=== PATIENT | female | born 1945 | race Caucasian/White ===

== ENCOUNTER 2018-04-04 17:47 | Emergency (ER) | payer MEDICARE ==
[~2018-04-04] VITALS: Ht 154.9 cm; Wt 65.0 kg
[2018-04-04 17:50] VITALS: BP 184/96; PULSE 120; RESP 32; RESP 43; TEMP 97.8; O2SAT 66
[2018-04-04] MEDS ORDERED: LEVALBUTEROL NEB ONE (18:00)
[2018-04-04] MEDS ORDERED: methylPREDNISolone SOD SUCC 125 MG/2 ML VIAL IV PUSH ONE (18:00)
[2018-04-04] MEDS ORDERED: RESP: IPRATROPIUM 0.5 MG/2.5 ML NEB NEB ONE (18:00)
[2018-04-04] MEDS ORDERED: SODIUM CHLORIDE 0.9% FLUSH 10 ML FLUSH IVF PRN (18:00)
[2018-04-04 18:03] VITALS: BP 187/84; PULSE 94; RESP 31; TEMP 97.8; O2SAT 99
--- NOTE | 2018-04-04 18:07 | PD ---
HPI Chief Complaint: Respiratory Symptoms Time Seen by Provider: 17:53 Travel History International Travel<30 days: No Contact w/Intl Traveler<30days: No Traveled to known affect area: No History of Present Illness HPI 73-year-old female patient with history of COPD, presents to the ER today for 2 days of shortness of breath, not improving with nebulizers at home, sent in by primary care physician. In the ER, her saturations are 66% and she is having visible shortness of breath. She denies any chest pains, fevers, or other symptoms. Modifying Factors: None Associated Signs & Symptoms: Shortness of breath, respiratory distress, hypoxia Risk Factors: COPD history PFSH Past Medical History Medical History: Unable to Obtain Tetanus Vaccination: Unknown Past Surgical History Surgical History: Unable to Obtain Social History Alcohol Use: No Tobacco Use: No Substance Use: No Allergies-Medications (Allergen,Severity, Reaction): Coded Allergies: albuterol (Verified Allergy, Unknown, 04/04/18) latex (Verified Allergy, Unknown, 04/04/18) meperidine (Verified Allergy, Unknown, 04/04/18) Reported Meds & Prescriptions Reported Meds & Active Scripts Active Active Prescriptions or Reported Medications Unobtainable Review of Systems Except as stated in HPI: all other systems reviewed are Neg Physical Exam Narrative GENERAL: Well-developed elderly female patient currently and moderate respiratory distress. Awake and oriented 3. SKIN: Focused skin assessment warm/dry. HEAD: Atraumatic. Normocephalic. EYES: Pupils equal and round. No scleral icterus. No injection or drainage. ENT: No nasal bleeding or discharge. Mucous membranes pink and moist. NECK: Trachea midline. No JVD. CARDIOVASCULAR: Regular rate and rhythm. No murmur appreciated. RESPIRATORY: Notable accessory muscle use. Bilateral decreased breath sounds, mild wheezes. Breath sounds equal bilaterally. GASTROINTESTINAL: Abdomen soft, non-tender, nondistended. Hepatic and splenic margins not palpable. MUSCULOSKELETAL: No obvious deformities. No clubbing. No cyanosis. No edema. NEUROLOGICAL: Awake and alert. No obvious cranial nerve deficits. Motor grossly within normal limits. Normal speech. PSYCHIATRIC: Appropriate mood and affect; insight and judgment normal. Data Data Last Documented VS Vital Signs Date Time Temp Pulse Resp B/P (MAP) Pulse Ox O2 Delivery O2 Flow Rate FiO2 04/04/18 18:03 97.8 94 31 187/84 (118) 99 Nasal Cannula 100 Orders Orders Complete Blood Count With Diff (04/04/18 17:53) Comprehensive Metabolic Panel (04/04/18 17:53) B-Type Natriuretic Peptide (04/04/18 17:53) Blood Culture (04/04/18 17:53) Iv Access Insert/Monitor (04/04/18 17:53) Electrocardiogram (04/04/18 17:53) Ecg Monitoring (04/04/18 17:53) Oximetry (04/04/18 17:53) Oxygen Administration (04/04/18 17:53) Chest, Single Ap (04/04/18 17:53) Sodium Chloride 0.9% Flush (Ns Flush) (04/04/18 18:00) Methylprednisolone So Succ Inj (Solumedr (04/04/18 18:00) Ipratropium Neb (Atrovent Neb) (04/04/18 18:00) (Nf) Xopenex (04/04/18 18:00) Labs Laboratory Tests Test 04/04/18 18:05 White Blood Count 15.4 TH/MM3 Red Blood Count 4.92 MIL/MM3 Hemoglobin 14.4 GM/DL Hematocrit 44.8 % Mean Corpuscular Volume 91.1 FL Mean Corpuscular Hemoglobin 29.3 PG Mean Corpuscular Hemoglobin Concent 32.1 % Red Cell Distribution Width 14.0 % Platelet Count 338 TH/MM3 Mean Platelet Volume 8.7 FL Neutrophils (%) (Auto) 85.7 % Lymphocytes (%) (Auto) 7.3 % Monocytes (%) (Auto) 6.7 % Eosinophils (%) (Auto) 0.1 % Basophils (%) (Auto) 0.2 % Neutrophils # (Auto) 13.2 TH/MM3 Lymphocytes # (Auto) 1.1 TH/MM3 Monocytes # (Auto) 1.0 TH/MM3 Eosinophils # (Auto) 0.0 TH/MM3 Basophils # (Auto) 0.0 TH/MM3 CBC Comment DIFF FINAL Differential Comment Blood Urea Nitrogen 23 MG/DL Creatinine 1.55 MG/DL Random Glucose 129 MG/DL Total Protein 7.9 GM/DL Albumin 4.0 GM/DL Calcium Level 9.2 MG/DL Alkaline Phosphatase 124 U/L Aspartate Amino Transf (AST/SGOT) 28 U/L Alanine Aminotransferase (ALT/SGPT) 23 U/L Total Bilirubin 0.4 MG/DL Sodium Level 143 MEQ/L Potassium Level 4.6 MEQ/L Chloride Level 106 MEQ/L Carbon Dioxide Level 24.2 MEQ/L Anion Gap 13 MEQ/L Estimat Glomerular Filtration Rate 33 ML/MIN MDM Medical Decision Making Medical Screen Exam Complete: Yes Emergency Medical Condition: Yes Medical Record Reviewed: Yes Interpretation(s) Laboratory Tests Test 04/04/18 18:05 White Blood Count 15.4 TH/MM3 (4.0-11.0) Neutrophils (%) (Auto) 85.7 % (16.0-70.0) Lymphocytes (%) (Auto) 7.3 % (9.0-44.0) Neutrophils # (Auto) 13.2 TH/MM3 (1.8-7.7) Monocytes # (Auto) 1.0 TH/MM3 (0-0.9) Blood Urea Nitrogen 23 MG/DL (7-18) Creatinine 1.55 MG/DL (0.50-1.00) Random Glucose 129 MG/DL (74-106) Alkaline Phosphatase 124 U/L (45-117) Estimat Glomerular Filtration Rate 33 ML/MIN (>89) Differential Diagnosis COPD exacerbation versus pneumonia versus bronchitis versus CHF Narrative Course Solu-Medrol was given in the ER. Atrovent and Xopenex was given by me because patient states that she had a bad reaction to albuterol. Chest x-ray was ordered for further evaluation. Physician Communication Physician Communication Case is signed out at [address] De Oliveira pending reevaluation after meds. Disposition based on reevaluation. Diagnosis Primary Impression: Shortness of breath Scripts Unable to Obtain Active Prescriptions or Reported Meds Marine Barajas MD April 04, 2018 18:07
[2018-04-04 18:37] LABS: AUTOMATED NEUTROPHIL # 13.2 TH/MM3 (1.8-7.7); BASOPHIL % 0.2 % (0.0-2.0); EOSINOPHIL % 0.1 % (0.0-4.0); HEMATOCRIT 44.8 % (35.0-46.0); HEMOGLOBIN 14.4 GM/DL (11.6-15.3); LYMPH % 7.3 % (9.0-44.0); LYMPHOCYTE # 1.1 TH/MM3 (1.0-4.8); MEAN CELL VOLUME 91.1 FL (80.0-100.0); MEAN CORPUSCULAR HEMOGLOBIN 29.3 PG (27.0-34.0); MEAN CORPUSCULAR HGB CONC 32.1 % (32.0-36.0); MEAN PLATELET VOLUME 8.7 FL (7.0-11.0); MONO % 6.7 % (0.0-8.0); NEUT % 85.7 % (16.0-70.0); PLATELET COUNT 338 TH/MM3 (150-450); RED BLOOD COUNT 4.92 MIL/MM3 (4.00-5.30); WHITE BLOOD COUNT 15.4 TH/MM3 (4.0-11.0)
[2018-04-04 18:52] LABS: AST (GOT) 28 U/L (15-37); BICARBONATE 24.2 MEQ/L (21.0-32.0); BLOOD UREA NITROGEN 23 MG/DL (7-18); CALCIUM 9.2 MG/DL (8.5-10.1); CHLORIDE 106 MEQ/L (98-107); CREATININE 1.55 MG/DL (0.50-1.00); GLOMERULAR FILTRATION RATE 33 ML/MIN (>89); GLUCOSE,RANDOM 129 MG/DL (74-106); SODIUM (NA) 143 MEQ/L (136-145)
[2018-04-04 18:53] LABS: ALKALINE PHOSPHATASE 124 U/L (45-117); ALT (GPT) 23 U/L (10-53); TOTAL BILIRUBIN ADULT 0.4 MG/DL (0.2-1.0); TOTAL PROTEIN 7.9 GM/DL (6.4-8.2)
[2018-04-04] MEDS ORDERED: RESP: LEVALBUTEROL HYDROCHLORIDE 0.63 MG/3 ML NEB (SCH) NEB ONE (19:30)
[2018-04-04 19:55] VITALS: BP 151/89; PULSE 96; RESP 24; O2SAT 93
--- NOTE | 2018-04-04 19:59 | PD ---
Physical Exam Date Seen by Provider: April 04, 2018 Time Seen by Provider: 19:57 Narrative pt signed out to me at change of shift and is on nebs and solumedrol to correct resp distress of COPD pt allergic to albuterol gets tachycardia and she is on home xopenenx and Oxygen 3 liters . pt is holding @ 92% on3 liter nasal canula pt insists she is safe to go home has O2 and pulsox meter at home and would like to try ouitpt follow instead of admission that I offer her. will add atrovent and increase prednisone and she will see Edward tomorrow Data Data Last Documented VS Orders Orders Complete Blood Count With Diff (04/04/18 17:53) Comprehensive Metabolic Panel (04/04/18 17:53) B-Type Natriuretic Peptide (04/04/18 17:53) Blood Culture (04/04/18 17:53) Iv Access Insert/Monitor (04/04/18 17:53) Electrocardiogram (04/04/18 17:53) Ecg Monitoring (04/04/18 17:53) Oximetry (04/04/18 17:53) Oxygen Administration (04/04/18 17:53) Chest, Single Ap (04/04/18 17:53) Sodium Chloride 0.9% Flush (Ns Flush) (04/04/18 18:00) Methylprednisolone So Succ Inj (Solumedr (04/04/18 18:00) Ipratropium Neb (Atrovent Neb) (04/04/18 18:00) Levalbuterol Neb (Xopenex Neb) (04/04/18 19:30) Levofloxacin (Levaquin) (04/04/18 21:45) Ed Discharge Order (04/04/18 21:46) Labs Laboratory Tests Test 04/04/18 18:05 White Blood Count 15.4 TH/MM3 Red Blood Count 4.92 MIL/MM3 Hemoglobin 14.4 GM/DL Hematocrit 44.8 % Mean Corpuscular Volume 91.1 FL Mean Corpuscular Hemoglobin 29.3 PG Mean Corpuscular Hemoglobin Concent 32.1 % Red Cell Distribution Width 14.0 % Platelet Count 338 TH/MM3 Mean Platelet Volume 8.7 FL Neutrophils (%) (Auto) 85.7 % Lymphocytes (%) (Auto) 7.3 % Monocytes (%) (Auto) 6.7 % Eosinophils (%) (Auto) 0.1 % Basophils (%) (Auto) 0.2 % Neutrophils # (Auto) 13.2 TH/MM3 Lymphocytes # (Auto) 1.1 TH/MM3 Monocytes # (Auto) 1.0 TH/MM3 Eosinophils # (Auto) 0.0 TH/MM3 Basophils # (Auto) 0.0 TH/MM3 CBC Comment DIFF FINAL Differential Comment Blood Urea Nitrogen 23 MG/DL Creatinine 1.55 MG/DL Random Glucose 129 MG/DL Total Protein 7.9 GM/DL Albumin 4.0 GM/DL Calcium Level 9.2 MG/DL Alkaline Phosphatase 124 U/L Aspartate Amino Transf (AST/SGOT) 28 U/L Alanine Aminotransferase (ALT/SGPT) 23 U/L Total Bilirubin 0.4 MG/DL Sodium Level 143 MEQ/L Potassium Level 4.6 MEQ/L Chloride Level 106 MEQ/L Carbon Dioxide Level 24.2 MEQ/L Anion Gap 13 MEQ/L Estimat Glomerular Filtration Rate 33 ML/MIN B-Type Natriuretic Peptide 40 PG/ML MDM Medical Record Reviewed: Yes Supervised Visit with SHARMAINE: No Narrative Course pt is greatly improved and feels better wnats to go home she received solumdedrol and duo neb without albuterol on xopenex and atrovent, pt has PCP Dr Leon at our clinic and can see him tomorrow ,. Patient on 2 L at the satting to 87 even after 2 nebs as well as Solu-Medrol 125. Patient does have oxygen at home and if she is holding 3 L I will still may discharge her with adding Atrovent to her nebs at home and giving her increase in her prednisone she already takes 10 mg of prednisone daily she was given 125 of Solu -Medrol here and will need an increased dose for a few days if she is able to be discharged home Diagnosis Primary Impression: Shortness of breath Additional Impression: COPD exacerbation Patient Instructions: COPD (Chronic Obstructive Pulmonary Disease) (ED), General Instructions, Nutrition Guidelines for People with COPD (ED) Scripts Levofloxacin (Levaquin) 750 Mg Tablet 750 MG PO DAILY for Infection, #5 TAB 0 Refills Prov: Jose Luis De Oliveira MD 04/04/18 Prednisone (Prednisone) 50 Mg Tab 50 MG PO DAILY, #5 TAB 0 Refills Prov: Jose Luis De Oliveira MD 04/04/18 Ipratropium Neb (Ipratropium Neb) 0.5 Mg/2.5 Ml Amp 0.5 MG NEB Q6HR NEB for Breathing Treatment, #60 NEBULE 0 Refills Prov: Jose Luis De Oliveira MD 04/04/18 Disposition: 01 DISCHARGE HOME Condition: Jose Luis Prieto MD April 04, 2018 19:59
--- NOTE | 2018-04-04 20:50 | RADRPT ---
EXAM DATE: 04/04/2018 8:43 PM EDT AGE/SEX: 73 years / Female INDICATIONS: Shortness of breath. CLINICAL DATA: This is the patient's initial encounter. Patient reports that signs and symptoms have been present for 1 day and indicates a pain score of 0/10. MEDICAL/SURGICAL HISTORY: Asthma. Chronic obstructive pulmonary disease. None. COMPARISON: No prior [facility] exams available for comparison. FINDINGS: A single AP view of the chest demonstrates the lungs to be symmetrically aerated without evidence of mass, infiltrate or effusion. The cardiomediastinal contours are unremarkable. Osseous structures a re intact. CONCLUSION: 1. No acute cardiopulmonary disease. Electronically signed by: Billy Oneil MD 04/04/2018 8:48 PM EDT
[2018-04-04] MEDS ORDERED: IPRA0.02 NEB (21:44)
[2018-04-04] MEDS ORDERED: PRED50 PO (21:45)
[2018-04-04] MEDS ORDERED: LEVOFLOXACIN 750 MG TAB PO ONE (21:45)
[2018-04-04] MEDS ORDERED: LEVA750T9 PO (21:48)
--- NOTE | 2018-04-06 08:20 | EKG ---
Date Performed: 04/04/2018 Time Performed: 17:59:58 PTAGE: 73 years EKG: SUPRAVENTRICULAR RHYTHM MODERATE ST DEPRESSION ABNORMAL ECG NO PREVIOUS TRACING DOCTOR: Shmuel Ingram Interpretating Date/Time 04/06/2018 08:15:08
== END 2018-04-04 22:15 | disposition home or self-care (01) ==
LOC: NEPE 17:47
DX: J44.1 Chronic obstructive pulmonary disease with (acute) exacerbation (principal)
CPT/HCPCS: 71045; 80053; 83880; 85025; 87040; 93005; 94640; 94664; 96374; 99285; J2930; J7614; J7644

== ENCOUNTER 2018-09-15 13:36 | Inpatient (IN) ==
[2018-09-15] MEDS ORDERED: MethylPREDNISolone Sod Succinate Inj 125 MG/2 ML Vial IV.PUSH ONE (13:48)
--- NOTE | 2018-09-15 13:51 | ED ---
HPI General Chief Complaint: Shortness of Breath/Dyspnea Stated Complaint: SOB Time Seen by Provider: 09/15/18 13:48 Source: patient and family Mode of arrival: ambulatory Limitations: no limitations History of Present Illness On oxygen at home presents to the ER today for several days of worsening dyspnea on exertion and shortness of breath, her states that she has been using her nebulizers but have been using more more of her Xopenex. Patient states she is nauseous but denies any chest pains, fevers, abdominal pains, or other symptoms. Related Data Home Medications Medication Instructions Recorded Confirmed alprazolam 09/15/18 alprazolam [Xanax] 09/15/18 diltiazem HCl 09/15/18 ipratropium bromide 09/15/18 levalbuterol HCl [Xopenex] 09/15/18 levalbuterol tartrate [Xopenex HFA] 09/15/18 metronidazole 500 mg PO QID 09/15/18 09/15/18 mometasone-formoterol [Dulera] 09/15/18 montelukast 10 mg PO QPM 09/15/18 09/15/18 pantoprazole 40 mg PO DAILY 09/15/18 09/15/18 prednisone 10 mg PO DAILY 09/15/18 09/15/18 tiotropium bromide [Spiriva 09/15/18 Respimat] Allergies Allergy/AdvReac Type Severity Reaction Status Date / Time albuterol Allergy Unknown Rash Verified 09/15/18 13:41 latex Allergy Unknown Anaphylaxis Verified 09/15/18 13:41 meperidine Allergy Unknown Hives Verified 09/15/18 13:41 Review of Systems ROS: all other systems reviewed are negative PMFSH History History Provided By: Patient Social History Social History Substance History: No History of Abuse Second Hand Smoke Exposure: No Smoking Status: Former smoker Tobacco Type: Cigarettes How Often Do You Have a Drink Containing Alcohol: Monthly or less Recent Travel in [facility] within the Last 8 Weeks: No Recent Out of Country Travel within the Last 8 Weeks: No Exam Narrative Exam Narrative: GENERAL: Well-developed elderly white female patient currently in moderate respiratory distress. Awake and oriented x3. SKIN: Focused skin assessment warm/dry. HEAD: Atraumatic. Normocephalic. EYES: Pupils equal and round. No scleral icterus. No injection or drainage. ENT: No nasal bleeding or discharge. Mucous membranes pink and moist. NECK: Trachea midline. No JVD. CARDIOVASCULAR: Regular rate and rhythm. No murmur appreciated. RESPIRATORY: Moderate accessory muscle use. Decreased to auscultation, mild wheezing bilaterally. Breath sounds equal bilaterally. GASTROINTESTINAL: Abdomen soft, non-tender, nondistended. Hepatic and splenic margins not palpable. MUSCULOSKELETAL: No obvious deformities. No clubbing. No cyanosis. No edema. NEUROLOGICAL: Awake and alert. No obvious cranial nerve deficits. Motor grossly within normal limits. Normal speech. PSYCHIATRIC: Appropriate mood and affect; insight and judgment normal. Course Initial Documented Vital Signs Temperature 98.5 F 09/15/18 13:37 Pulse Rate 144 H 09/15/18 13:37 Respiratory Rate 16 09/15/18 13:37 Pulse Oximetry 60 L 09/15/18 13:37 Last Documented Vital Signs Temperature 98.5 F 09/15/18 13:37 Pulse Rate 118 H 09/15/18 14:55 Respiratory Rate 24 09/15/18 14:55 Blood Pressure 174/124 H 09/15/18 13:55 Pulse Oximetry 100 09/15/18 13:55 Medical Decision Making MDM Narrative Medical decision making narrative: Chest x-ray is concerning for possible early pneumonia. IV antibiotics were given after cultures were drawn. Patient was given nebulizers and Solu-Medrol in the ER. After about 4 doses of nebulizers, she feels improved but her saturations are still low. At this point, my plan would be to admit her for further evaluation and treatment. Case is discussed with family practice resident service for admission. Medical Screen Exam Complete: Yes Emergency Medical Condition: Yes Differential Diagnosis Differential Diagnosis: COPD exacerbation versus bronchitis versus pneumonia versus CHF Lab Data Lab results reviewed: Yes I reviewed the patient's lab results. Result diagrams: 09/15/18 13:49 09/15/18 13:49 Lab Results 09/15/18 09/15/18 09/15/18 Range/Units 13:49 13:49 13:49 WBC 18.6 H (4.0-11.0) th/mm3 RBC 4.80 (4.00-5.30) mil/mm3 Hgb 13.9 (11.6-15.3) gm/dL Hct 43.2 (35.0-46.0) % MCV 90.2 (80.0-100.0) fL MCH 29.0 (27.0-34.0) pg MCHC 32.1 (32.0-36.0) % RDW 15.6 (11.6-17.2) % Plt Count 317 (150-450) th/mm3 MPV 8.4 (7.0-11.0) fL Prelim Diff (Auto) Slide review pending Neut % (Auto) 86.0 H (16.0-70.0) % Lymph % (Auto) 4.8 L (9.0-44.0) % Walker % (Auto) 7.6 (0.0-8.0) % Eos % (Auto) 1.1 (0.0-4.0) % Baso % (Auto) 0.5 (0.0-2.0) % Neut # (Auto) 16.0 H (1.8-7.7) th/mm3 Lymph # (Auto) 0.9 L (1.0-4.8) th/mm3 Walker # (Auto) 1.4 H (0.0-0.9) th/mm3 Eos # (Auto) 0.2 (0.0-0.4) th/mm3 Baso # (Auto) 0.1 (0.0-0.2) th/mm3 WBC Differential . Diff Scan Auto diff confirmed Differential Comment . Sodium 140 (136-145) meq/L Potassium 4.2 (3.5-5.1) meq/L Chloride 104 (98-107) meq/L Carbon Dioxide 27.4 (21.0-32.0) meq/L Anion Gap 9 (5-15) meq/L BUN 19 H (7-18) mg/dL Creatinine 1.10 H (0.50-1.00) mg/dL Estimated GFR 49 L (>89) mL/min Random Glucose 204 H (74-106) mg/dL Calcium 8.7 (8.5-10.1) mg/dL Total Bilirubin 0.4 (0.2-1.0) mg/dL AST 24 (15-37) U/L ALT 20 (10-53) U/L Alkaline Phosphatase 119 H (45-117) U/L Troponin I Less than 0.02 L (0.02-0.05) ng/mL B-Natriuretic Peptide 86 (0-100) pg/mL Total Protein 7.8 (6.4-8.2) g/dL Albumin 3.5 (3.4-5.0) g/dL Imaging Data Attestation: I personally reviewed and interpreted this imaging study as follows : Radiologist's impression: Chest X-Ray 09/15/18 13:48 CONCLUSION: Atelectasis versus mild consolidation of left lung base. ECG Data Attestation: I personally reviewed and interpreted this ECG as follows: Interpretation: EKG shows sinus tachycardia rate of 125 bpm with frequent APCs. Discharge Plan Discharge Disposition Patient Disposition: 30 Still Patient Discharge Condition Condition: Stable Discharge Details Anticipated Discharge Date: 09/15/18 Diagnosis: Community acquired pneumonia, Acute exacerbation of chronic obstructive airways disease Physicians Team ED Provider: Marnie Barajas Primary Care Provider: Mj Leon Rxs /Orders / Referrals /Forms Prescriptions: No Action prednisone 10 mg Tablet 10 mg PO DAILY RF: 0 alprazolam [Xanax] 0.5 mg Tablet RF: 0 levalbuterol HCl [Xopenex] 1.25 mg/3 mL Solution For Nebulization RF: 0 ipratropium bromide 0.02 % Solution RF: 0 levalbuterol tartrate [Xopenex HFA] 45 mcg/actuation Hfa Aerosol Inhaler RF: 0 tiotropium bromide [Spiriva Respimat] 2.5 mcg/actuation Mist RF: 0 metronidazole 500 mg Tablet 500 mg PO QID RF: 0 alprazolam 0.5 mg Tablet RF: 0 pantoprazole 40 mg Tablet,Delayed Release (Dr/Ec) 40 mg PO DAILY RF: 0 montelukast 10 mg Tablet 10 mg PO QPM RF: 0 diltiazem HCl 360 mg Tablet Extended Release 24 Hr RF: 0 mometasone-formoterol [Dulera] 200-5 mcg/actuation Hfa Aerosol Inhaler RF: 0 Discharge Interventions Interventions: Vital Signs Last Done: 09/15/18 13:55 Status ED Status: With Doctor
[2018-09-15 14:06] LABS: Baso # (Auto) 0.1 th/mm3 (0.0-0.2); Baso % (Auto) 0.5 % (0.0-2.0); Eos # (Auto) 0.2 th/mm3 (0.0-0.4); Eos % (Auto) 1.1 % (0.0-4.0); Hematocrit 43.2 % (35.0-46.0); Hemoglobin 13.9 gm/dL (11.6-15.3); Lymph # (Auto) 0.9 th/mm3 (1.0-4.8); Lymph % (Auto) 4.8 % (9.0-44.0); Mean Corpuscular HGB Conc 32.1 % (32.0-36.0); Mean Corpuscular Volume 90.2 fL (80.0-100.0); Mean Platelet Volume 8.4 fL (7.0-11.0); Mono # (Auto) 1.4 th/mm3 (0.0-0.9); Mono % (Auto) 7.6 % (0.0-8.0); Platelet Count 317 th/mm3 (150-450); Red Cell Distribution Width 15.6 % (11.6-17.2); White Blood Count 18.6 th/mm3 (4.0-11.0)
--- NOTE | 2018-09-15 14:09 | XR ---
EXAM DATE: 09/15/2018 2:05 PM EDT AGE/SEX: 73 years / Female INDICATIONS: Shortness of breath. CLINICAL DATA: This is the patient's initial encounter. Patient reports that signs and symptoms have been present for 1 day and indicates a pain score of 0/10. MEDICAL/SURGICAL HISTORY: Chronic obstructive pulmonary disease. Hypertension. Asthma. None. COMPARISON: [facility] [place], CHEST SINGLE AP, 04/04/2018. . FINDINGS: Single AP view the chest. Patchy opacity at the left lung base indicating atelectasis vers us mild consolidation. Cardiomediastinal silhouette within normal limits. No evidence of pleural eff usion or pneumothorax. CONCLUSION: Atelectasis versus mild consolidation of left lung base. Electronically signed by: Artemio Edward MD 09/15/2018 2:08 PM EDT
[2018-09-15 14:25] LABS: Alkaline Phosphatase 119 U/L (45-117); Total Protein 7.8 g/dL (6.4-8.2)
[2018-09-15 14:32] LABS: Alanine Aminotransferase 20 U/L (10-53); Albumin 3.5 g/dL (3.4-5.0); Anion Gap 9 meq/L (5-15); Aspartate Aminotransferase 24 U/L (15-37); Blood Urea Nitrogen 19 mg/dL (7-18); Calcium 8.7 mg/dL (8.5-10.1); Carbon Dioxide 27.4 meq/L (21.0-32.0); Chloride 104 meq/L (98-107); Glomerular Filtration Rate 49 mL/min (>89); Glucose,Random 204 mg/dL (74-106); Sodium 140 meq/L (136-145)
[2018-09-15 14:40] LABS: Potassium 4.2 meq/L (3.5-5.1)
--- NOTE | 2018-09-15 16:38 | P.HPFP ---
History of Present Illness Primary Care Physician: Mj Leon MD <Ryder Brewer L - 09/16/18 13:28> Mj Leon MD <Zeeshan Walters O - 09/15/18 16:38> History of Present Illness: This patient is a 73-year-old female with a past medical history significant for COPD on home oxygen, and anxiety who was admitted for shortness of breath. Patient reports that due to her COPD she is chronically short of breath over the last few weeks her shortness of breath has began to worsen. She reports that she was at her PCPs office (Dr. Leon) today when she was told to come to the ED for difficulty breathing. 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 She reports that she has had occasional coughing that is infrequent. She denies any sputum production. Patient does endorse that when she bends over her nose begins to run but this has happened to her entire life. Patient denies any other associated symptoms and reports that her shortness of breath is exacerbated by activity. She denies any recent travel, history of CHF, or history of intubation. She also denies being admitted to any medical facility the last 3 months. She has no recent illnesses. Patient reports nausea without vomiting but denies any chest pain diarrhea, constipation, urinary symptoms, or dizziness. Patient reports he got her flu shot this year but has not received her pneumococcal vaccination. Of note: Patient reports to be very anxious and suffers from claustrophobia. She reports that she had the doors at home removed due to this phobia. 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 to for 36 years 3 boys Used to manage golf course for 7 years Smoking- started at 15 yrs old and quit in , 36 years-2ppd Denies alcohol use Denies illicit drug use FHx: DM Mom- heart disease- at 69 Allergies: Demerol- hypotension CODE STATUS: Full code <Zeeshan Walters - 09/15/18 19:14> - Diagnosis (1) Shortness of breath at rest (2) COPD (chronic obstructive pulmonary disease) (3) Anxiety (4) Hypertension (5) Nutrition, metabolism, and development symptoms <Walters,Jose Yanely - 09/15/18 19:15> (1) COPD (chronic obstructive pulmonary disease) (2) Bacteremia (3) Shortness of breath at rest (4) Anxiety (5) Hypertension (6) Nutrition, metabolism, and development symptoms <Ryder Brewer Daniel - 09/16/18 13:28> Inpatient Certification: I certify that the inpatient services were ordered in accordance with Medicare regulations governing the order. This includes certification that hospital inpatient services are reasonable and necessary and in the case of services not specified as inpatient-only under 42 CFR 419.22(n), that they are appropriately provided as inpatient services in accordance to with the 2-midnight benchmark under 43 CFR 412.3(e) <OsmanRyder Daniel - 09/16/18 13:28> Review of Systems Constitutional: Denies chills, Denies fever(s), Denies headache(s), Denies dizziness, Eyes: Denies change in vision, Denies double vision, Denies blurry vision Cardiovascular: Denies chest pain, Denies fast heart rate, Denies rapid, pounding, or irregular heartbeat Respiratory: Endorses shortness of breath as well as infrequent coughs over the last 3 weeks, denies sputum production Gastrointestinal: Denies abdominal pain, Denies constipation, Denies loose stools, Denies nausea, Denies vomiting Genitourinary: Endorses urinary incontinence due to prolapse, Denies painful urination, Denies urinary frequency, Denies blood in urine <Zeeshan Walters - 09/15/18 19:14> [facility] - History History Provided By: Patient <RomeoZeeshan Ny - 09/15/18 16:38> - Medical History Medical History: Medical History (Last Reviewed 09/15/18 @ 13:53 by Irma Treviño) COPD (chronic obstructive pulmonary disease) HTN (hypertension) <OsmanRyder Daniel - 09/16/18 13:28> Medical History (Last Reviewed 09/15/18 @ 13:53 by Irma Treviño) COPD (chronic obstructive pulmonary disease) HTN (hypertension) <Zeeshan Walters - 09/15/18 16:38> - Tobacco History Second Hand Smoke Exposure: No <Zeeshan Walters 09/15/18 16:38> Tobacco Use In Past 30 Days: No <Zeeshan Walters - 09/15/18 16:38> Smoking Status: Former smoker <Zeeshan Walters 09/15/18 16:38> Tobacco Type: Cigarettes <Zeeshan Walters - 09/15/18 16:38> - Alcohol History How Often Do You Have a Drink Containing Alcohol: Monthly or less <Zeeshan Walters - 09/15/18 16:38> - Substance Use History Substance History: No History of Abuse <Zeeshan Walters 09/15/18 16:38> - Travel History Recent Travel in the [facility] Within the Last 8 Weeks: No <Zeeshan Waltesr 16:38> Recent Travel Out of the Country Within the Last 8 Weeks: No <Zeeshan Walters 09/15/18 16:38> - Immunization History Tetanus Immunization: Unsure <Zeeshan Walters 09/15/18 16:38> Medications and Allergies Allergies Allergy/AdvReac Type Severity Reaction Status Date / Time albuterol Allergy Unknown Rash Verified 09/15/18 13:41 latex Allergy Unknown Anaphylaxis Verified 09/15/18 13:41 meperidine Allergy Unknown Hives Verified 09/15/18 13:41 <Ryder Brewer 09/16/18 13:28> Home Medications Medication Instructions Recorded Confirmed Type alprazolam 09/15/18 History alprazolam [Xanax] 09/15/18 History diltiazem HCl 09/15/18 History ipratropium bromide 09/15/18 History levalbuterol HCl [Xopenex] 09/15/18 History levalbuterol tartrate [Xopenex HFA] 09/15/18 History metronidazole 500 mg PO QID 09/15/18 09/15/18 History mometasone-formoterol [Dulera] 09/15/18 History montelukast 10 mg PO QPM 09/15/18 09/15/18 History pantoprazole 40 mg PO DAILY 09/15/18 09/15/18 History prednisone 10 mg PO DAILY 09/15/18 09/15/18 History tiotropium bromide [Spiriva 09/15/18 History Respimat] <Ryder Brewer 09/16/18 13:28> Active Medications: Active Medications Acetaminophen (Tylenol) 325 mg PO ONCE ONE Stop: 09/16/18 13:31 Last Admin: 09/16/18 13:05 Dose: 325 mg Al Hydroxide/Mg Hydroxide (Milk Of Magnesia Liq) 30 ml PO Q12H PRN PRN Reason: Mild Constipation Albuterol (Duoneb Neb (Young)) 1 ampul NEB Q6HR NEB [facility] Last Admin: 09/16/18 09:29 Dose: 1 ampul Albuterol (Duoneb Neb (Prn)) 1 ampul NEB Q15M PRN PRN Reason: SHORTNESS OF BREATH/WHEEZING Alprazolam (Xanax) 0.25 mg PO Q6H PRN PRN Reason: ANXIETY Last Admin: 09/16/18 13:07 Dose: 0.25 mg Azithromycin (Zithromax) 500 mg PO DAILY [facility] Last Admin: 09/16/18 09:12 Dose: 500 mg Bisacodyl (Dulcolax Supp) 10 mg RECTAL DAILY PRN PRN Reason: SEVERE CONSITIPATION Clonidine HCl (Catapres) 0.1 mg PO Q6H PRN PRN Reason: HYPERTENSION Enoxaparin Sodium (Lovenox Inj) 30 mg SQ Q24H [facility] Last Admin: 09/15/18 20:33 Dose: 30 mg Ceftriaxone Sodium 2,000 mg/ (Sodium Chloride) 100 mls @ 200 mls/hr IV.SIG Q24H [facility] Last Admin: 09/16/18 13:05 Dose: 200 mls/hr Lactulose (Lactulose Liq) 30 ml PO DAILY PRN PRN Reason: SEVERE CONSITIPATION Prednisone (Deltasone) 50 mg PO DAILY [facility] Last Admin: 09/16/18 09:12 Dose: 50 mg Sennosides (Senokot) 17.2 mg PO Q12H PRN PRN Reason: Moderate Constipation <Ryder Brewer L - 09/16/18 13:28> Exam Vital signs: Vital Signs 09/15/18 14:55 09/15/18 17:03 09/15/18 18:06 Temperature 98.8 F Pulse Rate 118 H 116 H Respiratory Rate 24 20 Blood Pressure 146/80 H Pulse Oximetry 100 92 L 09/15/18 19:25 09/15/18 20:00 09/15/18 21:23 Temperature 97.9 F Pulse Rate 104 H 100 H Respiratory Rate 20 20 Blood Pressure 149/97 H Pulse Oximetry 99 96 97 09/15/18 21:35 09/15/18 22:09 09/15/18 22:51 Temperature Pulse Rate 104 H Respiratory Rate Blood Pressure Pulse Oximetry 94 L 99 09/16/18 00:00 09/16/18 04:00 09/16/18 04:34 Temperature 97.4 F L 97.3 F L Pulse Rate 97 H 91 H 105 H Respiratory Rate 18 19 19 Blood Pressure 123/82 153/95 H Pulse Oximetry 100 100 09/16/18 07:41 09/16/18 08:00 09/16/18 09:30 Temperature 97.5 F L Pulse Rate 96 H 91 H 99 H Respiratory Rate 19 16 Blood Pressure 149/76 H Pulse Oximetry 98 100 09/16/18 09:42 09/16/18 12:00 09/16/18 12:14 Temperature 97.8 F Pulse Rate 99 H Respiratory Rate 18 Blood Pressure 148/85 H Pulse Oximetry 96 91 L 99 Intake & Output 09/15/18 09/16/18 09/16/18 19:59 06:59 18:59 Intake Total Balance Weight Intake: IV Levaquin 750 mg Premix Inj 150 ML @ 100 mls/hr IV.SIG STAT STA Rx#:[id number] Rocephin Inj 1,000 MG In NS Inj 100 ML @ 200 mls/hr IV.SIG Q24H YOUNG Rx#:[id number] Other: # Voids Date of Last Bowel Movement 09/15/18 Weight On Admission <Ryder Brewer L - 09/16/18 13:28> Vital Signs 09/15/18 13:37 09/15/18 13:55 09/15/18 14:55 Temperature 98.5 F Pulse Rate 144 H 124 H 118 H Respiratory Rate 16 18 24 Blood Pressure 174/124 H Pulse Oximetry 60 L 100 Intake & Output 09/14/18 09/15/18 09/15/18 18:59 06:59 18:59 Weight 68.039 kg <Zeeshan Walters O - 09/15/18 16:38> Narrative: GENERAL: Well-nourished, well-developed patient. Patient was noticeably shaking but appeared to be breathing comfortably on mask. Patient asked the door be kept open for the entirety of exam due to severe claustrophobia. Patient reports that she previously had doors removed from her house due to this reason. SKIN: Warm and dry. No rash. EYES: No scleral icterus. No injection or drainage. PERRLA. EOMI. HENT: Normocephalic. Atraumatic. MMM. OP Benign. NECK: Supple, trachea midline. No JVD or lymphadenopathy. CARDIOVASCULAR: Regular rate and rhythm without obvious murmurs, gallops, or rubs. RESPIRATORY: Diminished breath sounds in all lung marcus bilaterally. Patient has significant wheezing particularly in lower lobes bilaterally. Patient had no dullness to percussion or positive egophony on examination. Patient was on 4 L on nonrebreather. GASTROINTESTINAL: Abdomen soft, non-tender, nondistended. BS WNL. MUSCULOSKELETAL: No cyanosis or edema. Strength grossly WNL. BACK: Nontender without obvious deformity. No CVA tenderness. NEURO/PSYCH: Anxious with visible shaking but awake alert oriented and engaged. Patient's thought process was clear and goal-directed with appropriate mood and affect. <Zeeshan Walters O - 09/15/18 19:14> Results - Labs Result diagrams: 09/16/18 01:55 EST 09/16/18 01:55 EST <Ryder Brewer L - 09/16/18 13:28> Abnormal lab results 09/15/18 09/16/18 09/16/18 Range/Units 13:49 01:55 EST 01:55 EST Neut % (Auto) 95.2 H (16.0-70.0) % Lymph % (Auto) 3.0 L (9.0-44.0) % Neut # (Auto) 8.5 H (1.8-7.7) th/mm3 Lymph # (Auto) 0.3 L (1.0-4.8) th/mm3 BUN 19 H (7-18) mg/dL Creatinine 1.10 H (0.50-1.00) mg/dL Estimated GFR 49 L (>89) mL/min Random Glucose 204 H (74-106) mg/dL AST (15-37) U/L Troponin I Less than 0.02 L (0.02-0.05) ng/mL Albumin (3.4-5.0) g/dL 09/16/18 Range/Units 01:55 EST Neut % (Auto) (16.0-70.0) % Lymph % (Auto) (9.0-44.0) % Neut # (Auto) (1.8-7.7) th/mm3 Lymph # (Auto) (1.0-4.8) th/mm3 BUN 20 H (7-18) mg/dL Creatinine (0.50-1.00) mg/dL Estimated GFR 55 L (>89) mL/min Random Glucose 157 H (74-106) mg/dL AST 12 L (15-37) U/L Troponin I (0.02-0.05) ng/mL Albumin 2.9 L D (3.4-5.0) g/dL Short CBC 09/16/18 Range/Units 01:55 EST WBC 8.9 D (4.0-11.0) th/mm3 Hgb 11.9 D (11.6-15.3) gm/dL Hct 36.7 (35.0-46.0) % Plt Count 236 (150-450) th/mm3 BMP 09/15/18 09/16/18 13:49 01:55 EST Sodium 140 141 Potassium 4.2 4.6 Chloride 104 105 Carbon Dioxide 27.4 31.2 BUN 19 H 20 H Creatinine 1.10 H 1.00 Calcium 8.7 8.5 Cardiac Enzymes 09/15/18 09/16/18 Range/Units 20:30 01:55 EST Troponin I 0.02 Less than 0.02 L (0.02-0.05) ng/mL Liver Function 09/15/18 09/16/18 Range/Units 13:49 01:55 EST Total Bilirubin 0.2 (0.2-1.0) mg/dL AST 24 12 L (15-37) U/L ALT 20 18 (10-53) U/L Alkaline Phosphatase 91 (45-117) U/L Albumin 3.5 2.9 L D (3.4-5.0) g/dL <YoungRyder L - 09/16/18 13:28> Abnormal lab results 09/15/18 09/15/18 Range/Units 13:49 13:49 WBC 18.6 H (4.0-11.0) th/mm3 Neut % (Auto) 86.0 H (16.0-70.0) % Lymph % (Auto) 4.8 L (9.0-44.0) % Neut # (Auto) 16.0 H (1.8-7.7) th/mm3 Lymph # (Auto) 0.9 L (1.0-4.8) th/mm3 [place] # (Auto) 1.4 H (0.0-0.9) th/mm3 BUN 19 H (7-18) mg/dL Creatinine 1.10 H (0.50-1.00) mg/dL Estimated GFR 49 L (>89) mL/min Random Glucose 204 H (74-106) mg/dL Alkaline Phosphatase 119 H (45-117) U/L Troponin I Less than 0.02 L (0.02-0.05) ng/mL Short CBC 09/15/18 Range/Units 13:49 WBC 18.6 H (4.0-11.0) th/mm3 Hgb 13.9 (11.6-15.3) gm/dL Hct 43.2 (35.0-46.0) % Plt Count 317 (150-450) th/mm3 BMP 09/15/18 13:49 Sodium 140 Potassium 4.2 Chloride 104 Carbon Dioxide 27.4 BUN 19 H Creatinine 1.10 H Calcium 8.7 Cardiac Enzymes 09/15/18 Range/Units 13:49 Troponin I Less than 0.02 L (0.02-0.05) ng/mL Liver Function 09/15/18 Range/Units 13:49 Total Bilirubin 0.4 (0.2-1.0) mg/dL AST 24 (15-37) U/L ALT 20 (10-53) U/L Alkaline Phosphatase 119 H (45-117) U/L Albumin 3.5 (3.4-5.0) g/dL <Zeeshan Walters O - 09/15/18 16:38> - Imaging Impressions Chest CTA 09/15/18 17:02 CONCLUSION: 1. No pulmonary embolus. 2. Right upper lobe nodular opacity, probably scarring. Left lower lobe nodular opacity, most likely infectious or inflammatory. Six-month follow-up noncontrast chest CT recommended. 3. Moderate to severe emphysema. 4. Coronary artery calcification. <Ryder Brewer L - 09/16/18 13:28> Impressions Chest X-Ray 09/15/18 13:48 CONCLUSION: Atelectasis versus mild consolidation of left lung base. <Zeeshan Walters - 09/15/18 16:38> Caprini VTE Risk Assessment Caprini VTE Risk Assessment: Moderate/High Risk (score >= 2) <Zeeshan Walters - 09/15/18 19:15> Caprini Risk Assessment Model: Point Value = 1 Point Value = 2 Point Value = 3 Point Value = 5 Age 41-60 Minor surgery BMI > 25 kg/m2 Swollen legs Varicose veins or History of unexplained or recurrent spontaneous Oral contraceptives or hormone replacement Sepsis (< 1 month) Serious lung disease, including pneumonia (< 1 month) Abnormal pulmonary function Acute myocardial infarction Congestive heart failure (< 1 month) History of inflammatory bowel disease Medical patient at bed rest Age 61-74 Arthroscopic surgery Major open surgery (> 45 min) Laparoscopic surgery (> 45 min) Malignancy Confined to bed (> 72 hours) Immobilizing plaster cast Central venous access Age >= 75 History of VTE Family history of VTE Factor V Leiden Prothrombin [id number] Lupus anticoagulant Anticardiolipin antibodies Elevated serum homocysteine Heparin-induced thrombocytopenia Other congenital or acquired thrombophilia Stroke (< 1 month) Elective arthroplasty Hip, pelvis, or leg fracture Acute spinal cord injury (< 1 month) <Ryder Brewer L - 09/16/18 13:28> Point Value = 1 Point Value = 2 Point Value = 3 Point Value = 5 Age 41-60 Minor surgery BMI > 25 kg/m2 Swollen legs Varicose veins or History of unexplained or recurrent spontaneous Oral contraceptives or hormone replacement Sepsis (< 1 month) Serious lung disease, including pneumonia (< 1 month) Abnormal pulmonary function Acute myocardial infarction Congestive heart failure (< 1 month) History of inflammatory bowel disease Medical patient at bed rest Age 61-74 Arthroscopic surgery Major open surgery (> 45 min) Laparoscopic surgery (> 45 min) Malignancy Confined to bed (> 72 hours) Immobilizing plaster cast Central venous access Age >= 75 History of VTE Family history of VTE Factor V Leiden Prothrombin [id number] Lupus anticoagulant Anticardiolipin antibodies Elevated serum homocysteine Heparin-induced thrombocytopenia Other congenital or acquired thrombophilia Stroke (< 1 month) Elective arthroplasty Hip, pelvis, or leg fracture Acute spinal cord injury (< 1 month) <Zeeshan Walters 09/15/18 16:38> Prophylaxis Regimen: Total Risk Factor Score Risk Level Prophylaxis Regimen 0-1 Low Early ambulation 2 Moderate Order ONE of the following: *Sequential Compression Device (SCD) *Heparin 5000 units SQ BID 3-4 Higher Order ONE of the following medications: *Heparin 5000 units SQ TID *Enoxaparin/Lovenox 40 mg SQ daily (WT < 150 kg, CrCl > 30 mL/min) *Enoxaparin/Lovenox 30 mg SQ daily (WT < 150 kg, CrCl > 10-29 mL/min) *Enoxaparin/Lovenox 30 mg SQ BID (WT < 150 kg, CrCl > 30 mL/min) AND/OR *Sequential Compression Device (SCD) 5 or more Highest Order ONE of the following medications: *Heparin 5000 units SQ TID (Preferred with Epidurals) *Enoxaparin/Lovenox 40 mg SQ daily (WT < 150 kg, CrCl > 30 mL/min) *Enoxaparin/Lovenox 30 mg SQ daily (WT < 150 kg, CrCl > 10-29 mL/min) *Enoxaparin/Lovenox 30 mg SQ BID (WT < 150 kg, CrCl > 30 mL/min) AND *Sequential Compression Device (SCD) <Ryder Brewer - 09/16/18 13:28> Total Risk Factor Score Risk Level Prophylaxis Regimen 0-1 Low Early ambulation 2 Moderate Order ONE of the following: *Sequential Compression Device (SCD) *Heparin 5000 units SQ BID 3-4 Higher Order ONE of the following medications: *Heparin 5000 units SQ TID *Enoxaparin/Lovenox 40 mg SQ daily (WT < 150 kg, CrCl > 30 mL/min) *Enoxaparin/Lovenox 30 mg SQ daily (WT < 150 kg, CrCl > 10-29 mL/min) *Enoxaparin/Lovenox 30 mg SQ BID (WT < 150 kg, CrCl > 30 mL/min) AND/OR *Sequential Compression Device (SCD) 5 or more Highest Order ONE of the following medications: *Heparin 5000 units SQ TID (Preferred with Epidurals) *Enoxaparin/Lovenox 40 mg SQ daily (WT < 150 kg, CrCl > 30 mL/min) *Enoxaparin/Lovenox 30 mg SQ daily (WT < 150 kg, CrCl > 10-29 mL/min) *Enoxaparin/Lovenox 30 mg SQ BID (WT < 150 kg, CrCl > 30 mL/min) AND *Sequential Compression Device (SCD) <Zeeshan Walters - 09/15/18 16:38> Assessment and Plan - Assessment (1) Shortness of breath at rest Code(s): R06.02 - Shortness of breath Status: Acute Plan: Patient presents with shortness of breath at rest with a history of COPD as well as a significant smoking history. Patient tachypneic and tachycardic and satting 60% on room air on admission. Patient has white count of 18.6. EKG showed irregular heart rate with multiple PVCs and ST depression in leads V4 through V6. Possible etiologies of shortness of breath includes COPD exacerbation versus pneumonia versus PE versus cardiac etiology. Patient status post dose of Solu-Medrol and Levaquin in ED. -CXR 02/13 showed atelectasis versus mild consolidation of left lung base. -Initial troponin less than 0.02 -Monitor on telemetry -Begin ceftriaxone and azithromycin for possible community acquired pneumonia -Continue duo nebs -Continue prednisone -Follow-up blood cultures -Follow-up with pulmonary CT -Follow-up with influenza AB -If patient produces sputum please culture (2) COPD (chronic obstructive pulmonary disease) Code(s): J44.9 - Chronic obstructive pulmonary disease, unspecified Status: Acute Plan: Patient suffers from COPD and has a significant smoking history. Patient currently on 4-5 L of oxygen at home but is previously on 2 L. Patient has shortness of breath that has been worsening over the last 3 weeks without production of sputum. -Duo nebs every 6 -Supplement duo nebs as needed -Continue home prednisone -Administer pneumococcal vaccine -Supplemental oxygen to maintain saturation at 92% -If patient produces sputum please culture (3) Anxiety Code(s): F41.9 - Anxiety disorder, unspecified Status: Acute Plan: Patient reports extreme anxiety particularly claustrophobia. Patient reports that she had to take doors off her house in order to be calm. Patient also requested that the door be kept open during the entirety of exam. -Continue home alprazolam (4) Hypertension Code(s): I10 - Essential (primary) hypertension Status: Acute Plan: Patient reports past medical history of hypertension but currently not on any medication. -Clonidine as needed (5) Nutrition, metabolism, and development symptoms Code(s): R63.8 - Other symptoms and signs concerning food and fluid intake Status: Acute Plan: Fluids: Not indicated at this time Electrolytes: Replete as needed Nutrition: Regular diet DVT prophylaxis: Enoxaparin 30 subq daily <Zeeshan Walters O - 09/15/18 19:15> (1) COPD (chronic obstructive pulmonary disease) Code(s): J44.9 - Chronic obstructive pulmonary disease, unspecified Status: Acute (2) Bacteremia Code(s): R78.81 - Bacteremia Status: Acute (3) Shortness of breath at rest Code(s): R06.02 - Shortness of breath Status: Resolved (4) Anxiety Code(s): F41.9 - Anxiety disorder, unspecified Status: Acute (5) Hypertension Code(s): I10 - Essential (primary) hypertension Status: Acute (6) Nutrition, metabolism, and development symptoms Code(s): R63.8 - Other symptoms and signs concerning food and fluid intake Status: Acute <Ryder Brewer L - 09/16/18 13:28> - Attending Attestation The exam, history, and the medical decision-making described in the above note were completed with the assistance of the resident physician. I reviewed and agree with the findings presented. I attest that I had a [id number] encounter with the patient on the same day alongside the residents, and personally performed and documented my assessment and findings in the medical record. Patient admitted for shortness of breath. Has history of COPD. Also with history of CAD, will trend troponin and EKG's. She is not very active physically, and Wells criteria justifies ordering CTPA to rule out PE. <Ryder Brewer L - 09/16/18 13:28> <Ryder Brewer - Last Filed: 09/16/18 13:28> (1) COPD (chronic obstructive pulmonary disease) Qualifiers: COPD type: COPD with acute exacerbation Qualified Code(s): J44.1 - Chronic obstructive pulmonary disease with (acute) exacerbation (5) Hypertension Qualifiers: Hypertension type: essential hypertension Qualified Code(s): I10 - Essential (primary) hypertension <Ryder Brewer - Last Filed: 09/16/18 13:28> (1) COPD (chronic obstructive pulmonary disease) Qualifiers: COPD type: COPD with acute exacerbation Qualified Code(s): J44.1 - Chronic obstructive pulmonary disease with (acute) exacerbation (5) Hypertension Qualifiers: Hypertension type: essential hypertension Qualified Code(s): I10 - Essential (primary) hypertension
[2018-09-15] MEDS ORDERED: Bisacodyl 10 MG Supp RECTAL PRN (16:57)
[2018-09-15] MEDS ORDERED: Pneumococcal-13 Valent Ped Vacc Inj 0.5 ML Syringe IM ONE (18:00)
--- NOTE | 2018-09-15 19:19 | CT ---
EXAM DATE: 09/15/2018 6:58 PM EDT AGE/SEX: 73 years / Female INDICATIONS: Short of breath. CLINICAL DATA: This is the patient's initial encounter. Patient reports that signs and symptoms have been present for 1 day and indicates a pain score of 0/10. MEDICAL/SURGICAL HISTORY: Chronic obstructive pulmonary disease. Hypertension. None. RADIATION DOSE: 10.64 CTDI (mGy) COMPARISON: No prior exams available for comparison. TECHNIQUE: Volumetric scanning was performed using a multi-row detector CT scanner during bolus infu jennifer of 65 ml Omnipaque 350 (iohexol) nonionic water-soluble contrast as a single exam dose. The daniel a was post processed with a variety of visualization algorithms including full volume maximum intensi ty projection and sliding thin slab reformation. Using automated exposure control and adjustment of the mA and/or kV according to patient size, radiation dose was kept as low as reasonably achievable t o obtain optimal diagnostic quality images. DICOM format image data is available electronically for review and comparison. FINDINGS: There is no pulmonary embolus. Heart size within normal limits. Coronary artery calcification present . Moderate to severe emphysema. 2.1 cm mildly masslike opacity seen of the right lung apex. 1 cm nodula r opacity left lower lobe. No acute pneumonia. No pleural effusion or pneumothorax. CONCLUSION: 1. No pulmonary embolus. 2. Right upper lobe nodular opacity, probably scarring. Left lower lobe nodular opacity, most likely infectious or inflammatory. Six-month follow-up noncontrast chest CT recommended. 3. Moderate to severe emphysema. 4. Coronary artery calcification. Electronically signed by: Franck Moore MD 09/15/2018 7:17 PM EDT
[2018-09-15] MEDS: ALPRAZolam 0.25 MG Tablet PO PRN (19:32)
[2018-09-15] MEDS: Enoxaparin Inj 30 MG/0.3 ML Syringe SQ SCH (20:33)
[2018-09-16 02:16] LABS: Baso % (Auto) 0.2 % (0.0-2.0); Hematocrit 36.7 % (35.0-46.0); Hemoglobin 11.9 gm/dL (11.6-15.3); Lymph # (Auto) 0.3 th/mm3 (1.0-4.8); Mean Corpuscular HGB Conc 32.4 % (32.0-36.0); Mean Corpuscular Hemoglobin 28.6 pg (27.0-34.0); Mean Corpuscular Volume 88.3 fL (80.0-100.0); Mean Platelet Volume 8.2 fL (7.0-11.0); Mono # (Auto) 0.1 th/mm3 (0.0-0.9); Mono % (Auto) 1.6 % (0.0-8.0); Neut # (Auto) 8.5 th/mm3 (1.8-7.7); Neut % (Auto) 95.2 % (16.0-70.0); Platelet Count 236 th/mm3 (150-450); Red Blood Count 4.15 mil/mm3 (4.00-5.30); Red Cell Distribution Width 15.5 % (11.6-17.2); White Blood Count 8.9 th/mm3 (4.0-11.0)
[2018-09-16 03:08] LABS: Alanine Aminotransferase 18 U/L (10-53); Albumin 2.9 g/dL (3.4-5.0); Alkaline Phosphatase 91 U/L (45-117); Anion Gap 5 meq/L (5-15); Aspartate Aminotransferase 12 U/L (15-37); Blood Urea Nitrogen 20 mg/dL (7-18); Calcium 8.5 mg/dL (8.5-10.1); Carbon Dioxide 31.2 meq/L (21.0-32.0); Chloride 105 meq/L (98-107); Glomerular Filtration Rate 55 mL/min (>89); Glucose,Random 157 mg/dL (74-106); Potassium 4.6 meq/L (3.5-5.1); Sodium 141 meq/L (136-145); Total Protein 6.5 g/dL (6.4-8.2)
[2018-09-16] MEDS: ALPRAZolam 0.25 MG Tablet PO PRN ×2 (05:10→13:07)
[2018-09-16] MEDS: Azithromycin 250 MG Tablet PO SCH (09:12)
--- NOTE | 2018-09-16 12:38 | P.PNFP ---
Subjective Interval history: 73 yo with COPD admitted for SOB due to COPD exacerbation now being seen for f/u. Today she reports feeling much better with no SOB at rest. Still somewhat fatigued and tires easily with movements, but otherwise feels almost back to her usual self. <Bobby Cullen S - 09/16/18 12:38> Results - Labs Result diagrams: 09/16/18 01:55 EST 09/16/18 01:55 EST <Ryder Brewer L - 09/16/18 13:13> Abnormal lab results 09/15/18 09/16/18 09/16/18 Range/Units 13:49 01:55 EST 01:55 EST Neut % (Auto) 95.2 H (16.0-70.0) % Lymph % (Auto) 3.0 L (9.0-44.0) % Neut # (Auto) 8.5 H (1.8-7.7) th/mm3 Lymph # (Auto) 0.3 L (1.0-4.8) th/mm3 BUN 19 H (7-18) mg/dL Creatinine 1.10 H (0.50-1.00) mg/dL Estimated GFR 49 L (>89) mL/min Random Glucose 204 H (74-106) mg/dL AST (15-37) U/L Alkaline Phosphatase 119 H (45-117) U/L Troponin I Less than 0.02 L Less than 0.02 L (0.02-0.05) ng/mL Albumin (3.4-5.0) g/dL 09/16/18 Range/Units 01:55 EST Neut % (Auto) (16.0-70.0) % Lymph % (Auto) (9.0-44.0) % Neut # (Auto) (1.8-7.7) th/mm3 Lymph # (Auto) (1.0-4.8) th/mm3 BUN 20 H (7-18) mg/dL Creatinine (0.50-1.00) mg/dL Estimated GFR 55 L (>89) mL/min Random Glucose 157 H (74-106) mg/dL AST 12 L (15-37) U/L Alkaline Phosphatase (45-117) U/L Troponin I (0.02-0.05) ng/mL Albumin 2.9 L D (3.4-5.0) g/dL Short CBC 09/16/18 Range/Units 01:55 EST WBC 8.9 D (4.0-11.0) th/mm3 Hgb 11.9 D (11.6-15.3) gm/dL Hct 36.7 (35.0-46.0) % Plt Count 236 (150-450) th/mm3 BMP 09/15/18 09/16/18 13:49 01:55 EST Sodium 140 141 Potassium 4.2 4.6 Chloride 104 105 Carbon Dioxide 27.4 31.2 BUN 19 H 20 H Creatinine 1.10 H 1.00 Calcium 8.7 8.5 Cardiac Enzymes 09/15/18 09/15/18 09/16/18 Range/Units 13:49 20:30 01:55 EST Troponin I Less than 0.02 L 0.02 Less than 0.02 L (0.02-0.05) ng/mL Liver Function 09/15/18 09/16/18 Range/Units 13:49 01:55 EST Total Bilirubin 0.4 0.2 (0.2-1.0) mg/dL AST 24 12 L (15-37) U/L ALT 20 18 (10-53) U/L Alkaline Phosphatase 119 H 91 (45-117) U/L Albumin 3.5 2.9 L D (3.4-5.0) g/dL <YoungRyder L - 09/16/18 13:13> Abnormal lab results 09/15/18 09/15/18 09/16/18 Range/Units 13:49 13:49 01:55 EST WBC 18.6 H (4.0-11.0) th/mm3 Neut % (Auto) 86.0 H (16.0-70.0) % Lymph % (Auto) 4.8 L (9.0-44.0) % Neut # (Auto) 16.0 H (1.8-7.7) th/mm3 Lymph # (Auto) 0.9 L (1.0-4.8) th/mm3 Mcpherson # (Auto) 1.4 H (0.0-0.9) th/mm3 BUN 19 H (7-18) mg/dL Creatinine 1.10 H (0.50-1.00) mg/dL Estimated GFR 49 L (>89) mL/min Random Glucose 204 H (74-106) mg/dL AST (15-37) U/L Alkaline Phosphatase 119 H (45-117) U/L Troponin I Less than 0.02 L Less than 0.02 L (0.02-0.05) ng/mL Albumin (3.4-5.0) g/dL 09/16/18 09/16/18 Range/Units 01:55 EST 01:55 EST WBC (4.0-11.0) th/mm3 Neut % (Auto) 95.2 H (16.0-70.0) % Lymph % (Auto) 3.0 L (9.0-44.0) % Neut # (Auto) 8.5 H (1.8-7.7) th/mm3 Lymph # (Auto) 0.3 L (1.0-4.8) th/mm3 Mcpherson # (Auto) (0.0-0.9) th/mm3 BUN 20 H (7-18) mg/dL Creatinine (0.50-1.00) mg/dL Estimated GFR 55 L (>89) mL/min Random Glucose 157 H (74-106) mg/dL AST 12 L (15-37) U/L Alkaline Phosphatase (45-117) U/L Troponin I (0.02-0.05) ng/mL Albumin 2.9 L D (3.4-5.0) g/dL Short CBC 09/15/18 09/16/18 Range/Units 13:49 01:55 EST WBC 18.6 H 8.9 D (4.0-11.0) th/mm3 Hgb 13.9 11.9 D (11.6-15.3) gm/dL Hct 43.2 36.7 (35.0-46.0) % Plt Count 317 236 (150-450) th/mm3 BMP 09/15/18 09/16/18 13:49 01:55 EST Sodium 140 141 Potassium 4.2 4.6 Chloride 104 105 Carbon Dioxide 27.4 31.2 BUN 19 H 20 H Creatinine 1.10 H 1.00 Calcium 8.7 8.5 Cardiac Enzymes 09/15/18 09/15/18 09/16/18 Range/Units 13:49 20:30 01:55 EST Troponin I Less than 0.02 L 0.02 Less than 0.02 L (0.02-0.05) ng/mL Liver Function 09/15/18 09/16/18 Range/Units 13:49 01:55 EST Total Bilirubin 0.4 0.2 (0.2-1.0) mg/dL AST 24 12 L (15-37) U/L ALT 20 18 (10-53) U/L Alkaline Phosphatase 119 H 91 (45-117) U/L Albumin 3.5 2.9 L D (3.4-5.0) g/dL <Bobby Cullen S - 09/16/18 12:38> - Imaging Impressions Chest CTA 09/15/18 17:02 CONCLUSION: 1. No pulmonary embolus. 2. Right upper lobe nodular opacity, probably scarring. Left lower lobe nodular opacity, most likely infectious or inflammatory. Six-month follow-up noncontrast chest CT recommended. 3. Moderate to severe emphysema. 4. Coronary artery calcification. <Ryder Brewer - 09/16/18 13:13> Impressions Chest X-Ray 09/15/18 13:48 CONCLUSION: Atelectasis versus mild consolidation of left lung base. Chest CTA 09/15/18 17:02 CONCLUSION: 1. No pulmonary embolus. 2. Right upper lobe nodular opacity, probably scarring. Left lower lobe nodular opacity, most likely infectious or inflammatory. Six-month follow-up noncontrast chest CT recommended. 3. Moderate to severe emphysema. 4. Coronary artery calcification. <Bobby Cullen S - 09/16/18 12:38> Physical Exam Vital signs: Vital Signs 09/15/18 14:55 09/15/18 17:03 09/15/18 18:06 Temperature 98.8 F Pulse Rate 118 H 116 H Respiratory Rate 24 20 Blood Pressure 146/80 H Pulse Oximetry 100 92 L 09/15/18 19:25 09/15/18 20:00 09/15/18 21:23 Temperature 97.9 F Pulse Rate 104 H 100 H Respiratory Rate 20 20 Blood Pressure 149/97 H Pulse Oximetry 99 96 97 09/15/18 21:35 09/15/18 22:09 09/15/18 22:51 Temperature Pulse Rate 104 H Respiratory Rate Blood Pressure Pulse Oximetry 94 L 99 09/16/18 00:00 09/16/18 04:00 09/16/18 04:34 Temperature 97.4 F L 97.3 F L Pulse Rate 97 H 91 H 105 H Respiratory Rate 18 19 19 Blood Pressure 123/82 153/95 H Pulse Oximetry 100 100 09/16/18 07:41 09/16/18 08:00 09/16/18 09:30 Temperature 97.5 F L Pulse Rate 96 H 91 H 99 H Respiratory Rate 19 16 Blood Pressure 149/76 H Pulse Oximetry 98 100 09/16/18 09:42 09/16/18 12:00 09/16/18 12:14 Temperature 97.8 F Pulse Rate 99 H Respiratory Rate 18 Blood Pressure 148/85 H Pulse Oximetry 96 91 L 99 Intake & Output 09/15/18 09/16/18 09/16/18 19:59 06:59 18:59 Intake Total Balance Weight Intake: IV Levaquin 750 mg Premix Inj 150 ML @ 100 mls/hr IV.SIG STAT STA Rx#:[id number] Rocephin Inj 1,000 MG In NS Inj 100 ML @ 200 mls/hr IV.SIG Q24H KARL Rx#:[id number] Other: # Voids Date of Last Bowel Movement 09/15/18 Weight On Admission <Ryder Brewer L - 09/16/18 13:13> Vital Signs 09/15/18 13:37 09/15/18 13:55 09/15/18 14:55 Temperature 98.5 F Pulse Rate 144 H 124 H 118 H Respiratory Rate 16 18 24 Blood Pressure 174/124 H Pulse Oximetry 60 L 100 09/15/18 17:03 09/15/18 18:06 09/15/18 19:25 Temperature 98.8 F Pulse Rate 116 H Respiratory Rate 20 Blood Pressure 146/80 H Pulse Oximetry 100 92 L 99 09/15/18 20:00 09/15/18 21:23 09/15/18 21:35 Temperature 97.9 F Pulse Rate 104 H 100 H 104 H Respiratory Rate 20 20 Blood Pressure 149/97 H Pulse Oximetry 96 97 09/15/18 22:09 09/15/18 22:51 09/16/18 00:00 Temperature 97.4 F L Pulse Rate 97 H Respiratory Rate 18 Blood Pressure 123/82 Pulse Oximetry 94 L 99 100 09/16/18 04:00 09/16/18 04:34 09/16/18 07:41 Temperature 97.3 F L 97.5 F L Pulse Rate 91 H 105 H 96 H Respiratory Rate 19 19 19 Blood Pressure 153/95 H 149/76 H Pulse Oximetry 100 98 09/16/18 08:00 09/16/18 09:30 09/16/18 09:42 Temperature Pulse Rate 91 H 99 H Respiratory Rate 16 Blood Pressure Pulse Oximetry 100 96 09/16/18 12:00 09/16/18 12:14 Temperature 97.8 F Pulse Rate 99 H Respiratory Rate 18 Blood Pressure 148/85 H Pulse Oximetry 91 L 99 Intake & Output 09/15/18 09/16/18 09/16/18 19:59 06:59 18:59 Intake Total Balance Weight Intake: IV Levaquin 750 mg Premix Inj 150 ML @ 100 mls/hr IV.SIG STAT STA Rx#:[id number] Rocephin Inj 1,000 MG In NS Inj 100 ML @ 200 mls/hr IV.SIG Q24H KARL Rx#:[id number] Other: # Voids Date of Last Bowel Movement 09/15/18 Weight On Admission <Tino Culleny S - 09/16/18 12:38> - Constitutional no acute distress, average body habitus, cooperative <Cullen,Bobby S - 12:38> - Routine HEENT Exam Head: Present: normocephalic, atraumatic <Bobby Cullen S - 09/16/18 12:38> - Routine Respiratory Exam Present: CTA bilaterally. Absent: accessory muscle use, wheezes, crackles, diminished air movement <SubhashBobby S - 09/16/18 12:38> Comments: breathing comfortably with VenturiMask in place <Cullen,Bobby S - 09/16/18 12:38> - Routine Cardiovascular Exam Present: RRR, S1, S2. Absent: murmur <Bobby Cullen S - 09/16/18 12:38> - Routine Abdominal Exam Present: soft. Absent: distended <Cullen,Bobby S - 09/16/18 12:38> Assessment and Plan - Assessment (1) COPD (chronic obstructive pulmonary disease) Code(s): J44.9 - Chronic obstructive pulmonary disease, unspecified Status: Acute (2) Bacteremia Code(s): R78.81 - Bacteremia Status: Acute (3) Shortness of breath at rest Code(s): R06.02 - Shortness of breath Status: Resolved (4) Anxiety Code(s): F41.9 - Anxiety disorder, unspecified Status: Acute (5) Hypertension Code(s): I10 - Essential (primary) hypertension Status: Acute (6) Nutrition, metabolism, and development symptoms Code(s): R63.8 - Other symptoms and signs concerning food and fluid intake Status: Acute <Ryder Brewer - 09/16/18 13:13> (1) COPD (chronic obstructive pulmonary disease) Code(s): J44.9 - Chronic obstructive pulmonary disease, unspecified Status: Acute Plan: Long-term COPD patient with O2 requirement at home now in COPD exacerbation, improving CXR 02/13 showed atelectasis versus mild consolidation of left lung base. Troponin negative CTA showed right upper lobe opacity, recommend f/u in 6 months, no obvious focal pneumonia, no PE -Continue ceftriaxone and azithromycin -Continue duo nebs -Continue prednisone -If patient produces sputum please culture -Administer pneumococcal vaccine -Supplemental oxygen to maintain saturation at 88-92% (2) Bacteremia Code(s): R78.81 - Bacteremia Status: Acute Plan: Blood culture on admission growing GNR in one tube. Source in this case most likely urinary, though respiratory source possible GNR makes this less likely as main bacteria would be pseudomonas which is less likely. Clinically not septic WBC improving with current antibiotics - F/u blood culture speciation - Repeat blood cultures x2 - Check UA and mandatory Cx - Continue antibiotics as noted above (Rocephin provides good gram negative coverage for suspected urinary source) (3) Shortness of breath at rest Code(s): R06.02 - Shortness of breath Status: Resolved Plan: SOB now resolved, likely due to COPD, see plan for COPD above (4) Anxiety Code(s): F41.9 - Anxiety disorder, unspecified Status: Acute Plan: Chronic, stable -Continue home alprazolam PRN (5) Hypertension Code(s): I10 - Essential (primary) hypertension Status: Acute Plan: Patient reports past medical history of hypertension but currently not on any medication. -Monitor BP (6) Nutrition, metabolism, and development symptoms Code(s): R63.8 - Other symptoms and signs concerning food and fluid intake Status: Acute Plan: Fluids: Not indicated at this time Electrolytes: Replete as needed Nutrition: Regular diet DVT prophylaxis: Enoxaparin 30 subq daily <Bobby Cullen S - 09/16/18 12:18> - Assessment and Plan Discharge Planning: Pending further clinical improvement, evaluation of bacteremia <Bobby Cullen S - 09/16/18 12:38> - Attending Attestation The exam, history, and the medical decision-making described in the above note were completed with the assistance of the resident physician. I reviewed and agree with the findings presented. I attest that I had a [id number] encounter alongside the resident team, and personally performed and documented my assessment and findings in the medical record. Patient admitted with community acquired pneumonia, COPD exacerbation, and bacteremia with gram negative rods. She is being treated with antibiotics, breathing treatments, supplemental oxygen, and steroids. She is doing much better today compared to yesterday. Will continue to monitor, and wean oxygen as tolerated. <OsmanRyder Daniel - 09/16/18 13:13> <Bobby Cullen S - Last Filed: 09/16/18 12:18> (1) COPD (chronic obstructive pulmonary disease) Qualifiers: COPD type: COPD with acute exacerbation Qualified Code(s): J44.1 - Chronic obstructive pulmonary disease with (acute) exacerbation (5) Hypertension Qualifiers: Hypertension type: essential hypertension Qualified Code(s): I10 - Essential (primary) hypertension <Ryder Brewer - Last Filed: 09/16/18 13:13> (1) COPD (chronic obstructive pulmonary disease) Qualifiers: COPD type: COPD with acute exacerbation Qualified Code(s): J44.1 - Chronic obstructive pulmonary disease with (acute) exacerbation (5) Hypertension Qualifiers: Hypertension type: essential hypertension Qualified Code(s): I10 - Essential (primary) hypertension <Bobby Cullen S - Last Filed: 09/16/18 12:18> (1) COPD (chronic obstructive pulmonary disease) Qualifiers: COPD type: COPD with acute exacerbation Qualified Code(s): J44.1 - Chronic obstructive pulmonary disease with (acute) exacerbation (5) Hypertension Qualifiers: Hypertension type: essential hypertension Qualified Code(s): I10 - Essential (primary) hypertension <Ryder Brewer L - Last Filed: 09/16/18 13:13> (1) COPD (chronic obstructive pulmonary disease) Qualifiers: COPD type: COPD with acute exacerbation Qualified Code(s): J44.1 - Chronic obstructive pulmonary disease with (acute) exacerbation (5) Hypertension Qualifiers: Hypertension type: essential hypertension Qualified Code(s): I10 - Essential (primary) hypertension
[2018-09-16] MEDS ORDERED: Acetaminophen 325 MG Tablet PO ONE (13:30)
[2018-09-16] MEDS: Enoxaparin Inj 30 MG/0.3 ML Syringe SQ SCH (16:37)
--- NOTE | 2018-09-16 23:43 | ECG ---
Date Performed: 09/15/2018 Time Performed: 14:26:18 PTAGE: 73 years EKG: SINUS TACHYCARDIA WITH FREQUENT SUPRAVENTRICULAR PREMATURE COMPLEXES BORDERLINE RIGHT AXIS DEVIATION ABNORMAL RHYTHM ECG PREVIOUS TRACING : 04/04/2018 17.59 Compared to previous tracing, rate has increased DOCTOR: Chapo Pollard Interpretating Date/Time 09/16/2018 23:41:23
[2018-09-17 02:00] LABS: Bacteria,Urine Rare /hpf; Bilirubin,Urine Negative (Negative); Clarity,Urine Hazy (Clear); Color,Urine Yellow (Yellw/Straw); Glucose,Urine (UA) Negative (Negative); Leukocyte Esterase,Urine Trace (Negative); Mucus,Urine Few /lpf (Occasional); Nitrite,Urine Negative (Negative); Specific Gravity,Urine 1.017 (1.002-1.035); Squamous Epithelial Cell,Urine 7 /hpf (0-5)
[2018-09-17 07:17] LABS: Hematocrit 35.5 % (35.0-46.0); Hemoglobin 11.4 gm/dL (11.6-15.3); Lymph # (Auto) 0.4 th/mm3 (1.0-4.8); Lymph % (Auto) 2.4 % (9.0-44.0); Mean Corpuscular HGB Conc 32.3 % (32.0-36.0); Mean Corpuscular Hemoglobin 28.5 pg (27.0-34.0); Mean Corpuscular Volume 88.3 fL (80.0-100.0); Mean Platelet Volume 8.5 fL (7.0-11.0); Mono # (Auto) 0.9 th/mm3 (0.0-0.9); Mono % (Auto) 5.4 % (0.0-8.0); Neut # (Auto) 15.2 th/mm3 (1.8-7.7); Neut % (Auto) 92.2 % (16.0-70.0); Platelet Count 274 th/mm3 (150-450); Red Blood Count 4.02 mil/mm3 (4.00-5.30); Red Cell Distribution Width 15.5 % (11.6-17.2); White Blood Count 16.5 th/mm3 (4.0-11.0)
[2018-09-17 07:43] LABS: Calcium 8.6 mg/dL (8.5-10.1); Carbon Dioxide 30.9 meq/L (21.0-32.0); Potassium 4.1 meq/L (3.5-5.1)
[2018-09-17] MEDS: Azithromycin 250 MG Tablet PO SCH (09:09)
[2018-09-17] MEDS: ALPRAZolam 0.25 MG Tablet PO PRN ×3 (09:10→21:18)
--- NOTE | 2018-09-17 09:49 | P.PNFP ---
Subjective Interval history: Patient finishing breathing treatment when medicine team went to see her this morning. Patient states she is feeling 100% better in regards to her breathing and does not feel out of breath. Has no complaints overnight. She states her cough has resolved. She has not been walking but gets up to go to the bedside bathroom. Denies any back pain, or other urinary complaints. She is on a mask breather at 10 L. <Janine Peña C - 09/17/18 10:01> Results - Labs Result diagrams: 09/17/18 06:33 09/17/18 06:33 <OsmanRyder L - 09/17/18 16:50> Abnormal lab results 09/17/18 09/17/18 09/17/18 Range/Units 01:41 06:33 06:33 WBC 16.5 H (4.0-11.0) th/mm3 Hgb 11.4 L (11.6-15.3) gm/dL Neut % (Auto) 92.2 H (16.0-70.0) % Lymph % (Auto) 2.4 L (9.0-44.0) % Neut # (Auto) 15.2 H (1.8-7.7) th/mm3 Lymph # (Auto) 0.4 L (1.0-4.8) th/mm3 BUN 31 H (7-18) mg/dL Creatinine 1.10 H (0.50-1.00) mg/dL Estimated GFR 49 L (>89) mL/min Random Glucose 129 H (74-106) mg/dL Urine Clarity Hazy H (Clear) Ur Leukocyte Esterase Trace H (Negative) Urine WBC 6 H (0-5) /hpf Urine Bacteria Rare H (None) /hpf Urine Mucus Few H (Occasional) /lpf Urine Yeast Rare H (None) /hpf Short CBC 09/17/18 Range/Units 06:33 WBC 16.5 H (4.0-11.0) th/mm3 Hgb 11.4 L (11.6-15.3) gm/dL Hct 35.5 (35.0-46.0) % Plt Count 274 (150-450) th/mm3 BMP 09/17/18 06:33 Sodium 142 Potassium 4.1 Chloride 103 Carbon Dioxide 30.9 BUN 31 H Creatinine 1.10 H Calcium 8.6 Urine 09/17/18 Range/Units 01:41 Urine Color Yellow (Yellw/Straw) Urine Clarity Hazy H (Clear) Urine pH 5.0 (5.0-8.5) Ur Specific [place] 1.017 (1.002-1.035) Urine Protein Negative (Neg-Trace) mg/dL Urine Glucose (UA) Negative (Negative) mg/dL <Ryder Brewer L - 09/17/18 16:50> Abnormal lab results 09/17/18 09/17/18 09/17/18 Range/Units 01:41 06:33 06:33 WBC 16.5 H (4.0-11.0) th/mm3 Hgb 11.4 L (11.6-15.3) gm/dL Neut % (Auto) 92.2 H (16.0-70.0) % Lymph % (Auto) 2.4 L (9.0-44.0) % Neut # (Auto) 15.2 H (1.8-7.7) th/mm3 Lymph # (Auto) 0.4 L (1.0-4.8) th/mm3 BUN 31 H (7-18) mg/dL Creatinine 1.10 H (0.50-1.00) mg/dL Estimated GFR 49 L (>89) mL/min Random Glucose 129 H (74-106) mg/dL Urine Clarity Hazy H (Clear) Ur Leukocyte Esterase Trace H (Negative) Urine WBC 6 H (0-5) /hpf Urine Bacteria Rare H (None) /hpf Urine Mucus Few H (Occasional) /lpf Urine Yeast Rare H (None) /hpf Short CBC 09/17/18 Range/Units 06:33 WBC 16.5 H (4.0-11.0) th/mm3 Hgb 11.4 L (11.6-15.3) gm/dL Hct 35.5 (35.0-46.0) % Plt Count 274 (150-450) th/mm3 BMP 09/17/18 06:33 Sodium 142 Potassium 4.1 Chloride 103 Carbon Dioxide 30.9 BUN 31 H Creatinine 1.10 H Calcium 8.6 Urine 09/17/18 Range/Units 01:41 Urine Color Yellow (Yellw/Straw) Urine Clarity Hazy H (Clear) Urine pH 5.0 (5.0-8.5) Ur Specific [place] 1.017 (1.002-1.035) Urine Protein Negative (Neg-Trace) mg/dL Urine Glucose (UA) Negative (Negative) mg/dL <Janine Peña C - 09/17/18 09:48> Physical Exam Vital signs: Vital Signs 09/16/18 20:00 09/16/18 21:46 09/16/18 23:21 Temperature 97.2 F L Pulse Rate 104 H 94 H 99 H Respiratory Rate 19 16 Blood Pressure 139/86 Pulse Oximetry 100 09/17/18 00:00 09/17/18 03:24 09/17/18 03:35 Temperature 97.4 F L Pulse Rate 91 H 97 H Respiratory Rate 17 20 Blood Pressure 160/82 H Pulse Oximetry 100 96 09/17/18 04:00 09/17/18 05:24 09/17/18 08:00 Temperature 97.8 F 97.5 F L Pulse Rate 96 H 96 H Respiratory Rate 18 17 Blood Pressure 139/72 148/78 H Pulse Oximetry 98 99 96 09/17/18 08:22 09/17/18 08:27 09/17/18 12:00 Temperature 97.3 F L Pulse Rate 101 H 102 H Respiratory Rate 20 17 Blood Pressure 149/76 H Pulse Oximetry 97 100 Intake & Output 09/16/18 09/17/18 09/17/18 18:59 06:59 18:59 Intake Total 750 / 750 100 / 100 Balance 750 / 750 100 / 100 Weight 68 kg Intake: IV 100 / 100 100 / 100 Rocephin Inj 2,000 MG In NS Inj 100 / 100 100 / 100 100 ML @ 200 mls/hr IV.SIG Q24H [facility] Rx#:[id number] Oral 650 / 650 Other: # Voids 2 2 Date of Last Bowel Movement 09/15/18 09/15/18 09/16/18 <Ryder Brewer L - 09/17/18 16:50> Vital Signs 09/16/18 12:00 09/16/18 12:14 09/16/18 15:51 Temperature 97.8 F 97.5 F L Pulse Rate 99 H 99 H Respiratory Rate 18 18 Blood Pressure 148/85 H 143/90 H Pulse Oximetry 91 L 99 99 09/16/18 16:22 09/16/18 20:00 09/16/18 21:46 Temperature 97.2 F L Pulse Rate 98 H 104 H 94 H Respiratory Rate 16 19 16 Blood Pressure 139/86 Pulse Oximetry 100 09/16/18 23:21 09/17/18 00:00 09/17/18 03:24 Temperature 97.4 F L Pulse Rate 99 H 91 H 97 H Respiratory Rate 17 20 Blood Pressure 160/82 H Pulse Oximetry 100 09/17/18 03:35 09/17/18 04:00 09/17/18 05:24 Temperature 97.8 F Pulse Rate 96 H Respiratory Rate 18 Blood Pressure 139/72 Pulse Oximetry 96 98 99 09/17/18 08:00 09/17/18 08:22 09/17/18 08:27 Temperature 97.5 F L Pulse Rate 96 H 101 H Respiratory Rate 17 20 Blood Pressure 148/78 H Pulse Oximetry 96 97 Intake & Output 09/16/18 09/17/18 09/17/18 18:59 06:59 18:59 Intake Total 750 / 750 Balance 750 / 750 Weight 68 kg Intake: IV 100 / 100 Rocephin Inj 2,000 MG In NS Inj 100 / 100 100 ML @ 200 mls/hr IV.SIG Q24H [facility] Rx#:[id number] Oral 650 / 650 Other: # Voids 2 2 Date of Last Bowel Movement 09/15/18 09/15/18 <Janine Peña - 09/17/18 09:48> Narrative: GENERAL: Well-nourished, well-developed patient. Patient was noticeably shaking but appeared to be breathing comfortably on mask. Patient asked the door be kept open for the entirety of exam due to severe claustrophobia. Patient reports that she previously had doors removed from her house due to this reason. SKIN: Warm and dry. No rash. EYES: No scleral icterus. No injection or drainage. PERRLA. EOMI. HENT: Normocephalic. Atraumatic. MMM. OP Benign. NECK: Supple, trachea midline. No JVD or lymphadenopathy. CARDIOVASCULAR: Regular rate and rhythm without obvious murmurs, gallops, or rubs. RESPIRATORY: Diminished breath sounds in all lung marcus bilaterally. Expiratory wheezing of upper lobes. No crackles noted. Patient was on 10 L simple mask. GASTROINTESTINAL: Abdomen soft, non-tender, nondistended. BS WNL. MUSCULOSKELETAL: No cyanosis or edema. Strength grossly WNL. BACK: Nontender without obvious deformity. No CVA tenderness. NEURO/PSYCH: Patient's thought process was clear and goal-directed with appropriate mood and affect. <Janine Peña Isai - 09/17/18 10:01> Assessment and Plan - Assessment (1) COPD (chronic obstructive pulmonary disease) Code(s): J44.9 - Chronic obstructive pulmonary disease, unspecified Status: Acute (2) Bacteremia Code(s): R78.81 - Bacteremia Status: Acute (3) Shortness of breath at rest Code(s): R06.02 - Shortness of breath Status: Resolved (4) Anxiety Code(s): F41.9 - Anxiety disorder, unspecified Status: Acute (5) Hypertension Code(s): I10 - Essential (primary) hypertension Status: Acute (6) Nutrition, metabolism, and development symptoms Code(s): R63.8 - Other symptoms and signs concerning food and fluid intake Status: Acute <OsmanRyder Daniel - 09/17/18 16:50> (1) COPD (chronic obstructive pulmonary disease) Code(s): J44.9 - Chronic obstructive pulmonary disease, unspecified Status: Acute Plan: Long-term COPD patient with O2 requirement at home now in COPD exacerbation, improving CXR 02/13 showed atelectasis versus mild consolidation of left lung base. Troponin negative CTA showed right upper lobe opacity, recommend f/u in 6 months, no obvious focal pneumonia, no PE -Continue ceftriaxone (started 09/16) and azithromycin (started 09/16) -Continue duo nebs -Continue prednisone 50 mg daily -Administer pneumococcal vaccine -Supplemental oxygen to maintain saturation at 88-92%: Currently on simple mask 10 L. (2) Bacteremia Code(s): R78.81 - Bacteremia Status: Acute Plan: Blood culture on admission growing GNR in one tube. Source in this case most likely urinary, though respiratory source possible GNR makes this less likely as main bacteria would be pseudomonas which is less likely. Clinically not septic WBC increased to 16.5 most likely due to steroids. UA positive for LE but nitrate negative few WBC and patient asx. - blood culture speciation: Pseudinomas - Continue antibiotics as noted above (Rocephin provides good gram negative coverage for suspected urinary source) - Repeat blood cultures x2 NG day 1 - UCx pending (3) Shortness of breath at rest Code(s): R06.02 - Shortness of breath Status: Resolved Plan: SOB now resolved, likely due to COPD, see plan for COPD above (4) Anxiety Code(s): F41.9 - Anxiety disorder, unspecified Status: Acute Plan: Chronic, stable -Continue home alprazolam PRN (5) Hypertension Code(s): I10 - Essential (primary) hypertension Status: Acute Plan: Patient reports past medical history of hypertension but currently not on any medication. -Monitor BP (6) Nutrition, metabolism, and development symptoms Code(s): R63.8 - Other symptoms and signs concerning food and fluid intake Status: Acute Plan: Fluids: Not indicated at this time Electrolytes: Replete as needed Nutrition: Regular diet DVT prophylaxis: Enoxaparin 30 subq [address] Dr[address] Brewer <Janine Peña - 09/17/18 11:14> - Attending Attestation The exam, history, and the medical decision-making described in the above note were completed with the assistance of the resident physician. I reviewed and agree with the findings presented. I attest that I had a [id number] encounter with the patient on the same day, and personally performed and documented my assessment and findings in the medical record. From a respiratory standpoint, she is doing much better than at admission. She reports feeling "almost back to baseline". However, she has the finding of pseudomonas in the bloodstream. Suspected source at this point is pneumonia. No obvious skin lesions and does not report history of IVDU. No catheters or intravenous lines present. At this time will add Zosyn to her regimen, consult infectious disease for further guidance, and get an echocardiogram to rule out endocarditis. I do not see any stigmata of endocarditis on exam. <Ryder Brewer - 09/17/18 16:50> <Janine Peña - Last Filed: 09/17/18 11:14> (1) COPD (chronic obstructive pulmonary disease) Qualifiers: COPD type: COPD with acute exacerbation Qualified Code(s): J44.1 - Chronic obstructive pulmonary disease with (acute) exacerbation (5) Hypertension Qualifiers: Hypertension type: essential hypertension Qualified Code(s): I10 - Essential (primary) hypertension <Ryder Brewer - Last Filed: 09/17/18 16:50> (1) COPD (chronic obstructive pulmonary disease) Qualifiers: COPD type: COPD with acute exacerbation Qualified Code(s): J44.1 - Chronic obstructive pulmonary disease with (acute) exacerbation (5) Hypertension Qualifiers: Hypertension type: essential hypertension Qualified Code(s): I10 - Essential (primary) hypertension <Janine Peña - Last Filed: 09/17/18 11:14> (1) COPD (chronic obstructive pulmonary disease) Qualifiers: COPD type: COPD with acute exacerbation Qualified Code(s): J44.1 - Chronic obstructive pulmonary disease with (acute) exacerbation (5) Hypertension Qualifiers: Hypertension type: essential hypertension Qualified Code(s): I10 - Essential (primary) hypertension <Ryder Brewer - Last Filed: 09/17/18 16:50> (1) COPD (chronic obstructive pulmonary disease) Qualifiers: COPD type: COPD with acute exacerbation Qualified Code(s): J44.1 - Chronic obstructive pulmonary disease with (acute) exacerbation (5) Hypertension Qualifiers: Hypertension type: essential hypertension Qualified Code(s): I10 - Essential (primary) hypertension
[2018-09-17] MEDS: Enoxaparin Inj 30 MG/0.3 ML Syringe SQ SCH (16:04)
[2018-09-17] MEDS: Piperacil/Tazo 4.5 GM Premix 4.5 GM/100 ML BAG IV.SIG SCH ×2 (18:29→23:53)
[2018-09-17] MEDS: Lactobacillus Acidophilus/L. Spores Tablet PO SCH (21:18)
[2018-09-18] MEDS: ALPRAZolam 0.25 MG Tablet PO PRN ×4 (03:57→23:42)
[2018-09-18] MEDS: Piperacil/Tazo 4.5 GM Premix 4.5 GM/100 ML BAG IV.SIG SCH (06:18)
[2018-09-18 08:13] LABS: Baso % (Auto) 0.2 % (0.0-2.0); Eos % (Auto) 0.3 % (0.0-4.0); Hematocrit 35.1 % (35.0-46.0); Hemoglobin 11.4 gm/dL (11.6-15.3); Lymph # (Auto) 0.5 th/mm3 (1.0-4.8); Lymph % (Auto) 4.5 % (9.0-44.0); Mean Corpuscular HGB Conc 32.4 % (32.0-36.0); Mean Corpuscular Hemoglobin 28.4 pg (27.0-34.0); Mean Corpuscular Volume 87.5 fL (80.0-100.0); Mean Platelet Volume 8.6 fL (7.0-11.0); Mono # (Auto) 0.9 th/mm3 (0.0-0.9); Mono % (Auto) 7.7 % (0.0-8.0); Neut # (Auto) 10.6 th/mm3 (1.8-7.7); Neut % (Auto) 87.3 % (16.0-70.0); Platelet Count 265 th/mm3 (150-450); Red Blood Count 4.01 mil/mm3 (4.00-5.30); Red Cell Distribution Width 15.3 % (11.6-17.2); White Blood Count 12.2 th/mm3 (4.0-11.0)
[2018-09-18 08:46] LABS: Calcium 8.3 mg/dL (8.5-10.1); Carbon Dioxide 32.8 meq/L (21.0-32.0); Potassium 4.3 meq/L (3.5-5.1)
[2018-09-18] MEDS: Azithromycin 250 MG Tablet PO SCH (09:09)
[2018-09-18] MEDS: Lactobacillus Acidophilus/L. Spores Tablet PO SCH ×2 (09:09→21:00)
--- NOTE | 2018-09-18 09:09 | P.CONID ---
History of Present Illness Service: Infectious disease Consult date: 09/18/18 Requesting Physician: Ryder Brewer Reason for Consult: Evaluate patient with bacteremia Primary Care Provider: Mj Leon MD History of Present Illness: Patient seen and examined. Records reviewed. Patient is a 73-year-old female, presented to the hospital complaining of worsening shortness of breath. Patient has a baseline shortness of breath due to her COPD, and she is on continuous oxygen about 4-5 L. Her shortness of breath has been progressively worsening over the last several years, but over the last few weeks her shortness of breath really became progressively worse. She has very minimal cough. Denies any chest pain. Has not had any fever chills or sweats. She could not breathe so she presented to her primary care physician who told her to go to the hospital for further evaluation and treatment. Patient used to follow with a master ship when she was living in [place], but there has not been any change in her management. Since admission to the hospital patient has remained afebrile. Her white count was initially 18,000 and that has improved. 1 out of the 2 blood cultures done in the emergency room is now reported as growing pseudomonas aeruginosa. Her chest x-ray showing left base atelectasis or consolidation. CTA did not show any PE but it did show a left base nodular opacity. Repeat blood cultures have been done and those are still pending. Patient states her shortness of breath has improved compared to admission. It is almost close to her baseline shortness of breath. She denies any diarrhea. She feels nauseated this morning. Denies any urinary complaints. Patient has no hardware, no port or any pacemaker or ICD. Patient currently is on Rocephin, Zithromax, and Zosyn. Infectious disease consultation has been requested to assist with evaluation and treatment of her bacteremia. Review of Systems Constitutional: Reports lack of energy, Denies chills, Denies fever(s), Denies night sweats Eyes: Denies discharge, Denies dry eyes Ears, Nose, Mouth, and Throat: Reports dizziness, Reports nasal discharge, Denies difficulty swallowing, Denies dry mouth, Denies ear discharge, Denies nasal congestion, Denies sore throat Cardiovascular: Reports shortness of breath, Denies chest pain, Denies leg swelling Respiratory: Reports cough, Reports shortness of breath, Denies chest congestion , Denies coughing up blood, Denies pain with cough Gastrointestinal: Reports nausea, Denies abdominal pain, Denies loose stools, Denies pain with swallowing, Denies vomiting Genitourinary: Denies difficulty urinating, Denies painful urination Musculoskeletal: Denies joint pain, Denies joint swelling Skin/Breast: Denies dry skin, Denies rash, Denies sores, Denies wounds Neurologic: Reports dizziness, Denies headache(s) PMFSH - History History Provided By: Patient - Medical History Medical History: Medical History (Last Updated 09/18/18 @ 09:05 by Brittney Harry MD) Anxiety Asthma History of hysterectomy Uterine prolapse COPD (chronic obstructive pulmonary disease) HTN (hypertension) - Surgical History Surgical History: Surgical History (Last Updated 09/18/18 @ 09:04 by Brittney Harry MD) Hx of appendectomy Hx of tonsillectomy - Tobacco History Second Hand Smoke Exposure: No Tobacco Use In Past 30 Days: No Smoking Status: Former smoker Tobacco Type: Cigarettes - Alcohol History How Often Do You Have a Drink Containing Alcohol: Never - Substance Use History Substance History: No History of Abuse - Travel History Recent Travel in the [place] Within the Last 8 Weeks: No Recent Travel Out of the Country Within the Last 8 Weeks: No - Immunization History Tetanus Immunization: Unsure Hx Influenza Vaccine This Season: Yes Medications and Allergies Active Medications: Active Medications Al Hydroxide/Mg Hydroxide (Milk Of Najma Lisamantha) 30 ml PO Q12H PRN PRN Reason: Mild Constipation Albuterol (Duoneb Neb (Prn)) 1 ampul NEB Q6HR NEB PRN PRN Reason: SHORTNESS OF BREATH Last Admin: 09/18/18 04:22 Dose: 1 ampul Alprazolam (Xanax) 0.25 mg PO Q6H PRN PRN Reason: ANXIETY Last Admin: 09/18/18 03:57 Dose: 0.25 mg Azithromycin (Zithromax) 500 mg PO DAILY [facility] Last Admin: 09/17/18 09:09 Dose: 500 mg Bisacodyl (Dulcolax Supp) 10 mg RECTAL DAILY PRN PRN Reason: SEVERE CONSITIPATION Clonidine HCl (Catapres) 0.1 mg PO Q6H PRN PRN Reason: HYPERTENSION Enoxaparin Sodium (Lovenox Inj) 30 mg SQ Q24H [facility] Last Admin: 09/17/18 16:04 Dose: 30 mg Cefepime HCl 2,000 mg/ Sodium (Chloride) 100 mls @ 200 mls/hr IV.SIG Q8H [facility] Lactobacillus Acidophilus (Lactinex) 1 tab PO BID [facility] Last Admin: 09/17/18 21:18 Dose: 1 tab Lactulose (Lactulose Liq) 30 ml PO DAILY PRN PRN Reason: SEVERE CONSITIPATION Prednisone (Deltasone) 50 mg PO DAILY [facility] Last Admin: 09/17/18 09:09 Dose: 50 mg Sennosides (Senokot) 17.2 mg PO Q12H PRN PRN Reason: Moderate Constipation Allergies Allergy/AdvReac Type Severity Reaction Status Date / Time albuterol Allergy Unknown Rash Verified 09/15/18 13:41 latex Allergy Unknown Anaphylaxis Verified 09/15/18 13:41 meperidine Allergy Unknown Hives Verified 09/15/18 13:41 Home Medications Medication Instructions Recorded Confirmed Type alprazolam 09/15/18 History alprazolam [Xanax] 09/15/18 History diltiazem HCl 09/15/18 History ipratropium bromide 09/15/18 History levalbuterol HCl [Xopenex] 09/15/18 History levalbuterol tartrate [Xopenex HFA] 09/15/18 History metronidazole 500 mg PO QID 09/15/18 09/15/18 History mometasone-formoterol [Dulera] 09/15/18 History montelukast 10 mg PO QPM 09/15/18 09/15/18 History pantoprazole 40 mg PO DAILY 09/15/18 09/15/18 History prednisone 10 mg PO DAILY 09/15/18 09/15/18 History tiotropium bromide [Spiriva 09/15/18 History Respimat] Exam Vital signs: Vital Signs 09/17/18 12:00 09/17/18 16:00 09/17/18 19:00 Temperature 97.3 F L Pulse Rate 102 H Respiratory Rate 17 20 Blood Pressure 149/76 H Pulse Oximetry 100 97 09/17/18 20:00 09/17/18 20:20 09/17/18 20:50 Temperature 97.4 F L Pulse Rate 100 H 102 H 101 H Respiratory Rate 18 18 Blood Pressure 159/87 H Pulse Oximetry 96 97 09/17/18 23:50 09/18/18 00:00 09/18/18 04:00 Temperature 97.7 F Pulse Rate 97 H 93 H 98 H Respiratory Rate 17 Blood Pressure 157/94 H Pulse Oximetry 94 L 09/18/18 04:10 09/18/18 04:23 09/18/18 07:42 Temperature 97.4 F L Pulse Rate 98 H 93 H 91 H Respiratory Rate 18 18 Blood Pressure 169/92 H Pulse Oximetry 94 L 09/18/18 08:00 Temperature 97.6 F Pulse Rate 102 H Respiratory Rate 17 Blood Pressure 160/74 H Pulse Oximetry 93 L Intake & Output 09/17/18 09/18/18 09/18/18 18:59 06:59 18:59 Intake Total 200 / 200 1100 / 1100 100 / 100 Balance 200 / 200 1100 / 1100 100 / 100 Weight 68 kg Intake: IV 200 / 200 100 / 100 100 / 100 Zosyn 4.5 GM Premix 4.5 gm In 100 / 100 100 / 100 100 / 100 100 ml @ 200 mls/hr IV.SIG Q6H [facility] Rx#:[id number] Rocephin Inj 2,000 MG In NS Inj 100 / 100 100 ML @ 200 mls/hr IV.SIG Q24H [facility] Rx#:[id number] Oral 1000 / 1000 Other: # Voids 3 4 Date of Last Bowel Movement 09/16/18 09/18/18 # Bowel Movements 2 2 Narrative: Physical examination GENERAL: Patient is a well-nourished, well-developed female, awake and alert, not in respiratory distress at rest SKIN: Cool and dry. No generalized rash, no ecchymoses and no evidence of embolic lesions. HEAD: Atraumatic. Normocephalic. No temporal wasting, or tenderness. EYES: [place] conjunctiva. No petechia or hemorrhage. Pupils equal, round and reactive to light. Extraocular movements full and intact. No scleral icterus. No injection or drainage. EARS, NOSE AND THROAT: Nose without bleeding or purulent nasal discharge. No sinus tenderness. Mucous membranes pink and moist. No oral lesions noted. No exudate. No oral thrush. NECK: Trachea midline. Supple and not tender, no meningeal signs CARDIOVASCULAR: Regular rate and rhythm. No murmurs, rubs or gallops heard RESPIRATORY: Poor air movement, with some scattered wheezing ABDOMEN: Soft, non-tender, nondistended. Bowel sounds present and normoactive. No guarding. No rebound. No organomegaly. EXTREMITIES: No clubbing, cyanosis, or edema. No joint effusion, has good ROM. No calf tenderness. NEUROLOGICAL: Awake and alert. Cranial nerves grossly intact. Motor grossly within normal limits. PSYCHIATRIC: Normal affect, calm and cooperative. LINE: No evidence of infection Results - Labs CBC & Chem 7: 09/18/18 07:21 09/18/18 07:21 Labs: Laboratory Results - last 24 hr 09/18/18 09/18/18 07:21 07:21 WBC 12.2 H RBC 4.01 Hgb 11.4 L Hct 35.1 MCV 87.5 MCH 28.4 MCHC 32.4 RDW 15.3 Plt Count 265 MPV 8.6 Neut % (Auto) 87.3 H Lymph % (Auto) 4.5 L [place] % (Auto) 7.7 Eos % (Auto) 0.3 Baso % (Auto) 0.2 Neut # (Auto) 10.6 H Lymph # (Auto) 0.5 L [place] # (Auto) 0.9 Eos # (Auto) 0.0 Baso # (Auto) 0.0 WBC Differential . Differential Comment Auto diff final Sodium 143 Potassium 4.3 Chloride 106 Carbon Dioxide 32.8 H Anion Gap 4 L BUN 29 H Creatinine 0.94 Estimated GFR 59 L Random Glucose 84 Calcium 8.3 L - Imaging Chest X-Ray 09/15/18 13:48 CONCLUSION: Atelectasis versus mild consolidation of left lung base. Chest CTA 09/15/18 17:02 CONCLUSION: 1. No pulmonary embolus. 2. Right upper lobe nodular opacity, probably scarring. Left lower lobe nodular opacity, most likely infectious or inflammatory. Six-month follow-up noncontrast chest CT recommended. 3. Moderate to severe emphysema. 4. Coronary artery calcification. Assessment and Plan - Plan Impression PSAE bacteremia likely due to PNA L PNA COPD exacerbation - severe COPD, emphysema on CT, O2 dependent Recommendation IV cefepime Continue Zithromax Follow C/S If sensitive to quinolone, will be able to complete Rx using oral Abx on discharge Monitor progress I will follow along with you Thank you for this consultation D/W Dr Brewer and FP team
--- NOTE | 2018-09-18 09:58 | P.PN ---
Subjective Interval history: Patient still feel SOB and have cough and wheezing c/o nausea and dizziness Infectious disese input noted Physical Exam Vital signs: Vital Signs 09/17/18 12:00 09/17/18 16:00 09/17/18 19:00 Temperature 97.3 F L Pulse Rate 102 H Respiratory Rate 17 20 Blood Pressure 149/76 H Pulse Oximetry 100 97 09/17/18 20:00 09/17/18 20:20 09/17/18 20:50 Temperature 97.4 F L Pulse Rate 100 H 102 H 101 H Respiratory Rate 18 18 Blood Pressure 159/87 H Pulse Oximetry 96 97 09/17/18 23:50 09/18/18 00:00 09/18/18 04:00 Temperature 97.7 F Pulse Rate 97 H 93 H 98 H Respiratory Rate 17 Blood Pressure 157/94 H Pulse Oximetry 94 L 09/18/18 04:10 09/18/18 04:23 09/18/18 07:42 Temperature 97.4 F L Pulse Rate 98 H 93 H 91 H Respiratory Rate 18 18 Blood Pressure 169/92 H Pulse Oximetry 94 L 09/18/18 08:00 Temperature 97.6 F Pulse Rate 102 H Respiratory Rate 17 Blood Pressure 160/74 H Pulse Oximetry 93 L Intake & Output 09/17/18 09/18/18 09/18/18 18:59 06:59 18:59 Intake Total 200 / 200 1100 / 1100 100 / 100 Balance 200 / 200 1100 / 1100 100 / 100 Weight 68 kg Intake: IV 200 / 200 100 / 100 100 / 100 Zosyn 4.5 GM Premix 4.5 gm In 100 / 100 100 / 100 100 / 100 100 ml @ 200 mls/hr IV.SIG Q6H [facility] Rx#:[id number] Rocephin Inj 2,000 MG In NS Inj 100 / 100 100 ML @ 200 mls/hr IV.SIG Q24H [facility] Rx#:[id number] Oral 1000 / 1000 Other: # Voids 3 4 Date of Last Bowel Movement 09/16/18 09/18/18 09/18/18 # Bowel Movements 2 2 - Constitutional mild distress - Routine HEENT Exam Head: Present: normocephalic, atraumatic Eye: Present: EOMI, PERRL ENT: Present: mucous membranes moist - Routine Neck Exam Present: supple, full ROM - Routine Respiratory Exam Present: prolonged expiratory phase, rhonchi, wheezes, diminished air movement - Routine Cardiovascular Exam Present: RRR, S1, S2 - Routine Abdominal Exam Present: soft, normoactive bowel sounds - Routine Extremities Exam Present: full ROM - Routine Skin Exam Present: intact, dry, warm - Routine Neurological Exam Present: alert, oriented X3, CN II-XII intact, vision grossly intact, hearing grossly intact - Detailed Neurological Exam: Coma Scale Eye Opening: Spontaneous Verbal Response: Oriented Motor Response: Obey commands [place] Coma Scale Total: 15 - Routine Psychiatric Exam Present: normal affect, normal thought process, good judgment Results - Labs CBC & Chem 7: 09/18/18 13:20 09/18/18 13:20 Laboratory Results - last 24 hr 09/18/18 09/18/18 07:21 07:21 WBC 12.2 H RBC 4.01 Hgb 11.4 L Hct 35.1 MCV 87.5 MCH 28.4 MCHC 32.4 RDW 15.3 Plt Count 265 MPV 8.6 Neut % (Auto) 87.3 H Lymph % (Auto) 4.5 L [place] % (Auto) 7.7 Eos % (Auto) 0.3 Baso % (Auto) 0.2 Neut # (Auto) 10.6 H Lymph # (Auto) 0.5 L [place] # (Auto) 0.9 Eos # (Auto) 0.0 Baso # (Auto) 0.0 WBC Differential . Differential Comment Auto diff final Sodium 143 Potassium 4.3 Chloride 106 Carbon Dioxide 32.8 H Anion Gap 4 L BUN 29 H Creatinine 0.94 Estimated GFR 59 L Random Glucose 84 Calcium 8.3 L Microbiology 09/15/18 15:15 Blood - Peripheral Aerobic Blood Culture - Final Pseudomonas aeruginosa 09/15/18 15:15 Blood - Peripheral Anaerobic Blood Culture - Preliminary No growth in 2 days 09/16/18 14:15 Blood - Peripheral Aerobic Blood Culture - Preliminary No growth in 1 day 09/16/18 14:15 Blood - Peripheral Anaerobic Blood Culture - Preliminary No growth in 1 day 09/16/18 14:20 Blood - Peripheral Aerobic Blood Culture - Preliminary No growth in 1 day 09/16/18 14:20 Blood - Peripheral Anaerobic Blood Culture - Preliminary No growth in 1 day 09/15/18 15:05 Blood - Peripheral Aerobic Blood Culture - Preliminary No growth in 2 days 11/03/18 15:05 Blood - Peripheral Anaerobic Blood Culture - Preliminary No growth in 2 days Assessment and Plan - Plan Assessment and Plan. (1) Acute COPD Exacerbation (chronic obstructive pulmonary disease) (2) Bacteremia (3) Shortness of breath at rest (4) Anxiety (5) Hypertension (6) Nausea (1) COPD (chronic obstructive pulmonary disease) Exacerbation. Long-term COPD patient with O2 requirement at home admitted for COPD exacerbation, CXR .. showed atelectasis versus mild consolidation of left lung base. Troponin negative CTA showed right upper lobe opacity, recommend f/u in 6 months, no obvious focal pneumonia, no PE -On azithromycin 500 mg PO Daily.(started 09/16) -Continue duo nebs -Continue prednisone 50 mg daily -Supplemental oxygen to maintain saturation at 88-92%: Currently on simple mask 10 L. -Restarted home montelukast 10 mg HS, continue trospium bromide 5 mcg daily and Dulera 400-100mcg twice daily. (2) Bacteremia /Sepsis on admission. Blood culture on admission positive for Pseudomonas aurigonasa Source in this case most likely respiratory source. Clinically not septic, afebrile. WBC increased UA positive for LE but nitrate negative few WBC and patient asx. - blood culture taken 09/15 grew: Pseudomonas in 1 out of 4 vials. -Blood cultures taken 09/16 no growth to date -UCx shows yeast. -Infectious disease input noted, appreciate recommendations Probable source of Pseudomonas infection is pulmonary pneumonia Patient started on IV cefepime Follow-up blood cultures C/S and adjust antibiotics to po quinolone if susceptible. (3) Shortness of breath at rest (4) Anxiety ..Chronic, stable -Continue home alprazolam PRN (5) Hypertension...on Cardizem 360mg CD Q24 hours ..Continue to monitor BP (6) Nausea Patient with complaints of nausea this morning Denies any vomiting Zofran ordered to be given as needed (7) Nutrition, metabolism, and development symptoms Fluids: Not indicated at this time Electrolytes: Replete as needed Nutrition: Regular diet DVT prophylaxis: Enoxaparin 30 subq daily. Check CBC with diff CMP in AM.
--- NOTE | 2018-09-18 10:13 | P.PNFP ---
Subjective Interval history: Patient was seen and examined at bedside by family medicine team this morning. Patient reports there were no acute events overnight. However, this morning she was feeling nauseous and dizzy. Denies vomiting or chest pain. Patient reports her heart shortness of breath is improved. She was able to eat some breakfast this morning. Patient also endorses cough this morning. Her blood pressures have been ranging in the [id number] over 90s. Home medication regimen was reviewed with patient and patient will be started on home medication for blood pressure and COPD. <Olegario Arriaga - 09/18/18 10:53> Results - Labs Result diagrams: 09/18/18 13:20 09/18/18 13:20 <Ryder Brewer - 09/18/18 19:02> Abnormal lab results 09/18/18 09/18/18 09/18/18 Range/Units 07:21 07:21 13:20 WBC 12.2 H 13.9 H (4.0-11.0) th/mm3 Hgb 11.4 L (11.6-15.3) gm/dL MCHC 31.7 L (32.0-36.0) % Neut % (Auto) 87.3 H 90.8 H (16.0-70.0) % Lymph % (Auto) 4.5 L 2.8 L (9.0-44.0) % Neut # (Auto) 10.6 H 12.6 H (1.8-7.7) th/mm3 Lymph # (Auto) 0.5 L 0.4 L (1.0-4.8) th/mm3 Carbon Dioxide 32.8 H (21.0-32.0) meq/L Anion Gap 4 L (5-15) meq/L BUN 29 H (7-18) mg/dL Creatinine (0.50-1.00) mg/dL Estimated GFR 59 L (>89) mL/min Random Glucose (74-106) mg/dL Calcium 8.3 L (8.5-10.1) mg/dL AST (15-37) U/L Albumin (3.4-5.0) g/dL 09/18/18 Range/Units 13:20 WBC (4.0-11.0) th/mm3 Hgb (11.6-15.3) gm/dL MCHC (32.0-36.0) % Neut % (Auto) (16.0-70.0) % Lymph % (Auto) (9.0-44.0) % Neut # (Auto) (1.8-7.7) th/mm3 Lymph # (Auto) (1.0-4.8) th/mm3 Carbon Dioxide (21.0-32.0) meq/L Anion Gap (5-15) meq/L BUN 26 H (7-18) mg/dL Creatinine 1.11 H (0.50-1.00) mg/dL Estimated GFR 48 L (>89) mL/min Random Glucose 190 H D (74-106) mg/dL Calcium (8.5-10.1) mg/dL AST 11 L (15-37) U/L Albumin 3.0 L (3.4-5.0) g/dL Short CBC 09/18/18 09/18/18 Range/Units 07:21 13:20 WBC 12.2 H 13.9 H (4.0-11.0) th/mm3 Hgb 11.4 L 11.9 (11.6-15.3) gm/dL Hct 35.1 37.6 (35.0-46.0) % Plt Count 265 258 (150-450) th/mm3 BMP 09/18/18 09/18/18 07:21 13:20 Sodium 143 144 Potassium 4.3 3.9 Chloride 106 106 Carbon Dioxide 32.8 H 29.2 BUN 29 H 26 H Creatinine 0.94 1.11 H Calcium 8.3 L 8.5 Liver Function 09/18/18 Range/Units 13:20 Total Bilirubin 0.2 (0.2-1.0) mg/dL AST 11 L (15-37) U/L ALT 20 (10-53) U/L Alkaline Phosphatase 84 (45-117) U/L Albumin 3.0 L (3.4-5.0) g/dL <Ryder Brewer L - 09/18/18 19:02> Abnormal lab results 09/18/18 09/18/18 Range/Units 07:21 07:21 WBC 12.2 H (4.0-11.0) th/mm3 Hgb 11.4 L (11.6-15.3) gm/dL Neut % (Auto) 87.3 H (16.0-70.0) % Lymph % (Auto) 4.5 L (9.0-44.0) % Neut # (Auto) 10.6 H (1.8-7.7) th/mm3 Lymph # (Auto) 0.5 L (1.0-4.8) th/mm3 Carbon Dioxide 32.8 H (21.0-32.0) meq/L Anion Gap 4 L (5-15) meq/L BUN 29 H (7-18) mg/dL Estimated GFR 59 L (>89) mL/min Calcium 8.3 L (8.5-10.1) mg/dL Short CBC 09/18/18 Range/Units 07:21 WBC 12.2 H (4.0-11.0) th/mm3 Hgb 11.4 L (11.6-15.3) gm/dL Hct 35.1 (35.0-46.0) % Plt Count 265 (150-450) th/mm3 BMP 09/18/18 07:21 Sodium 143 Potassium 4.3 Chloride 106 Carbon Dioxide 32.8 H BUN 29 H Creatinine 0.94 Calcium 8.3 L <Olegario Arriaga D - 09/18/18 10:13> Physical Exam Vital signs: Vital Signs 09/17/18 19:00 09/17/18 20:00 09/17/18 20:20 Temperature Pulse Rate 100 H 102 H Respiratory Rate 18 Blood Pressure Pulse Oximetry 97 96 09/17/18 20:50 09/17/18 23:50 09/18/18 00:00 Temperature 97.4 F L 97.7 F Pulse Rate 101 H 97 H 93 H Respiratory Rate 18 17 Blood Pressure 159/87 H 157/94 H Pulse Oximetry 97 94 L 09/18/18 04:00 09/18/18 04:10 09/18/18 04:23 Temperature 97.4 F L Pulse Rate 98 H 98 H 93 H Respiratory Rate 18 18 Blood Pressure 169/92 H Pulse Oximetry 94 L 09/18/18 07:42 09/18/18 08:00 09/18/18 13:14 Temperature 97.6 F 97.2 F L Pulse Rate 91 H 102 H 125 H Respiratory Rate 17 18 Blood Pressure 160/74 H 142/93 H Pulse Oximetry 93 L 92 L 09/18/18 14:03 09/18/18 17:07 Temperature 97.8 F Pulse Rate 120 H 107 H Respiratory Rate 24 19 Blood Pressure 183/90 H Pulse Oximetry 96 Intake & Output 09/17/18 09/18/18 09/18/18 18:59 06:59 18:59 Intake Total 200 / 200 1100 / 1100 1160 / 1160 Balance 200 / 200 1100 / 1100 1160 / 1160 Weight 68 kg Intake: IV 200 / 200 100 / 100 200 / 200 Maxipime Inj 2,000 MG In NS Inj 100 / 100 100 ML @ 200 mls/hr IV.SIG Q8H [facility] Rx#:[id number] Zosyn 4.5 GM Premix 4.5 gm In 100 / 100 100 / 100 100 / 100 100 ml @ 200 mls/hr IV.SIG Q6H [facility] Rx#:[id number] Rocephin Inj 2,000 MG In NS Inj 100 / 100 100 ML @ 200 mls/hr IV.SIG Q24H [facility] Rx#:[id number] Oral 1000 / 1000 960 / 960 Other: # Voids 3 4 5 Date of Last Bowel Movement 09/16/18 09/18/18 09/18/18 # Bowel Movements 2 2 5 <Ryder Brewer L - 09/18/18 19:02> Vital Signs 09/17/18 12:00 09/17/18 16:00 09/17/18 19:00 Temperature 97.3 F L Pulse Rate 102 H Respiratory Rate 17 20 Blood Pressure 149/76 H Pulse Oximetry 100 97 09/17/18 20:00 09/17/18 20:20 09/17/18 20:50 Temperature 97.4 F L Pulse Rate 100 H 102 H 101 H Respiratory Rate 18 18 Blood Pressure 159/87 H Pulse Oximetry 96 97 09/17/18 23:50 09/18/18 00:00 09/18/18 04:00 Temperature 97.7 F Pulse Rate 97 H 93 H 98 H Respiratory Rate 17 Blood Pressure 157/94 H Pulse Oximetry 94 L 09/18/18 04:10 09/18/18 04:23 09/18/18 07:42 Temperature 97.4 F L Pulse Rate 98 H 93 H 91 H Respiratory Rate 18 18 Blood Pressure 169/92 H Pulse Oximetry 94 L 09/18/18 08:00 Temperature 97.6 F Pulse Rate 102 H Respiratory Rate 17 Blood Pressure 160/74 H Pulse Oximetry 93 L Intake & Output 09/17/18 09/18/18 09/18/18 18:59 06:59 18:59 Intake Total 200 / 200 1100 / 1100 100 / 100 Balance 200 / 200 1100 / 1100 100 / 100 Weight 68 kg Intake: IV 200 / 200 100 / 100 100 / 100 Zosyn 4.5 GM Premix 4.5 gm In 100 / 100 100 / 100 100 / 100 100 ml @ 200 mls/hr IV.SIG Q6H [facility] Rx#:[id number] Rocephin Inj 2,000 MG In NS Inj 100 / 100 100 ML @ 200 mls/hr IV.SIG Q24H [facility] Rx#:[id number] Oral 1000 / 1000 Other: # Voids 3 4 Date of Last Bowel Movement 09/16/18 09/18/18 09/18/18 # Bowel Movements 2 2 <Olegario Arriaga 09/18/18 10:13> - Constitutional no acute distress <Olegario Arriaga 09/18/18 10:53> - Routine HEENT Exam Head: Present: normocephalic, scalp tenderness <Olegario Arriaga 09/18/18 10: 53> Eye: Present: PERRL <Olegario Arriaga 09/18/18 10:53> ENT: Present: mucous membranes moist <Olegario Arriaga D 09/18/18 10:53> - Routine Neck Exam Present: supple, full ROM <Olegario Arriaga 09/18/18 10:53> - Routine Respiratory Exam Present: decreased breath sounds (BL throughout lung marcus), wheezes (mild expiratory wheezing BL on upper lobes). Absent: accessory muscle use, crackles <Olegario Arriaga 09/18/18 10:53> - Routine Cardiovascular Exam Present: RRR, S1, S2. Absent: murmur, gallop, rubs <Olegario Arriaga 10:53> - Routine Abdominal Exam Present: soft. Absent: tenderness <Olegario Arriaga 09/18/18 10:53> - Routine Extremities Exam Present: pulses intact. Absent: cyanosis, edema, calf tenderness <Olegario Arriaga 09/18/18 10:53> - Routine Skin Exam Present: intact <Olegario Arriaga - 09/18/18 10:53> - Routine Neurological Exam Present: oriented X3, CN II-XII intact <Olegario Arriaga - 09/18/18 10:53> Assessment and Plan - Assessment (1) COPD (chronic obstructive pulmonary disease) Code(s): J44.9 - Chronic obstructive pulmonary disease, unspecified Status: Acute (2) Bacteremia Code(s): R78.81 - Bacteremia Status: Acute (3) Shortness of breath at rest Code(s): R06.02 - Shortness of breath Status: Resolved (4) Anxiety Code(s): F41.9 - Anxiety disorder, unspecified Status: Acute (5) Hypertension Code(s): I10 - Essential (primary) hypertension Status: Acute (6) Nausea Code(s): R11.0 - Nausea Status: Acute (7) Nutrition, metabolism, and development symptoms Code(s): R63.8 - Other symptoms and signs concerning food and fluid intake Status: Acute <Ryder Brewer - 09/18/18 19:02> (1) COPD (chronic obstructive pulmonary disease) Code(s): J44.9 - Chronic obstructive pulmonary disease, unspecified Status: Acute Plan: Long-term COPD patient with O2 requirement at home admitted for COPD exacerbation, improving CXR 11 02/13 showed atelectasis versus mild consolidation of left lung base. Troponin negative CTA showed right upper lobe opacity, recommend f/u in 6 months, no obvious focal pneumonia, no PE -Continue ceftriaxone (started 09/16) and azithromycin (started 09/16) -Continue duo nebs -Continue prednisone 50 mg daily -Administer pneumococcal vaccine -Supplemental oxygen to maintain saturation at 88-92%: Currently on simple mask 10 L. -Restarted home montelukast 10 mg HS, continue trospium bromide 5 mcg daily and Dulera 400-100mcg twice daily. (2) Bacteremia Code(s): R78.81 - Bacteremia Status: Acute Plan: Blood culture on admission growing GNR in one tube. Source in this case most likely respiratory source. Clinically not septic, afebrile. WBC increased most likely due to steroids, downtrending this morning. UA positive for LE but nitrate negative few WBC and patient asx. - blood culture taken 09/15 grew: Pseudomonas in 1 out of 4 vials. -Blood cultures taken 09/16 no growth to date -UCx pending -Infectious disease consulted, appreciate recommendations Probable source of Pseudomonas infection is pulmonary pneumonia Patient will be started on IV cefepime Follow-up blood cultures C/S and adjust antibiotics to po quinolone if susceptible. (3) Shortness of breath at rest Code(s): R06.02 - Shortness of breath Status: Resolved Plan: SOB now resolved, likely due to COPD, see plan for COPD above (4) Anxiety Code(s): F41.9 - Anxiety disorder, unspecified Status: Acute Plan: Chronic, stable -Continue home alprazolam PRN (5) Hypertension Code(s): I10 - Essential (primary) hypertension Status: Acute Plan: Patient reports past medical history of hypertension Patient with blood pressure ranges from [id number] over 90s Home med regimen for hypertension reviewed and patient's home dose of Cardizem 360mg CD Q24 hours will be started today -Continue to monitor BP (6) Nausea Code(s): R11.0 - Nausea Status: Acute Plan: Patient with complaints of nausea this morning Denies any vomiting Zofran ordered to be given as needed (7) Nutrition, metabolism, and development symptoms Code(s): R63.8 - Other symptoms and signs concerning food and fluid intake Status: Acute Plan: Fluids: Not indicated at this time Electrolytes: Replete as needed Nutrition: Regular diet DVT prophylaxis: Enoxaparin 30 subq daily Disposition: Patient's medical care will be transferred to patient's PCP Dr. Leon. <Olegario Arriaga - 09/18/18 10:14> - Attending Attestation The exam, history, and the medical decision-making described in the above note were completed with the assistance of the resident physician. I reviewed and agree with the findings presented. I attest that I had a [id number] encounter with the patient on the same day, and personally performed and documented my assessment and findings in the medical record. Patient feels almost back to baseline regarding her shortness of breath. Has pseudomonas bacteremia, cefepime started by infectious disease. ECHO ordered and pending to rule out vegetation. Home medications reconciled and restarted including maintenance inhalers and Diltiazem. Patient will be transferred to Dr. Leon, her PCP, for further management. <Ryder Brewer - 09/18/18 19:02> <Olegario Arriaga - Last Filed: 09/18/18 10:14> (1) COPD (chronic obstructive pulmonary disease) Qualifiers: COPD type: COPD with acute exacerbation Qualified Code(s): J44.1 - Chronic obstructive pulmonary disease with (acute) exacerbation (5) Hypertension Qualifiers: Hypertension type: essential hypertension Qualified Code(s): I10 - Essential (primary) hypertension <Ryder Brewer - Last Filed: 09/18/18 19:02> (1) COPD (chronic obstructive pulmonary disease) Qualifiers: COPD type: COPD with acute exacerbation Qualified Code(s): J44.1 - Chronic obstructive pulmonary disease with (acute) exacerbation (5) Hypertension Qualifiers: Hypertension type: essential hypertension Qualified Code(s): I10 - Essential (primary) hypertension <Olegario Arriaga - Last Filed: 09/18/18 10:14> (1) COPD (chronic obstructive pulmonary disease) Qualifiers: COPD type: COPD with acute exacerbation Qualified Code(s): J44.1 - Chronic obstructive pulmonary disease with (acute) exacerbation (5) Hypertension Qualifiers: Hypertension type: essential hypertension Qualified Code(s): I10 - Essential (primary) hypertension <Ryder Brewer - Last Filed: 09/18/18 19:02> (1) COPD (chronic obstructive pulmonary disease) Qualifiers: COPD type: COPD with acute exacerbation Qualified Code(s): J44.1 - Chronic obstructive pulmonary disease with (acute) exacerbation (5) Hypertension Qualifiers: Hypertension type: essential hypertension Qualified Code(s): I10 - Essential (primary) hypertension
[2018-09-18] MEDS: dilTIAZem CD 180 MG Capsule PO SCH (10:58)
[2018-09-18 13:46] LABS: Baso % (Auto) 0.1 % (0.0-2.0); Eos # (Auto) 0.1 th/mm3 (0.0-0.4); Eos % (Auto) 0.4 % (0.0-4.0); Hematocrit 37.6 % (35.0-46.0); Hemoglobin 11.9 gm/dL (11.6-15.3); Lymph # (Auto) 0.4 th/mm3 (1.0-4.8); Lymph % (Auto) 2.8 % (9.0-44.0); Mean Corpuscular HGB Conc 31.7 % (32.0-36.0); Mean Corpuscular Hemoglobin 28.7 pg (27.0-34.0); Mean Corpuscular Volume 90.5 fL (80.0-100.0); Mean Platelet Volume 8.2 fL (7.0-11.0); Mono # (Auto) 0.8 th/mm3 (0.0-0.9); Mono % (Auto) 5.9 % (0.0-8.0); Neut # (Auto) 12.6 th/mm3 (1.8-7.7); Neut % (Auto) 90.8 % (16.0-70.0); Platelet Count 258 th/mm3 (150-450); Red Blood Count 4.16 mil/mm3 (4.00-5.30); Red Cell Distribution Width 15.5 % (11.6-17.2); White Blood Count 13.9 th/mm3 (4.0-11.0)
[2018-09-18 14:24] LABS: Alanine Aminotransferase 20 U/L (10-53); Alkaline Phosphatase 84 U/L (45-117); Anion Gap 9 meq/L (5-15); Aspartate Aminotransferase 11 U/L (15-37); Blood Urea Nitrogen 26 mg/dL (7-18); Calcium 8.5 mg/dL (8.5-10.1); Carbon Dioxide 29.2 meq/L (21.0-32.0); Chloride 106 meq/L (98-107); Glomerular Filtration Rate 48 mL/min (>89); Glucose,Random 190 mg/dL (74-106); Potassium 3.9 meq/L (3.5-5.1); Sodium 144 meq/L (136-145); Total Protein 6.6 g/dL (6.4-8.2)
[2018-09-18] MEDS: Enoxaparin Inj 30 MG/0.3 ML Syringe SQ SCH (16:51)
--- NOTE | 2018-09-18 17:24 | ECHRPT ---
Indication: SEPSIS POSS ENDOCARDITIS CONCLUSIONS There is a flattened septum in diastole consistent with right ventricle volume overload. There is a flattened septum in systole consistent with right ventricle pressure overload. The left ventricular systolic function is low normal with an estimated ejection fraction is 50%. The right ventricle is mildly dilated. The right ventricular systoilc function is mildly decreased. The right atrial size is upper normal. The aortic valve is not well visualized. No aortic valve regurgitation. No aortic valve stenosis. There is estimated moderate pulmonary hypertension present (range 50-60 mmHg). There is moderate tricuspid regurgitation. The pulmonary valve is not well visualized. The inferior vena cava is mildly dilated. BP: / HR: Rhythm: MEASUREMENTS (Male / Female) Normal Values Technical Quality:Technically difficult study 2D ECHO LV Diastolic Diameter PLAX 4.4 cm 4.2 - 5.9 / 3.9 - 5.3 cm LV Systolic Diameter PLAX 3.5 cm IVS Diastolic Thickness 1.2 cm 0.6 - 1.0 / 0.6 - 0.9 cm LVPW Diastolic Thickness 0.8 cm 0.6 - 1.0 / 0.6 - 0.9 cm LV Relative Wall Thickness 0.4 DOPPLER TR Peak Velocity 394.0 cm/s TR Peak Gradient 62.1 mmHg FINDINGS LEFT VENTRICLE There is a flattened septum in diastole consistent with right ventricle volume overload. There is a flattened septum in systole consistent with right ventricle pressure overload. The left ventricular systolic function is low normal with an estimated ejection fraction is 50%. RIGHT VENTRICLE The right ventricle is mildly dilated. The right ventricular systoilc function is mildly decreased. LEFT ATRIUM The left atrial size is normal. RIGHT ATRIUM The right atrial size is upper normal. MITRAL VALVE Structurally normal mitral valve. AORTIC VALVE The aortic valve is not well visualized. No aortic valve regurgitation. No aortic valve stenosis. TRICUSPID VALVE There is estimated moderate pulmonary hypertension present (range 50-60 mmHg). There is moderate tricuspid regurgitation. PULMONARY VALVE The pulmonary valve is not well visualized. VESSELS The inferior vena cava is mildly dilated. PERICARDIUM No pericardial effusion. Braulio Peña MD (Electronically Signed) Final Date:18 September 2018 17:22
[2018-09-18] MEDS: Montelukast 10 MG Tablet PO SCH (18:12)
[2018-09-18] MEDS ORDERED: DULERA INH SCH (21:00)
[2018-09-18] MEDS ORDERED: MOMETASONE INH SCH (21:00)
[2018-09-18] MEDS ORDERED: FORMOTEROL INH SCH (21:00)
[2018-09-19] MEDS: dilTIAZem CD 180 MG Capsule PO SCH (08:34)
[2018-09-19] MEDS: ALPRAZolam 0.25 MG Tablet PO PRN ×3 (08:35→22:49)
[2018-09-19] MEDS: Lactobacillus Acidophilus/L. Spores Tablet PO SCH ×2 (08:35→20:40)
[2018-09-19] MEDS: Azithromycin 250 MG Tablet PO SCH (08:35)
[2018-09-19] MEDS ORDERED: SPIRIVA RESPIMAT INH SCH (09:00)
--- NOTE | 2018-09-19 09:41 | P.PN ---
Subjective Interval history: Patient still SOB have Wheezing no acute issue discussed with patient and . Physical Exam Vital signs: Vital Signs 09/18/18 13:14 09/18/18 14:03 09/18/18 17:07 Temperature 97.2 F L 97.8 F Pulse Rate 125 H 120 H 107 H Respiratory Rate 18 24 19 Blood Pressure 142/93 H 183/90 H Pulse Oximetry 92 L 96 09/18/18 19:00 09/18/18 19:13 09/18/18 20:00 Temperature 97.3 F L Pulse Rate 102 H 85 Respiratory Rate 20 Blood Pressure 135/83 Pulse Oximetry 95 95 95 09/18/18 23:24 09/19/18 00:00 09/19/18 01:06 Temperature 97.3 F L Pulse Rate 77 76 79 Respiratory Rate 19 17 Blood Pressure 127/84 Pulse Oximetry 100 93 L 09/19/18 04:00 09/19/18 04:50 09/19/18 08:00 Temperature 97.2 F L 97.5 F L Pulse Rate 103 H 98 H Respiratory Rate 20 20 18 Blood Pressure 129/82 150/81 H Pulse Oximetry 88 L 91 L 92 L Intake & Output 09/18/18 09/19/18 09/19/18 18:59 06:59 18:59 Intake Total 1160 / 1160 680 / 680 Balance 1160 / 1160 680 / 680 Weight 68 kg Intake: IV 200 / 200 200 / 200 Maxipime Inj 2,000 MG In NS Inj 100 / 100 200 / 200 100 ML @ 200 mls/hr IV.SIG Q8H KARL Rx#:[id number] Zosyn 4.5 GM Premix 4.5 gm In 100 / 100 100 ml @ 200 mls/hr IV.SIG Q6H KARL Rx#:[id number] Oral 960 / 960 480 / 480 Other: # Voids 5 4 Date of Last Bowel Movement 09/18/18 09/18/18 # Bowel Movements 5 0 - Constitutional no acute distress - Routine HEENT Exam Head: Present: normocephalic, atraumatic Eye: Present: EOMI, PERRL ENT: Present: mucous membranes moist - Routine Neck Exam Present: supple, full ROM - Routine Respiratory Exam Present: prolonged expiratory phase, wheezes, diminished air movement - Routine Cardiovascular Exam Present: RRR, S1, S2 - Routine Abdominal Exam Present: soft, normoactive bowel sounds - Routine Extremities Exam Present: edema, full ROM - Routine Skin Exam Present: intact, dry, warm - Routine Neurological Exam Present: alert, oriented X3, CN II-XII intact - Detailed Neurological Exam: Coma Scale Eye Opening: Spontaneous Verbal Response: Oriented Motor Response: Obey commands T[place]et Coma Scale Total: 15 - Routine Psychiatric Exam Present: normal affect, normal thought process, good judgment Results - Labs CBC & Chem 7: 09/19/18 10:37 09/19/18 10:37 Laboratory Results - last 24 hr 09/18/18 09/18/18 13:20 13:20 WBC 13.9 H RBC 4.16 Hgb 11.9 Hct 37.6 MCV 90.5 MCH 28.7 MCHC 31.7 L RDW 15.5 Plt Count 258 MPV 8.2 Neut % (Auto) 90.8 H Lymph % (Auto) 2.8 L Owen % (Auto) 5.9 Eos % (Auto) 0.4 Baso % (Auto) 0.1 Neut # (Auto) 12.6 H Lymph # (Auto) 0.4 L Owen # (Auto) 0.8 Eos # (Auto) 0.1 Baso # (Auto) 0.0 WBC Differential . Differential Comment Auto diff final Sodium 144 Potassium 3.9 Chloride 106 Carbon Dioxide 29.2 Anion Gap 9 BUN 26 H Creatinine 1.11 H Estimated GFR 48 L Random Glucose 190 H D Calcium 8.5 Total Bilirubin 0.2 AST 11 L ALT 20 Alkaline Phosphatase 84 Total Protein 6.6 Albumin 3.0 L Microbiology 09/17/18 01:41 Clean Catch Urine Urine Culture - Preliminary Yeast species 09/16/18 14:15 Blood - Peripheral Aerobic Blood Culture - Preliminary No growth in 2 days 09/16/18 14:15 Blood - Peripheral Anaerobic Blood Culture - Preliminary No growth in 2 days 09/16/18 14:20 Blood - Peripheral Aerobic Blood Culture - Preliminary No growth in 2 days 09/16/18 14:20 Blood - Peripheral Anaerobic Blood Culture - Preliminary No growth in 2 days 09/15/18 15:15 Blood - Peripheral Aerobic Blood Culture - Final Pseudomonas aeruginosa 09/15/18 15:15 Blood - Peripheral Anaerobic Blood Culture - Preliminary No growth in 3 days 09/15/18 15:05 Blood - Peripheral Aerobic Blood Culture - Preliminary No growth in 3 days 09/15/18 15:05 Blood - Peripheral Anaerobic Blood Culture - Preliminary No growth in 3 days Assessment and Plan - Plan Assessment and Plan. (1) Acute COPD Exacerbation (chronic obstructive pulmonary disease) (2) Bacteremia (3) Shortness of breath at rest (4) Anxiety (5) Hypertension (6) Nausea (1) COPD (chronic obstructive pulmonary disease) Exacerbation. Long-term COPD patient with O2 requirement at home admitted for COPD exacerbation, CXR .. showed atelectasis versus mild consolidation of left lung base. Troponin negative CTA showed right upper lobe opacity, recommend f/u in 6 months, no obvious focal pneumonia, no PE -On azithromycin 500 mg PO Daily.(started 09/16) -Continue duo nebs -Continue prednisone 50 mg daily -Supplemental oxygen to maintain saturation at 88-92%: Currently on simple mask 10 L. -Restarted home montelukast 10 mg HS, continue trospium bromide 5 mcg daily and Dulera 400-100mcg twice daily. (2) Bacteremia /Sepsis on admission. Blood culture on admission positive for Pseudomonas aurigonasa Source in this case most likely respiratory source. Clinically not septic, afebrile. WBC increased UA positive for LE but nitrate negative few WBC and patient asx. Urine culture shows yeast...on Diflucan 150 mg PO Daily. - blood culture taken 09/15 grew: Pseudomonas in 1 out of 4 vials. -Blood cultures taken 09/16 no growth to date -Infectious disease input noted, appreciate recommendations Probable source of Pseudomonas infection is pulmonary pneumonia Patient on IV cefepime Follow-up blood cultures C/S and adjust antibiotics to po quinolone if susceptible. (3) Shortness of breath at rest (4) Anxiety ..Chronic, stable -Continue home alprazolam PRN (5) Hypertension...on Cardizem 360mg CD Q24 hours ..Continue to monitor BP (6) Nausea Patient with complaints of nausea this morning Denies any vomiting Zofran ordered to be given as needed (7) Nutrition, metabolism, and development symptoms Fluids: Not indicated at this time Electrolytes: Replete as needed Nutrition: Regular diet DVT prophylaxis: Enoxaparin 30 subq daily. Check CBC with diff CMP in AM.
--- NOTE | 2018-09-19 10:19 | P.PNID ---
Subjective Remarks: Patient is a 73-year-old female, presented to the hospital complaining of worsening shortness of breath. Patient has a baseline shortness of breath due to her COPD, and she is on continuous oxygen about 4-5 L. Her shortness of breath has been progressively worsening over the last several years, but over the last few weeks her shortness of breath really became progressively worse. She has very minimal cough. Denies any chest pain. Has not had any fever chills or sweats. She could not breathe so she presented to her primary care physician who told her to go to the hospital for further evaluation and treatment. 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 Since admission to the hospital patient has remained afebrile. Her white count was initially 18,000 and that has improved. 1 out of the 2 blood cultures done in the emergency room is now reported as growing pseudomonas aeruginosa. Her chest x-ray showing left base atelectasis or consolidation. CTA did not show any PE but it did show a left base nodular opacity. Repeat blood cultures have been done and those are still pending. Patient states her shortness of breath has improved compared to admission. It is almost close to her baseline shortness of breath. She denies any diarrhea. She feels nauseated this morning. Denies any urinary complaints. Patient has no hardware, no port or any pacemaker or ICD. Patient currently is on Rocephin, Zithromax, and Zosyn. Infectious disease consultation has been requested to assist with evaluation and treatment of her bacteremia. Notes reviewed Temps ok Had increased SOB earlier today - better On nasal O2 5L Feels better compared to yesterday No new (+) BC One BC with pansensitive PSAE UC with yeast Denies complaints Antibiotics: Cefepime Zithromax Lines: PIV Past Medical History: Anxiety Asthma History of hysterectomy Uterine prolapse COPD (chronic obstructive pulmonary disease) HTN (hypertension) Hx of appendectomy Hx of tonsillectomy Allergies/Adverse Reactions: Allergies albuterol Allergy (Unknown, Verified 09/15/18 13:41) Rash latex Allergy (Unknown, Verified 09/15/18 13:41) Anaphylaxis meperidine Allergy (Unknown, Verified 09/15/18 13:41) Hives Objective Vital Signs 09/18/18 13:14 09/18/18 14:03 09/18/18 17:07 Temperature 97.2 F L 97.8 F Pulse Rate 125 H 120 H 107 H Respiratory Rate 18 24 19 Blood Pressure 142/93 H 183/90 H Pulse Oximetry 92 L 96 09/18/18 19:00 09/18/18 19:13 09/18/18 20:00 Temperature 97.3 F L Pulse Rate 102 H 85 Respiratory Rate 20 Blood Pressure 135/83 Pulse Oximetry 95 95 95 09/18/18 23:24 09/19/18 00:00 09/19/18 01:06 Temperature 97.3 F L Pulse Rate 77 76 79 Respiratory Rate 19 17 Blood Pressure 127/84 Pulse Oximetry 100 93 L 09/19/18 04:00 09/19/18 04:50 09/19/18 08:00 Temperature 97.2 F L 97.5 F L Pulse Rate 103 H 90 Respiratory Rate 20 20 18 Blood Pressure 129/82 150/81 H Pulse Oximetry 88 L 91 L 92 L Intake & Output 09/18/18 09/19/18 09/19/18 18:59 06:59 18:59 Intake Total 1160 / 1160 680 / 680 Balance 1160 / 1160 680 / 680 Weight 68 kg Intake: IV 200 / 200 200 / 200 Maxipime Inj 2,000 MG In NS Inj 100 / 100 200 / 200 100 ML @ 200 mls/hr IV.SIG Q8H KARL Rx#:[id number] Zosyn 4.5 GM Premix 4.5 gm In 100 / 100 100 ml @ 200 mls/hr IV.SIG Q6H KARL Rx#:[id number] Oral 960 / 960 480 / 480 Other: # Voids 5 4 Date of Last Bowel Movement 09/18/18 09/18/18 09/19/18 # Bowel Movements 5 0 09/17/18 01:41 Clean Catch Urine Urine Culture - Preliminary Yeast species 09/16/18 14:15 Blood - Peripheral Aerobic Blood Culture - Preliminary No growth in 2 days 09/16/18 14:15 Blood - Peripheral Anaerobic Blood Culture - Preliminary No growth in 2 days 09/16/18 14:20 Blood - Peripheral Aerobic Blood Culture - Preliminary No growth in 2 days 09/16/18 14:20 Blood - Peripheral Anaerobic Blood Culture - Preliminary No growth in 2 days 09/15/18 15:15 Blood - Peripheral Aerobic Blood Culture - Final Pseudomonas aeruginosa 09/15/18 15:15 Blood - Peripheral Anaerobic Blood Culture - Preliminary No growth in 3 days 09/15/18 15:05 Blood - Peripheral Aerobic Blood Culture - Preliminary No growth in 3 days 09/15/18 15:05 Blood - Peripheral Anaerobic Blood Culture - Preliminary No growth in 3 days Lab - Hematology Results 09/18/18 09/18/18 07:21 13:20 WBC 12.2 H 13.9 H RBC 4.01 4.16 Hgb 11.4 L 11.9 Hct 35.1 37.6 MCV 87.5 90.5 MCH 28.4 28.7 MCHC 32.4 31.7 L RDW 15.3 15.5 Plt Count 265 258 MPV 8.6 8.2 Neut % (Auto) 87.3 H 90.8 H Lymph % (Auto) 4.5 L 2.8 L Andrew % (Auto) 7.7 5.9 Eos % (Auto) 0.3 0.4 Baso % (Auto) 0.2 0.1 Neut # (Auto) 10.6 H 12.6 H Lymph # (Auto) 0.5 L 0.4 L Andrew # (Auto) 0.9 0.8 Eos # (Auto) 0.0 0.1 Baso # (Auto) 0.0 0.0 WBC Differential . . Differential Comment Auto diff final Auto diff final Lab - Chemistry Results 09/18/18 09/18/18 07:21 13:20 Sodium 143 144 Potassium 4.3 3.9 Chloride 106 106 Carbon Dioxide 32.8 H 29.2 Anion Gap 4 L 9 BUN 29 H 26 H Creatinine 0.94 1.11 H Estimated GFR 59 L 48 L Random Glucose 84 190 H D Calcium 8.3 L 8.5 Total Bilirubin 0.2 AST 11 L ALT 20 Alkaline Phosphatase 84 Total Protein 6.6 Albumin 3.0 L Imaging: ITS Impressions Chest X-Ray 09/15/18 13:48 CONCLUSION: Atelectasis versus mild consolidation of left lung base. Chest CTA 09/15/18 17:02 CONCLUSION: 1. No pulmonary embolus. 2. Right upper lobe nodular opacity, probably scarring. Left lower lobe nodular opacity, most likely infectious or inflammatory. Six-month follow-up noncontrast chest CT recommended. 3. Moderate to severe emphysema. 4. Coronary artery calcification. Physical Exam: GENERAL: awake and alert, not in respiratory distress at rest SKIN: Cool and dry. No generalized rash, no ecchymoses and no evidence of embolic lesions. HEAD: Atraumatic. Normocephalic. No temporal wasting, or tenderness. EYES: [place] conjunctiva. No petechia or hemorrhage. Pupils equal, round and reactive to light. Extraocular movements full and intact. No scleral icterus. No injection or drainage. EARS, NOSE AND THROAT: Nose without bleeding or purulent nasal discharge. No sinus tenderness. Mucous membranes pink and moist. No oral lesions noted. No exudate. No oral thrush. NECK: Trachea midline. Supple and not tender, no meningeal signs CARDIOVASCULAR: Regular rate and rhythm. No murmurs, rubs or gallops heard RESPIRATORY: Poor air movement, with few wheezing ABDOMEN: Soft, non-tender, nondistended. Bowel sounds present and normoactive. No guarding. No rebound. No organomegaly. EXTREMITIES: No clubbing, cyanosis, or edema. No joint effusion, has good ROM. No calf tenderness. NEUROLOGICAL: Awake and alert. Cranial nerves grossly intact. Motor grossly within normal limits. PSYCHIATRIC: Normal affect, calm and cooperative. LINE: No evidence of infection Assessment and Plan - Plan Impression PSAE bacteremia likely due to PNA L PNA COPD exacerbation - severe COPD, emphysema on CT, O2 dependent Candiduria Recommendation IV cefepime while in hosptal When ready for D/C, change to Levaquin 750 mg daily and give until 09/29 Short course Diflucan Continue Zithromax Monitor progress
[2018-09-19] MEDS: Fluconazole 100 MG Tablet PO SCH (10:46)
[2018-09-19 11:39] LABS: Baso % (Auto) 0.1 % (0.0-2.0); Eos # (Auto) 0.1 th/mm3 (0.0-0.4); Eos % (Auto) 0.7 % (0.0-4.0); Hematocrit 35.7 % (35.0-46.0); Hemoglobin 11.4 gm/dL (11.6-15.3); Lymph # (Auto) 0.7 th/mm3 (1.0-4.8); Lymph % (Auto) 5.8 % (9.0-44.0); Mean Corpuscular HGB Conc 31.8 % (32.0-36.0); Mean Corpuscular Hemoglobin 28.4 pg (27.0-34.0); Mean Corpuscular Volume 89.2 fL (80.0-100.0); Mean Platelet Volume 8.4 fL (7.0-11.0); Mono # (Auto) 0.8 th/mm3 (0.0-0.9); Mono % (Auto) 7.3 % (0.0-8.0); Neut # (Auto) 9.9 th/mm3 (1.8-7.7); Neut % (Auto) 86.1 % (16.0-70.0); Platelet Count 245 th/mm3 (150-450); Red Blood Count 4.01 mil/mm3 (4.00-5.30); Red Cell Distribution Width 15.9 % (11.6-17.2); White Blood Count 11.5 th/mm3 (4.0-11.0)
[2018-09-19 12:13] LABS: Albumin 2.9 g/dL (3.4-5.0); Anion Gap 8 meq/L (5-15); Aspartate Aminotransferase 17 U/L (15-37); Blood Urea Nitrogen 22 mg/dL (7-18); Calcium 8.9 mg/dL (8.5-10.1); Carbon Dioxide 28.7 meq/L (21.0-32.0); Chloride 104 meq/L (98-107); Glomerular Filtration Rate 59 mL/min (>89); Glucose,Random 160 mg/dL (74-106); Sodium 141 meq/L (136-145)
[2018-09-19 12:14] LABS: Potassium 3.9 meq/L (3.5-5.1)
[2018-09-19 12:15] LABS: Alanine Aminotransferase 20 U/L (10-53); Alkaline Phosphatase 74 U/L (45-117); Total Protein 6.3 g/dL (6.4-8.2)
[2018-09-19 12:57] LABS: Eosinophils 1 % (0-4); Lymphocytes 5 % (9-44); Metamyelocytes 1 % (0-1); Monocytes 7 % (0-8); Myelocytes 3 % (0-0); Platelet Estimate Normal (Normal); Platelet Morphology Normal (Normal)
[2018-09-19 12:58] LABS: RBC Morphology Normal (Normal)
[2018-09-19] MEDS: Montelukast 10 MG Tablet PO SCH (17:48)
[2018-09-19] MEDS: Enoxaparin Inj 30 MG/0.3 ML Syringe SQ SCH (18:31)
[2018-09-20] MEDS: ALPRAZolam 0.25 MG Tablet PO PRN ×4 (05:00→23:19)
[2018-09-20] MEDS: Fluconazole 100 MG Tablet PO SCH (08:57)
[2018-09-20] MEDS: Lactobacillus Acidophilus/L. Spores Tablet PO SCH ×2 (08:58→20:40)
[2018-09-20] MEDS: Azithromycin 250 MG Tablet PO SCH (08:58)
[2018-09-20] MEDS: dilTIAZem CD 180 MG Capsule PO SCH (08:58)
--- NOTE | 2018-09-20 11:12 | P.PN ---
Subjective Interval history: Patient feel better SOB / Wheezing better Leukocytosis resolved. Physical Exam Vital signs: Vital Signs 09/19/18 11:57 09/19/18 12:00 09/19/18 16:00 Temperature 97.9 F 98.1 F Pulse Rate 110 H 108 H Respiratory Rate 20 20 Blood Pressure 157/82 H 180/90 H Pulse Oximetry 90 L 92 L Pulse Oximetry [Resting on Room Air] 86 L Pulse Oximetry [Resting with Oxygen] 92 L 09/19/18 19:59 09/19/18 20:03 09/19/18 20:30 Temperature 97.4 F L Pulse Rate 89 95 H 79 Respiratory Rate 18 22 Blood Pressure 122/55 L Pulse Oximetry 99 93 L Pulse Oximetry [Resting on Room Air] Pulse Oximetry [Resting with Oxygen] 09/19/18 23:57 09/20/18 00:03 09/20/18 02:12 Temperature 97.3 F L Pulse Rate 83 84 93 H Respiratory Rate 18 20 Blood Pressure 134/82 Pulse Oximetry 95 Pulse Oximetry [Resting on Room Air] Pulse Oximetry [Resting with Oxygen] 09/20/18 04:13 09/20/18 04:32 09/20/18 04:41 Temperature 97.6 F Pulse Rate 82 93 H 82 Respiratory Rate 18 20 Blood Pressure 161/82 H Pulse Oximetry 94 L Pulse Oximetry [Resting on Room Air] Pulse Oximetry [Resting with Oxygen] 09/20/18 07:00 09/20/18 08:00 09/20/18 11:01 Temperature 97.6 F Pulse Rate 104 H Respiratory Rate 16 Blood Pressure 152/74 H Pulse Oximetry 91 L 93 L 98 Pulse Oximetry [Resting on Room Air] Pulse Oximetry [Resting with Oxygen] Intake & Output 09/19/18 09/20/18 09/20/18 18:59 06:59 18:59 Intake Total 1440 / 1440 820 / 820 Balance 1440 / 1440 820 / 820 Weight 68 kg Intake: IV 200 / 200 100 / 100 Maxipime Inj 2,000 MG In NS Inj 200 / 200 100 / 100 100 ML @ 200 mls/hr IV.SIG Q8H KARL Rx#:[id number] Oral 1240 / 1240 720 / 720 Other: # Voids 5 4 Date of Last Bowel Movement 09/19/18 09/19/18 09/20/18 # Bowel Movements 3 0 - Constitutional no acute distress, thin - Routine HEENT Exam Head: Present: normocephalic, atraumatic Eye: Present: EOMI, PERRL ENT: Present: mucous membranes moist - Routine Neck Exam Present: supple, full ROM - Routine Respiratory Exam Present: prolonged expiratory phase, wheezes, diminished air movement - Routine Cardiovascular Exam Present: RRR, S1, S2 - Routine Abdominal Exam Present: soft, normoactive bowel sounds - Routine Extremities Exam Present: full ROM - Routine Skin Exam Present: intact, dry, warm - Routine Neurological Exam Present: alert, oriented X3, CN II-XII intact, vision grossly intact, hearing grossly intact, normal speech - Detailed Neurological Exam: Coma Scale Eye Opening: Spontaneous Verbal Response: Oriented Motor Response: Obey commands [place]et Coma Scale Total: 15 - Routine Psychiatric Exam Present: normal affect, normal thought process, good judgment Results - Labs CBC & Chem 7: 09/19/18 10:37 09/19/18 10:37 Laboratory Results - last 24 hr 09/19/18 09/19/18 10:37 10:37 WBC 11.5 H RBC 4.01 Hgb 11.4 L Hct 35.7 MCV 89.2 MCH 28.4 MCHC 31.8 L RDW 15.9 Plt Count 245 MPV 8.4 Prelim Diff (Auto) Slide review pending Neut % (Auto) 86.1 H Lymph % (Auto) 5.8 L [place] % (Auto) 7.3 Eos % (Auto) 0.7 Baso % (Auto) 0.1 Neut # (Auto) 9.9 H Lymph # (Auto) 0.7 L [place] # (Auto) 0.8 Eos # (Auto) 0.1 Baso # (Auto) 0.0 WBC Differential Manual diff final Seg Neuts % (Manual) 79 H Band Neuts % (Manual) 4 Lymphocytes % (Manual) 5 L Monocytes % (Manual) 7 Eosinophils % (Manual) 1 Metamyelocytes % (Man) 1 Myelocytes % (Man) 3 H Abs Neuts (Manual) 10.0 H Differential Comment . Platelet Estimate Normal Platelet Morphology Normal RBC Morphology Normal Sodium 141 Potassium 3.9 Chloride 104 Carbon Dioxide 28.7 Anion Gap 8 BUN 22 H Creatinine 0.94 Estimated GFR 59 L Random Glucose 160 H Calcium 8.9 Total Bilirubin 0.2 AST 17 ALT 20 Alkaline Phosphatase 74 Total Protein 6.3 L Albumin 2.9 L Microbiology 09/16/18 14:15 Blood - Peripheral Aerobic Blood Culture - Preliminary No growth in 4 days 09/16/18 14:15 Blood - Peripheral Anaerobic Blood Culture - Preliminary No growth in 4 days 09/16/18 14:20 Blood - Peripheral Aerobic Blood Culture - Preliminary No growth in 4 days 09/16/18 14:20 Blood - Peripheral Anaerobic Blood Culture - Preliminary No growth in 4 days 09/15/18 15:15 Blood - Peripheral Aerobic Blood Culture - Final Pseudomonas aeruginosa 09/15/18 15:15 Blood - Peripheral Anaerobic Blood Culture - Final No growth in 5 days 09/15/18 15:05 Blood - Peripheral Aerobic Blood Culture - Final No growth in 5 days 09/15/18 15:05 Blood - Peripheral Anaerobic Blood Culture - Final No growth in 5 days 09/17/18 01:41 Clean Catch Urine Urine Culture - Final Alysia krusei Assessment and Plan - Plan Assessment and Plan. (1) Acute COPD Exacerbation (chronic obstructive pulmonary disease) (2) Bacteremia (3) Shortness of breath at rest (4) Anxiety (5) Hypertension (6) Nausea (1) COPD (chronic obstructive pulmonary disease) Exacerbation. Long-term COPD patient with O2 requirement at home admitted for COPD exacerbation, CXR .. showed atelectasis versus mild consolidation of left lung base. Troponin negative CTA showed right upper lobe opacity, recommend f/u in 6 months, no obvious focal pneumonia, no PE -On azithromycin 500 mg PO Daily.(started 09/16) -Continue duo nebs -Continue prednisone 50 mg daily -Supplemental oxygen to maintain saturation at 88-92%: Currently on simple mask 10 L. -Restarted home montelukast 10 mg HS, continue trospium bromide 5 mcg daily and Dulera 400-100mcg twice daily. (2) Bacteremia /Sepsis on admission. Blood culture on admission positive for Pseudomonas aurigonasa Source in this case most likely respiratory source. afebrile. WBC increased .. resolved. UA positive for LE but nitrate negative few WBC and patient asx. Urine culture shows yeast...on Diflucan 150 mg PO Daily. - blood culture taken 09/15 grew: Pseudomonas in 1 out of 4 vials. -Blood cultures taken 09/16 no growth to date -Infectious disease input noted, appreciate recommendations Probable source of Pseudomonas infection is pulmonary pneumonia Patient on IV cefepime Follow-up blood cultures C/S and adjust antibiotics to po quinolone if susceptible. (3) Shortness of breath at rest (4) Anxiety ..Chronic, stable -Continue home alprazolam PRN (5) Hypertension...on Cardizem 360 mg CD Q24 hours ..Continue to monitor BP (6) Nausea Patient with complaints of nausea this morning Denies any vomiting Zofran ordered to be given as needed (7) Nutrition, metabolism, and development symptoms Fluids: Not indicated at this time Electrolytes: Replete as needed Nutrition: Regular diet DVT prophylaxis: Enoxaparin 30 subq daily. Check CBC with diff CMP in AM.
[2018-09-20] MEDS: levoFLOXacin 750 MG Tablet PO SCH (14:25)
[2018-09-20 14:29] LABS: Baso % (Auto) 0.1 % (0.0-2.0); Eos % (Auto) 0.2 % (0.0-4.0); Hematocrit 39.2 % (35.0-46.0); Hemoglobin 12.7 gm/dL (11.6-15.3); Lymph # (Auto) 0.6 th/mm3 (1.0-4.8); Lymph % (Auto) 4.3 % (9.0-44.0); Mean Corpuscular HGB Conc 32.4 % (32.0-36.0); Mean Corpuscular Volume 89.6 fL (80.0-100.0); Mean Platelet Volume 8.2 fL (7.0-11.0); Mono # (Auto) 0.4 th/mm3 (0.0-0.9); Mono % (Auto) 2.7 % (0.0-8.0); Neut % (Auto) 92.7 % (16.0-70.0); Platelet Count 270 th/mm3 (150-450); Red Blood Count 4.37 mil/mm3 (4.00-5.30); Red Cell Distribution Width 15.9 % (11.6-17.2)
--- NOTE | 2018-09-20 14:56 | P.PNID ---
Subjective Remarks: Patient is a 73-year-old female, presented to the hospital complaining of worsening shortness of breath. Patient has a baseline shortness of breath due to her COPD, and she is on continuous oxygen about 4-5 L. Her shortness of breath has been progressively worsening over the last several years, but over the last few weeks her shortness of breath really became progressively worse. She has very minimal cough. Denies any chest pain. Has not had any fever chills or sweats. She could not breathe so she presented to her primary care physician who told her to go to the hospital for further evaluation and treatment. 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 Since admission to the hospital patient has remained afebrile. Her white count was initially 18,000 and that has improved. 1 out of the 2 blood cultures done in the emergency room is now reported as growing pseudomonas aeruginosa. Her chest x-ray showing left base atelectasis or consolidation. CTA did not show any PE but it did show a left base nodular opacity. Repeat blood cultures have been done and those are still pending. Patient states her shortness of breath has improved compared to admission. It is almost close to her baseline shortness of breath. She denies any diarrhea. She feels nauseated this morning. Denies any urinary complaints. Patient has no hardware, no port or any pacemaker or ICD. Patient currently is on Rocephin, Zithromax, and Zosyn. Infectious disease consultation has been requested to assist with evaluation and treatment of her bacteremia. Notes reviewed Temps ok Breathing is better On nasal O2 5L No new (+) BC One BC with pansensitive PSAE UC with yeast Denies complaints Antibiotics: Cefepime Zithromax Diflucan Lines: PIV Past Medical History: Anxiety Asthma History of hysterectomy Uterine prolapse COPD (chronic obstructive pulmonary disease) HTN (hypertension) Hx of appendectomy Hx of tonsillectomy Allergies/Adverse Reactions: Allergies albuterol Allergy (Unknown, Verified 09/15/18 13:41) Rash latex Allergy (Unknown, Verified 09/15/18 13:41) Anaphylaxis meperidine Allergy (Unknown, Verified 09/15/18 13:41) Hives Objective Vital Signs 09/19/18 16:00 09/19/18 19:59 09/19/18 20:03 Temperature 98.1 F 97.4 F L Pulse Rate 108 H 89 95 H Respiratory Rate 20 18 Blood Pressure 180/90 H 122/55 L Pulse Oximetry 92 L 99 09/19/18 20:30 09/19/18 23:57 09/20/18 00:03 Temperature 97.3 F L Pulse Rate 79 83 84 Respiratory Rate 22 18 Blood Pressure 134/82 Pulse Oximetry 93 L 95 09/20/18 02:12 09/20/18 04:13 09/20/18 04:32 Temperature 97.6 F Pulse Rate 93 H 82 93 H Respiratory Rate 20 18 20 Blood Pressure 161/82 H Pulse Oximetry 94 L 09/20/18 04:41 09/20/18 07:00 09/20/18 08:00 Temperature 97.6 F Pulse Rate 82 104 H Respiratory Rate 16 Blood Pressure 152/74 H Pulse Oximetry 91 L 93 L 09/20/18 11:01 09/20/18 12:00 09/20/18 13:34 Temperature 98 F Pulse Rate 105 H 101 H Respiratory Rate 17 20 Blood Pressure 148/88 H Pulse Oximetry 98 93 L Intake & Output 09/19/18 09/20/18 09/20/18 18:59 06:59 18:59 Intake Total 1440 / 1440 820 / 820 Balance 1440 / 1440 820 / 820 Weight 68 kg Intake: IV 200 / 200 100 / 100 Maxipime Inj 2,000 MG In NS Inj 200 / 200 100 / 100 100 ML @ 200 mls/hr IV.SIG Q8H [facility] Rx#:[id number] Oral 1240 / 1240 720 / 720 Other: # Voids 5 4 Date of Last Bowel Movement 09/19/18 09/19/18 09/20/18 # Bowel Movements 3 0 09/16/18 14:15 Blood - Peripheral Aerobic Blood Culture - Preliminary No growth in 4 days 09/16/18 14:15 Blood - Peripheral Anaerobic Blood Culture - Preliminary No growth in 4 days 09/16/18 14:20 Blood - Peripheral Aerobic Blood Culture - Preliminary No growth in 4 days 09/16/18 14:20 Blood - Peripheral Anaerobic Blood Culture - Preliminary No growth in 4 days 09/15/18 15:15 Blood - Peripheral Aerobic Blood Culture - Final Pseudomonas aeruginosa 09/15/18 15:15 Blood - Peripheral Anaerobic Blood Culture - Final No growth in 5 days 09/15/18 15:05 Blood - Peripheral Aerobic Blood Culture - Final No growth in 5 days 09/15/18 15:05 Blood - Peripheral Anaerobic Blood Culture - Final No growth in 5 days 09/17/18 01:41 Clean Catch Urine Urine Culture - Final Alysia krusei Lab - Hematology Results 09/19/18 09/20/18 10:37 13:59 WBC 11.5 H 14.0 H RBC 4.01 4.37 Hgb 11.4 L 12.7 Hct 35.7 39.2 MCV 89.2 89.6 MCH 28.4 29.0 MCHC 31.8 L 32.4 RDW 15.9 15.9 Plt Count 245 270 MPV 8.4 8.2 Prelim Diff (Auto) Slide review pending Slide review pending Neut % (Auto) 86.1 H 92.7 H Lymph % (Auto) 5.8 L 4.3 L [place] % (Auto) 7.3 2.7 Eos % (Auto) 0.7 0.2 Baso % (Auto) 0.1 0.1 Neut # (Auto) 9.9 H 13.0 H Lymph # (Auto) 0.7 L 0.6 L [place] # (Auto) 0.8 0.4 Eos # (Auto) 0.1 0.0 Baso # (Auto) 0.0 0.0 WBC Differential Manual diff final Seg Neuts % (Manual) 79 H Band Neuts % (Manual) 4 Lymphocytes % (Manual) 5 L Monocytes % (Manual) 7 Eosinophils % (Manual) 1 Metamyelocytes % (Man) 1 Myelocytes % (Man) 3 H Abs Neuts (Manual) 10.0 H Differential Comment . . Platelet Estimate Normal Platelet Morphology Normal RBC Morphology Normal Lab - Chemistry Results 09/19/18 10:37 Sodium 141 Potassium 3.9 Chloride 104 Carbon Dioxide 28.7 Anion Gap 8 BUN 22 H Creatinine 0.94 Estimated GFR 59 L Random Glucose 160 H Calcium 8.9 Total Bilirubin 0.2 AST 17 ALT 20 Alkaline Phosphatase 74 Total Protein 6.3 L Albumin 2.9 L Imaging: ITS Impressions Chest X-Ray 09/15/18 13:48 CONCLUSION: Atelectasis versus mild consolidation of left lung base. Chest CTA 09/15/18 17:02 CONCLUSION: 1. No pulmonary embolus. 2. Right upper lobe nodular opacity, probably scarring. Left lower lobe nodular opacity, most likely infectious or inflammatory. Six-month follow-up noncontrast chest CT recommended. 3. Moderate to severe emphysema. 4. Coronary artery calcification. Physical Exam: GENERAL: awake and alert, not in respiratory distress at rest SKIN: Cool and dry. No generalized rash. HEAD: Atraumatic. Normocephalic. No temporal wasting, or tenderness. EYES: [place] conjunctiva. No petechia or hemorrhage. No scleral icterus. No injection or drainage. EARS, NOSE AND THROAT: Nose without bleeding or purulent nasal discharge. No sinus tenderness. Mucous membranes pink and moist. No oral lesions noted. No exudate. No oral thrush. NECK: Trachea midline. Supple and not tender, no meningeal signs CARDIOVASCULAR: Regular rate and rhythm. No murmurs, rubs or gallops heard RESPIRATORY: Poor air movement, no wheezing or rhonchi ABDOMEN: Soft, non-tender, nondistended. Bowel sounds present and normoactive. No guarding. No rebound. No organomegaly. EXTREMITIES: No clubbing, cyanosis, or edema. No joint effusion, has good ROM. No calf tenderness. NEUROLOGICAL: Non-focal. PSYCHIATRIC: Normal affect, calm and cooperative. LINE: No evidence of infection Assessment and Plan - Plan Impression PSAE bacteremia likely due to PNA L PNA COPD exacerbation - severe COPD, emphysema on CT, O2 dependent - improving Candiduria Recommendation Change to po Levaquin - give 10 days 7 days Diflucan Stable for D/C from ID standpoint Explained plan to patient I will sign off Please reconsult if with any new ID issue or question
[2018-09-20 15:19] LABS: Lymphocytes 4 % (9-44); Monocytes 4 % (0-8); Myelocytes 1 % (0-0); Platelet Estimate Normal (Normal); Platelet Morphology Normal (Normal); RBC Morphology Normal (Normal)
[2018-09-20 15:23] LABS: Alanine Aminotransferase 24 U/L (10-53); Albumin 3.3 g/dL (3.4-5.0); Alkaline Phosphatase 89 U/L (45-117); Anion Gap 8 meq/L (5-15); Aspartate Aminotransferase 11 U/L (15-37); Blood Urea Nitrogen 25 mg/dL (7-18); Calcium 9.3 mg/dL (8.5-10.1); Carbon Dioxide 31.9 meq/L (21.0-32.0); Chloride 103 meq/L (98-107); Glomerular Filtration Rate 41 mL/min (>89); Glucose,Random 222 mg/dL (74-106); Potassium 4.2 meq/L (3.5-5.1); Sodium 143 meq/L (136-145)
[2018-09-20] MEDS: Enoxaparin Inj 30 MG/0.3 ML Syringe SQ SCH (16:05)
[2018-09-20] MEDS: Montelukast 10 MG Tablet PO SCH (19:09)
[2018-09-21] MEDS: ALPRAZolam 0.25 MG Tablet PO PRN ×3 (05:55→17:47)
[2018-09-21] MEDS: dilTIAZem CD 180 MG Capsule PO SCH (09:00)
[2018-09-21] MEDS: Fluconazole 100 MG Tablet PO SCH (09:08)
[2018-09-21] MEDS: Lactobacillus Acidophilus/L. Spores Tablet PO SCH ×2 (09:08→20:53)
[2018-09-21] MEDS: levoFLOXacin 750 MG Tablet PO SCH (09:16)
--- NOTE | 2018-09-21 13:45 | P.PN ---
Subjective Interval history: Patient feel better still SOB and wheezing physical therapy consulted Physical Exam Vital signs: Vital Signs 09/20/18 16:00 09/20/18 19:00 09/20/18 20:05 Temperature 97.7 F 97.3 F L Pulse Rate 107 H 104 H 96 H Respiratory Rate 20 20 Blood Pressure 144/93 H 160/82 H Pulse Oximetry 94 L 89 L 09/20/18 20:45 09/20/18 23:19 09/21/18 00:00 Temperature 97.3 F L Pulse Rate 88 91 H 89 Respiratory Rate 18 20 Blood Pressure Pulse Oximetry 98 94 L 09/21/18 04:15 09/21/18 04:19 09/21/18 05:01 Temperature 97.7 F Pulse Rate 93 H 81 Respiratory Rate 19 Blood Pressure 180/95 H 180/95 H Pulse Oximetry 94 L 09/21/18 08:00 09/21/18 09:29 09/21/18 09:50 Temperature 97.2 F L Pulse Rate 62 104 H Respiratory Rate 20 16 Blood Pressure 154/87 H Pulse Oximetry 95 94 L 09/21/18 11:46 09/21/18 12:00 Temperature 97.5 F L Pulse Rate 110 H Respiratory Rate 22 Blood Pressure 151/79 H Pulse Oximetry 98 90 L Intake & Output 09/20/18 09/21/18 09/21/18 18:59 06:59 18:59 Intake Total 900 / 900 720 / 720 Output Total 300 / 300 Balance 600 / 600 720 / 720 Weight 68 kg Intake: IV 100 / 100 Maxipime Inj 2,000 MG In NS Inj 100 / 100 100 ML @ 200 mls/hr IV.SIG Q8H [facility] Rx#:[id number] Oral 800 / 800 720 / 720 Output: Urine 300 / 300 Other: # Voids 6 2 Date of Last Bowel Movement 09/20/18 09/20/18 09/21/18 # Bowel Movements 6 1 - Constitutional no acute distress - Routine HEENT Exam Head: Present: normocephalic, atraumatic Eye: Present: EOMI, PERRL ENT: Present: mucous membranes moist - Routine Neck Exam Present: supple, full ROM - Routine Respiratory Exam Present: CTA bilaterally - Routine Cardiovascular Exam Present: RRR, S1, S2 - Routine Abdominal Exam Present: soft, normoactive bowel sounds - Routine Extremities Exam Present: edema, full ROM - Routine Skin Exam Present: intact, dry, warm - Routine Neurological Exam Present: alert, oriented X3, CN II-XII intact, moving all extremities, vision grossly intact, hearing grossly intact, normal speech - Detailed Neurological Exam: Coma Scale Eye Opening: Spontaneous Verbal Response: Oriented Motor Response: Obey commands [place] Coma Scale Total: 15 - Routine Psychiatric Exam Present: normal affect, normal thought process, good judgment Results - Labs CBC & Chem 7: 09/20/18 13:59 09/20/18 13:59 Laboratory Results - last 24 hr 09/20/18 09/20/18 13:59 13:59 WBC 14.0 H RBC 4.37 Hgb 12.7 Hct 39.2 MCV 89.6 MCH 29.0 MCHC 32.4 RDW 15.9 Plt Count 270 MPV 8.2 Prelim Diff (Auto) Slide review pending Neut % (Auto) 92.7 H Lymph % (Auto) 4.3 L [place] % (Auto) 2.7 Eos % (Auto) 0.2 Baso % (Auto) 0.1 Neut # (Auto) 13.0 H Lymph # (Auto) 0.6 L [place] # (Auto) 0.4 Eos # (Auto) 0.0 Baso # (Auto) 0.0 WBC Differential Manual diff final Seg Neuts % (Manual) 91 H Lymphocytes % (Manual) 4 L Monocytes % (Manual) 4 Myelocytes % (Man) 1 H Abs Neuts (Manual) 12.9 H Differential Comment . Platelet Estimate Normal Platelet Morphology Normal RBC Morphology Normal Sodium 143 Potassium 4.2 Chloride 103 Carbon Dioxide 31.9 Anion Gap 8 BUN 25 H Creatinine 1.29 H Estimated GFR 41 L Random Glucose 222 H Calcium 9.3 Total Bilirubin 0.3 AST 11 L ALT 24 Alkaline Phosphatase 89 Total Protein 7.0 D Albumin 3.3 L Microbiology 09/16/18 14:15 Blood - Peripheral Aerobic Blood Culture - Final No growth in 5 days 09/16/18 14:15 Blood - Peripheral Anaerobic Blood Culture - Final No growth in 5 days 09/16/18 14:20 Blood - Peripheral Aerobic Blood Culture - Final No growth in 5 days 09/16/18 14:20 Blood - Peripheral Anaerobic Blood Culture - Final No growth in 5 days 09/15/18 15:15 Blood - Peripheral Aerobic Blood Culture - Final Pseudomonas aeruginosa 09/15/18 15:15 Blood - Peripheral Anaerobic Blood Culture - Final No growth in 5 days 09/15/18 15:05 Blood - Peripheral Aerobic Blood Culture - Final No growth in 5 days 09/15/18 15:05 Blood - Peripheral Anaerobic Blood Culture - Final No growth in 5 days Assessment and Plan - Plan Assessment and Plan. (1) Acute COPD Exacerbation (chronic obstructive pulmonary disease) (2) Bacteremia (3) Shortness of breath at rest (4) Anxiety (5) Hypertension (6) Nausea (1) COPD (chronic obstructive pulmonary disease) Exacerbation. Long-term COPD patient with O2 requirement at home admitted for COPD exacerbation, CXR .. showed atelectasis versus mild consolidation of left lung base. Troponin negative CTA showed right upper lobe opacity, recommend f/u in 6 months, no obvious focal pneumonia, no PE -On azithromycin 500 mg PO Daily.(started 09/16) -Continue duo nebs -Continue prednisone 50 mg daily -Supplemental oxygen to maintain saturation at 88-92%: Currently on simple mask 10 L. -Restarted home montelukast 10 mg HS, continue trospium bromide 5 mcg daily and Dulera 400-100mcg twice daily. (2) Bacteremia /Sepsis on admission. Blood culture on admission positive for Pseudomonas aurigonasa Source in this case most likely respiratory source. afebrile. WBC increased .. resolved. UA positive for LE but nitrate negative few WBC and patient asx. Urine culture shows yeast...on Diflucan 150 mg PO Daily. - blood culture taken 09/15 grew: Pseudomonas in 1 out of 4 vials. -Blood cultures taken 09/16 no growth to date -Infectious disease input noted, appreciate recommendations Probable source of Pseudomonas infection is pulmonary pneumonia Patient on PO Levaquin 750 mg PO Daily. (3) Shortness of breath at rest (4) Anxiety ..Chronic, stable -Continue home alprazolam PRN (5) Hypertension...on Cardizem 360 mg CD Q24 hours ..Continue to monitor BP (6) Nausea Patient with complaints of nausea this morning Denies any vomiting Zofran ordered to be given as needed (7) Nutrition, metabolism, and development symptoms Fluids: Not indicated at this time Electrolytes: Replete as needed Nutrition: Regular diet DVT prophylaxis: Enoxaparin 30 subq daily. Physical Therapy evaluation and treatment. Check CBC with diff CMP in AM.
[2018-09-21 15:34] LABS: Eos % (Auto) 0.2 % (0.0-4.0); Lymph # (Auto) 0.5 th/mm3 (1.0-4.8); Lymph % (Auto) 3.6 % (9.0-44.0); Mean Corpuscular HGB Conc 31.7 % (32.0-36.0); Mean Corpuscular Hemoglobin 28.4 pg (27.0-34.0); Mean Corpuscular Volume 89.7 fL (80.0-100.0); Mean Platelet Volume 8.5 fL (7.0-11.0); Mono # (Auto) 0.5 th/mm3 (0.0-0.9); Mono % (Auto) 3.3 % (0.0-8.0); Neut # (Auto) 13.5 th/mm3 (1.8-7.7); Neut % (Auto) 92.9 % (16.0-70.0); Platelet Count 244 th/mm3 (150-450); Red Blood Count 4.24 mil/mm3 (4.00-5.30); Red Cell Distribution Width 15.8 % (11.6-17.2); White Blood Count 14.6 th/mm3 (4.0-11.0)
[2018-09-21 15:54] LABS: Alanine Aminotransferase 22 U/L (10-53); Albumin 2.9 g/dL (3.4-5.0); Anion Gap 8 meq/L (5-15); Aspartate Aminotransferase 13 U/L (15-37); Blood Urea Nitrogen 23 mg/dL (7-18); Calcium 8.7 mg/dL (8.5-10.1); Carbon Dioxide 31.2 meq/L (21.0-32.0); Chloride 103 meq/L (98-107); Glomerular Filtration Rate 49 mL/min (>89); Glucose,Random 181 mg/dL (74-106); Potassium 4.6 meq/L (3.5-5.1); Sodium 142 meq/L (136-145)
[2018-09-21 15:57] LABS: Alkaline Phosphatase 83 U/L (45-117); Total Protein 6.5 g/dL (6.4-8.2)
[2018-09-21 16:39] LABS: Lymphocytes 3 % (9-44); Monocytes 3 % (0-8); Myelocytes 1 % (0-0); Tallied Nucleated RBC 1 (0-0)
[2018-09-21 16:40] LABS: Ovalocytes 1+; Platelet Estimate Normal (Normal); Platelet Morphology Normal (Normal)
[2018-09-21] MEDS: Montelukast 10 MG Tablet PO SCH (17:47)
[2018-09-21] MEDS: Enoxaparin Inj 30 MG/0.3 ML Syringe SQ SCH (17:47)
[2018-09-22] MEDS: ALPRAZolam 0.25 MG Tablet PO PRN ×4 (00:20→21:15)
[2018-09-22] MEDS: Fluconazole 100 MG Tablet PO SCH (08:25)
[2018-09-22] MEDS: dilTIAZem CD 180 MG Capsule PO SCH (08:25)
[2018-09-22] MEDS: Lactobacillus Acidophilus/L. Spores Tablet PO SCH ×2 (08:25→21:16)
[2018-09-22] MEDS: levoFLOXacin 750 MG Tablet PO SCH (08:26)
--- NOTE | 2018-09-22 13:20 | P.PN ---
Subjective Interval history: Patient still SOB on 6 liter by nasal canula consulted pulmonary. d/w patient and RN at bed side Physical Exam Vital signs: Vital Signs 09/21/18 16:00 09/21/18 19:50 09/21/18 19:58 Temperature 97.4 F L 97.3 F L Pulse Rate 101 H 99 H 98 H Respiratory Rate 20 18 Blood Pressure 130/81 137/77 Pulse Oximetry 94 L 96 09/21/18 23:48 09/22/18 00:00 09/22/18 03:42 Temperature 97.4 F L Pulse Rate 94 H 91 H Respiratory Rate 17 19 Blood Pressure 148/93 H Pulse Oximetry 95 09/22/18 03:54 09/22/18 04:00 09/22/18 07:00 Temperature 97.4 F L Pulse Rate 99 H 89 87 Respiratory Rate 18 Blood Pressure 146/89 H Pulse Oximetry 93 L 09/22/18 08:00 Temperature 97.3 F L Pulse Rate 97 H Respiratory Rate 22 Blood Pressure 174/91 H Pulse Oximetry 94 L Intake & Output 09/21/18 09/22/18 09/22/18 18:59 06:59 18:59 Intake Total 1460 / 1460 600 / 600 Balance 1460 / 1460 600 / 600 Intake: Oral 1460 / 1460 600 / 600 Other: # Voids 5 1 Date of Last Bowel Movement 09/21/18 09/22/18 09/22/18 # Bowel Movements 3 1 - Constitutional no acute distress - Routine HEENT Exam Head: Present: normocephalic, atraumatic Eye: Present: EOMI, PERRL ENT: Present: mucous membranes moist - Routine Neck Exam Present: supple, full ROM - Routine Respiratory Exam Present: accessory muscle use, decreased breath sounds, prolonged expiratory phase, wheezes - Routine Cardiovascular Exam Present: RRR, S1, S2 - Routine Abdominal Exam Present: soft, normoactive bowel sounds - Routine Extremities Exam Present: edema, full ROM - Routine Skin Exam Present: intact, dry, warm - Routine Neurological Exam Present: alert, oriented X3, CN II-XII intact, moving all extremities, vision grossly intact, hearing grossly intact - Detailed Neurological Exam: Coma Scale Eye Opening: Spontaneous Verbal Response: Oriented Motor Response: Obey commands [place] Coma Scale Total: 15 - Routine Psychiatric Exam Present: normal affect, normal thought process, good judgment Results - Labs CBC & Chem 7: 09/21/18 14:59 09/21/18 14:59 Laboratory Results - last 24 hr 09/21/18 09/21/18 14:59 14:59 WBC 14.6 H RBC 4.24 Hgb 12.0 Hct 38.0 MCV 89.7 MCH 28.4 MCHC 31.7 L RDW 15.8 Plt Count 244 MPV 8.5 Prelim Diff (Auto) Slide review pending Neut % (Auto) 92.9 H Lymph % (Auto) 3.6 L [place] % (Auto) 3.3 Eos % (Auto) 0.2 Baso % (Auto) 0.0 Neut # (Auto) 13.5 H Lymph # (Auto) 0.5 L [place] # (Auto) 0.5 Eos # (Auto) 0.0 Baso # (Auto) 0.0 WBC Differential Manual diff final Seg Neuts % (Manual) 93 H Lymphocytes % (Manual) 3 L Monocytes % (Manual) 3 Myelocytes % (Man) 1 H Abs Neuts (Manual) 13.7 H Nucleated RBCs/100 WBC 1 H Differential Comment . Platelet Estimate Normal Platelet Morphology Normal Ovalocytes 1+ H Sodium 142 Potassium 4.6 Chloride 103 Carbon Dioxide 31.2 Anion Gap 8 BUN 23 H Creatinine 1.10 H Estimated GFR 49 L Random Glucose 181 H Calcium 8.7 Total Bilirubin 0.2 AST 13 L ALT 22 Alkaline Phosphatase 83 Total Protein 6.5 Albumin 2.9 L Microbiology 09/16/18 14:15 Blood - Peripheral Aerobic Blood Culture - Final No growth in 5 days 09/16/18 14:15 Blood - Peripheral Anaerobic Blood Culture - Final No growth in 5 days 09/16/18 14:20 Blood - Peripheral Aerobic Blood Culture - Final No growth in 5 days 09/16/18 14:20 Blood - Peripheral Anaerobic Blood Culture - Final No growth in 5 days Assessment and Plan - Plan Assessment and Plan. (1) Acute COPD Exacerbation (chronic obstructive pulmonary disease) (2) Bacteremia (3) Shortness of breath at rest (4) Anxiety (5) Hypertension (6) Nausea (1) COPD (chronic obstructive pulmonary disease) Exacerbation. Long-term COPD patient with O2 requirement at home admitted for COPD exacerbation, CXR .. showed atelectasis versus mild consolidation of left lung base. Troponin negative CTA showed right upper lobe opacity, recommend f/u in 6 months, no obvious focal pneumonia, no PE -On azithromycin 500 mg PO Daily.(started 09/16) -Continue duo nebs -Continue prednisone 50 mg daily -Supplemental oxygen to maintain saturation at 88-92%: Currently on simple mask 10 L. -On home montelukast 10 mg HS, continue trospium bromide 5 mcg daily and Dulera 400-100mcg twice daily. - Consulted Pulmonary. (2) Bacteremia /Sepsis on admission. Blood culture on admission positive for Pseudomonas aurigonasa Source in this case most likely respiratory source. afebrile. WBC increased .. resolved. UA positive for LE but nitrate negative few WBC and patient asx. Urine culture shows yeast...on Diflucan 150 mg PO Daily. - blood culture taken 09/15 grew: Pseudomonas in 1 out of 4 vials. -Blood cultures taken 09/16 no growth to date -Infectious disease input noted, appreciate recommendations Probable source of Pseudomonas infection is pulmonary pneumonia Patient on PO Levaquin 750 mg PO Daily. (3) Shortness of breath at rest (4) Anxiety ..Chronic, stable -Continue home alprazolam PRN (5) Hypertension...on Cardizem 360 mg CD Q24 hours ..Continue to monitor BP (6) Nausea Patient with complaints of nausea this morning Denies any vomiting Zofran ordered to be given as needed (7) Nutrition, metabolism, and development symptoms Fluids: Not indicated at this time Electrolytes: Replete as needed Nutrition: Regular diet DVT prophylaxis: Enoxaparin 30 subq daily. Physical Therapy evaluation and treatment. Check CBC with diff CMP in AM.
[2018-09-22 14:51] LABS: Baso % (Auto) 0.1 % (0.0-2.0); Hematocrit 37.8 % (35.0-46.0); Hemoglobin 12.1 gm/dL (11.6-15.3); Lymph # (Auto) 0.5 th/mm3 (1.0-4.8); Mean Corpuscular Hemoglobin 28.2 pg (27.0-34.0); Mean Corpuscular Volume 88.2 fL (80.0-100.0); Mean Platelet Volume 8.2 fL (7.0-11.0); Mono # (Auto) 0.2 th/mm3 (0.0-0.9); Mono % (Auto) 1.5 % (0.0-8.0); Neut # (Auto) 14.3 th/mm3 (1.8-7.7); Neut % (Auto) 95.4 % (16.0-70.0); Platelet Count 257 th/mm3 (150-450); Red Blood Count 4.29 mil/mm3 (4.00-5.30); Red Cell Distribution Width 15.7 % (11.6-17.2)
[2018-09-22 15:07] LABS: Alanine Aminotransferase 23 U/L (10-53); Anion Gap 9 meq/L (5-15); Aspartate Aminotransferase 9 U/L (15-37); Blood Urea Nitrogen 25 mg/dL (7-18); Calcium 8.8 mg/dL (8.5-10.1); Carbon Dioxide 30.1 meq/L (21.0-32.0); Chloride 105 meq/L (98-107); Glomerular Filtration Rate 48 mL/min (>89); Glucose,Random 224 mg/dL (74-106); Potassium 4.8 meq/L (3.5-5.1); Sodium 144 meq/L (136-145)
[2018-09-22 15:09] LABS: Alkaline Phosphatase 92 U/L (45-117); Total Protein 6.5 g/dL (6.4-8.2)
[2018-09-22 16:13] LABS: Ovalocytes 1+; Platelet Estimate Normal (Normal); Platelet Morphology Normal (Normal)
[2018-09-22] MEDS: Enoxaparin Inj 30 MG/0.3 ML Syringe SQ SCH (17:29)
[2018-09-22] MEDS: Montelukast 10 MG Tablet PO SCH (17:29)
--- NOTE | 2018-09-22 20:31 | MB ---
cc: Keila Mendez MD DATE: 09/22/2018 REASON FOR CONSULTATION: COPD and respiratory failure. HISTORY OF PRESENT ILLNESS: This is a 73-year-old white female who has a longstanding history of COPD. She has been on home oxygen at 4 liters nasal cannula and recently was having an exacerbation of bronchitis and was seen by her primary physician, who advised her to come to the hospital for evaluation. Upon arrival, the patient did have a chest CT done with contrast and it showed no evidence of pulmonary embolus, but showed scar-like density in the right upper lobe and nodular opacity in the left lower lobe, more likely an inflammatory. A CT followup in 6 months was recommended. There was also moderately severe emphysema noted. The patient has had a cough. She has wheezing, does not bring up any sputum. She is orthopneic and complains of some swelling in the right leg. There are no fevers, night sweats or chills. PAST MEDICAL HISTORY: Includes history of COPD with recurrent exacerbations as well as pneumonia. He has had epilepsy remotely, history of uterine prolapse. PAST SURGICAL HISTORY: Includes appendectomy, tonsillectomy and a hysterectomy with removal of ovary. HABITS: The patient smoked 2 packs per day for 35 years and then quit many years ago. No significant alcohol. Lives with her locally. FAMILY HISTORY: Significant for heart disease in her mother. ALLERGIES: DEMEROL. REVIEW OF SYSTEMS: The patient has had some weight gain. She has dizziness, postnasal drip. She does have some reflux with epigastric distress. Denies nausea, vomiting. She has no urinary frequency, dysuria. She has had leg swelling on the right leg and denies depression, has some anxiety. PHYSICAL EXAMINATION: GENERAL: This is an elderly averagely built white female who is alert. Face was plethoric. She has mild respiratory distress with use of accessory muscles of respiration. VITAL SIGNS: Blood pressure 140/80, pulse is 105, respirations 22, temperature is 98.2. HEENT: Head is normocephalic. Pupils were reactive and equal. Tongue is moist. Throat was injected. Nasal mucosa is clear. NECK: Supple, no bruits. There is mild venous distention while sitting upright. Trachea midline. CHEST: Equal movements with an increased AP diameter. Percussion is resonant throughout. Breath sounds were distant with prolonged expirations with occasional wheezes anteriorly. HEART: The heart sounds were regular, S1 and S2. No murmur. No S3. ABDOMEN: Soft and protuberant without masses. No organomegaly or tenderness. EXTREMITIES: Mild edema of the right leg with no calf tenderness. Homans sign is negative. Reflexes are 1+ with no gross motor deficits. Cranial nerves are grossly intact. SKIN: No lesions. IMPRESSION: 1. Chronic obstructive pulmonary disease with acute exacerbation. 2. Lung nodules, etiology undetermined, possible inflammatory nodules. 3. Severe emphysema and chronic bronchitis. PLAN: The patient has been placed on antibiotic therapy including Rocephin 1 gram IV and Zithromax 500 mg IV daily. We will also add Solu-Medrol 40 mg IV q.6 hours and nebulized DuoNeb solution q.i.d. and p.r.n. Also will get a pulmonary function study at the bedside. The patient will use her home inhaler, which is Dulera 200 x mcg/5 mcg 2 puffs twice a day, since that is the only one that works, and I advised her that a followup CT scan will be arranged in approximately 6 months to evaluate the lung nodules. Thank you Dr. Brewer for this consultation. Keila Mendez MD VJD/lana , 07:31 PM , 07:46 PM
[2018-09-22] MEDS: MethylPREDNISolone Sod Succinate Inj 40 MG/ML Vial IV.PUSH SCH (21:16)
[2018-09-23] MEDS: MethylPREDNISolone Sod Succinate Inj 40 MG/ML Vial IV.PUSH SCH ×3 (05:50→20:21)
[2018-09-23] MEDS: Fluconazole 100 MG Tablet PO SCH (08:26)
[2018-09-23] MEDS: dilTIAZem CD 180 MG Capsule PO SCH (08:26)
[2018-09-23] MEDS: Lactobacillus Acidophilus/L. Spores Tablet PO SCH ×2 (08:26→20:21)
--- NOTE | 2018-09-23 10:34 | P.PN ---
Subjective Interval history: Patient still SOB and have wheezing Pulmonary input noted Discharge plan soon home with home health care. Physical Exam Vital signs: Vital Signs 09/22/18 12:00 09/22/18 16:00 09/22/18 18:30 Temperature 97.6 F 97.4 F L Pulse Rate 106 H 98 H Respiratory Rate 20 18 Blood Pressure 145/95 H 142/88 H Pulse Oximetry 94 L 97 96 09/22/18 20:00 09/22/18 20:09 09/23/18 00:00 Temperature 97.5 F L 97.3 F L Pulse Rate 96 H 86 Respiratory Rate 18 17 Blood Pressure 157/87 H 164/91 H Pulse Oximetry 92 L 92 L 93 L 09/23/18 02:04 09/23/18 04:00 09/23/18 07:10 Temperature 97.3 F L Pulse Rate 87 96 H Respiratory Rate 19 17 Blood Pressure 136/64 Pulse Oximetry 93 L 09/23/18 08:00 09/23/18 09:12 Temperature 97.4 F L Pulse Rate 103 H Respiratory Rate 20 Blood Pressure 158/45 H Pulse Oximetry 91 L 93 L Intake & Output 09/22/18 09/23/18 09/23/18 18:59 06:59 18:59 Intake Total 720 / 720 Balance 720 / 720 Weight 75.2 kg Intake: Oral 720 / 720 Other: # Voids 4 3 Date of Last Bowel Movement 09/22/18 09/22/18 09/22/18 # Bowel Movements 0 2 - Constitutional no acute distress - Routine HEENT Exam Head: Present: normocephalic, atraumatic ENT: Present: mucous membranes moist - Routine Neck Exam Present: supple, full ROM - Routine Respiratory Exam Present: prolonged expiratory phase, wheezes - Routine Cardiovascular Exam Present: RRR, S1, S2 - Routine Abdominal Exam Present: soft, normoactive bowel sounds - Routine Extremities Exam Present: edema, full ROM - Routine Skin Exam Present: intact, dry, warm - Routine Neurological Exam Present: alert, oriented X3, CN II-XII intact, moving all extremities, vision grossly intact, hearing grossly intact, normal speech - Detailed Neurological Exam: Coma Scale Eye Opening: Spontaneous Verbal Response: Oriented Motor Response: Obey commands [place] Coma Scale Total: 15 - Routine Psychiatric Exam Present: normal affect, normal thought process, good judgment Results - Labs CBC & Chem 7: 09/22/18 14:27 09/22/18 14:27 Laboratory Results - last 24 hr 09/22/18 09/22/18 14:27 14:27 WBC 15.0 H RBC 4.29 Hgb 12.1 Hct 37.8 MCV 88.2 MCH 28.2 MCHC 32.0 RDW 15.7 Plt Count 257 MPV 8.2 Prelim Diff (Auto) Slide review pending Neut % (Auto) 95.4 H Lymph % (Auto) 3.0 L [place] % (Auto) 1.5 Eos % (Auto) 0.0 Baso % (Auto) 0.1 Neut # (Auto) 14.3 H Lymph # (Auto) 0.5 L [place] # (Auto) 0.2 Eos # (Auto) 0.0 Baso # (Auto) 0.0 WBC Differential . Diff Scan Auto diff confirmed Differential Comment . Platelet Estimate Normal Platelet Morphology Normal Ovalocytes 1+ H Sodium 144 Potassium 4.8 Chloride 105 Carbon Dioxide 30.1 Anion Gap 9 BUN 25 H Creatinine 1.11 H Estimated GFR 48 L Random Glucose 224 H Calcium 8.8 Total Bilirubin 0.2 AST 9 L ALT 23 Alkaline Phosphatase 92 Total Protein 6.5 Albumin 3.0 L Assessment and Plan - Plan Assessment and Plan. (1) Acute COPD Exacerbation (chronic obstructive pulmonary disease) (2) Bacteremia (3) Shortness of breath at rest (4) Anxiety (5) Hypertension (6) Nausea (1) COPD (chronic obstructive pulmonary disease) Exacerbation. Long-term COPD patient with O2 requirement at home admitted for COPD exacerbation, CXR .. showed atelectasis versus mild consolidation of left lung base. Troponin negative CTA showed right upper lobe opacity, recommend f/u in 6 months, no obvious focal pneumonia, no PE -On azithromycin 500 mg PO Daily.(started 09/16) -Continue duo nebs -Continue prednisone 50 mg daily -Supplemental oxygen to maintain saturation at 88-92%: Currently on simple mask 10 L. -On home montelukast 10 mg HS, continue trospium bromide 5 mcg daily and Dulera 400-100mcg twice daily. - Pulmonary input noted. (2) Bacteremia /Sepsis on admission. Blood culture on admission positive for Pseudomonas aurigonasa Source in this case most likely respiratory source. afebrile. High WBC Count. .on steroids + sepsis. UA positive for LE but nitrate negative few WBC and patient asx. Urine culture shows yeast...on Diflucan 150 mg PO Daily. - blood culture taken 09/15 grew: Pseudomonas in 1 out of 4 vials. -Blood cultures taken 09/16 no growth to date -Infectious disease input noted, appreciate recommendations Probable source of Pseudomonas infection is pulmonary pneumonia Patient on PO Levaquin 750 mg PO Daily. (3) Shortness of breath at rest (4) Anxiety ..Chronic, stable -Continue home alprazolam PRN (5) Hypertension...on Cardizem 360 mg CD Q24 hours ..Continue to monitor BP (6) Nausea Patient with complaints of nausea this morning Denies any vomiting Zofran ordered to be given as needed (7) Nutrition, metabolism, and development symptoms Fluids: Not indicated at this time Electrolytes: Replete as needed Nutrition: Regular diet DVT prophylaxis: Enoxaparin 30 subq daily. Physical Therapy evaluation and treatment. Discharge plan soon home with home health care. Check CBC with diff CMP in AM.
[2018-09-23] MEDS: ALPRAZolam 0.25 MG Tablet PO PRN ×2 (11:49→20:21)
[2018-09-23 14:55] LABS: Baso % (Auto) 0.2 % (0.0-2.0); Lymph # (Auto) 0.4 th/mm3 (1.0-4.8); Lymph % (Auto) 2.3 % (9.0-44.0); Mean Corpuscular HGB Conc 32.5 % (32.0-36.0); Mean Corpuscular Hemoglobin 28.8 pg (27.0-34.0); Mean Corpuscular Volume 88.6 fL (80.0-100.0); Mean Platelet Volume 8.3 fL (7.0-11.0); Mono # (Auto) 0.4 th/mm3 (0.0-0.9); Mono % (Auto) 2.2 % (0.0-8.0); Neut % (Auto) 95.3 % (16.0-70.0); Platelet Count 283 th/mm3 (150-450); Red Blood Count 4.52 mil/mm3 (4.00-5.30); Red Cell Distribution Width 15.5 % (11.6-17.2); White Blood Count 17.9 th/mm3 (4.0-11.0)
[2018-09-23 15:18] LABS: Alanine Aminotransferase 22 U/L (10-53); Albumin 3.3 g/dL (3.4-5.0); Anion Gap 11 meq/L (5-15); Aspartate Aminotransferase 8 U/L (15-37); Blood Urea Nitrogen 24 mg/dL (7-18); Carbon Dioxide 28.3 meq/L (21.0-32.0); Chloride 103 meq/L (98-107); Glomerular Filtration Rate 48 mL/min (>89); Glucose,Random 275 mg/dL (74-106); Sodium 142 meq/L (136-145)
[2018-09-23 15:19] LABS: Alkaline Phosphatase 105 U/L (45-117); Total Protein 7.1 g/dL (6.4-8.2)
--- NOTE | 2018-09-23 17:15 | P.PN ---
Subjective Interval history: She is better. Now has less wheezing On IV Meds still. Physical Exam Vital signs: Vital Signs 09/22/18 18:30 09/22/18 20:00 09/22/18 20:09 Temperature 97.5 F L Pulse Rate 96 H Respiratory Rate 18 Blood Pressure 157/87 H Pulse Oximetry 96 92 L 92 L 09/23/18 00:00 09/23/18 02:04 09/23/18 04:00 Temperature 97.3 F L 97.3 F L Pulse Rate 86 87 Respiratory Rate 17 19 17 Blood Pressure 164/91 H 136/64 Pulse Oximetry 93 L 93 L 09/23/18 07:10 09/23/18 08:00 09/23/18 09:12 Temperature 97.4 F L Pulse Rate 96 H 103 H Respiratory Rate 20 Blood Pressure 158/45 H Pulse Oximetry 91 L 93 L 09/23/18 12:00 09/23/18 16:00 Temperature 97.5 F L 97.4 F L Pulse Rate 102 H 98 H Respiratory Rate 22 20 Blood Pressure 150/93 H 135/79 Pulse Oximetry 90 L 91 L Intake & Output 09/22/18 09/23/18 09/23/18 18:59 06:59 18:59 Intake Total 720 / 720 Balance 720 / 720 Weight 75.2 kg Intake: Oral 720 / 720 Other: # Voids 4 3 Date of Last Bowel Movement 09/22/18 09/22/18 09/22/18 # Bowel Movements 0 2 Narrative: Physical examination GENERAL: Patient is a well-nourished, well-developed female, awake and alert, not in respiratory distress at rest SKIN: Cool and dry. No generalized rash, no ecchymoses and no evidence of embolic lesions. HEAD: Atraumatic. Normocephalic. No temporal wasting, or tenderness. EYES: [place] conjunctiva. No petechia or hemorrhage. Pupils equal, round and reactive to light. No scleral icterus. EARS, NOSE AND THROAT: Nose without bleeding or purulent nasal discharge. No sinus tenderness. No oral lesions noted. No exudate. No oral thrush. NECK: Trachea midline. Supple and not tender, no meningeal signs CARDIOVASCULAR: Regular rate and rhythm. No murmurs, rubs or gallops heard RESPIRATORY: Poor air movement, with scattered wheezing ABDOMEN: Soft, non-tender, nondistended. Bowel sounds present and normoactive. No organomegaly. EXTREMITIES: No clubbing, cyanosis, or edema. No joint effusion, has good ROM. No calf tenderness. NEUROLOGICAL: Awake and alert. Cranial nerves grossly intact. Motor grossly within normal limits. PSYCHIATRIC: Normal affect, calm and cooperative. Results - Labs CBC & Chem 7: 09/23/18 14:32 09/23/18 14:32 Laboratory Results - last 24 hr 09/23/18 09/23/18 14:32 14:32 WBC 17.9 H RBC 4.52 Hgb 13.0 Hct 40.0 MCV 88.6 MCH 28.8 MCHC 32.5 RDW 15.5 Plt Count 283 MPV 8.3 Prelim Diff (Auto) Slide review pending Neut % (Auto) 95.3 H Lymph % (Auto) 2.3 L [place] % (Auto) 2.2 Eos % (Auto) 0.0 Baso % (Auto) 0.2 Neut # (Auto) 17.0 H Lymph # (Auto) 0.4 L [place] # (Auto) 0.4 Eos # (Auto) 0.0 Baso # (Auto) 0.0 WBC Differential . Diff Scan Auto diff confirmed Differential Comment . Sodium 142 Potassium 4.0 D Chloride 103 Carbon Dioxide 28.3 Anion Gap 11 BUN 24 H Creatinine 1.11 H Estimated GFR 48 L Random Glucose 275 H Calcium 9.0 Total Bilirubin 0.3 AST 8 L ALT 22 Alkaline Phosphatase 105 Total Protein 7.1 D Albumin 3.3 L Assessment and Plan - Assessment (1) Community acquired pneumonia Code(s): J18.9 - Pneumonia, unspecified organism Status: Acute (2) Acute exacerbation of chronic obstructive airways disease Code(s): J44.1 - Chronic obstructive pulmonary disease with (acute) exacerbation Status: Acute (3) Shortness of breath at rest Code(s): R06.02 - Shortness of breath Status: Resolved (4) Anxiety Code(s): F41.9 - Anxiety disorder, unspecified Status: Acute (5) COPD (chronic obstructive pulmonary disease) Code(s): J44.9 - Chronic obstructive pulmonary disease, unspecified Status: Acute (6) Hypertension Code(s): I10 - Essential (primary) hypertension Status: Acute (7) Nutrition, metabolism, and development symptoms Code(s): R63.8 - Other symptoms and signs concerning food and fluid intake Status: Acute (8) Bacteremia Code(s): R78.81 - Bacteremia Status: Acute - Plan 1. Continue Levaquin 750 mg 2. O2 4 L N/C 3. Dulera 200 mcg, 2 puffs bid 4. Duoneb nebs qid. 5. Solumedrol 40 mg IV BID 6. CBC,BMP in am 7. PFT in am. (5) COPD (chronic obstructive pulmonary disease) Qualifiers: COPD type: COPD with acute exacerbation Qualified Code(s): J44.1 - Chronic obstructive pulmonary disease with (acute) exacerbation (6) Hypertension Qualifiers: Hypertension type: essential hypertension Qualified Code(s): I10 - Essential (primary) hypertension
[2018-09-23] MEDS: Montelukast 10 MG Tablet PO SCH (17:25)
[2018-09-23] MEDS: Enoxaparin Inj 30 MG/0.3 ML Syringe SQ SCH (17:25)
--- NOTE | 2018-09-24 07:52 | P.PN ---
Subjective Interval history: Patient still have SOB/ Wheezing but better discharge plan soon. Physical Exam Vital signs: Vital Signs 09/23/18 08:00 09/23/18 09:12 09/23/18 12:00 Temperature 97.4 F L 97.5 F L Pulse Rate 103 H 102 H Respiratory Rate 20 22 Blood Pressure 158/45 H 150/93 H Pulse Oximetry 91 L 93 L 90 L 09/23/18 16:00 09/23/18 17:30 09/23/18 20:00 Temperature 97.4 F L 97.4 F L Pulse Rate 98 H 94 H Respiratory Rate 20 17 Blood Pressure 135/79 125/72 Pulse Oximetry 91 L 91 L 96 09/23/18 20:04 09/24/18 00:00 09/24/18 03:27 Temperature 97.6 F Pulse Rate 103 H 90 Respiratory Rate 22 17 19 Blood Pressure 144/81 H Pulse Oximetry 98 09/24/18 04:00 Temperature 97.7 F Pulse Rate 100 H Respiratory Rate 17 Blood Pressure 151/89 H Pulse Oximetry 96 Intake & Output 09/23/18 09/24/18 09/24/18 18:59 06:59 18:59 Intake Total 980 / 980 Balance 980 / 980 Weight 75.2 kg Intake: Oral 980 / 980 Other: # Voids 4 3 Date of Last Bowel Movement 09/22/18 09/22/18 # Bowel Movements 3 3 - Constitutional no acute distress - Routine HEENT Exam Head: Present: normocephalic, atraumatic Eye: Present: EOMI, PERRL ENT: Present: mucous membranes moist - Routine Neck Exam Present: supple, full ROM - Routine Respiratory Exam Present: prolonged expiratory phase, wheezes - Routine Cardiovascular Exam Present: RRR, S1, S2 - Routine Abdominal Exam Present: soft, normoactive bowel sounds - Routine Extremities Exam Present: edema, full ROM - Routine Skin Exam Present: intact, dry, warm - Routine Neurological Exam Present: alert, oriented X3, CN II-XII intact, moving all extremities, vision grossly intact, hearing grossly intact - Detailed Neurological Exam: Coma Scale Eye Opening: Spontaneous Verbal Response: Oriented Motor Response: Obey commands [place] Coma Scale Total: 15 - Routine Psychiatric Exam Present: normal affect, normal thought process, good judgment Results - Labs CBC & Chem 7: 09/23/18 14:32 09/23/18 14:32 Laboratory Results - last 24 hr 09/23/18 09/23/18 14:32 14:32 WBC 17.9 H RBC 4.52 Hgb 13.0 Hct 40.0 MCV 88.6 MCH 28.8 MCHC 32.5 RDW 15.5 Plt Count 283 MPV 8.3 Prelim Diff (Auto) Slide review pending Neut % (Auto) 95.3 H Lymph % (Auto) 2.3 L [place] % (Auto) 2.2 Eos % (Auto) 0.0 Baso % (Auto) 0.2 Neut # (Auto) 17.0 H Lymph # (Auto) 0.4 L [place] # (Auto) 0.4 Eos # (Auto) 0.0 Baso # (Auto) 0.0 WBC Differential . Diff Scan Auto diff confirmed Differential Comment . Sodium 142 Potassium 4.0 D Chloride 103 Carbon Dioxide 28.3 Anion Gap 11 BUN 24 H Creatinine 1.11 H Estimated GFR 48 L Random Glucose 275 H Calcium 9.0 Total Bilirubin 0.3 AST 8 L ALT 22 Alkaline Phosphatase 105 Total Protein 7.1 D Albumin 3.3 L Assessment and Plan - Plan Assessment and Plan. (1) Acute COPD Exacerbation (chronic obstructive pulmonary disease) (2) Bacteremia (3) Shortness of breath at rest (4) Anxiety (5) Hypertension (6) Nausea (1) COPD (chronic obstructive pulmonary disease) Exacerbation. Long-term COPD patient with O2 requirement at home admitted for COPD exacerbation, CXR .. showed atelectasis versus mild consolidation of left lung base. Troponin negative CTA showed right upper lobe opacity, recommend f/u in 6 months, no obvious focal pneumonia, no PE -On azithromycin 500 mg PO Daily.(started 09/16) -Continue duo nebs -Continue prednisone 50 mg daily -Supplemental oxygen to maintain saturation at 88-92%: Currently on simple mask 10 L. -On home montelukast 10 mg HS, continue trospium bromide 5 mcg daily and Dulera 400-100mcg twice daily. - Pulmonary input noted. (2) Bacteremia /Sepsis on admission. Blood culture on admission positive for Pseudomonas aurigonasa Source in this case most likely respiratory source. afebrile. High WBC Count. .on steroids + sepsis. UA positive for LE but nitrate negative few WBC and patient asx. Urine culture shows yeast...on Diflucan 150 mg PO Daily. - blood culture taken 09/15 grew: Pseudomonas in 1 out of 4 vials. -Blood cultures taken 09/16 no growth to date -Infectious disease input noted, appreciate recommendations Probable source of Pseudomonas infection is pulmonary pneumonia Patient on PO Levaquin 750 mg PO Daily. (3) Shortness of breath at rest (4) Anxiety ..Chronic, stable -Continue home alprazolam PRN (5) Hypertension...on Cardizem 360 mg CD Q24 hours ..Continue to monitor BP (6) Nausea Patient with complaints of nausea this morning Denies any vomiting Zofran ordered to be given as needed (7) Nutrition, metabolism, and development symptoms Fluids: Not indicated at this time Electrolytes: Replete as needed Nutrition: Regular diet DVT prophylaxis: Enoxaparin 30 subq daily. Physical Therapy evaluation and treatment. Discharge plan soon home with home health care. Check CBC with diff CMP in AM.
[2018-09-24] MEDS ORDERED: levoFLOXacin 750 MG Tablet PO SCH (09:00)
[2018-09-24] MEDS: dilTIAZem CD 180 MG Capsule PO SCH (09:27)
[2018-09-24] MEDS: Lactobacillus Acidophilus/L. Spores Tablet PO SCH ×2 (09:27→20:48)
[2018-09-24] MEDS: ALPRAZolam 0.25 MG Tablet PO PRN ×3 (09:27→20:51)
[2018-09-24] MEDS: Fluconazole 100 MG Tablet PO SCH (09:27)
[2018-09-24] MEDS: MethylPREDNISolone Sod Succinate Inj 40 MG/ML Vial IV.PUSH SCH (09:27)
[2018-09-24] MEDS: Enoxaparin Inj 30 MG/0.3 ML Syringe SQ SCH (17:49)
[2018-09-24] MEDS: Montelukast 10 MG Tablet PO SCH (17:52)
--- NOTE | 2018-09-24 18:17 | P.PN ---
Subjective Interval history: She is better. Has less wheezing. No chest pain. Good output. Sats 95 on 4 L Physical Exam Vital signs: Vital Signs 09/23/18 20:00 09/23/18 20:04 09/24/18 00:00 Temperature 97.4 F L 97.6 F Pulse Rate 94 H 103 H 90 Respiratory Rate 17 22 17 Blood Pressure 125/72 144/81 H Pulse Oximetry 96 98 09/24/18 03:27 09/24/18 04:00 09/24/18 08:00 Temperature 97.7 F 97.5 F L Pulse Rate 100 H 109 H Respiratory Rate 19 17 26 H Blood Pressure 151/89 H 175/106 H Pulse Oximetry 96 91 L 09/24/18 08:26 09/24/18 11:13 09/24/18 12:00 Temperature 97 F L Pulse Rate 107 H 115 H Respiratory Rate 25 H 26 H Blood Pressure 175/84 H Pulse Oximetry 92 L 90 L 09/24/18 16:00 Temperature 97.6 F Pulse Rate 112 H Respiratory Rate 26 H Blood Pressure 155/81 H Pulse Oximetry 93 L Intake & Output 09/23/18 09/24/18 09/24/18 18:59 06:59 18:59 Intake Total 980 / 980 Balance 980 / 980 Weight 75.2 kg Intake: Oral 980 / 980 Other: # Voids 4 3 Date of Last Bowel Movement 09/22/18 09/22/18 09/22/18 # Bowel Movements 3 3 Narrative: Physical examination GENERAL: Patient is a well-nourished, well-developed female, awake and alert, not in respiratory distress at rest SKIN: Cool and dry. No generalized rash, no ecchymoses and no evidence of embolic lesions. HEAD: Atraumatic. Normocephalic. No temporal wasting, or tenderness. EYES: [place] conjunctiva. No petechia or hemorrhage. Pupils equal, round and reactive to light. No scleral icterus. EARS, NOSE AND THROAT: Nose without bleeding or purulent nasal discharge. No sinus tenderness. No oral lesions noted. No exudate. No oral thrush. NECK: Trachea midline. Supple and not tender, no meningeal signs CARDIOVASCULAR: Regular rate and rhythm. No murmurs, rubs or gallops heard RESPIRATORY: Poor air movement, with bilateral wheezing ABDOMEN: Soft, non-tender, nondistended. Bowel sounds present and normoactive. No organomegaly. EXTREMITIES: No clubbing, cyanosis, or edema. No joint effusion, has good ROM. No calf tenderness. NEUROLOGICAL: Awake and alert. Cranial nerves grossly intact. Motor grossly within normal limits. PSYCHIATRIC: Normal affect, calm and cooperative. Results - Labs CBC & Chem 7: 09/23/18 14:32 09/23/18 14:32 Assessment and Plan - Assessment (1) Community acquired pneumonia Code(s): J18.9 - Pneumonia, unspecified organism Status: Acute (2) Acute exacerbation of chronic obstructive airways disease Code(s): J44.1 - Chronic obstructive pulmonary disease with (acute) exacerbation Status: Acute (3) Shortness of breath at rest Code(s): R06.02 - Shortness of breath Status: Resolved (4) Anxiety Code(s): F41.9 - Anxiety disorder, unspecified Status: Acute (5) COPD (chronic obstructive pulmonary disease) Code(s): J44.9 - Chronic obstructive pulmonary disease, unspecified Status: Acute (6) Hypertension Code(s): I10 - Essential (primary) hypertension Status: Acute (7) Nutrition, metabolism, and development symptoms Code(s): R63.8 - Other symptoms and signs concerning food and fluid intake Status: Acute (8) Bacteremia Code(s): R78.81 - Bacteremia Status: Acute - Plan 1. Continue Levaquin 750 mg Q 48 Hr 2. O2 4 L N/C 3. Dulera 200 mcg, 2 puffs bid 4. Duoneb nebs qid. 5. D/C Solumedrol 6. CBC,BMP in am 7. Add prednisone 20 mg BID 8. Home in am . (5) COPD (chronic obstructive pulmonary disease) Qualifiers: COPD type: COPD with acute exacerbation Qualified Code(s): J44.1 - Chronic obstructive pulmonary disease with (acute) exacerbation (6) Hypertension Qualifiers: Hypertension type: essential hypertension Qualified Code(s): I10 - Essential (primary) hypertension
[2018-09-24] MEDS: predniSONE 20 MG Tablet PO SCH (20:48)
[2018-09-25] MEDS: ALPRAZolam 0.25 MG Tablet PO PRN ×3 (03:08→15:44)
[2018-09-25] MEDS: Fluconazole 100 MG Tablet PO SCH (10:17)
[2018-09-25] MEDS: predniSONE 20 MG Tablet PO SCH (10:17)
[2018-09-25] MEDS: Lactobacillus Acidophilus/L. Spores Tablet PO SCH (10:19)
[2018-09-25] MEDS: dilTIAZem CD 180 MG Capsule PO SCH (10:21)
--- NOTE | 2018-09-25 10:45 | P.PN ---
Subjective Interval history: Patient feel better ok to discharge home today. Physical Exam Vital signs: Vital Signs 09/24/18 11:13 09/24/18 12:00 09/24/18 16:00 Temperature 97 F L 97.6 F Pulse Rate 107 H 115 H 112 H Respiratory Rate 25 H 26 H 26 H Blood Pressure 175/84 H 155/81 H Pulse Oximetry 90 L 93 L 09/24/18 19:49 09/24/18 20:00 09/24/18 20:02 Temperature 98.1 F Pulse Rate 114 H 113 H Respiratory Rate 18 Blood Pressure 159/95 H Pulse Oximetry 90 L 93 L 09/25/18 00:00 09/25/18 03:45 09/25/18 03:50 Temperature 98.0 F Pulse Rate 93 H 98 H Respiratory Rate 18 20 Blood Pressure 152/88 H Pulse Oximetry 92 L 09/25/18 04:00 09/25/18 08:00 09/25/18 08:43 Temperature 98.0 F 97.3 F L Pulse Rate 85 97 H 104 H Respiratory Rate 17 18 18 Blood Pressure 149/85 H 140/90 Pulse Oximetry 95 94 L 96 Intake & Output 09/24/18 09/25/18 09/25/18 18:59 06:59 18:59 Intake Total 1660 / 1660 Balance 1660 / 1660 Weight 75.8 kg Intake: Oral 1660 / 1660 Other: # Voids 8 3 Date of Last Bowel Movement 09/24/18 09/24/18 # Bowel Movements 4 - Constitutional no acute distress - Routine HEENT Exam Head: Present: normocephalic, atraumatic Eye: Present: EOMI, PERRL ENT: Present: mucous membranes moist - Routine Neck Exam Present: supple, full ROM - Routine Respiratory Exam Present: prolonged expiratory phase, wheezes - Routine Cardiovascular Exam Present: RRR, S1, S2 - Routine Abdominal Exam Present: soft, normoactive bowel sounds - Routine Extremities Exam Present: edema, full ROM - Routine Skin Exam Present: intact, dry, warm - Routine Neurological Exam Present: alert, oriented X3, CN II-XII intact, moving all extremities, vision grossly intact, hearing grossly intact, normal speech - Detailed Neurological Exam: Coma Scale Eye Opening: Spontaneous Verbal Response: Oriented Motor Response: Obey commands [place] Coma Scale Total: 15 - Routine Psychiatric Exam Present: normal affect, normal thought process, good judgment Results - Labs CBC & Chem 7: 09/23/18 14:32 09/23/18 14:32 Assessment and Plan - Plan Assessment and Plan. (1) Acute COPD Exacerbation (chronic obstructive pulmonary disease) (2) Bacteremia (3) Shortness of breath at rest (4) Anxiety (5) Hypertension (6) Nausea (1) COPD (chronic obstructive pulmonary disease) Exacerbation. Long-term COPD patient with O2 requirement at home admitted for COPD exacerbation, CXR .. showed atelectasis versus mild consolidation of left lung base. Troponin negative CTA showed right upper lobe opacity, recommend f/u in 6 months, no obvious focal pneumonia, no PE -On azithromycin 500 mg PO Daily.(started 09/16) -Continue duo nebs -Continue prednisone 50 mg daily -Supplemental oxygen to maintain saturation at 88-92%: Currently on simple mask 10 L. -On home montelukast 10 mg HS, continue trospium bromide 5 mcg daily and Dulera 400-100mcg twice daily. - Pulmonary input noted. (2) Bacteremia /Sepsis on admission. Blood culture on admission positive for Pseudomonas aurigonasa Source in this case most likely respiratory source. afebrile. High WBC Count. .on steroids + sepsis. UA positive for LE but nitrate negative few WBC and patient asx. Urine culture shows yeast...on Diflucan 150 mg PO Daily. - blood culture taken 09/15 grew: Pseudomonas in 1 out of 4 vials. -Blood cultures taken 09/16 no growth to date -Infectious disease input noted, appreciate recommendations Probable source of Pseudomonas infection is pulmonary pneumonia Patient on PO Levaquin 750 mg PO Daily. (3) Shortness of breath at rest (4) Anxiety ..Chronic, stable -Continue home alprazolam PRN (5) Hypertension...on Cardizem 360 mg CD Q24 hours ..Continue to monitor BP (6) Nausea Patient with complaints of nausea this morning Denies any vomiting Zofran ordered to be given as needed (7) Nutrition, metabolism, and development symptoms Fluids: Not indicated at this time Electrolytes: Replete as needed Nutrition: Regular diet DVT prophylaxis: Enoxaparin 30 subq daily. Physical Therapy evaluation and treatment. ok to discharge home today. f/u with PCP/Pulmonary 1 week.
--- NOTE | 2018-09-25 13:44 | MD ---
cc: Mj Leon MD DATE OF DISCHARGE: 09/25/2018 CONDITION AT THE TIME OF DISCHARGE: Satisfactory. ACTIVITY: As tolerated. DIET: Cardiac diet. ALLERGIES: ALBUTEROL, LATEX, MEPERIDINE. DISCHARGE MEDICATIONS: Include: 1. Xanax 0.5 mg p.o. daily. 2. Fluconazole 100 mg p.o. daily for 7 days. 3. Levofloxacin 750 mg q. 48 hours for 7 days. 5. Diltiazem 360 mg 24 hour daily. 6. Ipratropium bromide 0.2 mg solution inhalation daily. 7. Xopenex nebulization every 4-6 hours p.r.n. 8. Dulera 200/5 mcg inhalation twice a day. 8. Singulair 10 mg p.o. daily. 9. Protonix 40 mg daily. 10. Prednisone 10 mg p.o. daily. ADMITTING DIAGNOSIS: Shortness of breath secondary to chronic obstructive pulmonary disease exacerbation. DISCHARGE DIAGNOSES: 1. Chronic obstructive pulmonary disease exacerbation, improved. 2. Acute respiratory failure secondary to chronic obstructive pulmonary disease exacerbation. DISCHARGE DIAGNOSIS: 1. Acute respiratory failure, resolved, secondary to chronic obstructive pulmonary disease exacerbation. 2. Sepsis on admission. The patient had Pseudomonas in the blood. Infectious disease seen the patient. The patient was given IV antibiotic during hospital stay and discharged on p.o. Levaquin. 3. Anxiety. 4. Hypertension. 5. Nausea. HOSPITAL COURSE: This is a 73-year-old, very pleasant female who is a patient of my office came to my office with severe shortness of breath and I sent the patient to the [place] [facility] for further evaluation and admission. The patient was admitted in the hospital for COPD exacerbation. Have acute respiratory failure and sepsis on admission. The patient was given empiric antibiotic. Pulmonology seen the patient. Infectious disease, Dr. Harry saw the patient. The patient also developed yeast infection in the urine for which Diflucan was given. The patient to have a leukocytosis during the hospital stay, the patient was on IV steroids. The patient also has a high BUN 24, creatinine 1.1. The patient's blood sugar was high too because of the steroid. The patient is advised to followup with me in 2-3 days. The patient had a urinalysis done, shows urinary tract infection. Urine culture grows Alysia krusei and the patient's blood culture grew Pseudomonas organism. Repeat blood culture was done and shows no growth for 5 days. The patient remained stable and discharged in stable condition, further detail in the medical record. Mj Leon MD EA/tila/douglas , 12:55 PM , 01:02 PM
[2018-09-25 15:39] VITALS: BP 119/78; TEMP 97.9
[2018-09-25 15:41] VITALS: O2SAT 92
[2018-09-25] MEDS: Montelukast 10 MG Tablet PO SCH (15:44)
[2018-09-25] MEDS: Enoxaparin Inj 30 MG/0.3 ML Syringe SQ SCH (15:45)
[2018-09-25 17:24] VITALS: PULSE 108; RESP 24
== END 2018-09-25 17:43 | disposition home or self-care (01) ==
LOC: NEPC 13:36 → NEDA 16:23 → N06 19:10
PROVIDERS: ADMIT Family Medicine; ATTEND Family Medicine

== ENCOUNTER 2018-11-10 13:19 | Inpatient (IN) ==
--- NOTE | 2018-11-10 13:34 | ED ---
HPI General Chief complaint: Respiratory Symptoms Stated complaint: Resp Complaint Time Seen by Provider: 11/10/18 13:24 Source: patient and family Mode of arrival: ambulatory Limitations: no limitations History of Present Illness HPI narrative: Patient is a 73-year-old female presenting to the emergency department from her primary doctor for evaluation of a COPD exacerbation. Patient states she started feeling short of breath 1 week ago, she reports compliance with her inhalers. She denies any fever, chills, nausea, vomiting, chest pain. Symptom onset was gradual, symptoms are moderate. Patient was given dexamethasone 4 mg IM as well as [address] Leon's office. Patient reports that she has had swelling to her right lower extremity for several days, she recently went on an 8-hour trip and her right leg has been swollen since that time. Patient states that because she had food that had extra salt in it. Onset (ago): week(s) Related Data Home Medications Medication Instructions Recorded Confirmed alprazolam [Xanax] 0.5 mg PO DAILY 09/15/18 11/10/18 diltiazem HCl [Cardizem LA] 360 mg PO DAILY 09/15/18 11/10/18 ipratropium bromide 09/15/18 levalbuterol HCl [Xopenex] 1.25 mcg INHALATION Q4HR NEB 09/15/18 11/10/18 levalbuterol tartrate [Xopenex HFA] 45 mcg INHALATION PRN PRN 09/15/18 11/10/18 mometasone-formoterol [Dulera] 2 puff INHALATION BID 09/15/18 11/10/18 montelukast 10 mg PO QPM 09/15/18 11/10/18 prednisone 10 mg PO DAILY 09/15/18 11/10/18 tiotropium bromide [Spiriva 2.5 mcg INHALATION DAILY 09/15/18 11/10/18 Respimat] Allergies Allergy/AdvReac Type Severity Reaction Status Date / Time albuterol Allergy Unknown Rash Verified 11/10/18 13:26 latex Allergy Unknown Anaphylaxis Verified 11/10/18 13:26 meperidine Allergy Unknown Hives Verified 11/10/18 13:26 Review of Systems ROS: all other systems reviewed are negative PMFSH Medical History Medical History Anxiety (Acute) Asthma (Acute) COPD (chronic obstructive pulmonary disease) (Acute) HTN (hypertension) (Acute) History of hysterectomy (Acute) Uterine prolapse (Acute) Surgical History Surgical History Hx of appendectomy (Acute) Hx of tonsillectomy (Acute) Social History Social History Substance History: No History of Abuse Second Hand Smoke Exposure: No Smoking Status: Former smoker Tobacco Type: Cigarettes How Often Do You Have a Drink Containing Alcohol: Never Recent Travel in [facility] within the Last 8 Weeks: No Recent Out of Country Travel within the Last 8 Weeks: No Immunization History Tetanus Immunization: Unsure Exam Narrative Exam Narrative: GENERAL: Overweight, well-developed, alert female. SKIN: Focused skin assessment warm/dry. HEAD: Atraumatic. Normocephalic. EYES: Pupils equal and round. No scleral icterus. No injection or drainage. ENT: No nasal bleeding or discharge. Mucous membranes pink and moist. NECK: Trachea midline. No JVD. CARDIOVASCULAR: Tachycardic. No murmur appreciated. RESPIRATORY: Tachypneic, expiratory wheezes throughout, coarse breath sounds in bases. GASTROINTESTINAL: Abdomen soft, non-tender, nondistended. Hepatic and splenic margins not palpable. Positive bowel sounds, no rebound, no guarding. MUSCULOSKELETAL: No obvious deformities. No clubbing. No cyanosis. 1+ edema to right lower extremity. 2+ dorsalis pedal pulses bilaterally. NEUROLOGICAL: Awake and alert. No obvious cranial nerve deficits. Motor grossly within normal limits. Normal speech. PSYCHIATRIC: Appropriate mood and affect; insight and judgment normal. Course Initial Documented Vital Signs Pulse Rate 109 H 11/10/18 13:21 Respiratory Rate 48 H 11/10/18 13:21 Blood Pressure 177/94 H 11/10/18 13:21 Pulse Oximetry 99 11/10/18 13:21 Last Documented Vital Signs Temperature 98.4 F 11/10/18 13:29 Pulse Rate 108 H 11/10/18 16:22 Respiratory Rate 24 11/10/18 16:22 Blood Pressure 182/84 H 11/10/18 16:22 Pulse Oximetry 94 L 11/10/18 16:22 Medical Decision Making SHARMAINE Attestation SHARMAINE supervised visit: Yes Attestation: I was present with the advanced practitioner during the management of this patient. I discussed the case with the advanced practitioner and agree with the findings and plan as documented in their note except as noted below. 73yF with baseline severe COPD presenting today with acute exacerbation. Patient states that for the past few weeks she's had increased oxygen requirements at home (6-7L O2 around the clock up from 4-5L previously), is on chronic 10 mg prednisone, and multiple inhalers. She was seen by her PMD today, who gave her decadron and neb treatments but she was sent to the ED for further eval due to continued respiratory distress. She reports significant improvement in dyspnea after receiving further nebs/ steriods in the ED but was noted to rapidly desaturate to the 70s during ambulation, even with 6L O2 supplementation. Will give IV mag sulfate and patient will need further workup, evaluation, and nebs/ steroids overnight. MDM Narrative Medical decision making narrative: Patient is a 73-year-old female with a history of COPD presenting with COPD exacerbation, patient was tachypneic and hypoxic on arrival. She normally uses O2 at 7-8 L continuously at home. Patient was placed on 15 L nonrebreather, her O2 sat was 99%. Labs and imaging ordered and pending, IV access established, patient was placed on traffic monitor specialist continuous pulse oximetry. Patient was put back on a nasal cannula at 7 L, her O2 sat is at 98% currently. Patient will be given additional dose of dexamethasone as well as an additional DuoNeb and budesonide nebulizer. Patient 's is at bedside. CBC with elevated WBC at 19 with left shift. CMP is unremarkable, BNP is mildly elevated. CXR bibasilar interstitial prominence and increased density which may represent early interstitial disease. Patient was started on Zosyn and azithromycin. Ultrasound of the right lower extremity was negative for DVT. Patient reported feeling better after steroids and breathing treatments. Attempted to ambulate patient, she became symptomatic with O2 sat dropping into the mid 70s on oxygen. Patient will be admitted with diagnosis of COPD exacerbation to optimize respiratory status. Discussed with Dr. Greene who accepted admit. Orders placed. Medical Screen Exam Complete: Yes Emergency Medical Condition: Yes Differential Diagnosis Differential Diagnosis: Pneumonia versus COPD exacerbation versus respiratory failure versus metabolic abnormality versus DVT versus other Medical Records Medical records reviewed: Yes I reviewed the patient's medical records. Lab Data Lab results reviewed: Yes I reviewed the patient's lab results. Result diagrams: 11/10/18 13:30 11/10/18 13:30 Lab Results 11/10/18 11/10/18 11/10/18 Range/Units 13:30 13:30 13:30 WBC 19.0 H (4.0-11.0) th/mm3 RBC 4.39 (4.00-5.30) mil/mm3 Hgb 12.5 (11.6-15.3) gm/dL Hct 39.5 (35.0-46.0) % MCV 90.1 (80.0-100.0) fL MCH 28.5 (27.0-34.0) pg MCHC 31.7 L (32.0-36.0) % RDW 16.9 (11.6-17.2) % Plt Count 336 (150-450) th/mm3 MPV 8.6 (7.0-11.0) fL Prelim Diff (Auto) Slide review pending Neut % (Auto) 92.1 H (16.0-70.0) % Lymph % (Auto) 4.2 L (9.0-44.0) % [place] % (Auto) 2.9 (0.0-8.0) % Eos % (Auto) 0.1 (0.0-4.0) % Baso % (Auto) 0.7 (0.0-2.0) % Neut # (Auto) 17.5 H (1.8-7.7) th/mm3 Lymph # (Auto) 0.8 L (1.0-4.8) th/mm3 [place] # (Auto) 0.6 (0.0-0.9) th/mm3 Eos # (Auto) 0.0 (0.0-0.4) th/mm3 Baso # (Auto) 0.1 (0.0-0.2) th/mm3 WBC Differential Manual diff final Seg Neuts % (Manual) 84 H (16-70) % Band Neuts % (Manual) 6 (0-6) % Lymphocytes % (Manual) 5 L (9-44) % Monocytes % (Manual) 3 (0-8) % Basophils % (Manual) 1 (0-2) % Metamyelocytes % (Man) 1 (0-1) % Abs Neuts (Manual) 17.3 H (1.8-7.7) th/mm3 Differential Comment . Platelet Estimate Normal (Normal) Platelet Morphology Normal (Normal) Ovalocytes 1+ H (None) Sodium 143 (136-145) meq/L Potassium 3.9 (3.5-5.1) meq/L Chloride 107 (98-107) meq/L Carbon Dioxide 27.6 (21.0-32.0) meq/L Anion Gap 8 (5-15) meq/L BUN 16 (7-18) mg/dL Creatinine 0.96 (0.50-1.00) mg/dL Estimated GFR 57 L (>89) mL/min Random Glucose 143 H (74-106) mg/dL Calcium 8.8 (8.5-10.1) mg/dL Magnesium 2.2 (1.5-2.5) mg/dL Total Bilirubin 0.4 (0.2-1.0) mg/dL AST 24 (15-37) U/L ALT 23 (10-53) U/L Alkaline Phosphatase 115 (45-117) U/L Troponin I 0.03 (0.02-0.05) ng/mL B-Natriuretic Peptide 154 H (0-100) pg/mL Total Protein 7.2 (6.4-8.2) g/dL Albumin 3.6 (3.4-5.0) g/dL Imaging Data Radiologist's impression: Chest X-Ray 11/10/18 13:27 CONCLUSION: COPD with bibasilar interstitial prominence and increased density which may represent early airspace disease. Venous Doppler Study 11/10/18 13:27 CONCLUSION: The study is negative for lower extremity deep venous thrombosis. Discharge Plan Discharge Disposition Patient Disposition: ED Admit(ED Internal Use Only) Discharge Condition Condition: Stable Discharge Order Discharge Orders: ED Use Only Admit Order (Routine); Ordered 11/10/18 Ordered By: Sanjana Lala Discharge Details Diagnosis: Acute exacerbation of chronic obstructive airways disease Physicians Team ED Provider: Shani Fisher ED Midlevel Provider: Sanjana Lala Primary Care Provider: Mj Leon Attending Provider: Olivia Greene Status ED Status: Admitted Patient
[2018-11-10] MEDS ORDERED: LEVALBUTEROL INH ONE (13:47)
[2018-11-10] MEDS ORDERED: Azithromycin Inj 500 MG in Sodium Chlor 0.9% Inj 250 ML IV.SIG ONE (13:47)
[2018-11-10] MEDS ORDERED: Piperacil/Tazo 3.375 GM Premix 3.375 GM/50 ML PIGGYBACK IV.SIG ONE (13:57)
[2018-11-10 13:58] LABS: Baso # (Auto) 0.1 th/mm3 (0.0-0.2); Baso % (Auto) 0.7 % (0.0-2.0); Eos % (Auto) 0.1 % (0.0-4.0); Hematocrit 39.5 % (35.0-46.0); Hemoglobin 12.5 gm/dL (11.6-15.3); Lymph # (Auto) 0.8 th/mm3 (1.0-4.8); Lymph % (Auto) 4.2 % (9.0-44.0); Mean Corpuscular HGB Conc 31.7 % (32.0-36.0); Mean Corpuscular Hemoglobin 28.5 pg (27.0-34.0); Mean Corpuscular Volume 90.1 fL (80.0-100.0); Mean Platelet Volume 8.6 fL (7.0-11.0); Mono # (Auto) 0.6 th/mm3 (0.0-0.9); Mono % (Auto) 2.9 % (0.0-8.0); Neut # (Auto) 17.5 th/mm3 (1.8-7.7); Neut % (Auto) 92.1 % (16.0-70.0); Platelet Count 336 th/mm3 (150-450); Red Blood Count 4.39 mil/mm3 (4.00-5.30); Red Cell Distribution Width 16.9 % (11.6-17.2)
[2018-11-10 14:17] LABS: Alanine Aminotransferase 23 U/L (10-53); Alkaline Phosphatase 115 U/L (45-117); Total Protein 7.2 g/dL (6.4-8.2); Troponin I 0.03 ng/mL (0.02-0.05)
[2018-11-10 14:27] LABS: Lymphocytes 5 % (9-44); Metamyelocytes 1 % (0-1); Monocytes 3 % (0-8); Platelet Estimate Normal (Normal); Platelet Morphology Normal (Normal)
[2018-11-10 14:28] LABS: Ovalocytes 1+
--- NOTE | 2018-11-10 14:30 | US ---
EXAM DATE: 11/10/2018 2:03 PM EST AGE/SEX: 73 years / Female INDICATIONS: Right leg swelling. CLINICAL DATA: This is the patient's initial encounter. Patient reports that signs and symptoms have been present for 1 week and indicates a pain score of 2/10. MEDICAL/SURGICAL HISTORY: Chronic obstructive pulmonary disease. Hypertension. Anxiety. Asthma . Uterine prolapse. Hysterectomy. Appendectomy. Tonsillectomy. COMPARISON: . TECHNIQUE: Venous ultrasound of both lower extremities was performed from the inguinal ligament to t he proximal calf. Real-time, color Doppler and spectral tracing, compression and augmentation techni ques were used. FINDINGS: Normal compression of the deep venous system from the inguinal region to the proximal calf . No echogenic clot is seen. Normal response of the venous system to augmentation and respiration. CONCLUSION: The study is negative for lower extremity deep venous thrombosis. Electronically signed by: Alex Wan MD Board Certified Radiologist 11/10/2018 2:28 PM EST
--- NOTE | 2018-11-10 14:31 | XR ---
EXAM DATE: 11/10/2018 1:41 PM EST AGE/SEX: 73 years / Female INDICATIONS: Shortness of breath. CLINICAL DATA: This is the patient's initial encounter. Patient reports that signs and symptoms have been present for 1 day and indicates a pain score of 0/10. MEDICAL/SURGICAL HISTORY: . Chronic obstructive pulmonary disease. Hypertension. Asthma. . [place] [facility] [place]. . FINDINGS: Lungs are hyperinflated. Bibasilar interstitial prominence and increased density are noted. There is no significant consolidation. Heart and mediastinal structures are stable. CONCLUSION: COPD with bibasilar interstitial prominence and increased density which may represent early airspace disease. Electronically signed by: Alex Wan MD Board Certified Radiologist 11/10/2018 2:30 PM EST
[2018-11-10 14:35] LABS: Albumin 3.6 g/dL (3.4-5.0); Anion Gap 8 meq/L (5-15); Aspartate Aminotransferase 24 U/L (15-37); Blood Urea Nitrogen 16 mg/dL (7-18); Calcium 8.8 mg/dL (8.5-10.1); Carbon Dioxide 27.6 meq/L (21.0-32.0); Chloride 107 meq/L (98-107); Glomerular Filtration Rate 57 mL/min (>89); Glucose,Random 143 mg/dL (74-106); Magnesium 2.2 mg/dL (1.5-2.5); Potassium 3.9 meq/L (3.5-5.1); Sodium 143 meq/L (136-145)
[2018-11-10] MEDS ORDERED: Bisacodyl 10 MG Supp RECTAL PRN (16:46)
[2018-11-10] MEDS ORDERED: Azithromycin 250 MG Tablet PO SCH (17:00)
--- NOTE | 2018-11-10 17:34 | ECG ---
Date Performed: 11/10/2018 Time Performed: 13:49:45 PTAGE: 73 years EKG: ATRIAL FIBRILLATION WITH RAPID VENTRICULAR RESPONSE ABNORMAL RHYTHM ECG PREVIOUS TRACING : 09/15/2018 14.26 Compared to previous tracing, DOCTOR: Francisco Magana Interpretating Date/Time 11/10/2018 17:33:55
[2018-11-10] MEDS ORDERED: ALPRAZolam 0.5 MG Tablet PO PRN (17:40)
--- NOTE | 2018-11-10 17:40 | P.HPIM ---
History of Present Illness Primary Care Physician: Mj Leon MD History of Present Illness: 73-year-old white female with a history of COPD with baseline of O2 dependence on 3 L, asthma, hypertension presents to the emergency room with 1 week history of worsening shortness of breath despite giving herself nebulizer treatments at home and pumping her oxygen all the way to 7 L. Apparently, patient saw her primary care physician today and was given 2 more nebulizer treatments along with a steroid injection but due to her persistent short of breath she was sent to the emergency room for further evaluation. She reports some mild chills and fever over the past week. She has had a dry cough with no associated chest pain. She reports having traveled on an 8-hour trip recently with further complaints of increased right lower leg swelling. She does not use any pain in the lower extremities. While she was in the emergency room while ambulating on 7 L of oxygen she desatted to 70%. Diagnosis (1) Acute and chronic respiratory failure ([id number]): (2) Community acquired pneumonia: (3) Acute exacerbation of chronic obstructive airways disease: Inpatient Certification Inpatient Certification: I certify that the inpatient services were ordered in accordance with Medicare regulations governing the order. This includes certification that hospital inpatient services are reasonable and necessary and in the case of services not specified as inpatient-only under 42 CFR 419.22(n), that they are appropriately provided as inpatient services in accordance to with the 2-midnight benchmark under 43 CFR 412.3(e) Estimated Total Length of Stay (Days): 3 Plans for Post Hospital Care: Not yet determined Review of Systems Constitutional: Reports as per HPI, Denies body ache(s), Reports chills, Reports fatigue, Reports fever(s) and Denies headache(s) Eyes: Denies blurry vision, Denies change in vision and Denies eye pain Ears, Nose, Mouth, and Throat: Denies abnormal hearing, Denies headache(s), Denies mouth pain, Denies nasal congestion, Denies neck pain and Denies sore throat Cardiovascular: Denies chest pain, Reports leg edema, Denies palpitations and Reports dyspnea Respiratory: Reports as per HPI, Reports chest congestion, Reports cough, Reports dyspnea and Reports wheezing Gastrointestinal: Denies abdominal pain, Denies constipation, Denies loose stools, Denies nausea and Denies vomiting Musculoskeletal: Denies back pain, Denies myalgias, Denies arthralgias, Denies neck pain and Denies numbness Skin/Breast: Denies new lesions and Denies rash Neurologic: Denies abnormal hearing, Denies headache(s), Denies focal weakness, Denies memory loss and Denies numbness Psychiatric: Denies anxiety, Denies depression and Denies memory loss Endocrine: Denies cold intolerance, Denies heat intolerance and Denies palpitations Hematologic/Lymphatic: Denies easy bleeding and Denies easy bruising [facility] Medical History Medical History Anxiety (Chronic) Asthma (Chronic) COPD (chronic obstructive pulmonary disease) (Chronic) HTN (hypertension) (Chronic) Uterine prolapse (Chronic) Surgical History Surgical History History of hysterectomy (Chronic) Hx of appendectomy (Chronic) Hx of tonsillectomy (Chronic) Social History Social History Substance History: No History of Abuse Second Hand Smoke Exposure: No Smoking Status: Former smoker Tobacco Type: Cigarettes How Often Do You Have a Drink Containing Alcohol: Never Recent Travel in [facility] within the Last 8 Weeks: No Recent Out of Country Travel within the Last 8 Weeks: No Immunization History Tetanus Immunization: Unsure Medications and Allergies Allergies Allergy/AdvReac Type Severity Reaction Status Date / Time albuterol Allergy Unknown Rash Verified 11/10/18 13:26 latex Allergy Unknown Anaphylaxis Verified 11/10/18 13:26 meperidine Allergy Unknown Hives Verified 11/10/18 13:26 Home Medications Medication Instructions Recorded Confirmed Type alprazolam [Xanax] 0.25 mg PO DAILY PRN 09/15/18 11/10/18 History diltiazem HCl [Cardizem LA] 360 mg PO DAILY 09/15/18 11/10/18 History ipratropium bromide 09/15/18 History levalbuterol HCl [Xopenex] 1.25 mcg INHALATION Q4HR NEB 09/15/18 11/10/18 History levalbuterol tartrate [Xopenex HFA] 45 mcg INHALATION PRN PRN 09/15/18 11/10/18 History mometasone-formoterol [Dulera] 2 puff INHALATION BID 09/15/18 11/10/18 History montelukast 10 mg PO QPM 09/15/18 11/10/18 History prednisone 10 mg PO DAILY 09/15/18 11/10/18 History tiotropium bromide [Spiriva 2.5 mcg INHALATION DAILY 09/15/18 11/10/18 History Respimat] Active Medications: Active Medications Acetaminophen (Tylenol) 650 mg PO Q4H PRN PRN Reason: Temp > 100.4 Al Hydroxide/Mg Hydroxide (Milk Of Magnesia Liq) 30 ml PO Q12H PRN PRN Reason: Mild Constipation Azithromycin (Zithromax) 500 mg PO DAILY [facility] Stop: 11/12/18 09:01 Bisacodyl (Dulcolax Supp) 10 mg RECTAL DAILY PRN PRN Reason: SEVERE CONSITIPATION Enoxaparin Sodium (Lovenox Inj) 40 mg SQ Q24H KARL Magnesium Sulfate/Dextrose (Magnesium Sulfate 1 Gm/D5w 100 Ml Premix) 100 mls @ 100 mls/hr IV.SIG Q1H KARL Stop: 11/10/18 17:59 Ipratropium [place] (Atrovent Neb) 0.5 mg NEB Q4HR NEB KARL Lactulose (Lactulose Liq) 30 ml PO DAILY PRN PRN Reason: SEVERE CONSITIPATION Levalbuterol HCl (Xopenex Neb) 1.25 mg NEB Q4HR NEB KAR[facility] Methylprednisolone Sodium Succinate (Solumedrol Inj) 60 mg IV.PUSH Q6H KARL Ondansetron HCl (Zofran Inj) 4 mg IV.PUSH Q6H PRN PRN Reason: NAUSEA OR VOMITING Senna/Docusate Sodium (Renetta-Colace) 1 tab PO BID [facility] Sennosides (Senokot) 17.2 mg PO Q12H PRN PRN Reason: Moderate Constipation Sodium Chloride (Ns Flush) 2 ml IV.FLUSH BID KARL Sodium Chloride (Ns Flush) 2 ml IV.FLUSH BID KARL Sodium Chloride (Ns Flush) 2 ml IV.FLUSH PRN PRN PRN Reason: FLUSH AFTER USING IV ACCESS Sodium Chloride (Ns Flush) 2 ml IV.FLUSH PRN PRN PRN Reason: FLUSH AFTER USING IV ACCESS Physical Exam Vital signs: Last Vital Signs Temp 98.4 F 11/10/18 13:29 Pulse 108 H 11/10/18 16:22 Resp 24 11/10/18 16:22 BP 182/84 H 11/10/18 16:22 Pulse Ox 94 L 11/10/18 16:22 Intake & Output 11/08/18 11/09/18 11/10/18 11/11/18 06:59 06:59 06:59 06:59 Intake Total 300 / 300 Balance 300 / 300 Weight 70.307 kg Narrative: GENERAL: Well-nourished well-developed pleasant female in slight mild respiratory distress with nasal cannula SKIN: Warm and dry. HEAD: Atraumatic. Normocephalic. EYES: Pupils equal and round. No scleral icterus. No injection or drainage. ENT: No nasal bleeding or discharge. Mucous membranes pink and moist. NECK: Trachea midline. No JVD. CARDIOVASCULAR: Mild tachycardic rate and regular rhythm. RESPIRATORY: No accessory muscle use. Diminished breath sounds bilaterally with few expiratory wheeze GASTROINTESTINAL: Abdomen soft, non-tender, nondistended. Normoactive bowel sounds MUSCULOSKELETAL: Extremities without clubbing, cyanosis, trace to 1+ edema, negative Homans sign bilaterally NEUROLOGICAL: Awake and alert to person place time and situation. No obvious cranial nerve deficits. Motor grossly within normal limits. Five out of 5 muscle strength in the arms and legs. Normal speech. PSYCHIATRIC: Appropriate mood and affect; insight and judgment normal. Results Labs CBC & Chem 7: 11/11/18 07:54 11/10/18 13:30 Imaging Impressions Chest X-Ray 11/10/18 13:27 CONCLUSION: COPD with bibasilar interstitial prominence and increased density which may represent early airspace disease. Venous Doppler Study 11/10/18 13:27 CONCLUSION: The study is negative for lower extremity deep venous thrombosis. ECG Attestation: I personally reviewed and interpreted this ECG as follows: Prior ECG tracings: not available for review Interpretation: Sinus tachycardic with heart rate at 111 Caprini VTE Risk Assessment Caprini VTE Risk Assessment: Moderate/High Risk (score >= 2) Caprini Risk Assessment Model: Point Value = 1 Point Value = 2 Point Value = 3 Point Value = 5 Age 41-60 Minor surgery BMI > 25 kg/m2 Swollen legs Varicose veins or History of unexplained or recurrent spontaneous Oral contraceptives or hormone replacement Sepsis (< 1 month) Serious lung disease, including pneumonia (< 1 month) Abnormal pulmonary function Acute myocardial infarction Congestive heart failure (< 1 month) History of inflammatory bowel disease Medical patient at bed rest Age 61-74 Arthroscopic surgery Major open surgery (> 45 min) Laparoscopic surgery (> 45 min) Malignancy Confined to bed (> 72 hours) Immobilizing plaster cast Central venous access Age >= 75 History of VTE Family history of VTE Factor V Leiden Prothrombin [id number] Lupus anticoagulant Anticardiolipin antibodies Elevated serum homocysteine Heparin-induced thrombocytopenia Other congenital or acquired thrombophilia Stroke (< 1 month) Elective arthroplasty Hip, pelvis, or leg fracture Acute spinal cord injury (< 1 month) Prophylaxis Regimen: Total Risk Factor Score Risk Level Prophylaxis Regimen 0-1 Low Early ambulation 2 Moderate Order ONE of the following: *Sequential Compression Device (SCD) *Heparin 5000 units SQ BID 3-4 Higher Order ONE of the following medications: *Heparin 5000 units SQ TID *Enoxaparin/Lovenox 40 mg SQ daily (WT < 150 kg, CrCl > 30 mL/min) *Enoxaparin/Lovenox 30 mg SQ daily (WT < 150 kg, CrCl > 10-29 mL/min) *Enoxaparin/Lovenox 30 mg SQ BID (WT < 150 kg, CrCl > 30 mL/min) AND/OR *Sequential Compression Device (SCD) 5 or more Highest Order ONE of the following medications: *Heparin 5000 units SQ TID (Preferred with Epidurals) *Enoxaparin/Lovenox 40 mg SQ daily (WT < 150 kg, CrCl > 30 mL/min) *Enoxaparin/Lovenox 30 mg SQ daily (WT < 150 kg, CrCl > 10-29 mL/min) *Enoxaparin/Lovenox 30 mg SQ BID (WT < 150 kg, CrCl > 30 mL/min) AND *Sequential Compression Device (SCD) Assessment and Plan (1) Acute and chronic respiratory failure ([id number]): Code(s): J96.20 - Acute and chronic respiratory failure, unspecified whether with hypoxia or hypercapnia Status: Acute (2) Community acquired pneumonia: Code(s): J18.9 - Pneumonia, unspecified organism Status: Acute (3) Acute exacerbation of chronic obstructive airways disease: Code(s): J44.1 - Chronic obstructive pulmonary disease with (acute) exacerbation Status: Acute Plan 73-year-old white female with a history of COPD with asthma with 3 L O2 dependence presents with one week history of worsening shortness of breath Acute on chronic respiratory failure with acute COPD with asthma exacerbation with hypoxia -patient currently on 7 L oxygen support, will continue with Xopenex and ipratropium nebulization, steroids.. Suspect community-acquired the acquired pneumonia with bilateral new basilar changes on chest x-ray -IV Rocephin and Zithromax. Leukocytosis due to being on chronic steroids however may have a component of early community acquired pneumonia. Hypertension history, resume home Cardizem. DVT prophylaxisheparin _ (1) Community acquired pneumonia Qualifiers: Laterality: Lung location:
[2018-11-10] MEDS ORDERED: XOPENEX 1.25 MG NEB PRN (17:42)
[2018-11-10] MEDS: Mag Sulf 1 gm/100 ml Premix 100 ML IV.SIG SCH ×2 (17:50→18:53)
[2018-11-10] MEDS ORDERED: RESP: Levalbuterol 1.25 MG/3 ML Neb (PRN) NEB (17:51)
[2018-11-10] MEDS ORDERED: Montelukast 10 MG Tablet PO SCH (18:00)
[2018-11-10] MEDS: MethylPREDNISolone Sod Succinate Inj 40 MG/ML Vial IV.PUSH SCH ×2 (18:52→23:07)
[2018-11-10] MEDS: Enoxaparin Inj 40 MG/0.4 ML Syringe SQ SCH (18:52)
[2018-11-10] MEDS: Azithromycin 250 MG Tablet PO SCH (19:00)
[2018-11-10] MEDS ORDERED: XOPENEX NEB SCH (20:00)
[2018-11-10] MEDS ORDERED: PT DULERA INH SCH (21:00)
[2018-11-10] MEDS ORDERED: MOMETASONE FORMOTEROL INHALATION SCH (21:00)
[2018-11-10] MEDS: Montelukast 10 MG Tablet PO SCH (21:07)
[2018-11-10] MEDS: Senna/Docusate Sodium 8.6/50 MG Tablet PO SCH (21:07)
[2018-11-10] MEDS: RESP: Levalbuterol 1.25 MG/3 ML Neb (SCH) NEB (21:33)
[2018-11-11] MEDS: RESP: Levalbuterol 1.25 MG/3 ML Neb (SCH) NEB ×7 (04:28→23:36)
[2018-11-11] MEDS: MethylPREDNISolone Sod Succinate Inj 40 MG/ML Vial IV.PUSH SCH ×4 (06:05→23:21)
[2018-11-11] MEDS: Azithromycin 250 MG Tablet PO SCH (08:28)
[2018-11-11] MEDS: dilTIAZem CD 180 MG Capsule PO SCH (08:28)
[2018-11-11] MEDS: Senna/Docusate Sodium 8.6/50 MG Tablet PO SCH ×3 (08:28→20:33)
[2018-11-11 08:42] LABS: Baso % (Auto) 0.2 % (0.0-2.0); Hematocrit 34.7 % (35.0-46.0); Lymph # (Auto) 0.3 th/mm3 (1.0-4.8); Lymph % (Auto) 2.5 % (9.0-44.0); Mean Corpuscular HGB Conc 31.6 % (32.0-36.0); Mean Corpuscular Hemoglobin 28.4 pg (27.0-34.0); Mean Platelet Volume 8.6 fL (7.0-11.0); Mono # (Auto) 0.1 th/mm3 (0.0-0.9); Mono % (Auto) 1.3 % (0.0-8.0); Neut # (Auto) 9.8 th/mm3 (1.8-7.7); Platelet Count 271 th/mm3 (150-450); Red Blood Count 3.85 mil/mm3 (4.00-5.30); Red Cell Distribution Width 16.7 % (11.6-17.2); White Blood Count 10.2 th/mm3 (4.0-11.0)
[2018-11-11] MEDS ORDERED: DILTIAZEM HCL 360 MG PO SCH (09:00)
--- NOTE | 2018-11-11 10:11 | P.PNIM ---
Subjective Interval history: She is feeling much better. She would like to continue to use her home inhalers. Her breathing is better. No chills or fevers. No complaint of chest pain. Doing okay. Would like to try to go home soon. Physical Exam Vital signs: Last Vital Signs Temp 97.4 F L 11/11/18 08:00 Pulse 96 H 11/11/18 08:00 Resp 20 11/11/18 08:00 BP 160/75 H 11/11/18 08:00 Pulse Ox 99 11/11/18 08:00 Intake & Output 11/09/18 11/10/18 11/11/18 11/12/18 06:59 06:59 06:59 06:59 Intake Total 1040 / 1040 Output Total 300 / 300 Balance 740 / 740 Weight 74.5 kg Narrative: GENERAL: Well-nourished well-developed pleasant female in slight mild respiratory distress with nasal cannula CARDIOVASCULAR: regular rate and regular rhythm. RESPIRATORY: No accessory muscle use. Diminished breath sounds bilaterally GASTROINTESTINAL: Abdomen soft, non-tender, nondistended. Normoactive bowel sounds MUSCULOSKELETAL: Extremities without clubbing, cyanosis, trace to 1+ edema, NEUROLOGICAL: Awake and alert to person place time and situation. Results Labs CBC & Chem 7: 11/11/18 07:54 11/10/18 13:30 Labs: Microbiology 11/10/18 13:30 Nasal Wash Influenza Types A,B Antigen - Final Negative for FLU A and B antigen Infection due to influenza A or B cannot be ruled out since the antigen present in the sample may be below the detection limit of the test. Imaging Imaging: Impressions Chest X-Ray 11/10/18 13:27 CONCLUSION: COPD with bibasilar interstitial prominence and increased density which may represent early airspace disease. Venous Doppler Study 11/10/18 13:27 CONCLUSION: The study is negative for lower extremity deep venous thrombosis. Assessment and Plan (1) Acute and chronic respiratory failure ([id number]): Code(s): J96.20 - Acute and chronic respiratory failure, unspecified whether with hypoxia or hypercapnia Status: Acute (2) Community acquired pneumonia: Code(s): J18.9 - Pneumonia, unspecified organism Status: Acute (3) Acute exacerbation of chronic obstructive airways disease: Code(s): J44.1 - Chronic obstructive pulmonary disease with (acute) exacerbation Status: Acute Plan 73-year-old white female with a history of COPD with asthma with 3 L O2 dependence presents with one week history of worsening shortness of breath Acute on chronic respiratory failure with acute COPD with asthma exacerbation with hypoxia -patient currently on 7 L oxygen support, will continue with Xopenex and ipratropium nebulization, steroids, wean oxygen as tolerated. community-acquired the acquired pneumonia with bilateral new basilar changes on chest x-ray -clinically improving on IV Rocephin and Zithromax. Leukocytosis due to being on chronic steroids however may have a component of early community acquired pneumonia. -This has improved overnight on antibiotics. Hypertension history, resume home Cardizem. IV Vasotec as needed DVT prophylaxisheparin Progress Note: Quality VTE Deep Vein Thrombosis/Pulmonary Embolism Present on Admission: No _ (1) Community acquired pneumonia Qualifiers: Laterality: Lung location:
[2018-11-11] MEDS ORDERED: TIOTROPIUM BROMIDE INH SCH (11:00)
[2018-11-11] MEDS: Enoxaparin Inj 40 MG/0.4 ML Syringe SQ SCH (18:02)
[2018-11-11] MEDS: Montelukast 10 MG Tablet PO SCH (18:08)
[2018-11-11] MEDS ORDERED: ALPRAZolam 0.5 MG Tablet PO PRN (21:13)
[2018-11-12] MEDS: RESP: Levalbuterol 1.25 MG/3 ML Neb (SCH) NEB ×6 (04:27→23:44)
[2018-11-12] MEDS: MethylPREDNISolone Sod Succinate Inj 40 MG/ML Vial IV.PUSH SCH ×4 (06:10→23:01)
[2018-11-12] MEDS: dilTIAZem CD 180 MG Capsule PO SCH (09:51)
[2018-11-12] MEDS: Azithromycin 250 MG Tablet PO SCH (09:52)
[2018-11-12] MEDS: Senna/Docusate Sodium 8.6/50 MG Tablet PO SCH ×2 (09:53→21:24)
--- NOTE | 2018-11-12 12:16 | P.PN ---
Subjective Interval history: Patient seen and examined this morning, their vitals are stable and the patient is afebrile. Upset this morning, states her ativan was changed. Was not able to sleep this am. Reports some SOB this morning. Asking to go home. Is tearful. States she usually takes (2) 0.5 mg tablet and breaks it in half, takes 0.25 mg four times a day. Physical Exam Vital signs: Vital Signs 11/11/18 13:36 11/11/18 16:00 11/11/18 16:44 Temperature 97.9 F Pulse Rate 89 101 H 78 Respiratory Rate 22 20 21 Blood Pressure 121/83 Pulse Oximetry 93 L 11/11/18 19:53 11/11/18 20:00 11/11/18 23:38 Temperature 97.6 F Pulse Rate 107 H 98 H 97 H Respiratory Rate 17 18 19 Blood Pressure 141/73 H Pulse Oximetry 95 11/12/18 00:00 11/12/18 04:00 11/12/18 04:29 Temperature 97.1 F L 97.8 F Pulse Rate 101 H 100 H 95 H Respiratory Rate 17 17 21 Blood Pressure 135/79 147/73 H Pulse Oximetry 94 L 96 11/12/18 08:00 11/12/18 08:10 Temperature 98.5 F Pulse Rate 109 H 95 H Respiratory Rate 24 20 Blood Pressure 162/86 H Pulse Oximetry 92 L Intake & Output 11/11/18 11/12/18 11/12/18 18:59 06:59 18:59 Intake Total 100 / 100 120 / 120 Output Total 600 / 600 700 / 700 Balance -500 / -500 -580 / -580 Weight 74.8 kg Intake: IV 100 / 100 Rocephin Inj 1,000 MG In NS Inj 100 / 100 100 ML @ 200 mls/hr IV.SIG Q24H [facility] Rx#:[id number] Oral 120 / 120 Output: Urine 600 / 600 700 / 700 Other: # Voids 2 # Bowel Movements 1 Narrative: GENERAL: Well-nourished well-developed pleasant female in slight mild respiratory distress with nasal cannula, crying, hyperventilating SKIN: Warm and dry. HEAD: Atraumatic. Normocephalic. EYES: Pupils equal and round. No scleral icterus. No injection or drainage. ENT: No nasal bleeding or discharge. Mucous membranes pink and moist. NECK: Trachea midline. No JVD. CARDIOVASCULAR: Mild tachycardic rate and regular rhythm. RESPIRATORY: No accessory muscle use. Diminished breath sounds bilaterally with few expiratory wheezes bilaterally GASTROINTESTINAL: Abdomen soft, non-tender, nondistended. Normoactive bowel sounds MUSCULOSKELETAL: Extremities without clubbing, cyanosis, trace to 1+ edema, negative Homans sign bilaterally NEUROLOGICAL: Awake and alert to person place time and situation. No obvious cranial nerve deficits. Motor grossly within normal limits. Five out of 5 muscle strength in the arms and legs. Normal speech. PSYCHIATRIC: Appropriate mood and affect; insight and judgment normal. Results - Labs CBC & Chem 7: 11/11/18 07:54 11/10/18 13:30 Assessment and Plan - Assessment (1) Acute and chronic respiratory failure ([id number]) Code(s): J96.20 - Acute and chronic respiratory failure, unspecified whether with hypoxia or hypercapnia Status: Acute (2) Community acquired pneumonia Code(s): J18.9 - Pneumonia, unspecified organism Status: Acute (3) Acute exacerbation of chronic obstructive airways disease Code(s): J44.1 - Chronic obstructive pulmonary disease with (acute) exacerbation Status: Acute - Plan This is a 73-year-old female with a medical history that is significant for COPD and asthma who is oxygen dependent presented with worsening shortness of breath. Acute on chronic respiratory failure COPD exacerbation with hypoxia - continue supplemental oxygen, xopenex, ipratropium, solumedrol IV q6 - continue rocephin & azithromycin (11/10- Hypertension - continue cardizem Anxiety - ativan 0. 25 mg q8 hrs prn DVT proph - lovenox Discussed Condition With: Patients nurse Discharge Planning: home with home health
[2018-11-12] MEDS: ALPRAZolam 0.25 MG Tablet PO SCH ×2 (13:03→21:24)
[2018-11-12] MEDS: Montelukast 10 MG Tablet PO SCH (17:08)
[2018-11-12] MEDS: Enoxaparin Inj 40 MG/0.4 ML Syringe SQ SCH (17:08)
[2018-11-13] MEDS: RESP: Levalbuterol 1.25 MG/3 ML Neb (SCH) NEB ×5 (02:48→23:53)
[2018-11-13] MEDS: MethylPREDNISolone Sod Succinate Inj 40 MG/ML Vial IV.PUSH SCH ×2 (05:50→20:52)
[2018-11-13] MEDS: ALPRAZolam 0.25 MG Tablet PO SCH ×3 (05:50→21:00)
[2018-11-13] MEDS: RESP: Levalbuterol 1.25 MG/3 ML Neb (PRN) NEB (06:09)
[2018-11-13] MEDS: Azithromycin 250 MG Tablet PO SCH (09:37)
[2018-11-13] MEDS: dilTIAZem CD 180 MG Capsule PO SCH (09:37)
[2018-11-13] MEDS: Senna/Docusate Sodium 8.6/50 MG Tablet PO SCH ×2 (09:37→20:51)
--- NOTE | 2018-11-13 10:31 | P.PN ---
Subjective Interval history: Patient seen and examined this morning, their vitals are stable and the patient is afebrile. Currently saturating 93% on 5 L. She was previously on 6 L. States at home uses between 4-7 liters. States she feels better today. Physical Exam Vital signs: Vital Signs 11/12/18 12:00 11/12/18 12:35 11/12/18 16:00 Temperature 97.2 F L 97.4 F L Pulse Rate 112 H 107 H 101 H Respiratory Rate 22 24 20 Blood Pressure 160/70 H 134/76 Pulse Oximetry 90 L 94 L 11/12/18 16:54 11/12/18 20:00 11/12/18 20:28 Temperature 97.2 F L Pulse Rate 117 H 101 H 107 H Respiratory Rate 20 20 Blood Pressure 137/73 Pulse Oximetry 96 93 L 11/12/18 23:45 11/13/18 00:00 11/13/18 02:50 Temperature 97.8 F Pulse Rate 90 93 H 85 Respiratory Rate 18 16 14 Blood Pressure 132/70 Pulse Oximetry 98 96 11/13/18 04:00 11/13/18 06:10 11/13/18 07:46 Temperature 97.5 F L Pulse Rate 98 H 102 H 110 H Respiratory Rate 16 25 H 20 Blood Pressure 150/85 H Pulse Oximetry 94 L 11/13/18 08:00 Temperature 97.8 F Pulse Rate 99 H Respiratory Rate 16 Blood Pressure 148/86 H Pulse Oximetry 93 L Intake & Output 11/12/18 11/13/18 11/13/18 18:59 06:59 18:59 Intake Total 940 / 940 Output Total 300 / 300 Balance 640 / 640 Intake: IV 100 / 100 Rocephin Inj 1,000 MG In NS Inj 100 / 100 100 ML @ 200 mls/hr IV.SIG Q24H [facility] Rx#:[id number] Oral 840 / 840 Output: Urine 300 / 300 Other: Date of Last Bowel Movement 11/11/18 11/12/18 11/13/18 # Bowel Movements 0 Narrative: GENERAL: Well-nourished well-developed pleasant female sitting on bedside commode SKIN: Warm and dry. HEAD: Atraumatic. Normocephalic. EYES: Pupils equal and round. No scleral icterus. No injection or drainage. ENT: No nasal bleeding or discharge. Mucous membranes pink and moist. NECK: Trachea midline. No JVD. CARDIOVASCULAR: Mild tachycardic rate and regular rhythm. RESPIRATORY: No accessory muscle use. Diminished breath sounds bilaterally with few expiratory wheezing at base GASTROINTESTINAL: Abdomen soft, non-tender, nondistended. Normoactive bowel sounds MUSCULOSKELETAL: Extremities without clubbing, cyanosis, trace to 1+ edema, negative Homans sign bilaterally NEUROLOGICAL: Awake and alert to person place time and situation. No obvious cranial nerve deficits. Motor grossly within normal limits. Five out of 5 muscle strength in the arms and legs. Normal speech. PSYCHIATRIC: Appropriate mood and affect; insight and judgment normal. Results - Labs CBC & Chem 7: 11/11/18 07:54 11/10/18 13:30 Assessment and Plan - Assessment (1) Acute and chronic respiratory failure ([id number]) Code(s): J96.20 - Acute and chronic respiratory failure, unspecified whether with hypoxia or hypercapnia Status: Acute (2) Community acquired pneumonia Code(s): J18.9 - Pneumonia, unspecified organism Status: Acute (3) Acute exacerbation of chronic obstructive airways disease Code(s): J44.1 - Chronic obstructive pulmonary disease with (acute) exacerbation Status: Acute - Plan This is a 73-year-old female with a medical history that is significant for COPD and asthma who is oxygen dependent presented with worsening shortness of breath. Improving today. Increase ambulation. Acute on chronic respiratory failure COPD exacerbation with hypoxia - continue supplemental oxygen, xopenex, ipratropium, solumedrol 60 mg IV q6--> BID - continue rocephin & azithromycin (11/10- Hypertension - continue cardizem Anxiety - ativan 0. 25 mg q8 hrs prn DVT proph - lovenox Discharge Planning: home with home health
[2018-11-13] MEDS ORDERED: Acetaminophen 325 MG Tablet PO ONE (14:30)
[2018-11-13] MEDS: Montelukast 10 MG Tablet PO SCH (17:26)
[2018-11-13] MEDS: Enoxaparin Inj 40 MG/0.4 ML Syringe SQ SCH (17:26)
[2018-11-14] MEDS: RESP: Levalbuterol 1.25 MG/3 ML Neb (SCH) NEB ×4 (03:49→20:20)
[2018-11-14] MEDS: ALPRAZolam 0.25 MG Tablet PO SCH ×3 (06:45→21:40)
[2018-11-14] MEDS: Senna/Docusate Sodium 8.6/50 MG Tablet PO SCH ×2 (08:24→21:40)
[2018-11-14] MEDS: MethylPREDNISolone Sod Succinate Inj 40 MG/ML Vial IV.PUSH SCH ×3 (08:24→23:55)
[2018-11-14] MEDS: Acetaminophen 325 MG Tablet PO PRN (08:24)
[2018-11-14] MEDS: Azithromycin 250 MG Tablet PO SCH (08:24)
[2018-11-14] MEDS: dilTIAZem CD 180 MG Capsule PO SCH (08:24)
--- NOTE | 2018-11-14 11:47 | P.PN ---
Subjective Interval history: Nursing contacted me around 1130 stating that the patient reports being acutely short of breath. Patient reports saying within the last hour she suddenly became short of breath, was previously on 3-4 L since last night, but now she is on [address] the way down to 84%. Respiratory has placed her on a simple mask with 10 L and now she is saturating in the mid 90s. Patient denies chest pain, says that her hands are swollen, can see her knuckles. Physical Exam Vital signs: Vital Signs 11/13/18 12:00 11/13/18 12:17 11/13/18 16:00 Temperature 97.8 F 97.4 F L Pulse Rate 97 H 108 H 99 H Respiratory Rate 14 22 13 Blood Pressure 132/71 131/73 Pulse Oximetry 97 97 11/13/18 16:26 11/13/18 20:00 11/13/18 20:30 Temperature 97.4 F L Pulse Rate 108 H 105 H 99 H Respiratory Rate 22 18 18 Blood Pressure 142/73 H Pulse Oximetry 92 L 95 11/13/18 23:53 11/14/18 00:00 11/14/18 03:50 Temperature 97.3 F L Pulse Rate 99 H 96 H 88 Respiratory Rate 17 18 20 Blood Pressure 135/82 Pulse Oximetry 96 11/14/18 04:00 11/14/18 08:00 11/14/18 08:04 Temperature 97.3 F L 97.2 F L Pulse Rate 92 H 97 H 96 H Respiratory Rate 18 20 18 Blood Pressure 137/71 144/77 H Pulse Oximetry 93 L 100 11/14/18 10:53 Temperature Pulse Rate 94 H Respiratory Rate 18 Blood Pressure Pulse Oximetry Intake & Output 11/13/18 11/14/18 11/14/18 18:59 06:59 18:59 Intake Total 680 / 680 Balance 680 / 680 Weight 79 kg Intake: IV 100 / 100 Rocephin Inj 1,000 MG In NS Inj 100 / 100 100 ML @ 200 mls/hr IV.SIG Q24H [facility] Rx#:[id number] Oral 580 / 580 Other: # Voids 4 1 Date of Last Bowel Movement 11/13/18 Narrative: Blood pressure appears to be 195/85, pulse around 108 Heart sounds are tachycardic, and regular Mild lower extremity edema Appears labored, has conversive dyspnea, appears anxious as well Significantly diminished expiratory breath sounds with end expiratory wheezing heard indicating tight airways Results - Labs CBC & Chem 7: 11/11/18 07:54 11/10/18 13:30 Assessment and Plan - Assessment (1) Acute and chronic respiratory failure ([id number]) Code(s): J96.20 - Acute and chronic respiratory failure, unspecified whether with hypoxia or hypercapnia Status: Acute (2) Community acquired pneumonia Code(s): J18.9 - Pneumonia, unspecified organism Status: Acute (3) Acute exacerbation of chronic obstructive airways disease Code(s): J44.1 - Chronic obstructive pulmonary disease with (acute) exacerbation Status: Acute - Plan This is a 73-year-old female admitted with acute on chronic respiratory failure , COPD with chronic oxygen requirement. Acute worsening hypoxia -Ordering stat EKG, BMP, CBC, troponin, chest x-ray, BNP, ABG Acute on chronic respiratory failure COPD exacerbation with hypoxia - continue supplemental oxygen, xopenex, ipratropium, solumedrol - continue rocephin & azithromycin (11/10- Hypertension - continue cardizem Anxiety - ativan 0. 25 mg q8 hrs prn DVT proph - lovenox
--- NOTE | 2018-11-14 12:10 | XR ---
EXAM DATE: 11/14/2018 12:07 PM EST AGE/SEX: 73 years / Female INDICATIONS: Sudden onset of shortness of breath. CLINICAL DATA: This is the patient's subsequent encounter. Patient reports that signs and symptoms h ave been present for 1 day and indicates a pain score of 1/10. MEDICAL/SURGICAL HISTORY: . Chronic obstructive pulmonary disease. Hypertension. Anxiety. Asthm a. Uterine prolapse. Hysterectomy. Appendectomy. Tonsillectomy. . [place] [facility] [place]. . FINDINGS: The lungs are clear without infiltrate, nodule, or mass. There is no appreciable pleural effusion for technique. Heart and mediastinum are unremarkable. There is scarring and pleural thick ening in the apices bilaterally. COPD changes are seen. CONCLUSION: No acute cardiopulmonary disease. Electronically signed by: Ary Vega MD Board Certified Radiologist 11/14/2018 12:09 PM EST
[2018-11-14] MEDS ORDERED: Midazolam Inj 5 MG/ML 1 ML Vial IV.PUSH ONE (12:30)
[2018-11-14] MEDS ORDERED: Midazolam Inj 5 MG/ML 1 ML Vial ONE (12:31)
[2018-11-14] MEDS ORDERED: MethylPREDNISolone Sod Succinate Inj 125 MG/2 ML Vial ONE ×2 (12:54→13:00)
[2018-11-14 12:58] LABS: Baso % (Auto) 0.3 % (0.0-2.0); Hematocrit 35.7 % (35.0-46.0); Hemoglobin 11.3 gm/dL (11.6-15.3); Lymph # (Auto) 0.1 th/mm3 (1.0-4.8); Lymph % (Auto) 0.7 % (9.0-44.0); Mean Corpuscular HGB Conc 31.6 % (32.0-36.0); Mean Corpuscular Hemoglobin 28.2 pg (27.0-34.0); Mean Corpuscular Volume 89.3 fL (80.0-100.0); Mean Platelet Volume 8.1 fL (7.0-11.0); Mono # (Auto) 0.5 th/mm3 (0.0-0.9); Mono % (Auto) 3.3 % (0.0-8.0); Neut # (Auto) 15.5 th/mm3 (1.8-7.7); Neut % (Auto) 95.7 % (16.0-70.0); Platelet Count 279 th/mm3 (150-450); Red Cell Distribution Width 17.1 % (11.6-17.2); White Blood Count 16.1 th/mm3 (4.0-11.0)
[2018-11-14 13:16] LABS: Calcium 8.3 mg/dL (8.5-10.1); Carbon Dioxide 26.8 meq/L (21.0-32.0); Potassium 4.7 meq/L (3.5-5.1)
[2018-11-14] MEDS ORDERED: Vancomycin Consult Pharmacy OTHER PRN (13:18)
[2018-11-14] MEDS ORDERED: Dextrose 50% in Water 50 ML Vial IV.PUSH PRN (13:24)
--- NOTE | 2018-11-14 13:34 | P.CONCC ---
History of Present Illness Consult date: 11/14/18 Reason for Consult: Hypoxemic and hypercapnic respiratory failure, acute on chronic Primary Care Provider: Mj Leon MD Chief Complaint: Cannot breathe History of Present Illness: History of Present Illness: 73-year-old white female with a history of COPD with baseline of O2 dependence on 3 L, asthma, hypertension presents to the emergency room with 1 week history of worsening shortness of breath despite giving herself nebulizer treatments at home and pumping her oxygen all the way to 7 L. Apparently, patient saw her primary care physician today and was given 2 more nebulizer treatments along with a steroid injection but due to her persistent short of breath she was sent to the emergency room for further evaluation. She reports some mild chills and fever over the past week. She has had a dry cough with no associated chest pain. She reports having traveled on an 8-hour trip recently with further complaints of increased right lower leg swelling. She does not use any pain in the lower extremities. While she was in the emergency room while ambulating on 7 L of oxygen she desatted to 70%.. 11/14: Patient developed sudden worsening in her shortness of breath this morning requiring markedly increased FI 02 and I was asked to see her emergently on the fourth floor. She was in severe bronchospasm with hypoxemia and CO2 retention. Air movement was quite poor and she was transported immediately to the intensive care unit while receiving back to back albuterol treatments. Albuterol was the first bronchodilator available and we watched her carefully for tachycardia. She received a bolus of Solu-Medrol 100 mg and we broadened her antibiotic coverage to include cefepime and vancomycin as well as azithromycin. Pertinent recent history is that she received ultrasound of the lower extremities because of edema in the right leg. The ultrasound was negative. Review of Systems Severe shortness of breath and chest discomfort. No specific chest pain. No nausea or vomiting. [facility] - History History Provided By: Patient - Medical History Medical History: Medical History (Last Reviewed 11/12/18 @ 06:36 by Demetrius Shine) Anxiety Asthma COPD (chronic obstructive pulmonary disease) HTN (hypertension) Uterine prolapse - Surgical History Surgical History: Surgical History (Last Reviewed 11/12/18 @ 06:36 by Demetrius Shine) History of hysterectomy Hx of appendectomy Hx of tonsillectomy - Family History Family History: Family History (Last Reviewed 11/10/18 @ 13:32 by IVONNE Joyce) Father Heart disease Mother Heart disease - Tobacco History Second Hand Smoke Exposure: No Tobacco Use In Past 30 Days: No Smoking Status: Former smoker Tobacco Type: Cigarettes - Alcohol History How Often Do You Have a Drink Containing Alcohol: Never - Substance Use History Substance History: No History of Abuse - Travel History Recent Travel in the [place] Within the Last 8 Weeks: No Recent Travel Out of the Country Within the Last 8 Weeks: No - Immunization History Tetanus Immunization: Unsure Hx Influenza Vaccine This Season: Yes Medications and Allergies Active Medications: Active Medications Acetaminophen (Tylenol) 650 mg PO Q4H PRN PRN Reason: Temp > 100.4 Last Admin: 11/14/18 08:24 Dose: 650 mg Al Hydroxide/Mg Hydroxide (Milk Of Magnesia Liq) 30 ml PO Q12H PRN PRN Reason: Mild Constipation Albuterol (Albuterol Neb (Young)) 2.5 mg NEB ONCE ONE Stop: 11/14/18 12:48 Alprazolam (Xanax) 0.25 mg PO Q8HR [facility] Last Admin: 11/14/18 13:06 Dose: 0.25 mg Azithromycin (Zithromax) 500 mg PO DAILY [facility] Last Admin: 11/14/18 08:24 Dose: 500 mg Bisacodyl (Dulcolax Supp) 10 mg RECTAL DAILY PRN PRN Reason: SEVERE CONSITIPATION Dextrose (D50w Vial) 50 ml IV.PUSH UNSCH PRN PRN Reason: PER HYPOGLYCEMIA PROTOCOL Diltiazem HCl (Cardizem Cd 24hr) 360 mg PO DAILY [facility] Last Admin: 11/14/18 08:24 Dose: 360 mg Enalaprilat (Vasotec Inj) 1.25 mg IV.PUSH Q6H PRN PRN Reason: SEE LABEL COMMENTS Enoxaparin Sodium (Lovenox Inj) 40 mg SQ Q24H [facility] Last Admin: 11/13/18 17:26 Dose: 40 mg Furosemide (Lasix Inj) 40 mg IV.PUSH ONCE ONE Stop: 11/14/18 12:57 Glucagon (Glucagon Inj) 1 mg OTHER PRN PRN PRN Reason: for Hypoglycemia Protocol Cefepime HCl 2,000 mg/ Sodium (Chloride) 100 mls @ 200 mls/hr IV.SIG Q12H [facility] Insulin Aspart (Novolog Insulin Correctional Sugar Inj) 0 unit SQ Q6HR [facility]; Protocol Ipratropium [place] (Atrovent Neb) 0.5 mg NEB Q4HR NEB [facility] Last Admin: 11/14/18 10:51 Dose: 0.5 mg Lactulose (Lactulose Liq) 30 ml PO DAILY PRN PRN Reason: SEVERE CONSITIPATION Levalbuterol HCl (Xopenex Neb) 1.25 mg NEB Q4HR NEB [facility] Last Admin: 11/14/18 10:52 Dose: 1.25 mg Levalbuterol HCl (Xopenex Neb) 1.25 mg NEB Q2HR NEB PRN PRN Reason: SHORTNESS OF BREATH Last Admin: 11/13/18 06:09 Dose: 1.25 mg Lorazepam (Ativan Inj) 1 mg IV.PUSH Q4H PRN PRN Reason: AGITATION Methylprednisolone Sodium Succinate (Solumedrol Inj) 125 mg IV.PUSH ONCE ONE Stop: 11/14/18 12:54 Methylprednisolone Sodium Succinate (Solumedrol Inj) 80 mg IV.PUSH Q6HR [facility] Montelukast Sodium (Singulair) 10 mg PO DAILY@1800 [facility] Last Admin: 11/13/18 17:26 Dose: 10 mg Ondansetron HCl (Zofran Inj) 4 mg IV.PUSH Q6H PRN PRN Reason: NAUSEA OR VOMITING Pt:Dulera Inhaler 0 each INH BID [facility] Tiotropium [place] ( Spiriva Respimat) 2. 5 Mcg (2 Inhalations ) Daily 0 each INH DAILY [facility] Pharmacy Profile Note (Vancomycin Consult Pharmacy) 1 each OTHER UNSCH PRN PRN Reason: Pharmacy to dose Senna/Docusate Sodium (Renetta-Colace) 1 tab PO BID [facility] Last Admin: 11/14/18 08:24 Dose: Not Given Sennosides (Senokot) 17.2 mg PO Q12H PRN PRN Reason: Moderate Constipation Sodium Chloride (Ns Flush) 2 ml IV.FLUSH BID [facility] Last Admin: 11/14/18 08:47 Dose: 2 ml Sodium Chloride (Ns Flush) 2 ml IV.FLUSH PRN PRN PRN Reason: FLUSH AFTER USING IV ACCESS Allergies Allergy/AdvReac Type Severity Reaction Status Date / Time albuterol Allergy Unknown Rash Verified 11/10/18 13:26 latex Allergy Unknown Anaphylaxis Verified 11/10/18 13:26 meperidine Allergy Unknown Hives Verified 11/10/18 13:26 Home Medications Medication Instructions Recorded Confirmed Type alprazolam [Xanax] 0.25 mg PO DAILY PRN 09/15/18 11/10/18 History diltiazem HCl [Cardizem LA] 360 mg PO DAILY 09/15/18 11/10/18 History ipratropium bromide 09/15/18 History levalbuterol HCl [Xopenex] 1.25 mcg INHALATION Q4HR NEB 09/15/18 11/10/18 History levalbuterol tartrate [Xopenex HFA] 45 mcg INHALATION PRN PRN 09/15/18 11/10/18 History mometasone-formoterol [Dulera] 2 puff INHALATION BID 09/15/18 11/10/18 History montelukast 10 mg PO QPM 09/15/18 11/10/18 History prednisone 10 mg PO DAILY 09/15/18 11/10/18 History tiotropium bromide [Spiriva 2.5 mcg INHALATION DAILY 09/15/18 11/10/18 History Respimat] Physical Exam Vital signs: Vital Signs 11/13/18 16:00 11/13/18 16:26 11/13/18 20:00 Temperature 97.4 F L 97.4 F L Pulse Rate 99 H 108 H 105 H Respiratory Rate 13 22 18 Blood Pressure 131/73 142/73 H Pulse Oximetry 97 92 L 11/13/18 20:30 11/13/18 23:53 11/14/18 00:00 Temperature 97.3 F L Pulse Rate 99 H 99 H 96 H Respiratory Rate 18 17 18 Blood Pressure 135/82 Pulse Oximetry 95 96 11/14/18 03:50 11/14/18 04:00 11/14/18 08:00 Temperature 97.3 F L 97.2 F L Pulse Rate 88 92 H 97 H Respiratory Rate 20 18 20 Blood Pressure 137/71 144/77 H Pulse Oximetry 93 L 100 11/14/18 08:04 11/14/18 10:53 11/14/18 12:31 Temperature Pulse Rate 96 H 94 H Respiratory Rate 18 18 Blood Pressure 151/92 H Pulse Oximetry 97 11/14/18 13:00 11/14/18 13:19 Temperature Pulse Rate 109 H 110 H Respiratory Rate 23 26 H Blood Pressure Pulse Oximetry 100 Intake & Output 11/13/18 11/14/18 11/14/18 18:59 06:59 18:59 Intake Total 680 / 680 Balance 680 / 680 Weight 79 kg Intake: IV 100 / 100 Rocephin Inj 1,000 MG In NS Inj 100 / 100 100 ML @ 200 mls/hr IV.SIG Q24H [facility] Rx#:[id number] Oral 580 / 580 Other: # Voids 4 1 Date of Last Bowel Movement 11/13/18 Narrative: General: Elderly woman in severe respiratory distress Head: Normal, atraumatic Neck: Supple, no obstruction to air movement in the upper airway. Transmitted wheezes heard. Lungs: Very tight bronchospasm with poor air entry and hyperexpansion of the thorax. Wheezes throughout. Labored respiratory effort. Heart: Tachycardia, normal S1-S2, neck veins are not distended Abdomen: Large, soft, no guarding, no peritoneal irritation, 1.5 cm scab, red right lower quadrant stents of bleed from subcu heparin injection Extremities: 2+ edema right leg and foot. Toes and fingers well perfused. Neuro: Very anxious and agitated. She moves 4 extremities with strength and purpose. Conversational dyspnea but speech is clear. Assessment and Plan - Problem List (1) Acute and chronic respiratory failure ([id number]) Code(s): J96.20 - Acute and chronic respiratory failure, unspecified whether with hypoxia or hypercapnia Status: Acute (2) Community acquired pneumonia Code(s): J18.9 - Pneumonia, unspecified organism Status: Acute (3) Acute exacerbation of chronic obstructive airways disease Code(s): J44.1 - Chronic obstructive pulmonary disease with (acute) exacerbation Status: Acute (4) Anxiety Code(s): F41.9 - Anxiety disorder, unspecified Status: Chronic - Assessment and Plan Plan: 73-year-old woman with acute on chronic combined hypoxemic and hypercapnic respiratory failure. She is on chronic prednisone 10 mg and multiple bronchodilators at home, including inhalation Xopenex. She developed severe bronchospasm earlier today and required transfer to intensive care unit for a higher level of care. I personally met her on the fourth floor and escorted her to the intensive care unit. Plan: Acute on chronic respiratory failure COPD exacerbation with hypoxia - Transfer to ICU - Increase Solu-Medrol to 80 mg every 6 hours and bolus with 125 mg now - Convert antibiotic coverage to vancomycin, cefepime, azithromycin - Back to back albuterol now while watching pulse rate Hypertension - Continue cardizem Anxiety - ativan 0.5 mg q6 hrs prn Proph - lovenox -Pepcid Hyperglycemia -Steroid-induced -Initiate sliding scale insulin regimen Overall impression: This woman has experienced a sudden exacerbation of bronchospasm and respiratory failure. She may well require emergent intubation. Presently she is cooperative enough to allow us to use ventilation bronchodilators and increased steroids. Chest x-ray confirms hyperexpansion of the thorax and significant air trapping. She is critically ill and has deteriorated considerably over the past 45 minutes. Critical care time 45 minutes aside from procedures
[2018-11-14] MEDS ORDERED: MethylPREDNISolone Sod Succinate Inj 125 MG/2 ML Vial IV.PUSH ONE (14:00)
--- NOTE | 2018-11-14 15:53 | CT ---
EXAM DATE: 11/14/2018 3:46 PM EST AGE/SEX: 73 years / Female INDICATIONS: Shortness of breath. CLINICAL DATA: This is the patient's initial encounter. Patient reports that signs and symptoms have been present for 1 day and indicates a pain score of 0/10. MEDICAL/SURGICAL HISTORY: Chronic obstructive pulmonary disease. Hypertension. Asthma. Hysterect casey. RADIATION DOSE: 15.81 CTDI (mGy) COMPARISON: No prior exams available for comparison. TECHNIQUE: Volumetric scanning was performed using a multi-row detector CT scanner during bolus infu jennifer of 67 ml Omnipaque 350 (iohexol) nonionic water-soluble contrast as a single exam dose. The daniel a was post processed with a variety of visualization algorithms including full volume maximum intensi ty projection and sliding thin slab reformation. Using automated exposure control and adjustment of the mA and/or kV according to patient size, radiation dose was kept as low as reasonably achievable t o obtain optimal diagnostic quality images. DICOM format image data is available electronically for review and comparison. FINDINGS: There are nodules within the right thyroid gland not adequately characterized. COPD is seen with sca ttered areas of scarring in the lungs with an area of spiculated density right apex measures 1.4 cm i n size not significantly changed probable scar. Coronary artery calcifications are seen typically seen with coronary artery disease and clinical edgar elation and evaluation is suggested. There is no evidence of PE for technique. There is no pleural e ffusion or any significant pathological adenopathy. CONCLUSION: 1. Right thyroid nodules. 2. COPD and probable scar right apex of the lung and a follow-up is suggested with noncontrast chest CT in 6 months. Electronically signed by: Ary Vega MD Board Certified Radiologist 11/14/2018 3:52 PM EST
[2018-11-14] MEDS: Vancomycin Inj 1,750 MG in Sodium Chlor 0.9% Inj 500 ML IV.SIG SCH (15:56)
[2018-11-14] MEDS: Enoxaparin Inj 40 MG/0.4 ML Syringe SQ SCH (17:54)
[2018-11-14] MEDS: Insulin NovoLOG Aspart Correctional Sugar Inj SQ SCH (17:56)
[2018-11-14] MEDS: Montelukast 10 MG Tablet PO SCH (17:56)
[2018-11-14] MEDS ORDERED: MethylPREDNISolone Sod Succinate Inj 125 MG/2 ML Vial IV.PUSH SCH ×2 (18:00)
[2018-11-15] MEDS: Insulin NovoLOG Aspart Correctional Sugar Inj SQ SCH ×4 (00:14→17:53)
[2018-11-15] MEDS: MethylPREDNISolone Sod Succinate Inj 40 MG/ML Vial IV.PUSH SCH ×4 (05:09→23:07)
[2018-11-15] MEDS: ALPRAZolam 0.25 MG Tablet PO SCH ×3 (05:09→21:43)
[2018-11-15] MEDS: dilTIAZem CD 180 MG Capsule PO SCH (08:07)
[2018-11-15] MEDS: Azithromycin 250 MG Tablet PO SCH (08:07)
[2018-11-15] MEDS: Senna/Docusate Sodium 8.6/50 MG Tablet PO SCH ×2 (08:07→20:44)
--- NOTE | 2018-11-15 12:24 | P.PNCC ---
Subjective Subjective Remarks/Hospital Course: History of Present Illness: 73-year-old white female with a history of COPD with baseline of O2 dependence on 3 L, asthma, hypertension presents to the emergency room with 1 week history of worsening shortness of breath despite giving herself nebulizer treatments at home and pumping her oxygen all the way to 7 L. Apparently, patient saw her primary care physician today and was given 2 more nebulizer treatments along with a steroid injection but due to her persistent short of breath she was sent to the emergency room for further evaluation. She reports some mild chills and fever over the past week. She has had a dry cough with no associated chest pain. She reports having traveled on an 8-hour trip recently with further complaints of increased right lower leg swelling. She does not use any pain in the lower extremities. While she was in the emergency room while ambulating on 7 L of oxygen she desatted to 70%.. 11/14: Patient developed sudden worsening in her shortness of breath this morning requiring markedly increased FI 02 and I was asked to see her emergently on the fourth floor. She was in severe bronchospasm with hypoxemia and CO2 retention. Air movement was quite poor and she was transported immediately to the intensive care unit while receiving back to back albuterol treatments. Albuterol was the first bronchodilator available and we watched her carefully for tachycardia. She received a bolus of Solu-Medrol 100 mg and we broadened her antibiotic coverage to include cefepime and vancomycin as well as azithromycin. Pertinent recent history is that she received ultrasound of the lower extremities because of edema in the right leg. The ultrasound was negative. 11/15: Air movement much improved but considerable wheezing persists. She feels much more comfortable. Objective Vital Signs / I&O: Vital Signs 11/14/18 12:31 11/14/18 13:00 11/14/18 13:19 Temperature Pulse Rate 109 H 110 H Respiratory Rate 23 26 H Blood Pressure 151/92 H Pulse Oximetry 97 100 11/14/18 14:00 11/14/18 15:00 11/14/18 15:11 Temperature Pulse Rate 99 H 96 H 101 H Respiratory Rate 20 21 22 Blood Pressure 128/71 Pulse Oximetry 100 100 100 11/14/18 16:00 11/14/18 16:22 11/14/18 16:44 Temperature Pulse Rate 101 H 94 H 94 H Respiratory Rate 23 18 19 Blood Pressure 133/63 Pulse Oximetry 11/14/18 17:00 11/14/18 17:41 11/14/18 19:00 Temperature 97.4 F L Pulse Rate 96 H 94 H 100 H Respiratory Rate 20 25 H 26 H Blood Pressure 133/63 138/68 Pulse Oximetry 97 98 11/14/18 20:00 11/14/18 20:21 11/14/18 21:00 Temperature 97.7 F Pulse Rate 96 H 95 H 93 H Respiratory Rate 21 18 18 Blood Pressure 142/77 H 146/69 H Pulse Oximetry 98 99 99 11/14/18 22:00 11/14/18 23:00 11/15/18 00:00 Temperature 97.3 F L Pulse Rate 92 H 92 H 93 H Respiratory Rate 20 19 18 Blood Pressure 141/75 H 141/75 H 150/71 H Pulse Oximetry 98 97 98 11/15/18 01:00 11/15/18 02:00 11/15/18 03:00 Temperature Pulse Rate 100 H 92 H 90 Respiratory Rate 38 H 18 16 Blood Pressure 142/73 H 142/53 H 138/74 Pulse Oximetry 95 98 97 11/15/18 04:00 11/15/18 05:00 11/15/18 05:40 Temperature Pulse Rate 87 101 H 90 Respiratory Rate 20 26 H Blood Pressure 137/77 154/77 H Pulse Oximetry 98 99 11/15/18 05:44 11/15/18 06:00 11/15/18 06:44 Temperature Pulse Rate 96 H 86 87 Respiratory Rate 19 18 19 Blood Pressure 135/70 157/72 H Pulse Oximetry 98 98 98 11/15/18 07:00 11/15/18 07:44 11/15/18 07:53 Temperature 98.0 F Pulse Rate 86 87 96 H Respiratory Rate 18 23 16 Blood Pressure 147/76 H Pulse Oximetry 99 99 11/15/18 08:00 11/15/18 08:34 11/15/18 08:44 Temperature 98 F 98 F Pulse Rate 92 H 91 H 91 H Respiratory Rate 24 21 25 H Blood Pressure 157/77 H 157/77 H 150/78 H Pulse Oximetry 98 99 97 11/15/18 09:00 11/15/18 09:44 11/15/18 10:00 Temperature Pulse Rate 95 H 97 H 96 H Respiratory Rate 88 H 30 H 23 Blood Pressure 142/67 H Pulse Oximetry 96 93 L 95 11/15/18 11:40 Temperature Pulse Rate 94 H Respiratory Rate 18 Blood Pressure Pulse Oximetry Intake & Output 11/14/18 11/15/18 11/15/18 18:59 06:59 18:59 Intake Total 720 / 720 200 / 200 Output Total 1650 / 1650 500 / 500 Balance -930 / -930 -300 / -300 Weight 81.8 kg Intake: IV 720 / 720 100 / 100 Maxipime Inj 2,000 MG In NS Inj 100 / 100 100 / 100 100 ML @ 200 mls/hr IV.SIG Q12H [facility] Rx#:[id number] Vancomycin Inj 1,750 MG In NS 520 / 520 Inj 500 ML @ 250 mls/hr IV.SIG Q24H [facility] Rx#:[id number] Rocephin Inj 1,000 MG In NS Inj 100 / 100 100 ML @ 200 mls/hr IV.SIG Q24H [facility] Rx#:[id number] Oral 100 / 100 Output: Urine Amount (Catheter) 1650 / 1650 500 / 500 Indwelling Urethral Catheter 1650 / 1650 500 / 500 Other: Date of Last Bowel Movement 11/14/18 11/14/18 # Bowel Movements 0 Result Diagrams: 11/14/18 12:45 11/14/18 12:45 Objective Remarks: Narrative: General: Elderly woman in severe respiratory distress Head: Normal, atraumatic Neck: Supple, no obstruction to air movement in the upper airway. Transmitted wheezes heard. Lungs: Mildly labored respiratory effort. Wheezing persists. Heart: Tachycardia, normal S1-S2, no JVD Abdomen: Large, soft, no guarding, no peritoneal irritation, 1.5 cm scab, red right lower quadrant Extremities: 2+ edema right leg and foot. Toes and fingers well perfused. Neuro: Very anxious and agitated. She moves 4 extremities with strength and purpose. Conversational dyspnea but speech is clear. Assessment and Plan - Problem List (1) Acute and chronic respiratory failure ([id number]) Code(s): J96.20 - Acute and chronic respiratory failure, unspecified whether with hypoxia or hypercapnia Status: Acute (2) Community acquired pneumonia Code(s): J18.9 - Pneumonia, unspecified organism Status: Acute (3) Acute exacerbation of chronic obstructive airways disease Code(s): J44.1 - Chronic obstructive pulmonary disease with (acute) exacerbation Status: Acute (4) Anxiety Code(s): F41.9 - Anxiety disorder, unspecified Status: Chronic - Assessment and Plan Plan: 73-year-old woman with acute on chronic combined hypoxemic and hypercapnic respiratory failure. She is on chronic prednisone 10 mg and multiple bronchodilators at home, including inhalation Xopenex. She developed severe bronchospasm earlier today and required transfer to intensive care unit for a higher level of care. I personally met her on the fourth floor and escorted her to the intensive care unit. She responded modestly to back to back albuterol treatments and increased steroids. Wheezing persists however. Plan: Acute on chronic respiratory failure COPD exacerbation with hypoxia - Transfer to ICU - Increase Solu-Medrol to 80 mg every 6 hours and bolus with 125 mg now - Convert antibiotic coverage to vancomycin, cefepime, azithromycin -Scheduled leave a albuterol Hypertension - Continue cardizem, pulse rate well controlled Anxiety - ativan 0.5 mg q6 hrs prn Proph - lovenox - Pepcid Hyperglycemia -Steroid-induced -Initiate sliding scale insulin regimen -Add Levemir as a basal control medication Overall impression: This woman has experienced a sudden exacerbation of bronchospasm and respiratory failure. Presently she is cooperative enough to allow us to use ventilation bronchodilators and increased steroids. She is continued critically ill with significant bronchospasm and respiratory distress. Critical care 38 minutes
[2018-11-15] MEDS: Insulin Detemir Inj 1,000 UNIT/10 ML Vial SQ SCH ×2 (13:22→20:44)
--- NOTE | 2018-11-15 15:49 | ECG ---
Date Performed: 11/14/2018 Time Performed: 11:54:50 PTAGE: 73 years EKG: Sinus tachycardia Poor quality tracing that is really not subject to further interpretation , but it appears relatively normal where it can be interpreted. A repeat tracing is advised, but it a ppears that tracing has not grossly changed from prior. Prior tracing is read as showing atrial fibri llation, but it is actually more consistent with sinus tachycardia with PACs. That is what appears to be present on today's EKG. It is not clear that the prior EKG diagnosing atrial fibrillation is accu rate and clinical correlation will be important. Abnormal ECG PREVIOUS TRACING : 11/10/2018 13.49 DOCTOR: Ina Mclean Interpretating Date/Time 11/15/2018 15:48:36
[2018-11-15] MEDS: Vancomycin Inj 1,750 MG in Sodium Chlor 0.9% Inj 500 ML IV.SIG SCH (16:20)
[2018-11-15] MEDS: Enoxaparin Inj 40 MG/0.4 ML Syringe SQ SCH (16:20)
[2018-11-15] MEDS: Montelukast 10 MG Tablet PO SCH (17:53)
--- NOTE | 2018-11-15 19:54 | MB ---
cc: Keila Mendez MD DATE: 11/15/2018 REASON FOR CONSULTATION: Respiratory failure and COPD. HISTORY OF PRESENT ILLNESS: This is a 73-year-old lady with a past history of severe COPD with emphysema on home oxygen at 3 L, has been admitted with a 1-week history of progressive dyspnea, wheezing, cough, chest congestion, and orthopnea. The patient apparently was admitted to the telemetry floor after she was sent to the ER by her primary physician since she failed to improve with outpatient nebulizer treatment and steroids shot. Following admission, however, she was in further respiratory distress and was transferred to the intensive care unit and was extremely dyspneic, tachypneic, and had to be placed on Ventimask and was given Solu-Medrol 100 mg every 6 hours and nebulized bronchodilators including Xopenex and Atrovent. She also was started on IV cefepime and vancomycin. The patient's chest x-ray showed evidence of hyperinflation. Over the past few hours, her condition did improve, and she is now down to a nasal cannula at 4 L. Denies any chest pains but does have a cough and has wheezing and orthopneic. She is not running any fevers. PAST MEDICAL HISTORY: Current exacerbation of asthma, history of severe COPD and emphysema, and history of history of pneumonia, as well as a history for hypertension. PAST SURGICAL HISTORY: Appendectomy, hysterectomy, and tonsillectomy. She has had uterine prolapse. HABITS: The patient was a smoker, a pack per day for over 40 years, and has quit. No significant alcohol use recently. FAMILY HISTORY: Noncontributory. REVIEW OF SYSTEMS: The patient has wheezing, chest congestion, cough, expectoration, epigastric distress. She has leg swelling, joint pains to the extremities, and lower back pain. She has anxiety attacks. Denies skin lesion. PHYSICAL EXAMINATION: GENERAL: This averagely built, elderly white female is dyspneic and anxious. VITAL SIGNS: Blood pressure is 138/80, pulse is 98, respirations 22, temperature 97.5. HEENT: Head is normocephalic. Pupils are reactive and equal. Tongue is moist. Nasal mucosa edematous. Throat is mildly injected. Ears: No inflammation. NECK: No bruits. Mild venous distention. Trachea midline. No thyroid enlargement. CHEST: Distant breath sounds with expiratory wheezes bilaterally. Prolonged expirations with occasional basilar crackles. HEART: The heart sounds are irregular, S1 and S2, with no definite murmur. ABDOMEN: Soft, nontender. No organomegaly. Bowel sounds are active. EXTREMITIES: Mild peripheral edema with decreased pulses. NEUROLOGIC: Reflexes are 1+ with no gross motor deficits. Cranial nerves grossly intact. RECTAL: Deferred. SKIN: No lesions. IMPRESSION: 1. Acute on chronic respiratory failure. 2. Severe chronic obstructive pulmonary disease with emphysema and acute exacerbation. 3. Anxiety disorder. 4. Reactive airways disease. 5. Right lung density, probable scar. PLAN: The patient will be maintained on O2 at 3-4 L nasal cannula. She will continue with Solu-Medrol at 80 mg IV every 6 hours, nebulized albuterol and Atrovent solution every 4 hours. Antibiotic coverage is ordered including Zithromax 500 mg IV daily and cefepime 2 g IV every 12 hours. Breo 200/25 mcg one puff daily was added, and we will also get a blood gas study. The patient will be having a followup chest x-ray, and we will try to taper the steroids over the next 24-48 hours. The patient will be placed on a BiPAP mask in case she does deteriorate overnight. Thank you, Dr. Short, for this consultation. Keila Mendez MD VJD/polina , 07:01 PM , 07:14 PM
[2018-11-16] MEDS: Insulin NovoLOG Aspart Correctional Sugar Inj SQ SCH ×5 (00:11→23:55)
[2018-11-16] MEDS: ALPRAZolam 0.25 MG Tablet PO SCH ×3 (05:03→21:10)
[2018-11-16] MEDS: MethylPREDNISolone Sod Succinate Inj 40 MG/ML Vial IV.PUSH SCH ×4 (05:03→23:54)
[2018-11-16 05:24] LABS: Baso % (Auto) 0.1 % (0.0-2.0); Hematocrit 33.8 % (35.0-46.0); Hemoglobin 10.7 gm/dL (11.6-15.3); Lymph # (Auto) 0.1 th/mm3 (1.0-4.8); Mean Corpuscular HGB Conc 31.6 % (32.0-36.0); Mean Corpuscular Hemoglobin 27.8 pg (27.0-34.0); Mean Corpuscular Volume 87.8 fL (80.0-100.0); Mean Platelet Volume 8.4 fL (7.0-11.0); Mono # (Auto) 0.5 th/mm3 (0.0-0.9); Mono % (Auto) 3.7 % (0.0-8.0); Neut # (Auto) 13.6 th/mm3 (1.8-7.7); Neut % (Auto) 95.2 % (16.0-70.0); Platelet Count 226 th/mm3 (150-450); Red Blood Count 3.85 mil/mm3 (4.00-5.30); Red Cell Distribution Width 16.4 % (11.6-17.2); White Blood Count 14.3 th/mm3 (4.0-11.0)
[2018-11-16 05:49] LABS: Calcium 8.2 mg/dL (8.5-10.1); Carbon Dioxide 29.6 meq/L (21.0-32.0); Potassium 4.2 meq/L (3.5-5.1)
--- NOTE | 2018-11-16 07:25 | P.PNCC ---
Subjective Subjective Remarks/Hospital Course: History of Present Illness: 73-year-old white female with a history of COPD with baseline of O2 dependence on 3 L, asthma, hypertension presents to the emergency room with 1 week history of worsening shortness of breath despite giving herself nebulizer treatments at home and pumping her oxygen all the way to 7 L. Apparently, patient saw her primary care physician today and was given 2 more nebulizer treatments along with a steroid injection but due to her persistent short of breath she was sent to the emergency room for further evaluation. She reports some mild chills and fever over the past week. She has had a dry cough with no associated chest pain. She reports having traveled on an 8-hour trip recently with further complaints of increased right lower leg swelling. She does not use any pain in the lower extremities. While she was in the emergency room while ambulating on 7 L of oxygen she desatted to 70%.. 11/14: Patient developed sudden worsening in her shortness of breath this morning requiring markedly increased FI 02 and I was asked to see her emergently on the fourth floor. She was in severe bronchospasm with hypoxemia and CO2 retention. Air movement was quite poor and she was transported immediately to the intensive care unit while receiving back to back albuterol treatments. Albuterol was the first bronchodilator available and we watched her carefully for tachycardia. She received a bolus of Solu-Medrol 100 mg and we broadened her antibiotic coverage to include cefepime and vancomycin as well as azithromycin. Pertinent recent history is that she received ultrasound of the lower extremities because of edema in the right leg. The ultrasound was negative. 11/15: Air movement much improved but considerable wheezing persists. She feels much more comfortable. 11/16: Breathing considerably improved but still mildly labored. She has severe diffuse bullous disease in both upper lobes and more moderately in the lower lobes. Her baseline may well be modestly labored. I will narrow her antibiotic spectrum to azithromycin alone and discontinue the cefepime and vancomycin. The lung marcus are clear of acute infiltrates. She will definitely need ongoing outpatient follow-up by the pulmonary medicine service. Objective Vital Signs / I&O: Vital Signs 11/15/18 07:44 11/15/18 07:53 11/15/18 08:00 Temperature 98 F Pulse Rate 87 96 H 92 H Respiratory Rate 23 16 24 Blood Pressure 147/76 H 157/77 H Pulse Oximetry 99 98 11/15/18 08:34 11/15/18 08:44 11/15/18 09:00 Temperature 98 F Pulse Rate 91 H 91 H 95 H Respiratory Rate 21 25 H 88 H Blood Pressure 157/77 H 150/78 H Pulse Oximetry 99 97 96 11/15/18 09:44 11/15/18 10:00 11/15/18 10:44 Temperature Pulse Rate 97 H 96 H 90 Respiratory Rate 30 H 23 22 Blood Pressure 142/67 H 140/67 Pulse Oximetry 93 L 95 97 11/15/18 11:00 11/15/18 11:40 11/15/18 11:44 Temperature Pulse Rate 95 H 94 H 91 H Respiratory Rate 31 H 18 21 Blood Pressure 138/75 Pulse Oximetry 96 99 11/15/18 12:00 11/15/18 12:44 11/15/18 13:00 Temperature Pulse Rate 98 H 97 H 104 H Respiratory Rate 28 H 31 H 35 H Blood Pressure 129/66 Pulse Oximetry 94 L 92 L 91 L 11/15/18 13:44 11/15/18 14:00 11/15/18 14:44 Temperature Pulse Rate 96 H 97 H 93 H Respiratory Rate 25 H 40 H 22 Blood Pressure 135/68 139/70 Pulse Oximetry 93 L 92 L 93 L 11/15/18 15:00 11/15/18 15:44 11/15/18 16:00 Temperature Pulse Rate 96 H 92 H 92 H Respiratory Rate 24 98 H 104 H Blood Pressure 139/76 Pulse Oximetry 90 L 90 L 96 11/15/18 16:05 11/15/18 16:44 11/15/18 17:00 Temperature Pulse Rate 95 H 93 H 96 H Respiratory Rate 21 24 22 Blood Pressure 151/79 H Pulse Oximetry 96 93 L 91 L 11/15/18 17:44 11/15/18 18:00 11/15/18 19:00 Temperature Pulse Rate 98 H 92 H 92 H Respiratory Rate 24 25 H 23 Blood Pressure 155/74 H 168/81 H Pulse Oximetry 93 L 92 L 92 L 11/15/18 19:44 11/15/18 19:56 11/15/18 20:00 Temperature 98 F Pulse Rate 93 H 97 H 93 H Respiratory Rate 23 25 H 24 Blood Pressure 164/74 H Pulse Oximetry 92 L 94 L 11/15/18 21:00 11/15/18 21:44 11/15/18 22:00 Temperature Pulse Rate 91 H 89 Respiratory Rate 22 19 Blood Pressure 155/75 H 172/83 H 166/70 H Pulse Oximetry 93 L 95 11/15/18 23:00 11/16/18 00:00 11/16/18 00:04 Temperature 97.9 F Pulse Rate 84 84 91 H Respiratory Rate 20 30 H 18 Blood Pressure 164/81 H 151/88 H Pulse Oximetry 97 95 11/16/18 00:05 11/16/18 01:00 11/16/18 02:00 Temperature Pulse Rate 86 84 Respiratory Rate 22 24 Blood Pressure 147/81 H 148/80 H Pulse Oximetry 95 96 98 11/16/18 03:00 11/16/18 04:00 11/16/18 04:42 Temperature 97.8 F Pulse Rate 87 86 88 Respiratory Rate 20 19 19 Blood Pressure 151/79 H 164/85 H Pulse Oximetry 95 97 11/16/18 04:43 11/16/18 05:00 11/16/18 05:44 Temperature Pulse Rate 90 86 Respiratory Rate 21 21 Blood Pressure 148/85 H 154/80 H Pulse Oximetry 98 97 97 11/16/18 06:00 Temperature Pulse Rate 84 Respiratory Rate 20 Blood Pressure 154/80 H Pulse Oximetry 97 Intake & Output 11/15/18 11/16/18 11/16/18 18:59 06:59 18:59 Intake Total 820 / 820 720 / 720 Output Total 800 / 800 800 / 800 Balance 20 / 20 -80 / -80 Weight 82 kg Intake: IV 100 / 100 100 / 100 Maxipime Inj 2,000 MG In NS Inj 100 / 100 100 / 100 100 ML @ 200 mls/hr IV.SIG Q12H [facility] Rx#:[id number] Oral 720 / 720 620 / 620 Output: Urine 550 / 550 800 / 800 Urine Amount (Catheter) 250 / 250 Indwelling Urethral Catheter 250 / 250 Other: # Voids 1 Date of Last Bowel Movement 11/14/18 11/14/18 # Bowel Movements 0 Result Diagrams: 11/16/18 04:47 11/16/18 04:47 Objective Remarks: Narrative: General: Elderly woman in severe respiratory distress Head: Normal, atraumatic Neck: Supple, no obstruction to air movement in the upper airway. Lungs: Mildly labored respiratory effort. Light wheezing persists right greater than left. Heart: Regular rhythm, normal S1-S2, no JVD Abdomen: Large, soft, no guarding, no peritoneal irritation, 1.5 cm scab, red right lower quadrant. Clean, dry. Extremities: 2+ edema limited to right leg and foot. Toes and fingers well perfused. Neuro: Remains anxious she moves 4 extremities with strength and purpose. Conversational dyspnea has improved. Assessment and Plan - Problem List (1) Acute and chronic respiratory failure ([id number]) Code(s): J96.20 - Acute and chronic respiratory failure, unspecified whether with hypoxia or hypercapnia Status: Acute (2) Community acquired pneumonia Code(s): J18.9 - Pneumonia, unspecified organism Status: Acute (3) Acute exacerbation of chronic obstructive airways disease Code(s): J44.1 - Chronic obstructive pulmonary disease with (acute) exacerbation Status: Acute (4) Anxiety Code(s): F41.9 - Anxiety disorder, unspecified Status: Chronic - Assessment and Plan Plan: 73-year-old woman with acute on chronic combined hypoxemic and hypercapnic respiratory failure. She is on chronic prednisone 10 mg and multiple bronchodilators at home, including inhalation Xopenex. She developed severe bronchospasm earlier today and required transfer to intensive care unit for a higher level of care. I personally met her on the fourth floor and escorted her to the intensive care unit. She responded modestly to back to back albuterol treatments and increased steroids. On high-dose steroids and azithromycin she is improving. Plan: Acute on chronic respiratory failure COPD exacerbation with hypoxia - Transfer to ICU - Increase Solu-Medrol to 80 mg every 6 hours, taper to be directed by pulmonary medicine service -Narrow antibiotic coverage to azithromycin -Scheduled leave a albuterol Hypertension -Continue oral Cardizem Anxiety - ativan 0.5 mg IV q6 hrs prn - Xanax p.o. as needed Proph - lovenox - Pepcid Hyperglycemia -Steroid-induced -Initiate sliding scale insulin regimen -Added Levemir as a basal control medication and control much improved Overall impression: This woman experienced a sudden exacerbation of bronchospasm and respiratory failure. She has improved considerably over the past 24 hours but her baseline function is markedly impaired including chronic home oxygen. The pulmonary medicine service is now adjusting her pulmonary medications and will help with follow-up.
[2018-11-16] MEDS: Insulin Detemir Inj 1,000 UNIT/10 ML Vial SQ SCH ×2 (08:11→20:18)
[2018-11-16] MEDS: Senna/Docusate Sodium 8.6/50 MG Tablet PO SCH ×2 (08:12→20:18)
[2018-11-16] MEDS: dilTIAZem CD 180 MG Capsule PO SCH (08:13)
[2018-11-16] MEDS: Azithromycin 250 MG Tablet PO SCH (08:13)
--- NOTE | 2018-11-16 13:10 | P.PN ---
Subjective Interval history: Has some SOB and is anxious . has pains in back. On 6 L O2. Output was good. Physical Exam Vital signs: Vital Signs 11/15/18 13:44 11/15/18 14:00 11/15/18 14:44 Temperature Pulse Rate 96 H 97 H 93 H Respiratory Rate 25 H 40 H 22 Blood Pressure 135/68 139/70 Pulse Oximetry 93 L 92 L 93 L 11/15/18 15:00 11/15/18 15:44 11/15/18 16:00 Temperature Pulse Rate 96 H 92 H 92 H Respiratory Rate 24 98 H 104 H Blood Pressure 139/76 Pulse Oximetry 90 L 90 L 96 11/15/18 16:05 11/15/18 16:44 11/15/18 17:00 Temperature Pulse Rate 95 H 93 H 96 H Respiratory Rate 21 24 22 Blood Pressure 151/79 H Pulse Oximetry 96 93 L 91 L 11/15/18 17:44 11/15/18 18:00 11/15/18 19:00 Temperature Pulse Rate 98 H 92 H 92 H Respiratory Rate 24 25 H 23 Blood Pressure 155/74 H 168/81 H Pulse Oximetry 93 L 92 L 92 L 11/15/18 19:44 11/15/18 19:56 11/15/18 20:00 Temperature 98 F Pulse Rate 93 H 97 H 93 H Respiratory Rate 23 25 H 24 Blood Pressure 164/74 H Pulse Oximetry 92 L 94 L 11/15/18 21:00 11/15/18 21:44 11/15/18 22:00 Temperature Pulse Rate 91 H 89 Respiratory Rate 22 19 Blood Pressure 155/75 H 172/83 H 166/70 H Pulse Oximetry 93 L 95 11/15/18 23:00 11/16/18 00:00 11/16/18 00:04 Temperature 97.9 F Pulse Rate 84 84 91 H Respiratory Rate 20 30 H 18 Blood Pressure 164/81 H 151/88 H Pulse Oximetry 97 95 11/16/18 00:05 11/16/18 01:00 11/16/18 02:00 Temperature Pulse Rate 86 84 Respiratory Rate 22 24 Blood Pressure 147/81 H 148/80 H Pulse Oximetry 95 96 98 11/16/18 03:00 11/16/18 04:00 11/16/18 04:42 Temperature 97.8 F Pulse Rate 87 86 88 Respiratory Rate 20 19 19 Blood Pressure 151/79 H 164/85 H Pulse Oximetry 95 97 11/16/18 04:43 11/16/18 05:00 11/16/18 05:44 Temperature Pulse Rate 90 86 Respiratory Rate 21 21 Blood Pressure 148/85 H 154/80 H Pulse Oximetry 98 97 97 11/16/18 06:00 11/16/18 06:44 11/16/18 07:00 Temperature 97.7 F Pulse Rate 84 89 92 H Respiratory Rate 20 21 45 H Blood Pressure 154/80 H 144/96 H 144/96 H Pulse Oximetry 97 97 94 L 11/16/18 07:44 11/16/18 07:56 11/16/18 08:00 Temperature 97.7 F Pulse Rate 97 H 92 H 93 H Respiratory Rate 34 H 18 23 Blood Pressure 156/75 H Pulse Oximetry 90 L 92 L 96 11/16/18 08:44 11/16/18 09:00 11/16/18 09:44 Temperature Pulse Rate 98 H 96 H 104 H Respiratory Rate 24 23 30 H Blood Pressure 165/89 H 158/123 H Pulse Oximetry 94 L 97 89 L 11/16/18 09:54 11/16/18 10:00 11/16/18 11:00 Temperature Pulse Rate 103 H 104 H 96 H Respiratory Rate 29 H 32 H 23 Blood Pressure 166/83 H Pulse Oximetry 90 L 91 L 96 11/16/18 11:38 Temperature Pulse Rate 94 H Respiratory Rate 18 Blood Pressure Pulse Oximetry Intake & Output 11/15/18 11/16/18 11/16/18 18:59 06:59 18:59 Intake Total 1337.5 / 1337.5 720 / 720 Output Total 800 / 800 800 / 800 Balance 537.5 / 537.5 -80 / -80 Weight 82 kg Intake: IV 617.5 / 617.5 100 / 100 Maxipime Inj 2,000 MG In NS Inj 100 / 100 100 / 100 100 ML @ 200 mls/hr IV.SIG Q12H [facility] Rx#:[id number] Vancomycin Inj 1,750 MG In NS 517.5 / 517.5 Inj 500 ML @ 250 mls/hr IV.SIG Q24H [facility] Rx#:[id number] Oral 720 / 720 620 / 620 Output: Urine 550 / 550 800 / 800 Urine Amount (Catheter) 250 / 250 Indwelling Urethral Catheter 250 / 250 Other: # Voids 1 Date of Last Bowel Movement 11/14/18 11/14/18 11/14/18 # Bowel Movements 0 Narrative: General: Elderly woman in mild respiratory distress Head: Normal, atraumatic Neck: Supple, no obstruction to air movement in the upper airway. Transmitted wheezes heard. Lungs: Distant breath sounds and Wheezes throughout. Heart: Tachycardia, normal S1-S2, neck veins are not distended Abdomen: Large, soft, no guarding, no peritoneal irritation. No mass. Extremities: 2+ edema right leg and foot. Toes and fingers well perfused. Neuro: Is anxious and depressed. She moves 4 extremities with strength and purpose. - Urinary Catheter Management Indwelling Urethral Catheter Cath placed during this visit: yes, but has since been removed by the nurse Reason for continuing: Decision to DC catheter Insertion date: 11/14/18 Insertion time: 14:00 Removal date: 11/15/18 Removal time: 12:15 Results - Labs CBC & Chem 7: 11/16/18 04:47 11/16/18 04:47 Laboratory Results - last 24 hr 11/15/18 11/15/18 11/16/18 17:41 23:57 04:47 WBC 14.3 H RBC 3.85 L Hgb 10.7 L Hct 33.8 L MCV 87.8 MCH 27.8 MCHC 31.6 L RDW 16.4 Plt Count 226 MPV 8.4 Neut % (Auto) 95.2 H Lymph % (Auto) 1.0 L Gage % (Auto) 3.7 Eos % (Auto) 0.0 Baso % (Auto) 0.1 Neut # (Auto) 13.6 H Lymph # (Auto) 0.1 L Gage # (Auto) 0.5 Eos # (Auto) 0.0 Baso # (Auto) 0.0 WBC Differential . Differential Comment Auto diff final Sodium Potassium Chloride Carbon Dioxide Anion Gap BUN Creatinine Estimated GFR POC Glucose 241 H 202 H Random Glucose Calcium 11/16/18 11/16/18 04:47 12:13 WBC RBC Hgb Hct MCV MCH MCHC RDW Plt Count MPV Neut % (Auto) Lymph % (Auto) Gage % (Auto) Eos % (Auto) Baso % (Auto) Neut # (Auto) Lymph # (Auto) Gage # (Auto) Eos # (Auto) Baso # (Auto) WBC Differential Differential Comment Sodium 142 Potassium 4.2 Chloride 106 Carbon Dioxide 29.6 Anion Gap 6 BUN 35 H Creatinine 0.88 Estimated GFR 63 L POC Glucose 204 H Random Glucose 146 H D Calcium 8.2 L Assessment and Plan - Assessment (1) Acute and chronic respiratory failure ([id number]) Code(s): J96.20 - Acute and chronic respiratory failure, unspecified whether with hypoxia or hypercapnia Status: Acute (2) Community acquired pneumonia Code(s): J18.9 - Pneumonia, unspecified organism Status: Acute (3) Acute exacerbation of chronic obstructive airways disease Code(s): J44.1 - Chronic obstructive pulmonary disease with (acute) exacerbation Status: Acute (4) Shortness of breath at rest Code(s): R06.02 - Shortness of breath Status: Resolved (5) Anxiety Code(s): F41.9 - Anxiety disorder, unspecified Status: Chronic (6) COPD (chronic obstructive pulmonary disease) Code(s): J44.9 - Chronic obstructive pulmonary disease, unspecified Status: Chronic (7) Hypertension Code(s): I10 - Essential (primary) hypertension Status: Chronic (8) Nutrition, metabolism, and development symptoms Code(s): R63.8 - Other symptoms and signs concerning food and fluid intake Status: Acute - Plan 1. Will wean O2 to 5 L N/C and keep sat >89 2. Solumedrol 80 mg IV Q6H and taper in am 3. Continue antibiotic, Zithromax 4. Duoneb nebs q4h 5. Breo 200 Mcg. 1 puff daily 6. CBC BMP ,CXR in am 7. Continue Tylenol 600 mg qid PRN 8. PT evaluation to sit up and for activity. (6) COPD (chronic obstructive pulmonary disease) Qualifiers: COPD type: COPD with acute exacerbation Qualified Code(s): J44.1 - Chronic obstructive pulmonary disease with (acute) exacerbation (7) Hypertension Qualifiers: Hypertension type: essential hypertension Qualified Code(s): I10 - Essential (primary) hypertension
[2018-11-16] MEDS: Montelukast 10 MG Tablet PO SCH (17:31)
[2018-11-16] MEDS: Enoxaparin Inj 40 MG/0.4 ML Syringe SQ SCH (17:31)
[2018-11-16] MEDS: Acetaminophen 325 MG Tablet PO PRN (20:17)
[2018-11-17] MEDS: Insulin NovoLOG Aspart Correctional Sugar Inj SQ SCH ×3 (06:51→17:20)
[2018-11-17] MEDS: MethylPREDNISolone Sod Succinate Inj 40 MG/ML Vial IV.PUSH SCH ×3 (06:51→17:18)
[2018-11-17] MEDS: Senna/Docusate Sodium 8.6/50 MG Tablet PO SCH ×2 (08:56→20:24)
[2018-11-17] MEDS: dilTIAZem CD 180 MG Capsule PO SCH (08:56)
[2018-11-17] MEDS: Azithromycin 250 MG Tablet PO SCH (08:56)
[2018-11-17] MEDS: Insulin Detemir Inj 1,000 UNIT/10 ML Vial SQ SCH ×2 (08:56→20:23)
[2018-11-17] MEDS: ALPRAZolam 0.25 MG Tablet PO SCH ×3 (08:57→22:18)
--- NOTE | 2018-11-17 10:09 | P.PNCC ---
Subjective Subjective Remarks/Hospital Course: History of Present Illness: 73-year-old white female with a history of COPD with baseline of O2 dependence on 3 L, asthma, hypertension presents to the emergency room with 1 week history of worsening shortness of breath despite giving herself nebulizer treatments at home and pumping her oxygen all the way to 7 L. Apparently, patient saw her primary care physician today and was given 2 more nebulizer treatments along with a steroid injection but due to her persistent short of breath she was sent to the emergency room for further evaluation. She reports some mild chills and fever over the past week. She has had a dry cough with no associated chest pain. She reports having traveled on an 8-hour trip recently with further complaints of increased right lower leg swelling. She does not use any pain in the lower extremities. While she was in the emergency room while ambulating on 7 L of oxygen she desatted to 70%.. 11/14: Patient developed sudden worsening in her shortness of breath this morning requiring markedly increased FI 02 and I was asked to see her emergently on the fourth floor. She was in severe bronchospasm with hypoxemia and CO2 retention. Air movement was quite poor and she was transported immediately to the intensive care unit while receiving back to back albuterol treatments. Albuterol was the first bronchodilator available and we watched her carefully for tachycardia. She received a bolus of Solu-Medrol 100 mg and we broadened her antibiotic coverage to include cefepime and vancomycin as well as azithromycin. Pertinent recent history is that she received ultrasound of the lower extremities because of edema in the right leg. The ultrasound was negative. 11/15: Air movement much improved but considerable wheezing persists. She feels much more comfortable. 11/16: Breathing considerably improved but still mildly labored. She has severe diffuse bullous disease in both upper lobes and more moderately in the lower lobes. Her baseline may well be modestly labored. I will narrow her antibiotic spectrum to azithromycin alone and discontinue the cefepime and vancomycin. The lung marcus are clear of acute infiltrates. She will definitely need ongoing outpatient follow-up by the pulmonary medicine service. 11/17: Breathing more comfortably today but had a tough time yesterday. Objective Vital Signs / I&O: Vital Signs 11/16/18 11:00 11/16/18 11:38 11/16/18 11:58 Temperature Pulse Rate 96 H 94 H 93 H Respiratory Rate 23 18 21 Blood Pressure 153/85 H Pulse Oximetry 96 97 11/16/18 12:00 11/16/18 13:00 11/16/18 14:00 Temperature Pulse Rate 93 H 93 H 107 H Respiratory Rate 21 23 27 H Blood Pressure Pulse Oximetry 97 93 L 87 L 11/16/18 14:31 11/16/18 15:00 11/16/18 15:10 Temperature Pulse Rate 102 H 103 H 103 H Respiratory Rate 38 H 30 H 52 H Blood Pressure 163/76 H Pulse Oximetry 96 94 L 11/16/18 16:00 11/16/18 16:21 11/16/18 17:00 Temperature Pulse Rate 102 H 104 H 96 H Respiratory Rate 32 H 24 25 H Blood Pressure 163/76 H Pulse Oximetry 93 L 99 11/16/18 17:18 11/16/18 18:00 11/16/18 19:00 Temperature Pulse Rate 104 H 103 H 98 H Respiratory Rate 77 H 40 H 26 H Blood Pressure 143/74 H Pulse Oximetry 99 87 L 95 11/16/18 20:00 11/16/18 20:08 11/16/18 20:30 Temperature Pulse Rate 101 H 101 H 95 H Respiratory Rate 24 24 Blood Pressure 144/84 H Pulse Oximetry 93 L 94 L 11/16/18 20:31 11/16/18 21:00 11/16/18 21:15 Temperature 98.0 F Pulse Rate 101 H 98 H Respiratory Rate 25 H Blood Pressure 153/81 H Pulse Oximetry 97 93 L 99 11/16/18 22:00 11/16/18 22:07 11/16/18 23:00 Temperature Pulse Rate 96 H 93 H 92 H Respiratory Rate 27 H 31 H 26 H Blood Pressure 146/76 H Pulse Oximetry 99 99 98 11/16/18 23:07 11/16/18 23:42 11/16/18 23:43 Temperature Pulse Rate 94 H 90 Respiratory Rate 23 Blood Pressure 156/87 H Pulse Oximetry 98 98 11/16/18 23:44 11/17/18 00:00 11/17/18 00:07 Temperature 97.6 F Pulse Rate 96 H 96 H Respiratory Rate 26 H 22 Blood Pressure 147/97 H Pulse Oximetry 98 96 94 L 11/17/18 01:00 11/17/18 01:07 11/17/18 02:00 Temperature Pulse Rate 90 89 89 Respiratory Rate 28 H Blood Pressure 138/78 Pulse Oximetry 98 98 97 11/17/18 02:07 11/17/18 03:00 11/17/18 03:07 Temperature Pulse Rate 89 91 H 87 Respiratory Rate 19 Blood Pressure 156/77 H 139/88 Pulse Oximetry 98 96 96 11/17/18 03:43 11/17/18 03:44 11/17/18 04:00 Temperature 97.4 F L Pulse Rate 89 90 Respiratory Rate 24 26 H Blood Pressure Pulse Oximetry 99 98 11/17/18 04:07 11/17/18 05:00 11/17/18 05:07 Temperature Pulse Rate 90 91 H 91 H Respiratory Rate 18 21 Blood Pressure 141/73 H 142/86 H Pulse Oximetry 98 97 96 11/17/18 06:00 11/17/18 06:07 11/17/18 06:36 Temperature Pulse Rate 83 88 84 Respiratory Rate 18 18 29 H Blood Pressure 164/87 H 150/90 H Pulse Oximetry 97 97 98 11/17/18 07:00 11/17/18 07:07 11/17/18 08:00 Temperature 98.1 F Pulse Rate 91 H 92 H 85 Respiratory Rate 22 29 H 20 Blood Pressure 168/86 H Pulse Oximetry 95 95 98 11/17/18 08:07 11/17/18 09:00 Temperature Pulse Rate 86 87 Respiratory Rate 24 22 Blood Pressure 160/78 H Pulse Oximetry 96 96 Intake & Output 11/16/18 11/17/18 11/17/18 18:59 06:59 18:59 Intake Total 480 / 480 120 / 120 Output Total 550 / 550 450 / 450 Balance -70 / -70 -330 / -330 Weight 79.9 kg Intake: Oral 480 / 480 120 / 120 Output: Urine 550 / 550 450 / 450 Other: # Incontinent Voids 1 Date of Last Bowel Movement 11/16/18 11/16/18 11/16/18 # Bowel Movements 1 Result Diagrams: 11/16/18 04:47 11/16/18 04:47 Objective Remarks: Narrative: General: Elderly woman in mild respiratory distress Head: Normal, atraumatic Neck: Supple, no obstruction to air movement in the upper airway. Lungs: Mildly labored respiratory effort. Light wheezing persists. Heart: Regular rhythm, normal S1-S2, no JVD Abdomen: Large, soft, no guarding, no peritoneal irritation, 1.5 cm scab, red right lower quadrant. Clean, dry. Extremities: 2+ edema limited to right leg and foot. Toes and fingers well perfused. Neuro: Remains anxious she moves 4 extremities with strength and purpose. Conversant, length of conversation limited by dyspnea. Assessment and Plan - Problem List (1) Acute and chronic respiratory failure ([id number]) Code(s): J96.20 - Acute and chronic respiratory failure, unspecified whether with hypoxia or hypercapnia Status: Acute (2) Community acquired pneumonia Code(s): J18.9 - Pneumonia, unspecified organism Status: Acute (3) Acute exacerbation of chronic obstructive airways disease Code(s): J44.1 - Chronic obstructive pulmonary disease with (acute) exacerbation Status: Acute (4) Anxiety Code(s): F41.9 - Anxiety disorder, unspecified Status: Chronic - Assessment and Plan Plan: 73-year-old woman with acute on chronic combined hypoxemic and hypercapnic respiratory failure. She is on chronic prednisone 10 mg and multiple bronchodilators at home, including inhalation Xopenex. She developed severe bronchospasm earlier today and required transfer to intensive care unit for a higher level of care. I personally met her on the fourth floor and escorted her to the intensive care unit. She responded modestly to back to back albuterol treatments and increased steroids. On high-dose steroids and azithromycin she is improving. Experienced another exacerbation yesterday, better this morning. Plan: Acute on chronic respiratory failure COPD exacerbation with hypoxia - Transfer to ICU - Increase Solu-Medrol to 80 mg every 6 hours, taper to be directed by pulmonary medicine service - Narrowed antibiotic coverage to azithromycin -High anxiety component, still requiring benzodiazepine sedation. Hypertension -Continue oral Cardizem Anxiety - ativan 0.5 mg IV q6 hrs prn - Xanax p.o. as needed Proph - lovenox - Pepcid Hyperglycemia -Steroid-exacerbated -Initiate sliding scale insulin regimen -Levemir as a basal control medication and control much improved Overall impression: This woman experienced a sudden exacerbation of bronchospasm and respiratory failure. She has improved considerably over the past 24 hours but her baseline function is markedly impaired including chronic home oxygen. The pulmonary medicine service is now adjusting her pulmonary medications and will help with follow-up. She had another exacerbation yesterday but is improved again.
[2018-11-17] MEDS ORDERED: Pharmacy Ordered Lab Info OTHER ONE (15:45)
[2018-11-17] MEDS: Enoxaparin Inj 40 MG/0.4 ML Syringe SQ SCH (17:19)
[2018-11-17] MEDS: Montelukast 10 MG Tablet PO SCH (17:21)
[2018-11-18] MEDS: Insulin NovoLOG Aspart Correctional Sugar Inj SQ SCH ×5 (00:40→23:55)
[2018-11-18] MEDS: MethylPREDNISolone Sod Succinate Inj 40 MG/ML Vial IV.PUSH SCH ×2 (00:40→06:28)
[2018-11-18] MEDS: ALPRAZolam 0.25 MG Tablet PO SCH ×3 (06:29→20:59)
[2018-11-18] MEDS: Senna/Docusate Sodium 8.6/50 MG Tablet PO SCH ×2 (11:20→20:59)
[2018-11-18] MEDS: Azithromycin 250 MG Tablet PO SCH (11:20)
[2018-11-18] MEDS: Insulin Detemir Inj 1,000 UNIT/10 ML Vial SQ SCH ×2 (11:21→20:59)
[2018-11-18] MEDS: dilTIAZem CD 180 MG Capsule PO SCH (11:21)
--- NOTE | 2018-11-18 14:00 | P.PNIM ---
Subjective Interval history: Reports her breathing is better. Did not have any further bronchospasm attacks overnight. Reports that she would rather go home versus going to rehab. No chills and fever overnight. Physical Exam Vital signs: Last Vital Signs Temp 97.3 F L 11/18/18 08:00 Pulse 102 H 11/18/18 12:08 Resp 22 11/18/18 12:08 BP 148/77 H 11/18/18 08:07 Pulse Ox 99 11/18/18 08:40 Intake & Output 11/16/18 11/17/18 11/18/18 11/19/18 06:59 06:59 06:59 06:59 Intake Total 2057.5 / 2057.5 600 / 600 480 / 480 Output Total 1600 / 1600 1000 / 1000 850 / 850 Balance 457.5 / 457.5 -400 / -400 -370 / -370 Weight 82 kg 79.9 kg 79.4 kg Narrative: GENERAL: Well-nourished well-developed pleasant female in no acute respiratory distress with nasal cannula CARDIOVASCULAR: Distant heart sounds with regular rate and rhythm RESPIRATORY: No accessory muscle use. Diminished breath sounds bilaterally GASTROINTESTINAL: Abdomen soft, non-tender, nondistended. Normoactive bowel sounds MUSCULOSKELETAL: Extremities without clubbing, cyanosis, trace to 1+ edema, negative Homans sign bilaterally NEUROLOGICAL: Awake and alert to person place time and situation. No obvious cranial nerve deficits. Motor grossly within normal limits. Five out of 5 muscle strength in the arms and legs. Normal speech. PSYCHIATRIC: Appropriate mood and affect; insight and judgment normal. Urinary Catheter Management Indwelling Urethral Catheter: Cath placed during this visit: yes, but has since been removed by the nurse Insertion date: 11/14/18 Insertion time: 14:00 Removal date: 11/15/18 Removal time: 12:15 Results Labs CBC & Chem 7: 11/16/18 04:47 11/16/18 04:47 Assessment and Plan (1) Acute and chronic respiratory failure ([id number]): Code(s): J96.20 - Acute and chronic respiratory failure, unspecified whether with hypoxia or hypercapnia Status: Acute (2) Community acquired pneumonia: Code(s): J18.9 - Pneumonia, unspecified organism Status: Acute (3) Acute exacerbation of chronic obstructive airways disease: Code(s): J44.1 - Chronic obstructive pulmonary disease with (acute) exacerbation Status: Acute (4) Shortness of breath at rest: Code(s): R06.02 - Shortness of breath Status: Resolved (5) Anxiety: Code(s): F41.9 - Anxiety disorder, unspecified Status: Chronic (6) COPD (chronic obstructive pulmonary disease): Code(s): J44.9 - Chronic obstructive pulmonary disease, unspecified Status: Chronic (7) Hypertension: Code(s): I10 - Essential (primary) hypertension Status: Chronic (8) Nutrition, metabolism, and development symptoms: Code(s): R63.8 - Other symptoms and signs concerning food and fluid intake Status: Acute Plan 73-year-old white female with a history of COPD with asthma with 3 L O2 dependence presents with one week history of worsening shortness of breath Acute on chronic respiratory failure acute COPD with asthma exacerbation with hypoxia and previous hypercapnia- patient currently on 4 L oxygen support, will continue with Xopenex and ipratropium nebulization, steroids, Singulair. Pulmonary service, Dr. Schaefer following. Patient on Zithromax p.o. Patient with anxiety and given benzodiazepines Xanax scheduled. Leukocytosis due to being on chronic steroids however may have a component of early community acquired pneumonia. Hypertension history, resume home Cardizem. Hyperglycemia exacerbated by steroids Blood glucose monitoring while on steroids with sliding scale, Levemir use for basal control. DVT prophylaxisLovenox Deconditioningphysical therapy ; likely will need home health care PT. Transfer out of intensive care unit Progress Note: Quality VTE Deep Vein Thrombosis/Pulmonary Embolism Present on Admission: No _ (1) Acute and chronic respiratory failure ([id number]) Qualifiers: Respiratory failure complication: (2) Community acquired pneumonia Qualifiers: Laterality: Lung location: (3) COPD (chronic obstructive pulmonary disease) Qualifiers: COPD type: COPD with acute exacerbation Chronic bronchitis type: Emphysema type: Qualified Code(s): J44.1 - Chronic obstructive pulmonary disease with ( acute) exacerbation (4) Hypertension Qualifiers: Hypertension type: essential hypertension Qualified Code(s): I10 - Essential (primary) hypertension
[2018-11-18] MEDS: Enoxaparin Inj 40 MG/0.4 ML Syringe SQ SCH (18:41)
[2018-11-18] MEDS: Montelukast 10 MG Tablet PO SCH (18:41)
[2018-11-18] MEDS: MethylPREDNISolone Sod Succinate Inj 125 MG/2 ML Vial IV.PUSH SCH (20:59)
[2018-11-19] MEDS: Acetaminophen 325 MG Tablet PO PRN (02:57)
[2018-11-19] MEDS: Insulin NovoLOG Aspart Correctional Sugar Inj SQ SCH ×3 (05:56→18:11)
[2018-11-19] MEDS: ALPRAZolam 0.25 MG Tablet PO SCH ×3 (05:56→21:30)
[2018-11-19] MEDS: Senna/Docusate Sodium 8.6/50 MG Tablet PO SCH ×2 (08:23→21:30)
[2018-11-19] MEDS: Azithromycin 250 MG Tablet PO SCH (08:23)
[2018-11-19] MEDS: MethylPREDNISolone Sod Succinate Inj 125 MG/2 ML Vial IV.PUSH SCH ×2 (08:23→21:37)
[2018-11-19] MEDS: dilTIAZem CD 180 MG Capsule PO SCH (08:23)
[2018-11-19] MEDS: Insulin Detemir Inj 1,000 UNIT/10 ML Vial SQ SCH ×2 (08:24→21:37)
--- NOTE | 2018-11-19 10:40 | P.PNIM ---
Subjective Interval history: Patient reports she is feeling slightly better today. Respiratory status is stable on nasal cannula. Physical Exam Vital signs: Last Vital Signs Temp 97.7 F 11/19/18 08:07 Pulse 104 H 11/19/18 09:00 Resp 30 H 11/19/18 09:00 BP 149/88 H 11/19/18 09:00 Pulse Ox 96 11/19/18 08:09 Intake & Output 11/17/18 11/18/18 11/19/18 11/20/18 06:59 06:59 06:59 06:59 Intake Total 600 / 600 480 / 480 720 / 720 Output Total 1000 / 1000 850 / 850 3000 / 3000 Balance -400 / -400 -370 / -370 -2280 / -2280 Weight 79.9 kg 79.4 kg 74 kg Narrative: GENERAL: Well-nourished well-developed pleasant female in no acute respiratory distress with nasal cannula CARDIOVASCULAR: Distant heart sounds with regular rate and rhythm RESPIRATORY: No accessory muscle use. Diminished breath sounds bilaterally and faint end expiratory wheezing. GASTROINTESTINAL: Abdomen soft, non-tender, nondistended. Normoactive bowel sounds MUSCULOSKELETAL: Extremities without clubbing, cyanosis, trace to 1+ edema, negative Homans sign bilaterally NEUROLOGICAL: Awake and alert to person place time and situation. No obvious cranial nerve deficits. Motor grossly within normal limits. Five out of 5 muscle strength in the arms and legs. Normal speech. PSYCHIATRIC: Appropriate mood and affect; insight and judgment normal. Urinary Catheter Management Indwelling Urethral Catheter: Cath placed during this visit: yes, but has since been removed by the nurse Insertion date: 11/14/18 Insertion time: 14:00 Removal date: 11/15/18 Removal time: 12:15 Results Labs CBC & Chem 7: 11/16/18 04:47 11/16/18 04:47 Assessment and Plan (1) Acute and chronic respiratory failure ([id number]): Code(s): J96.20 - Acute and chronic respiratory failure, unspecified whether with hypoxia or hypercapnia Status: Acute (2) Community acquired pneumonia: Code(s): J18.9 - Pneumonia, unspecified organism Status: Acute (3) Acute exacerbation of chronic obstructive airways disease: Code(s): J44.1 - Chronic obstructive pulmonary disease with (acute) exacerbation Status: Acute (4) Shortness of breath at rest: Code(s): R06.02 - Shortness of breath Status: Resolved (5) Anxiety: Code(s): F41.9 - Anxiety disorder, unspecified Status: Chronic (6) COPD (chronic obstructive pulmonary disease): Code(s): J44.9 - Chronic obstructive pulmonary disease, unspecified Status: Chronic (7) Hypertension: Code(s): I10 - Essential (primary) hypertension Status: Chronic (8) Nutrition, metabolism, and development symptoms: Code(s): R63.8 - Other symptoms and signs concerning food and fluid intake Status: Acute Plan 73-year-old white female with a history of COPD with asthma with 3 L O2 dependence presents with one week history of worsening shortness of breath Acute on chronic respiratory failure acute COPD with asthma exacerbation with hypoxia and previous hypercapnia- patient currently on 4 L oxygen support, will continue with Xopenex and ipratropium nebulization, steroids, Singulair. Pulmonary service, Dr. Schaefer following. Continue IV Solu-Medrol and wean down as tolerated. Patient on Zithromax p.o. Patient with anxiety and given benzodiazepines Xanax scheduled. Leukocytosis due to being on chronic steroids however may have a component of early community acquired pneumonia. On Zithromax as above. Hypertension history, resume home Cardizem. Hyperglycemia exacerbated by steroids Blood glucose monitoring while on steroids with sliding scale, Levemir use for basal control. DVT prophylaxisLovenox Deconditioningphysical therapy ; likely will need home health care PT. Okay to transfer out of the ICU today. Progress Note: Quality VTE Deep Vein Thrombosis/Pulmonary Embolism Present on Admission: No _ (1) Acute and chronic respiratory failure ([id number]) Qualifiers: Respiratory failure complication: (2) Community acquired pneumonia Qualifiers: Laterality: Lung location: (3) COPD (chronic obstructive pulmonary disease) Qualifiers: COPD type: COPD with acute exacerbation Chronic bronchitis type: Emphysema type: Qualified Code(s): J44.1 - Chronic obstructive pulmonary disease with ( acute) exacerbation (4) Hypertension Qualifiers: Hypertension type: essential hypertension Qualified Code(s): I10 - Essential (primary) hypertension
[2018-11-19] MEDS: Enoxaparin Inj 40 MG/0.4 ML Syringe SQ SCH (17:06)
[2018-11-19] MEDS: Montelukast 10 MG Tablet PO SCH (17:06)
--- NOTE | 2018-11-19 19:22 | P.PN ---
Subjective Interval history: She is better. On O2 3 L. Able to sit up and seems to have less wheezing. Physical Exam Vital signs: Vital Signs 11/18/18 20:00 11/18/18 20:01 11/18/18 20:07 Temperature 97.7 F Pulse Rate 89 89 88 Respiratory Rate 27 H 16 19 Blood Pressure 182/88 H Pulse Oximetry 97 97 11/18/18 20:26 11/18/18 21:00 11/18/18 21:07 Temperature Pulse Rate 90 95 H 89 Respiratory Rate 28 H 23 38 H Blood Pressure 167/91 H 167/90 H Pulse Oximetry 11/18/18 22:00 11/18/18 22:07 11/18/18 23:00 Temperature Pulse Rate 89 84 83 Respiratory Rate 26 H 18 23 Blood Pressure 166/82 H Pulse Oximetry 97 11/18/18 23:07 11/19/18 00:00 11/19/18 00:07 Temperature 97.5 F L Pulse Rate 82 80 83 Respiratory Rate 20 22 22 Blood Pressure 169/80 H 159/72 H Pulse Oximetry 98 11/19/18 01:00 11/19/18 01:07 11/19/18 02:00 Temperature Pulse Rate 79 80 82 Respiratory Rate 20 18 24 Blood Pressure 153/84 H Pulse Oximetry 11/19/18 02:07 11/19/18 03:00 11/19/18 03:07 Temperature Pulse Rate 83 85 95 H Respiratory Rate 23 28 H 41 H Blood Pressure 164/91 H 185/81 H Pulse Oximetry 11/19/18 03:19 11/19/18 04:00 11/19/18 04:13 Temperature 97.6 F Pulse Rate 87 90 90 Respiratory Rate 31 H 25 H 28 H Blood Pressure 168/87 H 164/94 H Pulse Oximetry 98 11/19/18 05:00 11/19/18 05:07 11/19/18 06:00 Temperature Pulse Rate 78 81 82 Respiratory Rate 34 H 35 H 36 H Blood Pressure 147/70 H Pulse Oximetry 11/19/18 06:07 11/19/18 06:22 11/19/18 07:00 Temperature Pulse Rate 80 81 81 Respiratory Rate 31 H 27 H 28 H Blood Pressure 155/100 H 153/72 H Pulse Oximetry 11/19/18 07:07 11/19/18 08:00 11/19/18 08:07 Temperature 97.7 F Pulse Rate 82 85 87 Respiratory Rate 36 H 43 H 18 Blood Pressure 152/78 H 156/85 H Pulse Oximetry 96 98 11/19/18 08:09 11/19/18 09:00 11/19/18 09:07 Temperature Pulse Rate 87 104 H 96 H Respiratory Rate 20 30 H 24 Blood Pressure 149/88 H 149/88 H Pulse Oximetry 96 11/19/18 10:00 11/19/18 10:07 11/19/18 11:00 Temperature Pulse Rate 102 H 102 H 98 H Respiratory Rate 28 H 22 24 Blood Pressure 149/75 H Pulse Oximetry 11/19/18 11:07 11/19/18 11:31 11/19/18 12:00 Temperature Pulse Rate 96 H 82 99 H Respiratory Rate 22 20 35 H Blood Pressure 151/91 H Pulse Oximetry 92 L 11/19/18 12:07 11/19/18 13:00 11/19/18 13:07 Temperature Pulse Rate 96 H 98 H 93 H Respiratory Rate 21 27 H 22 Blood Pressure 159/93 H 178/102 H Pulse Oximetry 11/19/18 13:08 11/19/18 14:00 11/19/18 14:07 Temperature Pulse Rate 95 H 96 H 98 H Respiratory Rate 23 30 H 24 Blood Pressure 164/98 H 173/92 H Pulse Oximetry 92 L 11/19/18 14:11 11/19/18 16:00 Temperature 97.7 F Pulse Rate 99 H 112 H Respiratory Rate 26 H 18 Blood Pressure 174/87 H 158/80 H Pulse Oximetry 92 L 91 L Intake & Output 11/19/18 11/19/18 11/20/18 06:59 18:59 06:59 Intake Total 480 / 480 Output Total 700 / 700 800 / 800 Balance -700 / -700 -320 / -320 Weight 74 kg Intake: Oral 480 / 480 Output: Urine 700 / 700 800 / 800 Other: Date of Last Bowel Movement 11/16/18 11/19/18 # Bowel Movements 1 Narrative: GENERAL: Well-nourished well-developed pleasant female in no acute distress. CARDIOVASCULAR: Distant heart sounds with regular rate and rhythm RESPIRATORY: No accessory muscle use. Diminished breath sounds bilaterally and expiratory wheezing. GASTROINTESTINAL: Abdomen soft, non-tender, nondistended. Normoactive bowel sounds MUSCULOSKELETAL: Extremities without clubbing, cyanosis, trace to 1+ edema. NEUROLOGICAL: Awake and alert to person place time and situation. Motor grossly within normal limits. Normal speech. PSYCHIATRIC: Appropriate mood and affect; insight and judgment normal. - Urinary Catheter Management Indwelling Urethral Catheter Cath placed during this visit: yes, but has since been removed by the nurse Reason for continuing: Decision to DC catheter Insertion date: 11/14/18 Insertion time: 14:00 Removal date: 11/15/18 Removal time: 12:15 Results - Labs CBC & Chem 7: 11/16/18 04:47 11/16/18 04:47 Laboratory Results - last 24 hr 11/18/18 11/18/18 11/19/18 20:24 23:42 05:38 POC Glucose 215 H 175 H 150 H 11/19/18 11/19/18 11:25 17:54 POC Glucose 192 H 198 H Assessment and Plan - Assessment (1) Acute and chronic respiratory failure ([id number]) Code(s): J96.20 - Acute and chronic respiratory failure, unspecified whether with hypoxia or hypercapnia Status: Acute (2) Community acquired pneumonia Code(s): J18.9 - Pneumonia, unspecified organism Status: Acute (3) Acute exacerbation of chronic obstructive airways disease Code(s): J44.1 - Chronic obstructive pulmonary disease with (acute) exacerbation Status: Acute (4) Shortness of breath at rest Code(s): R06.02 - Shortness of breath Status: Resolved (5) Anxiety Code(s): F41.9 - Anxiety disorder, unspecified Status: Chronic (6) COPD (chronic obstructive pulmonary disease) Code(s): J44.9 - Chronic obstructive pulmonary disease, unspecified Status: Chronic (7) Hypertension Code(s): I10 - Essential (primary) hypertension Status: Chronic (8) Nutrition, metabolism, and development symptoms Code(s): R63.8 - Other symptoms and signs concerning food and fluid intake Status: Acute - Plan 1. Will wean O2 to 4 L N/C and keep sat >89 2. Solumedrol 40 mg IV BID and taper in 2 days 3. Continue antibiotic. 4. Duoneb nebs q4h 5. Breo 200 Mcg. 1 puff daily 6. CBC BMP , in am 7. Transfer to tele. 8. PT evaluation to sit up and for activity. (6) COPD (chronic obstructive pulmonary disease) Qualifiers: COPD type: COPD with acute exacerbation Qualified Code(s): J44.1 - Chronic obstructive pulmonary disease with (acute) exacerbation (7) Hypertension Qualifiers: Hypertension type: essential hypertension Qualified Code(s): I10 - Essential (primary) hypertension
[2018-11-20] MEDS: RESP: Levalbuterol 1.25 MG/3 ML Neb (PRN) NEB ×3 (00:45→18:28)
[2018-11-20] MEDS: Insulin NovoLOG Aspart Correctional Sugar Inj SQ SCH ×4 (00:47→17:25)
[2018-11-20] MEDS: Acetaminophen 325 MG Tablet PO PRN (03:52)
[2018-11-20] MEDS: ALPRAZolam 0.25 MG Tablet PO SCH ×3 (06:18→21:10)
[2018-11-20 07:01] LABS: Hematocrit 36.5 % (35.0-46.0); Hemoglobin 11.9 gm/dL (11.6-15.3); Mean Corpuscular HGB Conc 32.5 % (32.0-36.0); Mean Platelet Volume 8.9 fL (7.0-11.0); Platelet Count 206 th/mm3 (150-450); Red Blood Count 4.24 mil/mm3 (4.00-5.30); Red Cell Distribution Width 16.2 % (11.6-17.2); White Blood Count 13.9 th/mm3 (4.0-11.0)
[2018-11-20 07:30] LABS: Anion Gap 7 meq/L (5-15); Blood Urea Nitrogen 21 mg/dL (7-18); Calcium 8.4 mg/dL (8.5-10.1); Carbon Dioxide 35.5 meq/L (21.0-32.0); Chloride 98 meq/L (98-107); Glomerular Filtration Rate Greater Than 89 mL/min (>89); Glucose,Random 233 mg/dL (74-106); Potassium 3.9 meq/L (3.5-5.1); Sodium 140 meq/L (136-145)
[2018-11-20] MEDS: dilTIAZem CD 180 MG Capsule PO SCH (08:22)
[2018-11-20] MEDS: MethylPREDNISolone Sod Succinate Inj 125 MG/2 ML Vial IV.PUSH SCH ×2 (08:22→22:33)
[2018-11-20] MEDS: Azithromycin 250 MG Tablet PO SCH (08:22)
[2018-11-20] MEDS: Senna/Docusate Sodium 8.6/50 MG Tablet PO SCH ×2 (08:23→21:11)
[2018-11-20] MEDS: Insulin Detemir Inj 1,000 UNIT/10 ML Vial SQ SCH ×2 (08:24→21:11)
--- NOTE | 2018-11-20 15:29 | P.PNIM ---
Subjective Interval history: Patient combines of shortness of breath. No other current complaints for the patient. Physical Exam Vital signs: Vital Signs 11/19/18 16:00 11/19/18 20:00 11/19/18 20:25 Temperature 97.7 F 97.2 F L Pulse Rate 112 H 114 H 98 H Respiratory Rate 18 20 18 Blood Pressure 158/80 H 186/107 H Pulse Oximetry 91 L 90 L 92 L 11/20/18 00:00 11/20/18 00:45 11/20/18 03:33 Temperature 97.1 F L Pulse Rate 96 H 87 57 L Respiratory Rate 20 20 16 Blood Pressure 161/96 H Pulse Oximetry 94 L 93 L 94 L 11/20/18 04:00 11/20/18 07:23 11/20/18 08:00 Temperature 98.4 F 97.2 F L Pulse Rate 96 H 92 H 94 H Respiratory Rate 20 16 18 Blood Pressure 156/84 H 148/86 H Pulse Oximetry 94 L 92 L 94 L 11/20/18 11:09 11/20/18 12:00 Temperature 98.1 F Pulse Rate 108 H 104 H Respiratory Rate 20 18 Blood Pressure 144/65 H Pulse Oximetry 92 L Intake & Output 11/19/18 11/20/18 11/20/18 18:59 06:59 18:59 Intake Total 480 / 480 120 / 120 Output Total 800 / 800 1500 / 1500 Balance -320 / -320 -1380 / -1380 Weight 75 kg Intake: Oral 480 / 480 120 / 120 Output: Urine 800 / 800 1500 / 1500 Other: Date of Last Bowel Movement 11/19/18 11/19/18 # Bowel Movements 1 0 Narrative: General patient complains of shortness of breath, she says it is very difficult for her to ambulate. HEENT extraocular movements are intact, clear oropharyngeal mucosa, no JVD Cardiovascular S1-S2 audible, RRR, no murmurs rubs or gallops Respiratory wheezing on auscultation bilaterally Abdomen soft, nontender, nondistended, normal bowel sounds Extremities no edema 2+ distal pulses in bilateral upper and lower extremities Neuro patient can move all 4 extremities, sensation is intact bilaterally - Urinary Catheter Management Indwelling Urethral Catheter Cath placed during this visit: yes, but has since been removed by the nurse Reason for continuing: Decision to DC catheter Insertion date: 11/14/18 Insertion time: 14:00 Removal date: 11/15/18 Removal time: 12:15 Results - Labs CBC & Chem 7: 11/20/18 05:45 11/20/18 05:45 Laboratory Results - last 24 hr 11/19/18 11/19/18 11/20/18 17:54 20:41 00:39 WBC RBC Hgb Hct MCV MCH MCHC RDW Plt Count MPV Sodium Potassium Chloride Carbon Dioxide Anion Gap BUN Creatinine Estimated GFR POC Glucose 198 H 214 H 140 H Random Glucose Calcium 11/20/18 11/20/18 11/20/18 05:45 05:45 05:58 WBC 13.9 H RBC 4.24 Hgb 11.9 Hct 36.5 MCV 86.0 MCH 28.0 MCHC 32.5 RDW 16.2 Plt Count 206 MPV 8.9 Sodium 140 Potassium 3.9 Chloride 98 Carbon Dioxide 35.5 H Anion Gap 7 BUN 21 H Creatinine 0.56 Estimated GFR Greater than 89 POC Glucose 223 H Random Glucose 233 H Calcium 8.4 L 11/20/18 13:01 WBC RBC Hgb Hct MCV MCH MCHC RDW Plt Count MPV Sodium Potassium Chloride Carbon Dioxide Anion Gap BUN Creatinine Estimated GFR POC Glucose 345 H Random Glucose Calcium Assessment and Plan - Assessment (1) Acute and chronic respiratory failure ([id number]) Code(s): J96.20 - Acute and chronic respiratory failure, unspecified whether with hypoxia or hypercapnia Status: Acute (2) Community acquired pneumonia Code(s): J18.9 - Pneumonia, unspecified organism Status: Acute (3) Acute exacerbation of chronic obstructive airways disease Code(s): J44.1 - Chronic obstructive pulmonary disease with (acute) exacerbation Status: Acute (4) Shortness of breath at rest Code(s): R06.02 - Shortness of breath Status: Resolved (5) Anxiety Code(s): F41.9 - Anxiety disorder, unspecified Status: Chronic (6) COPD (chronic obstructive pulmonary disease) Code(s): J44.9 - Chronic obstructive pulmonary disease, unspecified Status: Chronic (7) Hypertension Code(s): I10 - Essential (primary) hypertension Status: Chronic (8) Nutrition, metabolism, and development symptoms Code(s): R63.8 - Other symptoms and signs concerning food and fluid intake Status: Acute - Plan This patient is a 73-year-old female with a diagnosis of COPD, asthma on 3 L of supplemental oxygen, hypertension. The patient was admitted for COPD exacerbation. 1. Acute hypoxic respiratory failure secondary to COPD exacerbation. Patient still wheezing on physical examination. Continue supplemental oxygen. Keep O2 saturations above 89% as per pulmonary recommendations. Currently on 4 L of supplemental oxygen. Continue IV steroids 40 mg IV twice daily and taper in 2 days. Continue montelukast Continue breathing treatments as needed. Continue azithromycin. Pulmonary following. We will follow-up with the recommendations. Continue PT. Leukocytosis likely secondary to steroid use. 2. Hypertension Continue diltiazem, Norvasc added to the patient's blood pressure medication regimen. 3. Hyperglycemia Likely secondary to current steroid use. Will increase the dose of Levemir today. Continue to monitor the patient's blood sugars and adjust the insulin regimen as needed. Her tapering down the dose of steroids and expect the hyperglycemia to improve. Lovenox for DVT prophylaxis (6) COPD (chronic obstructive pulmonary disease) Qualifiers: COPD type: COPD with acute exacerbation Qualified Code(s): J44.1 - Chronic obstructive pulmonary disease with (acute) exacerbation (7) Hypertension Qualifiers: Hypertension type: essential hypertension Qualified Code(s): I10 - Essential (primary) hypertension
[2018-11-20] MEDS: amLODIPine 5 MG Tablet PO SCH (16:19)
[2018-11-20] MEDS: Enoxaparin Inj 40 MG/0.4 ML Syringe SQ SCH (16:21)
[2018-11-20] MEDS: Montelukast 10 MG Tablet PO SCH (17:25)
--- NOTE | 2018-11-20 18:45 | P.PN ---
Subjective Interval history: She is SOB.Remains on O2 3 l. No chest pains. has some wheezing. Physical Exam Vital signs: Vital Signs 11/19/18 20:00 11/19/18 20:25 11/20/18 00:00 Temperature 97.2 F L 97.1 F L Pulse Rate 114 H 98 H 96 H Respiratory Rate 20 18 20 Blood Pressure 186/107 H 161/96 H Pulse Oximetry 90 L 92 L 94 L 11/20/18 00:45 11/20/18 03:33 11/20/18 04:00 Temperature 98.4 F Pulse Rate 87 57 L 96 H Respiratory Rate 20 16 20 Blood Pressure 156/84 H Pulse Oximetry 93 L 94 L 94 L 11/20/18 07:23 11/20/18 08:00 11/20/18 11:09 Temperature 97.2 F L Pulse Rate 92 H 94 H 108 H Respiratory Rate 16 18 20 Blood Pressure 148/86 H Pulse Oximetry 92 L 94 L 11/20/18 12:00 11/20/18 15:19 11/20/18 16:00 Temperature 98.1 F 98 F Pulse Rate 104 H 107 H 81 Respiratory Rate 18 16 18 Blood Pressure 144/65 H 166/84 H Pulse Oximetry 92 L 94 L 11/20/18 18:30 Temperature Pulse Rate 101 H Respiratory Rate 16 Blood Pressure Pulse Oximetry Intake & Output 11/19/18 11/20/18 11/20/18 18:59 06:59 18:59 Intake Total 480 / 480 120 / 120 Output Total 800 / 800 1500 / 1500 Balance -320 / -320 -1380 / -1380 Weight 75 kg Intake: Oral 480 / 480 120 / 120 Output: Urine 800 / 800 1500 / 1500 Other: Date of Last Bowel Movement 11/19/18 11/19/18 # Bowel Movements 1 0 Narrative: GENERAL: Elderly W/F alert and dyspneic SKIN: Warm and dry. HEAD: Normocephalic. EYES: No scleral icterus. No injection or drainage. NECK: Supple, trachea midline. No JVD or lymphadenopathy. CARDIOVASCULAR: Regular rate and rhythm without murmurs, gallops, or rubs. RESPIRATORY: Breath sounds equal bilaterally.Bilateral wheeze. No accessory muscle use. GASTROINTESTINAL: Abdomen soft, non-tender, nondistended. MUSCULOSKELETAL: No cyanosis, but has 1 + edema. BACK: Nontender without obvious deformity. No CVA tenderness. - Urinary Catheter Management Indwelling Urethral Catheter Cath placed during this visit: yes, but has since been removed by the nurse Reason for continuing: Decision to DC catheter Insertion date: 11/14/18 Insertion time: 14:00 Removal date: 11/15/18 Removal time: 12:15 Results - Labs CBC & Chem 7: 11/20/18 05:45 11/20/18 05:45 Laboratory Results - last 24 hr 11/19/18 11/20/18 11/20/18 20:41 00:39 05:45 WBC 13.9 H RBC 4.24 Hgb 11.9 Hct 36.5 MCV 86.0 MCH 28.0 MCHC 32.5 RDW 16.2 Plt Count 206 MPV 8.9 Sodium Potassium Chloride Carbon Dioxide Anion Gap BUN Creatinine Estimated GFR POC Glucose 214 H 140 H Random Glucose Calcium 11/20/18 11/20/18 11/20/18 05:45 05:58 13:01 WBC RBC Hgb Hct MCV MCH MCHC RDW Plt Count MPV Sodium 140 Potassium 3.9 Chloride 98 Carbon Dioxide 35.5 H Anion Gap 7 BUN 21 H Creatinine 0.56 Estimated GFR Greater than 89 POC Glucose 223 H 345 H Random Glucose 233 H Calcium 8.4 L 11/20/18 17:24 WBC RBC Hgb Hct MCV MCH MCHC RDW Plt Count MPV Sodium Potassium Chloride Carbon Dioxide Anion Gap BUN Creatinine Estimated GFR POC Glucose 187 H Random Glucose Calcium Assessment and Plan - Assessment (1) Acute and chronic respiratory failure ([id number]) Code(s): J96.20 - Acute and chronic respiratory failure, unspecified whether with hypoxia or hypercapnia Status: Acute (2) Community acquired pneumonia Code(s): J18.9 - Pneumonia, unspecified organism Status: Acute (3) Acute exacerbation of chronic obstructive airways disease Code(s): J44.1 - Chronic obstructive pulmonary disease with (acute) exacerbation Status: Acute (4) Shortness of breath at rest Code(s): R06.02 - Shortness of breath Status: Resolved (5) Anxiety Code(s): F41.9 - Anxiety disorder, unspecified Status: Chronic (6) COPD (chronic obstructive pulmonary disease) Code(s): J44.9 - Chronic obstructive pulmonary disease, unspecified Status: Chronic (7) Hypertension Code(s): I10 - Essential (primary) hypertension Status: Chronic (8) Nutrition, metabolism, and development symptoms Code(s): R63.8 - Other symptoms and signs concerning food and fluid intake Status: Acute - Plan 1. Will wean O2 to 3 L N/C and keep sat >89 2. Solumedrol 60 mg IV BID 3. Continue antibiotic. 4. Duoneb nebs q4h 5. Breo 200 Mcg. 1 puff daily 6. CXR , in am 7. lasix 20 mg daily 8. PT evaluation to sit up and for activity. (6) COPD (chronic obstructive pulmonary disease) Qualifiers: COPD type: COPD with acute exacerbation Qualified Code(s): J44.1 - Chronic obstructive pulmonary disease with (acute) exacerbation (7) Hypertension Qualifiers: Hypertension type: essential hypertension Qualified Code(s): I10 - Essential (primary) hypertension
--- NOTE | 2018-11-20 19:14 | XR ---
EXAM DATE: 11/20/2018 7:12 PM EST AGE/SEX: 73 years / Female INDICATIONS: Shortness of breath and cough. CLINICAL DATA: This is the patient's subsequent encounter. Patient reports that signs and symptoms h ave been present for 1 week and indicates a pain score of 0/10. MEDICAL/SURGICAL HISTORY: . Chronic obstructive pulmonary disease. Hypertension. Anxiety. Asthm a. Uterine prolapse. . Hysterectomy. Appendectomy. Tonsillectomy. COMPARISON: [facility] [place], CHEST 1V SINGLE AP, 11/14/2018. . FINDINGS: A single AP view of the chest demonstrates the lungs to be symmetrically aerated without evidence of mass, infiltrate or effusion. The cardiomediastinal contours are unremarkable. Osseous structures a re intact. CONCLUSION: Negative for acute process Electronically signed by: Chuck Coffey MD Board Certified Radiologist 11/20/2018 7:12 PM EST
[2018-11-20] MEDS ORDERED: MethylPREDNISolone Sod Succinate Inj 40 MG/ML Vial IV.PUSH ONE (20:00)
[2018-11-21] MEDS: Insulin NovoLOG Aspart Correctional Sugar Inj SQ SCH ×5 (00:01→23:13)
[2018-11-21] MEDS: RESP: Levalbuterol 1.25 MG/3 ML Neb (PRN) NEB (04:51)
[2018-11-21] MEDS: ALPRAZolam 0.25 MG Tablet PO SCH ×3 (05:51→21:12)
[2018-11-21] MEDS: Azithromycin 250 MG Tablet PO SCH (08:27)
[2018-11-21] MEDS: Senna/Docusate Sodium 8.6/50 MG Tablet PO SCH ×2 (08:27→20:41)
[2018-11-21] MEDS: Furosemide 20 MG Tablet PO SCH (08:28)
[2018-11-21] MEDS: dilTIAZem CD 180 MG Capsule PO SCH (08:28)
[2018-11-21] MEDS: Insulin Detemir Inj 1,000 UNIT/10 ML Vial SQ SCH ×2 (08:28→20:44)
[2018-11-21] MEDS: amLODIPine 5 MG Tablet PO SCH (08:28)
[2018-11-21] MEDS: Potassium Chloride 10 MEQ ER Capsule PO SCH (08:28)
[2018-11-21] MEDS: MethylPREDNISolone Sod Succinate Inj 125 MG/2 ML Vial IV.PUSH SCH (08:29)
[2018-11-21] MEDS ORDERED: amLODIPine 5 MG Tablet PO ONE (12:11)
--- NOTE | 2018-11-21 12:13 | P.PNIM ---
Subjective Interval history: Patient complains of some shortness of breath when trying to move around in bed. Otherwise no complaints. The patient says she is looking forward to leaving the hospital. Physical Exam Vital signs: Vital Signs 11/20/18 12:00 11/20/18 15:19 11/20/18 16:00 Temperature 98.1 F 98 F Pulse Rate 104 H 107 H 98 H Respiratory Rate 18 16 18 Blood Pressure 144/65 H 166/84 H Pulse Oximetry 92 L 94 L 11/20/18 18:30 11/20/18 19:58 11/20/18 20:25 Temperature 97.6 F Pulse Rate 101 H 100 H 90 Respiratory Rate 16 20 20 Blood Pressure 161/83 H Pulse Oximetry 95 94 L 11/20/18 23:53 11/20/18 23:55 11/21/18 03:52 Temperature 97.7 F Pulse Rate 87 85 89 Respiratory Rate 18 Blood Pressure 168/79 H Pulse Oximetry 97 11/21/18 04:29 11/21/18 04:51 11/21/18 08:00 Temperature 97.6 F 97.7 F Pulse Rate 97 H 93 H 97 H Respiratory Rate 18 22 18 Blood Pressure 146/85 H 162/83 H Pulse Oximetry 96 92 L 96 11/21/18 08:17 11/21/18 11:03 Temperature Pulse Rate 91 H 114 H Respiratory Rate 18 20 Blood Pressure Pulse Oximetry 97 Intake & Output 11/20/18 11/21/18 11/21/18 18:59 06:59 18:59 Intake Total 480 / 480 Output Total 600 / 600 400 / 400 Balance -120 / -120 -400 / -400 Weight 73.3 kg Intake: Oral 480 / 480 Output: Urine 400 / 400 Urine Amount (Catheter) 600 / 600 purewick 600 / 600 Narrative: General patient complains of shortness of breath, she says it is very difficult for her to ambulate. HEENT extraocular movements are intact, clear oropharyngeal mucosa, no JVD Cardiovascular S1-S2 audible, RRR, no murmurs rubs or gallops Respiratory wheezing on auscultation bilaterally Abdomen soft, nontender, nondistended, normal bowel sounds Extremities patient has some mild swelling of the left foot and bruising after hitting her foot on the bed rail. Neuro patient can move all 4 extremities, sensation is intact bilaterally - Urinary Catheter Management Indwelling Urethral Catheter Cath placed during this visit: yes, but has since been removed by the nurse Reason for continuing: Decision to DC catheter Insertion date: 11/14/18 Insertion time: 14:00 Removal date: 11/15/18 Removal time: 12:15 purewick Cath placed during this visit: no Results - Labs CBC & Chem 7: 11/20/18 05:45 11/20/18 05:45 Laboratory Results - last 24 hr 11/20/18 11/20/18 11/20/18 13:01 17:24 20:01 POC Glucose 345 H 187 H 231 H 11/20/18 11/21/18 23:54 06:02 POC Glucose 241 H 164 H - Imaging Impressions Chest X-Ray 11/20/18 00:00 CONCLUSION: Negative for acute process Assessment and Plan - Assessment (1) Acute and chronic respiratory failure ([id number]) Code(s): J96.20 - Acute and chronic respiratory failure, unspecified whether with hypoxia or hypercapnia Status: Acute (2) Community acquired pneumonia Code(s): J18.9 - Pneumonia, unspecified organism Status: Acute (3) Acute exacerbation of chronic obstructive airways disease Code(s): J44.1 - Chronic obstructive pulmonary disease with (acute) exacerbation Status: Acute (4) Shortness of breath at rest Code(s): R06.02 - Shortness of breath Status: Resolved (5) Anxiety Code(s): F41.9 - Anxiety disorder, unspecified Status: Chronic (6) COPD (chronic obstructive pulmonary disease) Code(s): J44.9 - Chronic obstructive pulmonary disease, unspecified Status: Chronic (7) Hypertension Code(s): I10 - Essential (primary) hypertension Status: Chronic (8) Nutrition, metabolism, and development symptoms Code(s): R63.8 - Other symptoms and signs concerning food and fluid intake Status: Acute - Plan This patient is a 73-year-old female with a diagnosis of COPD, asthma on 3 L of supplemental oxygen, hypertension. The patient was admitted for COPD exacerbation. 1. Acute hypoxic respiratory failure secondary to COPD exacerbation. Patient still wheezing on physical examination, slightly improved since yesterday Continue supplemental oxygen. Keep O2 saturations above 89% as per pulmonary recommendations. Currently on 4 L of supplemental oxygen, uses 3 L of supplemental O2 at home. Continue IV steroids 40 mg IV twice daily and taper in 2 days. Continue montelukast Continue breathing treatments as needed. Continue azithromycin. Pulmonary following. We will follow-up with the recommendations. Continue PT. Leukocytosis likely secondary to steroid use. Patient is very deconditioned. She can move her lower extremities however she is very weak. We will continue physical therapy. The patient will need group home facility placement once she is ready for discharge. I expect the patient be ready for discharge in 1 or 2 days. 2. Hypertension Continue diltiazem, Norvasc dose increased. We will continue to monitor her blood pressure. 3. Hyperglycemia Likely secondary to current steroid use. Will increase the dose of Levemir today. Continue to monitor the patient's blood sugars and adjust the insulin regimen as needed. Her tapering down the dose of steroids and expect the hyperglycemia to improve. Lovenox for DVT prophylaxis (6) COPD (chronic obstructive pulmonary disease) Qualifiers: COPD type: COPD with acute exacerbation Qualified Code(s): J44.1 - Chronic obstructive pulmonary disease with (acute) exacerbation (7) Hypertension Qualifiers: Hypertension type: essential hypertension Qualified Code(s): I10 - Essential (primary) hypertension
[2018-11-21] MEDS: Enoxaparin Inj 40 MG/0.4 ML Syringe SQ SCH (17:14)
[2018-11-21] MEDS: Montelukast 10 MG Tablet PO SCH (17:15)
--- NOTE | 2018-11-21 19:24 | P.PN ---
Subjective Interval history: Remains short of breath but has less wheezing. On oxygen at 3 L nasal cannula. No chest pains of fever. Urine output remains good Physical Exam Vital signs: Vital Signs 11/20/18 19:58 11/20/18 20:25 11/20/18 23:53 Temperature 97.6 F Pulse Rate 100 H 90 87 Respiratory Rate 20 20 Blood Pressure 161/83 H Pulse Oximetry 95 94 L 11/20/18 23:55 11/21/18 03:52 11/21/18 04:29 Temperature 97.7 F 97.6 F Pulse Rate 85 89 97 H Respiratory Rate 18 18 Blood Pressure 168/79 H 146/85 H Pulse Oximetry 97 96 11/21/18 04:51 11/21/18 08:00 11/21/18 08:17 Temperature 97.7 F Pulse Rate 93 H 101 H 91 H Respiratory Rate 22 18 18 Blood Pressure 162/83 H Pulse Oximetry 92 L 96 97 11/21/18 11:03 11/21/18 12:00 11/21/18 16:00 Temperature 97.9 F 98.2 F Pulse Rate 114 H 114 H 106 H Respiratory Rate 20 18 18 Blood Pressure 142/67 H 153/74 H Pulse Oximetry 93 L 93 L 11/21/18 16:54 Temperature Pulse Rate 101 H Respiratory Rate 20 Blood Pressure Pulse Oximetry 92 L Intake & Output 11/21/18 11/21/18 11/22/18 06:59 18:59 06:59 Intake Total 340 / 340 Output Total 400 / 400 800 / 800 Balance -400 / -400 -460 / -460 Weight 73.3 kg Intake: Oral 340 / 340 Output: Urine 400 / 400 800 / 800 Other: # Bowel Movements 1 Narrative: GENERAL: Elderly W/F alert and mildly dyspneic SKIN: Warm and dry. HEAD: Normocephalic. EYES: No scleral icterus. No injection or drainage. NECK: Supple, trachea midline. No JVD or lymphadenopathy. CARDIOVASCULAR: Regular rate and rhythm without murmurs, gallops, or rubs. RESPIRATORY: Distant breath sounds equal bilaterally.Bilateral wheeze. Has accessory muscle use. GASTROINTESTINAL: Abdomen soft, non-tender, nondistended. MUSCULOSKELETAL: No cyanosis, but has 2 + edema. BACK: Nontender without obvious deformity. No CVA tenderness. - Urinary Catheter Management Indwelling Urethral Catheter Cath placed during this visit: yes, but has since been removed by the nurse Reason for continuing: Decision to DC catheter Insertion date: 11/14/18 Insertion time: 14:00 Removal date: 11/15/18 Removal time: 12:15 purewick Cath placed during this visit: no Results - Labs CBC & Chem 7: 11/20/18 05:45 11/20/18 05:45 Laboratory Results - last 24 hr 11/20/18 11/20/18 11/21/18 20:01 23:54 06:02 POC Glucose 231 H 241 H 164 H 11/21/18 11/21/18 12:15 17:15 POC Glucose 306 H 244 H Assessment and Plan - Assessment (1) Acute and chronic respiratory failure ([id number]) Code(s): J96.20 - Acute and chronic respiratory failure, unspecified whether with hypoxia or hypercapnia Status: Acute (2) Community acquired pneumonia Code(s): J18.9 - Pneumonia, unspecified organism Status: Acute (3) Acute exacerbation of chronic obstructive airways disease Code(s): J44.1 - Chronic obstructive pulmonary disease with (acute) exacerbation Status: Acute (4) Shortness of breath at rest Code(s): R06.02 - Shortness of breath Status: Resolved (5) Anxiety Code(s): F41.9 - Anxiety disorder, unspecified Status: Chronic (6) COPD (chronic obstructive pulmonary disease) Code(s): J44.9 - Chronic obstructive pulmonary disease, unspecified Status: Chronic (7) Hypertension Code(s): I10 - Essential (primary) hypertension Status: Chronic (8) Nutrition, metabolism, and development symptoms Code(s): R63.8 - Other symptoms and signs concerning food and fluid intake Status: Acute - Plan 1. Will wean O2 to 3 L N/C and keep sat >89 2. DC Solumedrol 3. Continue antibiotic. 4. Duoneb nebs q4h 5. Breo 200 Mcg. 1 puff daily 6. Add prednisone 10 mg twice daily 7. lasix 20 mg daily and KCl 10 mg daily 8. PT evaluation to sit up and for activity. (6) COPD (chronic obstructive pulmonary disease) Qualifiers: COPD type: COPD with acute exacerbation Qualified Code(s): J44.1 - Chronic obstructive pulmonary disease with (acute) exacerbation (7) Hypertension Qualifiers: Hypertension type: essential hypertension Qualified Code(s): I10 - Essential (primary) hypertension
[2018-11-21] MEDS: predniSONE 10 MG Tablet PO SCH (20:43)
[2018-11-22] MEDS: RESP: Levalbuterol 1.25 MG/3 ML Neb (PRN) NEB ×2 (03:12→14:40)
[2018-11-22] MEDS: ALPRAZolam 0.25 MG Tablet PO SCH ×3 (05:41→22:58)
[2018-11-22] MEDS: Insulin NovoLOG Aspart Correctional Sugar Inj SQ SCH ×3 (05:41→17:48)
[2018-11-22 08:34] LABS: Anion Gap 4 meq/L (5-15); Blood Urea Nitrogen 24 mg/dL (7-18); Calcium 8.1 mg/dL (8.5-10.1); Carbon Dioxide 35.8 meq/L (21.0-32.0); Chloride 102 meq/L (98-107); Glomerular Filtration Rate Greater Than 89 mL/min (>89); Glucose,Random 127 mg/dL (74-106); Potassium 3.8 meq/L (3.5-5.1); Sodium 142 meq/L (136-145)
[2018-11-22] MEDS: predniSONE 10 MG Tablet PO SCH ×2 (10:18→20:32)
[2018-11-22] MEDS: Senna/Docusate Sodium 8.6/50 MG Tablet PO SCH ×3 (10:18→20:33)
[2018-11-22] MEDS: Furosemide 20 MG Tablet PO SCH (10:18)
[2018-11-22] MEDS: Azithromycin 250 MG Tablet PO SCH (10:18)
[2018-11-22] MEDS: dilTIAZem CD 180 MG Capsule PO SCH (10:19)
[2018-11-22] MEDS: amLODIPine 10 MG Tablet PO SCH (10:19)
[2018-11-22] MEDS: Potassium Chloride 10 MEQ ER Capsule PO SCH (10:19)
[2018-11-22] MEDS: Insulin Detemir Inj 1,000 UNIT/10 ML Vial SQ SCH ×2 (11:15→22:58)
--- NOTE | 2018-11-22 16:10 | P.PNIM ---
Subjective Interval history: Patient says she misses her , she is starting to breath better. She is upset because she is unable to ambulate. Physical Exam Vital signs: Vital Signs 11/21/18 16:54 11/21/18 19:53 11/21/18 20:00 Temperature 98 F Pulse Rate 101 H 103 H 107 H Respiratory Rate 20 18 Blood Pressure 168/72 H Pulse Oximetry 92 L 93 L 11/21/18 20:18 11/21/18 23:55 11/21/18 23:59 Temperature 97.7 F Pulse Rate 108 H 101 H 97 H Respiratory Rate 24 17 Blood Pressure 149/85 H Pulse Oximetry 94 L 11/22/18 03:14 11/22/18 04:02 11/22/18 04:40 Temperature 97.4 F L Pulse Rate 94 H 92 H 95 H Respiratory Rate 19 18 Blood Pressure 159/90 H Pulse Oximetry 96 95 11/22/18 07:46 11/22/18 08:00 11/22/18 11:15 Temperature 97.6 F Pulse Rate 105 H 109 H 123 H Respiratory Rate 16 21 18 Blood Pressure 151/91 H Pulse Oximetry 93 L 92 L 11/22/18 13:08 11/22/18 14:40 11/22/18 15:59 Temperature 97.6 F 97.7 F Pulse Rate 122 H 113 H 115 H Respiratory Rate 23 22 18 Blood Pressure 157/81 H 132/71 Pulse Oximetry 92 L 94 L Intake & Output 11/21/18 11/22/18 11/22/18 18:59 06:59 18:59 Intake Total 340 / 340 140 / 140 Output Total 800 / 800 Balance -460 / -460 140 / 140 Intake: Oral 340 / 340 140 / 140 Output: Urine 800 / 800 Other: # Urine Diapers 1 # Bowel Movements 1 0 Narrative: General patient complains of shortness of breath, she says it is very difficult for her to ambulate. Her legs feel weak. HEENT extraocular movements are intact, clear oropharyngeal mucosa, no JVD Cardiovascular S1-S2 audible, RRR, no murmurs rubs or gallops Respiratory CTA b/L Abdomen soft, nontender, nondistended, normal bowel sounds Extremities patient has some mild swelling of the left foot and bruising after hitting her foot on the bed rail improving. Neuro patient can move all 4 extremities, sensation is intact bilaterally - Urinary Catheter Management Indwelling Urethral Catheter Cath placed during this visit: yes, but has since been removed by the nurse Reason for continuing: Decision to DC catheter Insertion date: 11/14/18 Insertion time: 14:00 Removal date: 11/15/18 Removal time: 12:15 purewick Cath placed during this visit: no Results - Labs CBC & Chem 7: 11/20/18 05:45 11/22/18 07:06 Laboratory Results - last 24 hr 11/21/18 11/21/18 11/22/18 17:15 23:07 05:40 Sodium Potassium Chloride Carbon Dioxide Anion Gap BUN Creatinine Estimated GFR POC Glucose 244 H 258 H 132 H Random Glucose Calcium 11/22/18 07:06 Sodium 142 Potassium 3.8 Chloride 102 Carbon Dioxide 35.8 H Anion Gap 4 L BUN 24 H Creatinine 0.64 Estimated GFR Greater than 89 POC Glucose Random Glucose 127 H Calcium 8.1 L Assessment and Plan - Assessment (1) Acute and chronic respiratory failure ([id number]) Code(s): J96.20 - Acute and chronic respiratory failure, unspecified whether with hypoxia or hypercapnia Status: Acute (2) Community acquired pneumonia Code(s): J18.9 - Pneumonia, unspecified organism Status: Acute (3) Acute exacerbation of chronic obstructive airways disease Code(s): J44.1 - Chronic obstructive pulmonary disease with (acute) exacerbation Status: Acute (4) Shortness of breath at rest Code(s): R06.02 - Shortness of breath Status: Resolved (5) Anxiety Code(s): F41.9 - Anxiety disorder, unspecified Status: Chronic (6) COPD (chronic obstructive pulmonary disease) Code(s): J44.9 - Chronic obstructive pulmonary disease, unspecified Status: Chronic (7) Hypertension Code(s): I10 - Essential (primary) hypertension Status: Chronic (8) Nutrition, metabolism, and development symptoms Code(s): R63.8 - Other symptoms and signs concerning food and fluid intake Status: Acute - Plan This patient is a 73-year-old female with a diagnosis of COPD, asthma on 3 L of supplemental oxygen, hypertension. The patient was admitted for COPD exacerbation. 11/22/18 Patient evaluated today. Feeling better. Still on baseline of 3L of oxygen. Pulm following the patient, now switched to Po Prednisone. Continue breathing txs. Will discontinue IV antibiotics. Patient will need discharge to a SNF tomorrow. Case discussed with case management. Likely to be placed by tomorrow. Lisinopril added to blood pressure medication regimen. 1. Acute hypoxic respiratory failure secondary to COPD exacerbation. Patient still wheezing on physical examination, slightly improved since yesterday Continue supplemental oxygen. Keep O2 saturations above 89% as per pulmonary recommendations. Currently on 4 L of supplemental oxygen, uses 3 L of supplemental O2 at home. Continue IV steroids 40 mg IV twice daily and taper in 2 days. Continue montelukast Continue breathing treatments as needed. Continue azithromycin. Pulmonary following. We will follow-up with the recommendations. Continue PT. Leukocytosis likely secondary to steroid use. Patient is very deconditioned. She can move her lower extremities however she is very weak. We will continue physical therapy. The patient will need assisted facility placement once she is ready for discharge. I expect the patient be ready for discharge in 1 or 2 days. 2. Hypertension Continue diltiazem, Norvasc dose increased. We will continue to monitor her blood pressure. 3. Hyperglycemia Likely secondary to current steroid use. Will increase the dose of Levemir today. Continue to monitor the patient's blood sugars and adjust the insulin regimen as needed. Her tapering down the dose of steroids and expect the hyperglycemia to improve. Lovenox for DVT prophylaxis (6) COPD (chronic obstructive pulmonary disease) Qualifiers: COPD type: COPD with acute exacerbation Qualified Code(s): J44.1 - Chronic obstructive pulmonary disease with (acute) exacerbation (7) Hypertension Qualifiers: Hypertension type: essential hypertension Qualified Code(s): I10 - Essential (primary) hypertension
[2018-11-22] MEDS: Lisinopril 5 MG Tablet PO SCH (17:47)
[2018-11-22] MEDS: Montelukast 10 MG Tablet PO SCH (17:47)
[2018-11-22] MEDS: Enoxaparin Inj 40 MG/0.4 ML Syringe SQ SCH (17:47)
--- NOTE | 2018-11-22 18:22 | P.PN ---
Subjective Interval history: She is alert and oriented but depressed. Unable to stand up on her own and wants to be placed in a chair Physical therapy is helping. Needs placement in rehab. Pulmonary status is stable. O2 sats 94 on 3 L of oxygen. Physical Exam Vital signs: Vital Signs 11/21/18 19:53 11/21/18 20:00 11/21/18 20:18 Temperature 98 F Pulse Rate 103 H 107 H 108 H Respiratory Rate 18 24 Blood Pressure 168/72 H Pulse Oximetry 93 L 11/21/18 23:55 11/21/18 23:59 11/22/18 03:14 Temperature 97.7 F Pulse Rate 101 H 97 H 94 H Respiratory Rate 17 19 Blood Pressure 149/85 H Pulse Oximetry 94 L 96 11/22/18 04:02 11/22/18 04:40 11/22/18 07:46 Temperature 97.4 F L Pulse Rate 92 H 95 H 105 H Respiratory Rate 18 16 Blood Pressure 159/90 H Pulse Oximetry 95 93 L 11/22/18 08:00 11/22/18 11:15 11/22/18 12:00 Temperature 97.6 F Pulse Rate 118 H 123 H 98 H Respiratory Rate 21 18 Blood Pressure 151/91 H Pulse Oximetry 92 L 92 L 11/22/18 13:08 11/22/18 14:40 11/22/18 15:59 Temperature 97.6 F 97.7 F Pulse Rate 122 H 113 H 115 H Respiratory Rate 23 22 18 Blood Pressure 157/81 H 132/71 Pulse Oximetry 92 L 94 L 11/22/18 16:00 11/22/18 16:50 Temperature Pulse Rate 121 H 112 H Respiratory Rate 20 Blood Pressure Pulse Oximetry 92 L Intake & Output 11/21/18 11/22/18 11/22/18 18:59 06:59 18:59 Intake Total 340 / 340 140 / 140 Output Total 800 / 800 Balance -460 / -460 140 / 140 Intake: Oral 340 / 340 140 / 140 Output: Urine 800 / 800 Other: # Urine Diapers 1 # Bowel Movements 1 0 Narrative: GENERAL: Elderly W/F alert and not dyspneic SKIN: Warm and dry. HEAD: Normocephalic. EYES: No scleral icterus. No injection or drainage. NECK: Supple, trachea midline. No JVD or lymphadenopathy. CARDIOVASCULAR: Regular rate and rhythm without murmurs, gallops, or rubs. RESPIRATORY: Distant breath sounds and bilateral wheeze. Has accessory muscle use. GASTROINTESTINAL: Abdomen soft, non-tender, nondistended. MUSCULOSKELETAL: No cyanosis, but has 1 + edema. BACK: Nontender without obvious deformity. No CVA tenderness. - Urinary Catheter Management Indwelling Urethral Catheter Cath placed during this visit: yes, but has since been removed by the nurse Reason for continuing: Decision to DC catheter Insertion date: 11/14/18 Insertion time: 14:00 Removal date: 11/15/18 Removal time: 12:15 purewick Cath placed during this visit: no Results - Labs CBC & Chem 7: 11/20/18 05:45 11/22/18 07:06 Laboratory Results - last 24 hr 11/21/18 11/22/18 11/22/18 23:07 05:40 07:06 Sodium 142 Potassium 3.8 Chloride 102 Carbon Dioxide 35.8 H Anion Gap 4 L BUN 24 H Creatinine 0.64 Estimated GFR Greater than 89 POC Glucose 258 H 132 H Random Glucose 127 H Calcium 8.1 L 11/22/18 17:46 Sodium Potassium Chloride Carbon Dioxide Anion Gap BUN Creatinine Estimated GFR POC Glucose 259 H Random Glucose Calcium Assessment and Plan - Assessment (1) Acute and chronic respiratory failure ([id number]) Code(s): J96.20 - Acute and chronic respiratory failure, unspecified whether with hypoxia or hypercapnia Status: Acute (2) Community acquired pneumonia Code(s): J18.9 - Pneumonia, unspecified organism Status: Acute (3) Acute exacerbation of chronic obstructive airways disease Code(s): J44.1 - Chronic obstructive pulmonary disease with (acute) exacerbation Status: Acute (4) Shortness of breath at rest Code(s): R06.02 - Shortness of breath Status: Resolved (5) Anxiety Code(s): F41.9 - Anxiety disorder, unspecified Status: Chronic (6) COPD (chronic obstructive pulmonary disease) Code(s): J44.9 - Chronic obstructive pulmonary disease, unspecified Status: Chronic (7) Hypertension Code(s): I10 - Essential (primary) hypertension Status: Chronic (8) Nutrition, metabolism, and development symptoms Code(s): R63.8 - Other symptoms and signs concerning food and fluid intake Status: Acute - Plan 1. Continue O2 3 L N/C and keep sat >89 2. Up in chair as tolerated 3. Continue antibiotic. 4. Duoneb nebs q4h 5. Breo 200 Mcg. 1 puff daily 6. Continue prednisone 10 mg twice daily 7. lasix 20 mg daily and KCl 10 mg daily 8. PT evaluation to sit up and for activity. (6) COPD (chronic obstructive pulmonary disease) Qualifiers: COPD type: COPD with acute exacerbation Qualified Code(s): J44.1 - Chronic obstructive pulmonary disease with (acute) exacerbation (7) Hypertension Qualifiers: Hypertension type: essential hypertension Qualified Code(s): I10 - Essential (primary) hypertension
[2018-11-23] MEDS: Insulin NovoLOG Aspart Correctional Sugar Inj SQ SCH ×5 (01:22→23:08)
[2018-11-23] MEDS: ALPRAZolam 0.25 MG Tablet PO SCH ×3 (05:35→21:38)
[2018-11-23] MEDS: predniSONE 10 MG Tablet PO SCH ×2 (08:57→21:38)
[2018-11-23] MEDS: dilTIAZem CD 180 MG Capsule PO SCH (09:04)
[2018-11-23] MEDS: Lisinopril 5 MG Tablet PO SCH (09:05)
[2018-11-23] MEDS: Insulin Detemir Inj 1,000 UNIT/10 ML Vial SQ SCH ×2 (09:05→23:08)
[2018-11-23] MEDS: Furosemide 20 MG Tablet PO SCH (09:05)
[2018-11-23] MEDS: Potassium Chloride 10 MEQ ER Capsule PO SCH (09:05)
[2018-11-23] MEDS: amLODIPine 10 MG Tablet PO SCH (09:05)
[2018-11-23] MEDS: Senna/Docusate Sodium 8.6/50 MG Tablet PO SCH ×2 (09:05→21:38)
--- NOTE | 2018-11-23 09:51 | P.DS ---
Date of admission: 11/10/18 16:50 Primary care physician: Mj Leon MD Brief History from admission: 73-year-old white female with a history of COPD with baseline of O2 dependence on 3 L, asthma, hypertension presents to the emergency room with 1 week history of worsening shortness of breath despite giving herself nebulizer treatments at home and pumping her oxygen all the way to 7 L. Patient was subsequently admitted for a COPD exacerbation. DS: Diagnosis - Discharge Diagnosis (1) Acute and chronic respiratory failure ([id number]-hzadakk) Status: Acute (2) Community acquired pneumonia Status: Acute (3) Acute exacerbation of chronic obstructive airways disease Status: Acute (4) Shortness of breath at rest Status: Resolved (5) Anxiety Status: Chronic (6) COPD (chronic obstructive pulmonary disease) Status: Chronic (7) Hypertension Status: Chronic (8) Nutrition, metabolism, and development symptoms Status: Acute DS: Summary Hospital Course: 1. Acute hypoxic respiratory failure secondary to COPD exacerbation. This patient is a 73-year-old female with a diagnosis of COPD, asthma on 3 L of supplemental oxygen, hypertension. The patient presented with complaints of shortness of breath that were progressively getting worse. She was using nearly 7 L of supplemental oxygen to maintain her oxygen saturations. She was admitted and started on IV antibiotics as well as breathing treatments [id number]. IV steroids were initiated for COPD exacerbation. She was titrated back down to her baseline 3 L of supplemental oxygen and her O2 saturation is around 94%. Her symptoms have improved. The patient completed her course of antibiotics. She was tapered down on p.o. steroids. She is currently on 10 mg twice daily. She should continue 10 mg of prednisone twice daily for the next 3 days then 10 mg p.o. daily which is what she was taking prior to admission. During hospitalization she was also being followed by the pulmonary team. She also has a significant amount of weakness in bilateral lower extremities. Currently she is unable to ambulate because she is unsteady on her feet. She has been evaluated by physical therapy and recommendations for the patient are to continue physical therapy at a rehab center. She will be discharged to a [facility] facility today. CT of the chest was done when the patient was admitted which showed findings consistent with COPD as well as a scar in the right apex of the lung, I recommended the patient may repeat CT scan of the chest in 6 months for comparison. 2. Hypertension Continue diltiazem, Norvasc, lisinopril added to the patient's blood pressure medication regimen. She will follow-up with her primary care doctor in 1 week, a renal panel should be ordered to evaluate patient's kidney function. - Time Spent with Patient Total time spent providing and/or coordinating discharge services: Greater than 30 minutes - Quality: VTE Deep Vein Thrombosis/Pulmonary Embolism Present on Admission: No Exam Vital signs: Vital Signs 11/22/18 11:15 11/22/18 12:00 11/22/18 13:08 Temperature 97.6 F Pulse Rate 123 H 98 H 122 H Respiratory Rate 18 23 Blood Pressure 157/81 H Pulse Oximetry 92 L 92 L 11/22/18 14:40 11/22/18 15:59 11/22/18 16:00 Temperature 97.7 F Pulse Rate 113 H 115 H 121 H Respiratory Rate 22 18 Blood Pressure 132/71 Pulse Oximetry 94 L 92 L 11/22/18 16:50 11/22/18 19:00 11/22/18 20:00 Temperature 98.1 F Pulse Rate 112 H 84 109 H Respiratory Rate 20 20 17 Blood Pressure 137/89 Pulse Oximetry 93 L 11/23/18 00:00 11/23/18 03:58 11/23/18 06:00 Temperature 97.6 F 97.1 F L Pulse Rate 102 H 84 82 Respiratory Rate 18 18 Blood Pressure 118/56 L 147/69 H Pulse Oximetry 100 98 11/23/18 08:34 Temperature Pulse Rate 80 Respiratory Rate 18 Blood Pressure Pulse Oximetry 97 Intake & Output 11/22/18 11/23/18 11/23/18 18:59 06:59 18:59 Intake Total 480 / 480 100 / 100 Output Total 400 / 400 600 / 600 Balance 80 / 80 -500 / -500 Weight 74.2 kg Intake: Oral 480 / 480 100 / 100 Output: Urine 400 / 400 600 / 600 Other: # Voids 3 Date of Last Bowel Movement 11/19/18 Narrative: General patient in no acute distress HEENT extraocular movements are intact, clear oropharyngeal mucosa, no JVD Cardiovascular S1-S2 audible, RRR, no murmurs rubs or gallops Respiratory clear to auscultation bilaterally Abdomen soft, nontender, nondistended, normal bowel sounds Extremities no edema 2+ distal pulses in bilateral upper and lower extremities Neuro weakness in bilateral lower extremities. No focal neurological deficits. Results Procedures completed during hospitalization: None Labs on day of discharge: Labs from last 24 hours 11/23/18 11/23/18 11/22/18 05:40 01:20 21:38 POC Glucose 137 H 161 H 202 H 11/22/18 17:46 POC Glucose 259 H - Impressions ITS Impressions Venous Doppler Study 11/10/18 13:27 CONCLUSION: The study is negative for lower extremity deep venous thrombosis. Chest CTA 11/14/18 00:00 CONCLUSION: 1. Right thyroid nodules. 2. COPD and probable scar right apex of the lung and a follow-up is suggested with noncontrast chest CT in 6 months. Chest X-Ray 11/20/18 00:00 CONCLUSION: Negative for acute process Discharge Plan - Discharge Disposition Patient Disposition: 03 Discharge to SNF - Discharge Condition Condition: Stable - Discharge Order Discharge Orders: Discharge Order (Routine); Ordered 11/23/18 Ordered By: Ezio Ley - Physicians Team Primary Care Provider: Mj Leon Attending Provider: Ezio Ley Other Providers: [employer],Insurance ; Kin Short MD ; Franck Gan MD ; [facility],[place]
--- NOTE | 2018-11-23 12:31 | P.PN ---
Subjective Interval history: She is anxious. On O2 3 L. Needs rehab. seems depressed. Physical Exam Vital signs: Vital Signs 11/22/18 13:08 11/22/18 14:40 11/22/18 15:59 Temperature 97.6 F 97.7 F Pulse Rate 122 H 113 H 115 H Respiratory Rate 23 22 18 Blood Pressure 157/81 H 132/71 Pulse Oximetry 92 L 94 L 11/22/18 16:00 11/22/18 16:50 11/22/18 19:00 Temperature Pulse Rate 121 H 112 H 84 Respiratory Rate 20 20 Blood Pressure Pulse Oximetry 92 L 11/22/18 20:00 11/23/18 00:00 11/23/18 03:58 Temperature 98.1 F 97.6 F 97.1 F L Pulse Rate 109 H 102 H 84 Respiratory Rate 17 18 18 Blood Pressure 137/89 118/56 L 147/69 H Pulse Oximetry 93 L 100 98 11/23/18 06:00 11/23/18 08:00 11/23/18 08:34 Temperature Pulse Rate 82 111 H 80 Respiratory Rate 18 Blood Pressure Pulse Oximetry 93 L 97 11/23/18 11:52 11/23/18 12:00 Temperature Pulse Rate 79 103 H Respiratory Rate 18 Blood Pressure Pulse Oximetry 93 L Intake & Output 11/22/18 11/23/18 11/23/18 18:59 06:59 18:59 Intake Total 480 / 480 100 / 100 Output Total 400 / 400 600 / 600 Balance 80 / 80 -500 / -500 Weight 74.2 kg Intake: Oral 480 / 480 100 / 100 Output: Urine 400 / 400 600 / 600 Other: # Voids 3 Date of Last Bowel Movement 11/19/18 11/23/18 Narrative: General Elderly W/F patient in no acute distress HEENT: PERRL, clear oropharyngeal mucosa, no JVD Cardiovascular S1-S2 audible, RRR, no murmurs rubs or gallops Respiratory clear to auscultation bilaterally. Distant breath sounds Abdomen soft, nontender, nondistended, normal bowel sounds Extremities no edema 2+ distal pulses in bilateral upper and lower extremities Neuro weakness in bilateral lower extremities. No focal neurological deficits. - Urinary Catheter Management Indwelling Urethral Catheter Cath placed during this visit: yes, but has since been removed by the nurse Reason for continuing: Decision to DC catheter Insertion date: 11/14/18 Insertion time: 14:00 Removal date: 11/15/18 Removal time: 12:15 purewick Cath placed during this visit: no Results - Labs CBC & Chem 7: 11/20/18 05:45 11/22/18 07:06 Laboratory Results - last 24 hr 11/22/18 11/22/18 11/23/18 17:46 21:38 01:20 POC Glucose 259 H 202 H 161 H 11/23/18 05:40 POC Glucose 137 H - Procedures None Assessment and Plan - Assessment (1) Acute and chronic respiratory failure ([id number]) Code(s): J96.20 - Acute and chronic respiratory failure, unspecified whether with hypoxia or hypercapnia Status: Acute (2) Community acquired pneumonia Code(s): J18.9 - Pneumonia, unspecified organism Status: Acute (3) Acute exacerbation of chronic obstructive airways disease Code(s): J44.1 - Chronic obstructive pulmonary disease with (acute) exacerbation Status: Acute (4) Anxiety Code(s): F41.9 - Anxiety disorder, unspecified Status: Chronic (5) COPD (chronic obstructive pulmonary disease) Code(s): J44.9 - Chronic obstructive pulmonary disease, unspecified Status: Chronic (6) Hypertension Code(s): I10 - Essential (primary) hypertension Status: Chronic (7) Nutrition, metabolism, and development symptoms Code(s): R63.8 - Other symptoms and signs concerning food and fluid intake Status: Acute - Plan 1. Continue O2 3 L N/C and keep sat >90 2. Up in chair as tolerated 3. Continue antibiotic X 3 days 4. Duoneb nebs qid 5. Breo 200 Mcg. 1 puff daily 6. Continue prednisone 10 mg twice daily and taper over 2 weeks 7. lasix 20 mg daily and KCl 10 mg daily 8. PT evaluation to sit up and for activity. 9. To rehab today. (5) COPD (chronic obstructive pulmonary disease) Qualifiers: COPD type: COPD with acute exacerbation Qualified Code(s): J44.1 - Chronic obstructive pulmonary disease with (acute) exacerbation (6) Hypertension Qualifiers: Hypertension type: essential hypertension Qualified Code(s): I10 - Essential (primary) hypertension
[2018-11-23] MEDS: Enoxaparin Inj 40 MG/0.4 ML Syringe SQ SCH (18:15)
[2018-11-23] MEDS ORDERED: Loperamide 2 MG Capsule PO PRN (18:43)
[2018-11-23] MEDS ORDERED: Loperamide 2 MG Capsule PO ONE (18:44)
[2018-11-23] MEDS: Montelukast 10 MG Tablet PO SCH (19:35)
[2018-11-24] MEDS: ALPRAZolam 0.25 MG Tablet PO SCH ×3 (05:03→21:10)
[2018-11-24] MEDS: Insulin NovoLOG Aspart Correctional Sugar Inj SQ SCH ×3 (05:28→17:57)
[2018-11-24] MEDS: Potassium Chloride 10 MEQ ER Capsule PO SCH (08:15)
[2018-11-24] MEDS: Lisinopril 5 MG Tablet PO SCH (08:17)
[2018-11-24] MEDS: amLODIPine 10 MG Tablet PO SCH (08:17)
[2018-11-24] MEDS: predniSONE 10 MG Tablet PO SCH ×2 (08:18→21:10)
[2018-11-24] MEDS: Furosemide 20 MG Tablet PO SCH (08:18)
[2018-11-24] MEDS: Senna/Docusate Sodium 8.6/50 MG Tablet PO SCH ×2 (08:19→21:10)
[2018-11-24] MEDS: Insulin Detemir Inj 1,000 UNIT/10 ML Vial SQ SCH ×2 (08:20→21:10)
[2018-11-24] MEDS: dilTIAZem CD 180 MG Capsule PO SCH (08:22)
--- NOTE | 2018-11-24 10:35 | P.PNIM ---
Subjective Interval history: Patient sitting upright in bed. She is demanding to go to a SNF. Physical Exam Vital signs: Vital Signs 11/23/18 11:52 11/23/18 12:00 11/23/18 16:00 Temperature 97.8 F 97.9 F Pulse Rate 79 104 H 98 H Respiratory Rate 18 18 18 Blood Pressure 109/69 155/94 H Pulse Oximetry 94 L 93 L 11/23/18 16:37 11/23/18 20:00 11/23/18 21:24 Temperature 97.9 F Pulse Rate 87 106 H 81 Respiratory Rate 18 17 16 Blood Pressure 135/64 Pulse Oximetry 95 94 L 11/24/18 00:00 11/24/18 04:00 11/24/18 07:33 Temperature 97.9 F 98.1 F Pulse Rate 92 H 90 93 H Respiratory Rate 18 18 18 Blood Pressure 133/83 120/86 Pulse Oximetry 96 97 95 11/24/18 08:00 Temperature 97.8 F Pulse Rate 93 H Respiratory Rate 20 Blood Pressure 117/76 Pulse Oximetry 95 Intake & Output 11/23/18 11/24/18 11/24/18 18:59 06:59 18:59 Intake Total 340 / 340 120 / 120 Output Total 1400 / 1400 300 / 300 Balance -1060 / -1060 -180 / -180 Weight 70 kg Intake: Oral 340 / 340 120 / 120 Output: Urine 1400 / 1400 300 / 300 Other: # Voids 1 # Urine Diapers 1 Date of Last Bowel Movement 11/23/18 # Bowel Movements 2 Narrative: General patient in no acute distress HEENT extraocular movements are intact, clear oropharyngeal mucosa, no JVD Cardiovascular S1-S2 audible, RRR, no murmurs rubs or gallops Respiratory clear to auscultation bilaterally Abdomen soft, nontender, nondistended, normal bowel sounds Extremities no edema 2+ distal pulses in bilateral upper and lower extremities Neuro weakness in bilateral lower extremities. No focal neurological deficits. - Urinary Catheter Management Indwelling Urethral Catheter Cath placed during this visit: yes, but has since been removed by the nurse Reason for continuing: Decision to DC catheter Insertion date: 11/14/18 Insertion time: 14:00 Removal date: 11/15/18 Removal time: 12:15 purewick Cath placed during this visit: no Results - Labs CBC & Chem 7: 11/20/18 05:45 11/22/18 07:06 Laboratory Results - last 24 hr 11/23/18 11/23/18 11/23/18 12:50 17:55 23:05 POC Glucose 176 H 191 H 173 H 11/24/18 05:01 POC Glucose 150 H - Procedures None Assessment and Plan - Assessment (1) Acute and chronic respiratory failure ([id number]) Code(s): J96.20 - Acute and chronic respiratory failure, unspecified whether with hypoxia or hypercapnia Status: Acute (2) Community acquired pneumonia Code(s): J18.9 - Pneumonia, unspecified organism Status: Acute (3) Acute exacerbation of chronic obstructive airways disease Code(s): J44.1 - Chronic obstructive pulmonary disease with (acute) exacerbation Status: Acute (4) Shortness of breath at rest Code(s): R06.02 - Shortness of breath Status: Resolved (5) Anxiety Code(s): F41.9 - Anxiety disorder, unspecified Status: Chronic (6) COPD (chronic obstructive pulmonary disease) Code(s): J44.9 - Chronic obstructive pulmonary disease, unspecified Status: Chronic (7) Hypertension Code(s): I10 - Essential (primary) hypertension Status: Chronic (8) Nutrition, metabolism, and development symptoms Code(s): R63.8 - Other symptoms and signs concerning food and fluid intake Status: Acute - Plan This patient is a 73-year-old female with a diagnosis of COPD, asthma on 3 L of supplemental oxygen, hypertension. The patient was admitted for COPD exacerbation. 11/23/18 Patient evaluated today. Feeling better. Still on baseline of 3L of oxygen. Patient was discharged yesterday, however awaiting acceptance at a SNF. Discussed with case management today and she will update me in a couple of hours. Patient says if she does not go to a SNF today she is going to go home. Risks of leaving home without rehab discussed with the patient and she understands that she is a high fall risk if she attempts to ambulate alone. Continue breathing txs. Continue po prednisone. Continue BP meds for blood pressure control. 1. Acute hypoxic respiratory failure secondary to COPD exacerbation. Patient still wheezing on physical examination, slightly improved since yesterday Continue supplemental oxygen. Keep O2 saturations above 89% as per pulmonary recommendations. Currently on 4 L of supplemental oxygen, uses 3 L of supplemental O2 at home. Continue IV steroids 40 mg IV twice daily and taper in 2 days. Continue montelukast Continue breathing treatments as needed. Continue azithromycin. Pulmonary following. We will follow-up with the recommendations. Continue PT. Leukocytosis likely secondary to steroid use. Patient is very deconditioned. She can move her lower extremities however she is very weak. We will continue physical therapy. The patient will need assisted facility placement once she is ready for discharge. I expect the patient be ready for discharge in 1 or 2 days. 2. Hypertension Continue diltiazem, Norvasc dose increased. We will continue to monitor her blood pressure. 3. Hyperglycemia Likely secondary to current steroid use. Will increase the dose of Levemir today. Continue to monitor the patient's blood sugars and adjust the insulin regimen as needed. Her tapering down the dose of steroids and expect the hyperglycemia to improve. Lovenox for DVT prophylaxis (6) COPD (chronic obstructive pulmonary disease) Qualifiers: COPD type: COPD with acute exacerbation Qualified Code(s): J44.1 - Chronic obstructive pulmonary disease with (acute) exacerbation (7) Hypertension Qualifiers: Hypertension type: essential hypertension Qualified Code(s): I10 - Essential (primary) hypertension
[2018-11-24] MEDS: Montelukast 10 MG Tablet PO SCH (17:56)
[2018-11-24] MEDS: Enoxaparin Inj 40 MG/0.4 ML Syringe SQ SCH (17:56)
[2018-11-25] MEDS: Insulin NovoLOG Aspart Correctional Sugar Inj SQ SCH ×4 (00:06→17:47)
[2018-11-25] MEDS: ALPRAZolam 0.25 MG Tablet PO SCH ×3 (06:23→21:31)
[2018-11-25] MEDS: Potassium Chloride 10 MEQ ER Capsule PO SCH (08:30)
[2018-11-25] MEDS: predniSONE 10 MG Tablet PO SCH ×2 (08:31→20:18)
[2018-11-25] MEDS: amLODIPine 10 MG Tablet PO SCH (08:31)
[2018-11-25] MEDS: dilTIAZem CD 180 MG Capsule PO SCH (08:31)
[2018-11-25] MEDS: Furosemide 20 MG Tablet PO SCH (08:32)
[2018-11-25] MEDS: Lisinopril 5 MG Tablet PO SCH (08:32)
[2018-11-25] MEDS: Insulin Detemir Inj 1,000 UNIT/10 ML Vial SQ SCH ×2 (08:33→20:18)
[2018-11-25] MEDS: Senna/Docusate Sodium 8.6/50 MG Tablet PO SCH ×2 (08:33→20:19)
--- NOTE | 2018-11-25 10:25 | P.PNIM ---
Subjective Interval history: Patient sitting upright in a chair. Says she is feeling better and stronger today after her arrived to the hospital. Physical Exam Vital signs: Vital Signs 11/24/18 11:33 11/24/18 12:00 11/24/18 15:09 Temperature 98.2 F Pulse Rate 100 H 120 H Respiratory Rate 18 20 Blood Pressure 126/87 Pulse Oximetry 91 L 92 L 11/24/18 16:00 11/24/18 16:01 11/24/18 19:09 Temperature 97.9 F Pulse Rate 118 H 82 68 Respiratory Rate 18 16 16 Blood Pressure 111/84 Pulse Oximetry 95 90 L 11/24/18 20:00 11/25/18 00:00 11/25/18 04:00 Temperature 97.8 F 97.3 F L 97.6 F Pulse Rate 108 H 96 H 95 H Respiratory Rate 22 22 22 Blood Pressure 127/66 126/67 127/74 Pulse Oximetry 92 L 99 96 11/25/18 07:52 11/25/18 08:00 Temperature 97.3 F L Pulse Rate 53 L 102 H Respiratory Rate 18 20 Blood Pressure 124/58 L Pulse Oximetry 100 94 L Intake & Output 11/24/18 11/25/18 11/25/18 18:59 06:59 18:59 Intake Total 0 / 0 Output Total 800 / 800 Balance -800 / -800 Weight 70.2 kg Intake: Oral 0 / 0 Output: Urine 800 / 800 Other: # Voids 7 Date of Last Bowel Movement 11/24/18 # Bowel Movements 4 2 Narrative: General patient in no acute distress HEENT extraocular movements are intact, clear oropharyngeal mucosa, no JVD Cardiovascular S1-S2 audible, RRR, no murmurs rubs or gallops Respiratory clear to auscultation bilaterally Abdomen soft, nontender, nondistended, normal bowel sounds Extremities no edema 2+ distal pulses in bilateral upper and lower extremities Neuro weakness in bilateral lower extremities. No focal neurological deficits. - Urinary Catheter Management Indwelling Urethral Catheter Cath placed during this visit: yes, but has since been removed by the nurse Reason for continuing: Decision to DC catheter Insertion date: 11/14/18 Insertion time: 14:00 Removal date: 11/15/18 Removal time: 12:15 purewick Cath placed during this visit: no Results - Labs CBC & Chem 7: 11/20/18 05:45 01/10/19 07:06 Laboratory Results - last 24 hr 11/24/18 11/24/18 11/25/18 11:46 16:46 00:01 POC Glucose 194 H 198 H 263 H - Procedures None Assessment and Plan - Assessment (1) Acute and chronic respiratory failure ([id number]) Code(s): J96.20 - Acute and chronic respiratory failure, unspecified whether with hypoxia or hypercapnia Status: Acute (2) Community acquired pneumonia Code(s): J18.9 - Pneumonia, unspecified organism Status: Acute (3) Acute exacerbation of chronic obstructive airways disease Code(s): J44.1 - Chronic obstructive pulmonary disease with (acute) exacerbation Status: Acute (4) Shortness of breath at rest Code(s): R06.02 - Shortness of breath Status: Resolved (5) Anxiety Code(s): F41.9 - Anxiety disorder, unspecified Status: Chronic (6) COPD (chronic obstructive pulmonary disease) Code(s): J44.9 - Chronic obstructive pulmonary disease, unspecified Status: Chronic (7) Hypertension Code(s): I10 - Essential (primary) hypertension Status: Chronic (8) Nutrition, metabolism, and development symptoms Code(s): R63.8 - Other symptoms and signs concerning food and fluid intake Status: Acute - Plan This patient is a 73-year-old female with a diagnosis of COPD, asthma on 3 L of supplemental oxygen, hypertension. The patient was admitted for COPD exacerbation. 11/25/18 Patient evaluated today. Feeling better. Still on baseline of 3L of oxygen. No change in plan, patient has been medically cleared for discharge. She is awaiting placement at a SNF in [place]. Case discussed with case management. Continue po prednisone. Continue BP meds for blood pressure control. Lovenox for dvt prophylaxis. 1. Acute hypoxic respiratory failure secondary to COPD exacerbation. Patient still wheezing on physical examination, slightly improved since yesterday Continue supplemental oxygen. Keep O2 saturations above 89% as per pulmonary recommendations. Currently on 4 L of supplemental oxygen, uses 3 L of supplemental O2 at home. Continue IV steroids 40 mg IV twice daily and taper in 2 days. Continue montelukast Continue breathing treatments as needed. Continue azithromycin. Pulmonary following. We will follow-up with the recommendations. Continue PT. Leukocytosis likely secondary to steroid use. Patient is very deconditioned. She can move her lower extremities however she is very weak. We will continue physical therapy. The patient will need intermediate facility placement once she is ready for discharge. I expect the patient be ready for discharge in 1 or 2 days. 2. Hypertension Continue diltiazem, Norvasc dose increased. We will continue to monitor her blood pressure. 3. Hyperglycemia Likely secondary to current steroid use. Will increase the dose of Levemir today. Continue to monitor the patient's blood sugars and adjust the insulin regimen as needed. Her tapering down the dose of steroids and expect the hyperglycemia to improve. Lovenox for DVT prophylaxis (6) COPD (chronic obstructive pulmonary disease) Qualifiers: COPD type: COPD with acute exacerbation Qualified Code(s): J44.1 - Chronic obstructive pulmonary disease with (acute) exacerbation (7) Hypertension Qualifiers: Hypertension type: essential hypertension Qualified Code(s): I10 - Essential (primary) hypertension
[2018-11-25] MEDS: Montelukast 10 MG Tablet PO SCH (17:46)
[2018-11-25] MEDS: Enoxaparin Inj 40 MG/0.4 ML Syringe SQ SCH (17:46)
[2018-11-26] MEDS: Insulin NovoLOG Aspart Correctional Sugar Inj SQ SCH ×4 (00:30→17:08)
[2018-11-26] MEDS: RESP: Levalbuterol 1.25 MG/3 ML Neb (PRN) NEB (01:14)
[2018-11-26] MEDS: ALPRAZolam 0.25 MG Tablet PO SCH ×3 (05:37→22:05)
[2018-11-26] MEDS: Lisinopril 5 MG Tablet PO SCH (09:00)
[2018-11-26] MEDS: Senna/Docusate Sodium 8.6/50 MG Tablet PO SCH ×2 (09:02→20:26)
[2018-11-26] MEDS: Potassium Chloride 10 MEQ ER Capsule PO SCH (09:05)
[2018-11-26] MEDS: Furosemide 20 MG Tablet PO SCH (09:05)
[2018-11-26] MEDS: predniSONE 10 MG Tablet PO SCH ×2 (09:05→20:25)
[2018-11-26] MEDS: Insulin Detemir Inj 1,000 UNIT/10 ML Vial SQ SCH ×2 (09:06→20:27)
[2018-11-26] MEDS: amLODIPine 10 MG Tablet PO SCH (09:06)
[2018-11-26] MEDS: dilTIAZem CD 180 MG Capsule PO SCH (09:37)
--- NOTE | 2018-11-26 15:16 | P.PNIM ---
Subjective Interval history: Patient is frustrated because she wants to leave the hospital. No other complaints from the patient this morning. Physical Exam Vital signs: Vital Signs 11/25/18 15:17 11/25/18 16:00 11/25/18 16:02 Temperature 97.5 F L Pulse Rate 122 H 87 Respiratory Rate 20 18 Blood Pressure 134/65 Pulse Oximetry 94 L 94 L 11/25/18 19:49 11/25/18 19:50 11/25/18 19:51 Temperature Pulse Rate 88 Respiratory Rate 19 Blood Pressure Pulse Oximetry 94 L 94 L 11/25/18 20:00 11/26/18 00:00 11/26/18 01:16 Temperature 97.5 F L Pulse Rate 118 H 108 H 101 H Respiratory Rate 20 21 Blood Pressure 120/59 L Pulse Oximetry 92 L 11/26/18 01:17 11/26/18 03:05 11/26/18 04:00 Temperature 97.8 F Pulse Rate 89 97 H Respiratory Rate 20 Blood Pressure 125/67 Pulse Oximetry 92 L 92 L 11/26/18 08:00 11/26/18 08:13 11/26/18 12:00 Temperature 97.8 F 97.8 F Pulse Rate 105 H 90 108 H Respiratory Rate 20 18 20 Blood Pressure 135/74 159/85 H Pulse Oximetry 92 L 94 L 91 L 11/26/18 12:11 Temperature Pulse Rate 88 Respiratory Rate 18 Blood Pressure Pulse Oximetry Intake & Output 11/25/18 11/26/18 11/26/18 18:59 06:59 18:59 Intake Total 720 / 720 90 / 90 Balance 720 / 720 90 / 90 Weight 69.6 kg Intake: Oral 720 / 720 90 / 90 Other: # Voids 4 # Incontinent Voids 1 Date of Last Bowel Movement 11/24/18 # Bowel Movements 1 0 Narrative: General patient in no acute distress HEENT extraocular movements are intact, clear oropharyngeal mucosa, no JVD Cardiovascular S1-S2 audible, RRR, no murmurs rubs or gallops Respiratory clear to auscultation bilaterally Abdomen soft, nontender, nondistended, normal bowel sounds Extremities no edema 2+ distal pulses in bilateral upper and lower extremities Neuro weakness in bilateral lower extremities. No focal neurological deficits. - Urinary Catheter Management Indwelling Urethral Catheter Cath placed during this visit: yes, but has since been removed by the nurse Reason for continuing: Decision to DC catheter Insertion date: 11/14/18 Insertion time: 14:00 Removal date: 11/15/18 Removal time: 12:15 purewick Cath placed during this visit: no Results - Labs CBC & Chem 7: 11/20/18 05:45 11/22/18 07:06 Laboratory Results - last 24 hr 11/25/18 11/26/18 11/26/18 17:10 00:30 12:04 POC Glucose 261 H 217 H 178 H - Procedures None Assessment and Plan - Assessment (1) Acute and chronic respiratory failure ([id number]) Code(s): J96.20 - Acute and chronic respiratory failure, unspecified whether with hypoxia or hypercapnia Status: Acute (2) Community acquired pneumonia Code(s): J18.9 - Pneumonia, unspecified organism Status: Acute (3) Acute exacerbation of chronic obstructive airways disease Code(s): J44.1 - Chronic obstructive pulmonary disease with (acute) exacerbation Status: Acute (4) Shortness of breath at rest Code(s): R06.02 - Shortness of breath Status: Resolved (5) Anxiety Code(s): F41.9 - Anxiety disorder, unspecified Status: Chronic (6) COPD (chronic obstructive pulmonary disease) Code(s): J44.9 - Chronic obstructive pulmonary disease, unspecified Status: Chronic (7) Hypertension Code(s): I10 - Essential (primary) hypertension Status: Chronic (8) Nutrition, metabolism, and development symptoms Code(s): R63.8 - Other symptoms and signs concerning food and fluid intake Status: Acute - Plan This patient is a 73-year-old female with a diagnosis of COPD, asthma on 3 L of supplemental oxygen, hypertension. The patient was admitted for COPD exacerbation. 11/26/18 Patient evaluated today. Feels good and is wanting to leave the hospital. Still on baseline of 3L of oxygen. No change in plan, patient has been medically cleared for discharge. She is awaiting placement at a SNF. Case discussed with case management. Likely will be discharged in the next 1-2 days. Patient had been refusing PT in the hospital as per case management and PT which has caused a delay in the SNF accepting the patient. Plan discussed with the patient and her participation with PT is important in SNF placement. Continue po prednisone. Continue BP meds for blood pressure control. Lovenox for dvt prophylaxis. 1. Acute hypoxic respiratory failure secondary to COPD exacerbation. Patient still wheezing on physical examination, slightly improved since yesterday Continue supplemental oxygen. Keep O2 saturations above 89% as per pulmonary recommendations. Currently on 4 L of supplemental oxygen, uses 3 L of supplemental O2 at home. Continue IV steroids 40 mg IV twice daily and taper in 2 days. Continue montelukast Continue breathing treatments as needed. Continue azithromycin. Pulmonary following. We will follow-up with the recommendations. Continue PT. Leukocytosis likely secondary to steroid use. Patient is very deconditioned. She can move her lower extremities however she is very weak. We will continue physical therapy. The patient will need fpc facility placement once she is ready for discharge. I expect the patient be ready for discharge in 1 or 2 days. 2. Hypertension Continue diltiazem, Norvasc dose increased. We will continue to monitor her blood pressure. 3. Hyperglycemia Likely secondary to current steroid use. Will increase the dose of Levemir today. Continue to monitor the patient's blood sugars and adjust the insulin regimen as needed. Her tapering down the dose of steroids and expect the hyperglycemia to improve. Lovenox for DVT prophylaxis (6) COPD (chronic obstructive pulmonary disease) Qualifiers: COPD type: COPD with acute exacerbation Qualified Code(s): J44.1 - Chronic obstructive pulmonary disease with (acute) exacerbation (7) Hypertension Qualifiers: Hypertension type: essential hypertension Qualified Code(s): I10 - Essential (primary) hypertension
[2018-11-26] MEDS: Montelukast 10 MG Tablet PO SCH (17:09)
[2018-11-26] MEDS: Enoxaparin Inj 40 MG/0.4 ML Syringe SQ SCH (17:09)
--- NOTE | 2018-11-26 19:05 | P.PN ---
Subjective Interval history: Sitting up in bed and on oxygen at 3 L nasal cannula She will go home today on p.o. meds and nebulized albuterol. She is short of breath with activity but has no cough or wheezing. Still quite weak in both legs. Physical Exam Vital signs: Vital Signs 11/25/18 19:49 11/25/18 19:50 11/25/18 19:51 Temperature Pulse Rate 88 Respiratory Rate 19 Blood Pressure Pulse Oximetry 94 L 94 L 11/25/18 20:00 11/26/18 00:00 11/26/18 01:16 Temperature 97.5 F L Pulse Rate 118 H 108 H 101 H Respiratory Rate 20 21 Blood Pressure 120/59 L Pulse Oximetry 92 L 11/26/18 01:17 11/26/18 03:05 11/26/18 04:00 Temperature 97.8 F Pulse Rate 89 97 H Respiratory Rate 20 Blood Pressure 125/67 Pulse Oximetry 92 L 92 L 11/26/18 08:00 11/26/18 08:13 11/26/18 12:00 Temperature 97.8 F 97.8 F Pulse Rate 105 H 90 125 H Respiratory Rate 20 18 20 Blood Pressure 135/74 159/85 H Pulse Oximetry 92 L 94 L 91 L 11/26/18 12:11 11/26/18 15:46 11/26/18 16:00 Temperature 98.2 F 97.3 F L Pulse Rate 88 73 107 H Respiratory Rate 18 18 18 Blood Pressure 125/96 H 117/56 L Pulse Oximetry 96 92 L 11/26/18 16:22 Temperature Pulse Rate 70 Respiratory Rate 18 Blood Pressure Pulse Oximetry Intake & Output 11/26/18 11/26/18 11/27/18 06:59 18:59 06:59 Intake Total 90 / 90 840 / 840 Output Total 300 / 300 Balance 90 / 90 540 / 540 Weight 69.6 kg 73.5 kg Intake: Oral 90 / 90 840 / 840 Output: Urine 300 / 300 Other: # Voids 1 # Incontinent Voids 1 Date of Last Bowel Movement 11/24/18 # Bowel Movements 0 1 Narrative: General Elderly W/F patient in no acute distress. HEENT: PERRL, clear oropharyngeal mucosa, no JVD Cardiovascular S1-S2 audible, RRR, no murmurs rubs or gallops Respiratory scattered bilateral wheezes with prolonged expirations and distant breath sounds Abdomen soft, nontender, nondistended, normal bowel sounds Extremities no edema 2+ distal pulses in bilateral upper and lower extremities Neuro weakness in bilateral lower extremities. No focal neurological deficits. - Urinary Catheter Management Indwelling Urethral Catheter Cath placed during this visit: yes, but has since been removed by the nurse Reason for continuing: Decision to DC catheter Insertion date: 11/14/18 Insertion time: 14:00 Removal date: 11/15/18 Removal time: 12:15 purewick Cath placed during this visit: no Results - Labs CBC & Chem 7: 11/20/18 05:45 11/22/18 07:06 Laboratory Results - last 24 hr 11/26/18 11/26/18 11/26/18 00:30 12:04 16:46 POC Glucose 217 H 178 H 233 H - Procedures None Assessment and Plan - Assessment (1) Acute and chronic respiratory failure ([id number]) Code(s): J96.20 - Acute and chronic respiratory failure, unspecified whether with hypoxia or hypercapnia Status: Acute (2) Community acquired pneumonia Code(s): J18.9 - Pneumonia, unspecified organism Status: Acute (3) Acute exacerbation of chronic obstructive airways disease Code(s): J44.1 - Chronic obstructive pulmonary disease with (acute) exacerbation Status: Acute (4) Anxiety Code(s): F41.9 - Anxiety disorder, unspecified Status: Chronic (5) COPD (chronic obstructive pulmonary disease) Code(s): J44.9 - Chronic obstructive pulmonary disease, unspecified Status: Chronic (6) Hypertension Code(s): I10 - Essential (primary) hypertension Status: Chronic (7) Nutrition, metabolism, and development symptoms Code(s): R63.8 - Other symptoms and signs concerning food and fluid intake Status: Acute - Plan 1. Continue O2 3 L N/C and keep sat >90 2. Up in the room as tolerated. 3. Discontinue antibiotic 4. Duoneb nebs qid 5. Breo 200 Mcg. 1 puff daily 6. Continue prednisone 10 mg twice daily and taper over 2 weeks 7. lasix 20 mg daily and KCl 10 mg daily 8. PT evaluation to sit up and for activity. 9. Home today. We will follow-up as outpatient in 2-week (5) COPD (chronic obstructive pulmonary disease) Qualifiers: COPD type: COPD with acute exacerbation Qualified Code(s): J44.1 - Chronic obstructive pulmonary disease with (acute) exacerbation (6) Hypertension Qualifiers: Hypertension type: essential hypertension Qualified Code(s): I10 - Essential (primary) hypertension
[2018-11-27] MEDS: Insulin NovoLOG Aspart Correctional Sugar Inj SQ SCH ×4 (00:36→17:47)
[2018-11-27] MEDS: ALPRAZolam 0.25 MG Tablet PO SCH ×2 (06:07→13:45)
[2018-11-27] MEDS: amLODIPine 10 MG Tablet PO SCH (08:43)
[2018-11-27] MEDS: dilTIAZem CD 180 MG Capsule PO SCH ×2 (08:45→14:28)
[2018-11-27] MEDS: Lisinopril 5 MG Tablet PO SCH (08:46)
[2018-11-27] MEDS: Senna/Docusate Sodium 8.6/50 MG Tablet PO SCH (08:47)
[2018-11-27] MEDS: Furosemide 20 MG Tablet PO SCH (08:47)
[2018-11-27] MEDS: Potassium Chloride 10 MEQ ER Capsule PO SCH (08:47)
[2018-11-27] MEDS: Insulin Detemir Inj 1,000 UNIT/10 ML Vial SQ SCH (08:48)
[2018-11-27] MEDS: predniSONE 10 MG Tablet PO SCH (08:48)
[2018-11-27] MEDS ORDERED: Metoprolol Inj 5 MG/5 ML Vial IV.PUSH PRN (16:15)
--- NOTE | 2018-11-27 16:20 | P.DCO ---
Diagnosis (1) Acute and chronic respiratory failure ([id number]): Status: Acute (2) Community acquired pneumonia: Status: Acute (3) Acute exacerbation of chronic obstructive airways disease: Status: Acute (4) Shortness of breath at rest: Status: Resolved (5) Anxiety: Status: Chronic (6) COPD (chronic obstructive pulmonary disease): Status: Chronic (7) Hypertension: Status: Chronic (8) Nutrition, metabolism, and development symptoms: Status: Acute Physical Therapy Order: Evaluate and treat, Improve ambulation and Strength and gait training Home Health Nursing Order: Medical education, Signs/symptoms of disease process, Oxygen administration education, Medication education-adverse effect and Nursing assessment with vital signs Case Management Consult Case Management Consult-Home Health: Yes I have seen patient Andreina Maldonado on 11/27/18. My clinical findings support the need for the requested home health care services because: Limited mobility due to disease progression, Patient has SOB, Deconditioned with increased weakness, Medication compliance is questionable, Limited ability to care for self and High risk of falls I certify that my clinical findings support that this patient is homebound because: Hx COPD - exertion dyspnea/weakness, Unsteady gait/balance, Unsafe to leave home unassisted, Unable to use public transportation and Poor cardiac reserve _ (1) Acute and chronic respiratory failure ([id number]) Qualifiers: Respiratory failure complication: (2) Community acquired pneumonia Qualifiers: Laterality: Lung location: (3) COPD (chronic obstructive pulmonary disease) Qualifiers: COPD type: COPD with acute exacerbation Chronic bronchitis type: Emphysema type: Qualified Code(s): J44.1 - Chronic obstructive pulmonary disease with ( acute) exacerbation (4) Hypertension Qualifiers: Hypertension type: essential hypertension Qualified Code(s): I10 - Essential (primary) hypertension
[2018-11-27] MEDS ORDERED: dilTIAZem 60 MG Tablet PO ONE (17:15)
[2018-11-27] MEDS: Enoxaparin Inj 40 MG/0.4 ML Syringe SQ SCH (17:21)
[2018-11-27] MEDS: Montelukast 10 MG Tablet PO SCH (17:47)
--- NOTE | 2018-11-27 18:19 | P.PNIM ---
Subjective Interval history: Patient seen and examined. is at the bedside. Patient is adamant she be discharged home today. Patient refused her Cardizem this morning due to medication making "her heart beat too slow". Her HR is now running in the 130s-140s. Patient says her breathing has returned to baseline. She denies any chest pain or palpitations. She denies any cough or sputum production. She denies any N/V or abdominal pain. Patient re-evaluated by PT who recommended home with [facility] which is what she and her both want. Physical Exam Vital signs: Vital Signs 11/26/18 20:00 11/26/18 20:17 11/27/18 00:00 Temperature 97.3 F L 97.5 F L Pulse Rate 107 H 97 H 94 H Respiratory Rate 19 17 18 Blood Pressure 124/89 108/49 L Pulse Oximetry 91 L 97 94 L 11/27/18 04:00 11/27/18 08:00 11/27/18 08:11 Temperature 98.1 F 97.5 F L Pulse Rate 95 H 102 H 91 H Respiratory Rate 19 18 18 Blood Pressure 132/79 114/83 Pulse Oximetry 90 L 94 L 11/27/18 12:00 11/27/18 12:13 11/27/18 16:00 Temperature 97.4 F L 98 F Pulse Rate 110 H 82 122 H Respiratory Rate 20 18 20 Blood Pressure 121/72 144/64 H Pulse Oximetry 92 L 92 L 11/27/18 16:16 Temperature Pulse Rate 83 Respiratory Rate 18 Blood Pressure Pulse Oximetry Intake & Output 11/26/18 11/27/18 11/27/18 18:59 06:59 18:59 Intake Total 840 / 840 200 / 200 200 / 200 Output Total 300 / 300 Balance 540 / 540 200 / 200 200 / 200 Weight 73.5 kg 68.9 kg Intake: Oral 840 / 840 200 / 200 200 / 200 Output: Urine 300 / 300 Other: # Voids 1 1 3 Date of Last Bowel Movement 11/24/18 11/25/18 # Bowel Movements 1 1 2 Narrative: GENERAL: WDWN obese female patient, INAD. Awake and alert. is at the bedside. SKIN: Warm and dry. No generalized rash. HEENT: Atraumatic. Normocephalic. Pupils equal and round. No scleral icterus. No injection or drainage. No nasal bleeding or discharge. Mucous membranes pink and moist. NECK: Trachea midline. CARDIOVASCULAR: Tachycardia. No murmur auscultated. RESPIRATORY: No accessory muscle use. Clear to auscultation. Breath sounds equal bilaterally. GASTROINTESTINAL: Abdomen soft, non-tender, nondistended. +BS.. MUSCULOSKELETAL: Extremities without clubbing, cyanosis, or edema. No obvious deformities. NEUROLOGICAL: Awake and alert. No obvious cranial nerve deficits. Motor grossly within normal limits. Able to move all extremities spontaneously. Normal speech. PSYCHIATRIC: Calm and cooperative. Urinary Catheter Management Indwelling Urethral Catheter: Cath placed during this visit: yes, but has since been removed by the nurse Reason for continuing: Decision to DC catheter Insertion date: 11/14/18 Insertion time: 14:00 Removal date: 11/15/18 Removal time: 12:15 purewick: Cath placed during this visit: no Results Labs CBC & Chem 7: 11/20/18 05:45 11/22/18 07:06 Procedures Procedures: None Assessment and Plan (1) Acute and chronic respiratory failure ([id number]): Code(s): J96.20 - Acute and chronic respiratory failure, unspecified whether with hypoxia or hypercapnia Status: Acute (2) Community acquired pneumonia: Code(s): J18.9 - Pneumonia, unspecified organism Status: Acute (3) Acute exacerbation of chronic obstructive airways disease: Code(s): J44.1 - Chronic obstructive pulmonary disease with (acute) exacerbation Status: Acute (4) Shortness of breath at rest: Code(s): R06.02 - Shortness of breath Status: Resolved (5) Anxiety: Code(s): F41.9 - Anxiety disorder, unspecified Status: Chronic 73-year-old female with a diagnosis of COPD, asthma on 3 L of supplemental oxygen, hypertension. The patient was admitted for COPD exacerbation. Acute hypoxic respiratory failure secondary to COPD exacerbation, resolved patient much improved Pulmonology following, cleared for discharge. Continue on po steroid taper x 2 wks. Follow up with Dr. Mendez in two weeks as outpatient Continue supplemental oxygen. Keep O2 saturations above 89% as per pulmonary recommendations. Now on 3L NC which is patients baseline at home. Continue montelukast Continue breathing treatments as needed. Continue PT - patient re-evaluated today and recommendation updated to home with [facility] PT. F2F completed. DW CM. Leukocytosis likely secondary to steroid use. Hypertension Continue diltiazem and Norvasc dose at increased. We will continue to monitor her blood pressure and adjust treatment accordingly Tachycardia HR in the 130-140s, patient refused to take Cardizem dose this am DW Dr. Leon who pushed 5mg of IV Metoprolol at patients bedside. HR improved to below 110. Given Cardizem 60mg x 1 dose po now. Instructed patient to take home dose of Cardizem tomorrow am, patient stated understanding. Patient strongly encouraged to follow up with formation testing operator as outpatient, patient verbalized understanding. Hyperglycemia, suspect secondary to current steroid use will discharge home on Levemir 6u BID. Patient informed she may not require insulin after her steroids are discontinued. Patient denies hx of diabetes but says she has a glucometer at home. Advised patient to follow up with her PCP Dr. Mj Leon closely and will likely need HgbA1c ordered. Lovenox for DVT prophylaxis (6) COPD (chronic obstructive pulmonary disease): Code(s): J44.9 - Chronic obstructive pulmonary disease, unspecified Status: Chronic (7) Hypertension: Code(s): I10 - Essential (primary) hypertension Status: Chronic (8) Nutrition, metabolism, and development symptoms: Code(s): R63.8 - Other symptoms and signs concerning food and fluid intake Status: Acute Progress Note: Quality VTE Deep Vein Thrombosis/Pulmonary Embolism Present on Admission: No _ (1) Acute and chronic respiratory failure ([id number]) Qualifiers: Respiratory failure complication: (2) Community acquired pneumonia Qualifiers: Laterality: Lung location: (3) COPD (chronic obstructive pulmonary disease) Qualifiers: COPD type: COPD with acute exacerbation Chronic bronchitis type: Emphysema type: Qualified Code(s): J44.1 - Chronic obstructive pulmonary disease with ( acute) exacerbation (4) Hypertension Qualifiers: Hypertension type: essential hypertension Qualified Code(s): I10 - Essential (primary) hypertension
== END 2018-11-27 18:37 | disposition home health service (06) | DRG 193 ==
LOC: NEPC 13:19 → NEDA 16:50 → N04 17:59 → N03 11-14 12:32 → N04 11-19 15:27
PROVIDERS: ADMIT Hospitalist; ATTEND Hospitalist
DX: Z79.52 Long term (current) use of systemic steroids; Z87.891 Personal history of nicotine dependence; T38.0X5A Adverse effect of glucocorticoids and synthetic analogues, initial encounter; N81.4 Uterovaginal prolapse, unspecified; Z79.51 Long term (current) use of inhaled steroids; R26.81 Unsteadiness on feet; Z90.49 Acquired absence of other specified parts of digestive tract; Z91.040 Latex allergy status; J96.21 Acute and chronic respiratory failure with hypoxia; E66.3 Overweight; Z99.81 Dependence on supplemental oxygen; M79.89 Other specified soft tissue disorders; I10 Essential (primary) hypertension; J44.1 Chronic obstructive pulmonary disease with (acute) exacerbation; J18.9 Pneumonia, unspecified organism; J96.22 Acute and chronic respiratory failure with hypercapnia; F41.9 Anxiety disorder, unspecified; J98.4 Other disorders of lung; J44.0 Chronic obstructive pulmonary disease with (acute) lower respiratory infection; R00.0 Tachycardia, unspecified; R73.9 Hyperglycemia, unspecified
CPT/HCPCS: 71010; 71045; 71275; 76937; 80048; 80053; 82948; 82962; 83520; 83735; 83880; 84484; 85025; 85027; 87275; 87276; 87641; 87804; 90765; 90767; 90775; 93005; 93971; 94640; 94664; 94665; 96365; 96367; 96375; 97110; 97161; 97530; 99285; J0456; J0692; J0696; J1100; J1650; J1815; J1940; J2060; J2250; J2543; J2920; J2930; J3370; J3475; J7040; J7050; J7506; J7512; Q9967